=== PATIENT | female | born 1945 | race Caucasian/White ===

== ENCOUNTER → 2017-12-21 | Outpatient (CLI) | payer MEDICARE, BC ==
--- NOTE | 2017-12-27 09:08 | MM ---
Reason for exam: screening (asymptomatic). Last mammogram was performed 1 year and 8 months ago. History: Patient is postmenopausal. Physical Findings: A clinical breast exam by your physician is recommended on an annual basis and results should be correlated with mammographic findings. MG 3D Screening Mammo W/Cad Bilateral CC and MLO view(s) were taken. Prior study comparison: April 15, 2016, bilateral MG 3d screening mammo w/cad. April 09, 2015, left breast MG 3d work up w/cad LT. The breast tissue is heterogeneously dense. This may lower the sensitivity of mammography. No suspicious abnormality. No significant changes when compared with prior studies. ASSESSMENT: Negative, BI-RAD 1 RECOMMENDATION: Routine screening mammogram of both breasts in 1 year.
== END | disposition home or self-care (01) ==
LOC: RADMAMWWP 12:03
PROVIDERS: ATTEND Family Medicine
DX: Z12.31 Encounter for screening mammogram for malignant neoplasm of breast (principal)
CPT/HCPCS: 77063; 77067

== ENCOUNTER → 2018-01-27 | Outpatient (CLI) | payer MEDICARE, BC ==
--- NOTE | 2018-01-28 20:53 | MR ---
EXAMINATION TYPE: MR lumbar spine wo con DATE OF EXAM: 01/27/2018 COMPARISON: None HISTORY: 72-year-old female Low back pain TECHNIQUE: Multiplanar, multisequence images of the lumbar spine were acquired. FINDINGS: Vertebral body heights are preserved. However, there are advanced multilevel spondylotic changes. This results in grade 1 anterolisthesis a t T11-T12, T12-L1, and L4-L5. There is grade 1 retrolisthesis at L2-L3, L3-L4, and L5-S1. Sclerotic Modic type III endplate changes towards the left at L4-L5 and mixed Modic type II and type III endplate changes toward the left at L3-L4. The fatty Modic type II endplate change at T12-L1. No suspicious bone marrow replacement. Conus medullaris terminates at the appropriate level. Multilevel ligamentum flavum thickening and hypertrophic facet arthropathy is present. There is a component of mild congenital spinal canal narrowing with AP canal dimension of 1.2 cm. However, superimposed degenerative changes causing multilevel spinal canal stenosis. At T11-T12, grade 1 anterolisthesis with facet arthropathy, ligamentum flavum thickening, and bulging disc contributes to a mild to moderate spinal canal stenosis with abutment and slight flattening of both the dorsal and ventral cord. There is moderate bilateral neuroforaminal stenosis. At T12-L1, facet arthropathy with grade 1 anterolisthesis, ligamentum flavum thickening, and bulging disc contributes to moderate to severe spinal canal stenosis with flattening of the cord, cord volume loss, and increased cord signal at this level. Moderate left and mild to moderate right neuroforamin al stenosis. At L1-L2, ligamentum flavum thickening with hypertrophic facet arthropathy and diffuse bulging disc. This contributes to severe spinal canal stenosis near the level of the conus. No significant neural f oraminal stenosis. At L2-L3, there is facet arthropathy with ligamentum flavum thickening, bulging disc, and grade 1 ret rolisthesis. Changes result in moderate spinal canal stenosis with crowding of the cauda equina nerve roots. There is mild bilateral neural foraminal stenosis. At L3-L4, grade 1 retrolisthesis with hypertrophic facet arthropathy, ligamentum flavum thickening, a nd bulging disc. Changes are causing moderate to severe spinal canal stenosis with moderate left neur oforaminal stenosis. At L4-L5, there is grade 1 anterolisthesis with hypertrophic facet arthropathy, ligamentum flavum thi ckening, and bulging disc. Changes result in severe spinal canal stenosis with moderate left and mild right neural foraminal stenosis. At L5-S1, grade 1 retrolisthesis with facet arthropathy and disc osteophyte complex formation. Tiny p osterior annular fissure. Probable abutment of the traversing right S1 nerve root. No significant spi nal canal stenosis but there is moderate bilateral neural foraminal stenosis. No prevertebral or paravertebral soft tissue abnormality seen. IMPRESSION: 1. Advanced multilevel spondylotic change with grade 1 spondylolistheses from T11 through L1 and then from L2 through S1 levels. 2. Multilevel spinal canal stenoses, moderate to severe at T12-L1 with chronic compressive myelomalac ia of the cord at this level. 3. Severe spinal canal stenosis at L1-L2 near the level of the conus. Additional severe spinal canal stenosis at L4-L5, moderate to severe at L3-L4, and moderate at L2-L3. 4. Variable mild or moderate neuroforaminal stenoses as outlined above.
== END | disposition home or self-care (01) ==
LOC: RADMRIMAIN 11:45
PROVIDERS: ATTEND Family Medicine
DX: M48.061 Spinal stenosis, lumbar region without neurogenic claudication (principal); M48.05 Spinal stenosis, thoracolumbar region; M99.72 Connective tissue and disc stenosis of intervertebral foramina of thoracic region; M99.73 Connective tissue and disc stenosis of intervertebral foramina of lumbar region; M99.74 Connective tissue and disc stenosis of intervertebral foramina of sacral region; M43.15 Spondylolisthesis, thoracolumbar region; M43.17 Spondylolisthesis, lumbosacral region; M47.815 Spondylosis without myelopathy or radiculopathy, thoracolumbar region; M47.817 Spondylosis without myelopathy or radiculopathy, lumbosacral region; G95.89 Other specified diseases of spinal cord
CPT/HCPCS: 72148

== ENCOUNTER → 2018-06-30 | Outpatient (CLI) | payer MEDICARE, BC ==
[2018-06-30 09:22] LABS: Basophils # (A) 0.1 k/uL (0-0.2); Basophils % (A) 1 %; Eosinophils # (A) 0.2 k/uL (0-0.7); Eosinophils % (A) 2 %; HCT 42.3 % (34.0-46.0); HGB 13.2 gm/dL (11.4-16.0); Lymphocytes # (A) 1.6 k/uL (1.0-4.8); Lymphocytes % (A) 20 %; MCH 27.2 pg (25.0-35.0); MCHC 31.2 g/dL (31.0-37.0); Monocytes # (A) 0.4 k/uL (0-1.0); Monocytes % (A) 5 %; Neutrophils # (A) 5.4 k/uL (1.3-7.7); Neutrophils % (A) 68 %; Platelet Count 314 k/uL (150-450); RBC 4.86 m/uL (3.80-5.40); RDW 15.3 % (11.5-15.5); WBC 7.9 k/uL (3.8-10.6)
[2018-06-30 09:34] LABS: Calcium 10.4 mg/dL (8.4-10.2); Potassium 4.3 mmol/L (3.5-5.1)
[2018-06-30 09:35] LABS: INR 0.9 (<1.2); Partial Thromboplastin Time 28.9 sec (22.0-30.0); Prothrombin Time 9.8 sec (9.0-12.0)
--- NOTE | 2018-06-30 09:39 | XR ---
EXAMINATION TYPE: XR chest 2V DATE OF EXAM: 06/30/2018 COMPARISON: Prior chest x-ray for very 13 2013. HISTORY: Presurgical study. TECHNIQUE: Frontal and lateral views of the chest are obtained. FINDINGS: There is chronic parenchymal change without suspicious focal air space opacity, pleural ef fusion, or pneumothorax seen. The cardiac silhouette size is within normal limits. Surgical change c ervical spine is partially imaged. IMPRESSION: Chronic changes without acute pulmonary process. No significant change from prior.
[2018-06-30 10:02] LABS: Appearance,Urine Clear (Clear); Bacteria,Urine Rare /hpf; Bilirubin,Urine Negative (Negative); Blood,Urine Negative (Negative); Color,Urine Light Yellow; Glucose,Urine (UA) Negative (Negative); Ketones,Urine Negative (Negative); Leukocyte Esterase,Urine Moderate (Negative); Nitrite,Urine Negative (Negative); Protein,Urine Negative (Negative); RBC,Urine 1 /hpf (0-5); Specific Gravity,Urine 1.002 (1.001-1.035); Squamous Epithelial Cell,Urine 1 /hpf (0-4); Urobilinogen,Urine <2.0 mg/dL (<2.0); WBC,Urine 11 /hpf (0-5)
== END | disposition home or self-care (01) ==
LOC: LABPAT 08:41
PROVIDERS: ATTEND Orthopaedic Surgery Orthopaedic Surgery of the Spine
DX: Z01.818 Encounter for other preprocedural examination (principal); Z01.812 Encounter for preprocedural laboratory examination; R91.8 Other nonspecific abnormal finding of lung field; M43.16 Spondylolisthesis, lumbar region; Z79.01 Long term (current) use of anticoagulants
CPT/HCPCS: 36415; 71046; 80048; 81001; 85025; 85610; 85730; 93005

== ENCOUNTER → 2018-07-10 | Outpatient (CLI) | payer MEDICARE, BC ==
--- NOTE | 2018-07-10 14:08 | MR ---
EXAMINATION TYPE: MR thoracic spine wo con DATE OF EXAM: 07/10/2018 COMPARISON: MRI lumbar spine January 27, 2018 HISTORY: T12-L1 cord signal change low back pain TECHNIQUE: Multiplanar, multisequence imaging of thoracic spine is performed without contrast FINDINGS: Sagittal T2 counting sequence is suboptimal as does not include entire upper cervical spine . Coronal images show levoconvex scoliotic curvature centered in the upper to midthoracic spine. Aden esponding to prior MRI there is focus of increased T2 hyperintense signal centered near T12-L1 disc s pace with second focus posterior to the superior L1 vertebra. Remainder thoracic spinal cord shows no rmal caliber and signal. Vertebral body heights are fairly well-maintained. There is moderate multile maynor spurring and disc space narrowing. Multilevel posterior disc herniations effacing anterior thecal sac T3-T4 through the T6-T7 levels as well as T8-T9 through the T12-L1 levels. There is overall hete rogeneity of bone marrow signal intensity. There is hemangioma anteriorly at T2 level. There is strai ghtening of spine on sagittal images noted. Review of axial images confirms multilevel posterior disc herniations effacing anterior thecal sac, i n addition there is prominent uncovertebral facet degenerative change and ligamentum flavum hypertrop hy effacing posterior lateral thecal sac at T9-T10, T10-T11, T11-T12 levels bilaterally. No suspiciou s incidental finding in the thorax or upper abdomen is present. IMPRESSION: Focus of abnormal cord signal T12-L1 disc space and second focus superior L1 level redemo nstrated with slight generalized AP diameter narrowing suspicious for focal myelomalacia. No addition al T2 hyperintense focus in the thoracic spinal cord identified. Multilevel moderate to advanced dege nerative changes as detailed above are noted.
== END | disposition home or self-care (01) ==
LOC: RADMRIMAIN 12:47
PROVIDERS: ATTEND Orthopaedic Surgery Orthopaedic Surgery of the Spine
DX: M47.814 Spondylosis without myelopathy or radiculopathy, thoracic region (principal); R93.7 Abnormal findings on diagnostic imaging of other parts of musculoskeletal system; E03.8 Other specified hypothyroidism; I10 Essential (primary) hypertension; Z87.891 Personal history of nicotine dependence
CPT/HCPCS: 72146

== ENCOUNTER → 2018-07-17 | Outpatient (CLI) | payer MEDICARE, BC | END | disposition home or self-care (01) | LOC: LABPAT 14:45 | PROVIDERS: ATTEND Orthopaedic Surgery Orthopaedic Surgery of the Spine | DX: Z01.812 Encounter for preprocedural laboratory examination (principal); M43.16 Spondylolisthesis, lumbar region | CPT/HCPCS: 87070 ==

== ENCOUNTER 2018-07-25 05:57 | Inpatient (IN) | payer MEDICARE, BC ==
[~2018-07-25 05:57] MED LIST: BACITRACIN 50,000 UNIT, POLYMYXIN B 500,000 UNIT in SODIUM CHLORIDE 0.9% IRRIGATIO 1,00... IRRIGATION ONE; ceFAZolin IN SWFI 2 GM/20 ML SYRINGE IVP ONE
[2018-07-25] MEDS ORDERED: DEXAMETHASONE SOD PHOSPHATE 10 MG/ML 1 ML VIAL IV ONE (05:59)
[2018-07-25] MEDS ORDERED: MIDAZOLAM (PF) 2 MG/2 ML VIAL IV PRN (05:59)
[2018-07-25] MEDS ORDERED: LIDOCAINE 1% 20 ML VIAL (10MG/ML) FOR IV START INTRADERMA PRN (05:59)
[2018-07-25] MEDS ORDERED: SCOPOLAMINE 1.5MG/72HR PATCH TRANSDERM ONE (05:59)
[2018-07-25] MEDS ORDERED: ONDANSETRON 4 MG/2 ML VIAL IVP ONE (05:59)
[2018-07-25] MEDS: LACTATED RINGERS 1,000 ML IV SCH (06:39)
[2018-07-25] MEDS ORDERED: ePHEDrine SULFATE/0.9% NACL/PF 50 MG/5 ML SYRINGE IV ONE (07:27)
[2018-07-25] MEDS ORDERED: MIDAZOLAM 2 MG/2 ML VIAL ONE (07:27)
[2018-07-25] MEDS ORDERED: ROCURONIUM BROMIDE 10 MG/ML 10 ML VIAL IV ONE (07:27)
[2018-07-25] MEDS ORDERED: LIDOCAINE 1% INJ 10MG/ML (20 ML MDV) ONE (07:27)
[2018-07-25] MEDS ORDERED: SUCCINYLCHOLINE CHLORIDE 100 MG/5 ML SYR IV ONE (07:27)
[2018-07-25] MEDS ORDERED: GLYCOPYRROLATE 0.2 MG/ML 2 ML VIAL ONE (07:27)
[2018-07-25] MEDS ORDERED: PROPOFOL 10 MG/ML 20 ML VIAL IV ONE (07:27)
[2018-07-25] MEDS ORDERED: NEOSTIGMINE 1 MG/ML 10 ML VIAL ONE (07:27)
[2018-07-25] MEDS ORDERED: PHENYLEPHRINE-0.9% NACL SYG 1 MG/10 ML SYRINGE ONE (07:27)
[2018-07-25] MEDS ORDERED: HEPARIN SODIUM,PORCINE 10,000 UNIT/ML 1 ML VIAL ONE (07:27)
[2018-07-25] MEDS ORDERED: fentaNYL (PF) 50 MCG/ML 2 ML AMP ONE (07:27)
[2018-07-25] MEDS ORDERED: SODIUM CHLORIDE 0.9% IRRIG 1,000 ML BTL IRRIGATION ONE (07:27)
[2018-07-25] MEDS ORDERED: HYDROmorphone (PF) 1 MG/ML ONE (07:27)
[2018-07-25] MEDS ORDERED: LIDOCAINE 0.5%-EPI 1:200,000 50 ML VIAL SQ ONE (08:27)
[2018-07-25] MEDS ORDERED: LACTATED RINGERS 1,000 ML IV ONE ×5 (08:35→14:52)
--- NOTE | 2018-07-25 12:56 | XR ---
EXAM TYPE: LUMBAR SPINE X RAY SERIES COMPARISON: NONE HISTORY: Intraoperative image TECHNIQUE: One view submitted. FINDINGS: Single intraoperative images demonstrates surgical change. IMPRESSION: 1. Intraoperative image
--- NOTE | 2018-07-25 12:59 | FL ---
EXAMINATION TYPE: FL guidance operating room DATE OF EXAM: 07/25/2018 HISTORY: Flouroscopy time 1 minute and 41 seconds of fluoroscopy provided. IMPRESSION: 1. Fluoroscopy time.
[2018-07-25] MEDS ORDERED: BACITRACIN 50,000 UNIT, POLYMYXIN B 500,000 UNIT in SODIUM CHLORIDE 0.9% IRRIGATIO 1,00... IRRIGATION ONE (13:00)
[2018-07-25] MEDS ORDERED: BENZOCAINE/MENTHOL LOZENG 1 EACH LOZENGE MUCOUS MEM PRN (13:14)
[2018-07-25] MEDS ORDERED: HYDROcodone/APAP 5-325MG 1 EACH TAB PO PRN (13:14)
[2018-07-25] MEDS ORDERED: ONDANSETRON 4 MG/2 ML VIAL IVP PRN (13:14)
[2018-07-25] MEDS ORDERED: MAGNESIUM HYDROXIDE 2,400 MG/10 ML CUP PO PRN (13:14)
--- NOTE | 2018-07-25 13:30 | P.OP ---
Date of Procedure: 07/25/18 Preoperative Diagnosis: Severe spinal stenosis L3 4 L4 5 L5-S1, spondylolisthesis L3 4 L4 5 L5-S1, lower extremity weakness, lower extremity radiculopathy, degenerative disc disease, , degenerative scoliosis, facet arthrosis, severe spinal stenosis T12- L1, L2 1 L2, thoracic myelomalacia, thoracic cord myelopathy, Postoperative Diagnosis: Severe spinal stenosis L3 4 L4 5 L5-S1, spondylolisthesis L3 4 L4 5 L5-S1, lower extremity weakness, lower extremity radiculopathy, degenerative disc disease, , degenerative scoliosis, facet arthrosis, severe spinal stenosis T12- L1, L2 1 L2, thoracic myelomalacia, thoracic cord myelopathy, Anesthesia: GETA Pathology: none sent Condition: stable Disposition: PACU Description of Procedure: DESCRIPTION OF PROCEDURE(S): BRIEF OPERATIVE NOTE Preoperative Diagnosis: Severe spinal stenosis L3 4 L4 5 L5-S1, spondylolisthesis L3 4 L4 5 L5-S1, lower extremity weakness, lower extremity radiculopathy, degenerative disc disease, , degenerative scoliosis , facet arthrosis, severe spinal stenosis T12-L1, L1 L2, thoracic myelomalacia, thoracic cord myelopathy, Postoperative Diagnosis:S evere spinal stenosis L3 4 L4 5 L5-S1, spondylolisthesis L3 4 L4 5 L5-S1, lower extremity weakness, lower extremity radiculopathy, degenerative disc disease, , degenerative scoliosis , facet arthrosis, severe spinal stenosis T12-L1, L1 L2, thoracic myelomalacia, thoracic cord myelopathy, Procedure: Laminectomy and decompression L 34, L4 5, L5-S1 Through a separate incision we performed a laminectomy and decompression T12-L1 and L1-L2 Minimally invasive Posterior lateral decompression and facet fusion L3 4 L4 5 L5-S1 Minimally invasive Transforaminal lumbar interbody fusion for a 360 fusion L4 5 Discectomy for decompression L3 4 L4 5 L5-S1 Placement of interbody graft L4 5 Local autogenous bone grafting Harvesting of bone marrow aspirate via the pedicles of L3 Use of Cell Saver Use of bone graft extenders Surgeon: Dr. Gomez Cashier Credit: Nestor STOUT who is present throughout the entire the case persistence during positioning, dissection, exposure, visualization, and all crucial elements of the case as well as closure. Anesthesia: General anesthesia Estimated blood loss: Approximately 400 mL with some given back through Cell Saver Complications: None apparent Components implanted: K2M minimally invasive [place] pedicle screw system with use of 6.5 x 45 mm and 40 mm screws with 2 rods and a Porum interbody cage with 1 Osteo amp sponge and DBX bone fibers to supplement the local autogenous and bone marrow aspirate graft Disposition: To recovery room in good stable condition. OPERATIVE INDICATIONS The patient has had long-standing issues in their lower back and lower extremities. She has been having severe debility and significant pain causing her great trouble trying to ambulate mobilize or perform any activities. She does not have severe spinal stenosis L3 4 L4 5 L5-S1 with degenerative scoliosis and degenerative spondylolisthesis lower extremity radiculopathy and weakness. She was also found have spinal cord changes with myelopathy at T12- L1 and L1-L2 with severe stenosis at T12-L1 and L1-L2. The patient has been through conservative treatment. She is not having any prolonged benefit despite aggressive conservative treatment and prolonged conservative care. We discussed various treatment options including surgery, and the patient wishes to proceed with surgery We discussed the risk, patient's alternatives and benefits of surgery including but not limited to, risk of bleeding risk of infection, risk of need for further surgery, risk of decreased, loss of motion, muscle function, malunion nonunion, hardware failure, nerve damage, paralysis, heart attack, blindness and . OPERATIVE SUMMARY After discussing all the risks, patient alternatives and benefits at length, the patient elected to proceed with surgical intervention, signed informed consent, and presented for their procedure. The patient was seen and examined in the preoperative holding area and the surgical site was marked. The patient was given antibiotics and brought to the operating room. The patient was sedated and intubated by anesthesia in standard fashion. The patient was positioned on to the operating room table in a prone position on the appropriate frame which was well-padded and well molded. We were careful to pad any bony prominences and pressure points. We were careful to maintain the patient's cervical spine and good neutral alignment and position throughout. The patient was prepped and draped in a normal standard fashion. An appropriate timeout and keystone protocol performed. We were able to proceed with the surgery. The local wound area was infiltrated with local anesthetic. I was able utilize C-arm guidance to establish appropriate position over the pedicles bilaterally at the appropriate levels from L3 to S1. With the appropriate levels confirmed was able to make small stab incisions over the appropriate pedicle sites bilaterally. Utilizing C-arm in his house able to establish a Jamshidi needle over the lateral aspect of the pedicle and advanced the trocar into the pedicle being careful not to breech superiorly inferiorly medially or laterally. Position was confirmed regularly with AP and lateral images on C-arm. I was able to establish the trocar into the pedicle appropriately into the posterior aspect of the vertebral body bilaterally at the appropriate levels from L3 to S1. This was done at each of the pedicle positions and each of the vertebrae. I was able place the guidewire into the trocar and into the vertebral body appropriately under C-arm guidance. Dissection was taken down over the wire to the appropriate starting position for the screw placed. The appropriate length screw of 45 mm and 40 mm was chosen, threaded over the guidewire and screwed appropriately into the pedicle and vertebral body under C-arm guidance in excellent alignment and position with good bony purchase. This is done at each of the screw sites at the appropriate levels from L3 to S1 bilaterally. With the screws intact I extended the incision to connect the screw hole sites on the most symptomatic side on the left. I dissected down to establish access over the pars and lamina to the base of the spinous process. I was able to expose the facet joint. The capsule the facet was taken down and showed some facet arthrosis at the joint. I was able to use a combination of curettes and Kerrison rongeurs and a high-speed drill to take down the facet joint and do a facetectomy. Partial laminectomy was also performed. I was able get excellent foraminal decompression and central decompression with undermining across midline to perform a laminectomy centrally and contralaterally. As able get good central decompression. The ligamentum flavum was taken down to further decompress centrally and at bilateral neural foramen. I was able to expose the disc space and visualize the traversing nerve root. Note was made of some disc protrusion at the level causing further compression of the nerve root. I was able to establish a annulotomy at the appropriate level protecting soft tissue and neural structures. Note was made of some disc desiccation at the disc. I performed discectomy and remove any extruded fragments to perform further decompression. There was not significant space at L3 4 or at 51 to establish an interbody device and I chose to forego the interbody device, TLIF at those levels. I did perform a TLIF at L4 5. At L4 5 I performed a complete discectomy with accommodation of curettes and rasps and scrapers. I was able get good endplate preparation at the disc space. I sized for the appropriate size interbody spacer protecting the soft tissue and neural structures. The wound was copiously irrigated and suctioned dry. There is no evidence of any dural tear or leak. I was able to pack the disc space with local autogenous bone graft as well as a small amount of bone graft which was also placed into the interbody cage itself. Protecting the soft tissue structures and neural structures I was able place the interbody cage in good alignment and good position with good fit and fill at the interbody space of L4 5. His issues was confirmed with C-arm guidance. Good hemostasis maintained. There is no evidence of any dural tear or leak. The wound was irrigated and suctioned dry. With the hardware intact, intraoperative C-arm imaging was again taken which showed good alignment and position of the hardware at the appropriate levels from L3 to S1 with the interbody spacer at L4 5. We were then able to measure, contour and place the rods and appropriate hardware bilaterally. I was able to place capcrews, tighten them down, and torque them with the torque screwdriver appropriately. With this intact I was able to place the local autogenous bone graft with additional bone graft enhancer as necessary into the posterior lateral gutters over the decorticated transverse processes. The remainder of the bone graft was placed over the facet joint on the contralateral side after taking down the facet joint capsule. With the bone graft intact, a stable construct, and good decompression at the appropriate levels, we were able to proceed with closure. Good hemostasis was maintained. There is no evidence of dural tear or leak. The fascia was closed for a watertight closure. he subcuticular tissue was closed with absorbable suture. At this point I turned my attention to the decompression at T12-L1 and L1-L2. We confirmed the appropriate level with C-arm guidance at the interspace of T12- L1. I was able to establish a separate incision at the midline from T12 to L2. Dissection was taken down over the midline and over the lamina bilaterally from T12 to L2. I was able to expose the interlaminar spaces and the appropriate levels confirmed with C-arm guidance. I then performed a laminectomy decompression centrally and at the bilateral neural foramen using, patient of curettes and rongeurs Kerrison rongeurs and high-speed bur. There was severe thickening of ligamentum flavum causing severe central and bilateral foraminal stenosis. This was taken down as well during the decompression. This provided excellent central and bilateral foraminal decompression at both T12-L1 and L1-L2. There is no evidence of any dural tear or leak. Good hemostasis was maintained. We close the fascial layer with #1 Vicryl, the subcutaneous tissue 2-0 Vicryl and the subcuticular tissue was 4-0 Vicryl. The wounds were cleaned and dried and dressed with the appropriate dressing. The drapes were broken down. The patient was gently rolled back onto their hospital bed being careful to maintain their cervical spine and good neutral alignment and position. They were woken up by anesthesia, extubated, and brought to the recovery room in good stable condition. The patient will be admitted to the hospital for appropriate postoperative care , medical management and monitoring. We will continue to follow them closely about the postoperative course.
[2018-07-25] MEDS: HYDROmorphone 0.5 MG/0.5 ML SYRINGE IVP PRN ×4 (14:28→20:37)
[2018-07-25 15:58] VITALS: BMI 31.7
[2018-07-25] MEDS: ceFAZolin IN SWFI 2 GM/20 ML SYRINGE IVP SCH (17:09)
[2018-07-26] MEDS: HYDROcodone/APAP 5-325MG 1 EACH TAB PO PRN ×5 (00:36→19:34)
[2018-07-26] MEDS: ceFAZolin IN SWFI 2 GM/20 ML SYRINGE IVP SCH (00:36)
[2018-07-26] MEDS: SODIUM CHLORIDE 0.9% 1,000 ML IV SCH ×4 (03:05→15:27)
[2018-07-26] MEDS: HYDROmorphone 0.5 MG/0.5 ML SYRINGE IVP PRN ×3 (03:06→11:50)
[2018-07-26] MEDS: LEVOTHYROXINE 125 MCG TAB PO SCH (07:24)
[2018-07-26] MEDS: LACTATED RINGERS 1,000 ML IV SCH (08:37)
[2018-07-26] MEDS: BIOTIN 1000 MCG PO SCH (08:38)
[2018-07-26] MEDS: DHA PO SCH (08:38)
[2018-07-26] MEDS: EPA PO SCH (08:38)
[2018-07-26] MEDS: OMEGA PO SCH (08:38)
[2018-07-26] MEDS: FISH OIL PO SCH (08:38)
[2018-07-26] MEDS: SENNOSIDES-DOCUSATE SODIUM 1 EACH TAB PO SCH (08:49)
[2018-07-26] MEDS: CHOLECALCIFEROL 1,000 UNIT TAB PO SCH (08:49)
[2018-07-26] MEDS: CALCIUM CARB-VIT D 500MG-200UN 1 EACH TAB PO SCH (08:49)
[2018-07-26] MEDS: OXYBUTYNIN XL 5 MG TAB.ER.24 PO SCH (08:49)
[2018-07-26 08:51] LABS: Basophils % (A) 0 %; Eosinophils # (A) 0.1 k/uL (0-0.7); Eosinophils % (A) 1 %; HCT 30.7 % (34.0-46.0); Lymphocytes # (A) 0.9 k/uL (1.0-4.8); Lymphocytes % (A) 7 %; MCHC 31.9 g/dL (31.0-37.0); MCV 87.7 fL (80.0-100.0); Mean Platelet Volume 6.6; Monocytes # (A) 0.7 k/uL (0-1.0); Monocytes % (A) 6 %; Neutrophils # (A) 11.3 k/uL (1.3-7.7); Neutrophils % (A) 86 %; Platelet Count 295 k/uL (150-450); RDW 15.4 % (11.5-15.5); WBC 13.1 k/uL (3.8-10.6)
[2018-07-26] MEDS: MULTIVITAMINS, THERA 1 EACH TAB PO SCH (08:51)
[2018-07-26 09:01] LABS: HGB 9.8 gm/dL (11.4-16.0)
[2018-07-26 09:08] LABS: Calcium 8.6 mg/dL (8.4-10.2); Potassium 4.4 mmol/L (3.5-5.1)
--- NOTE | 2018-07-26 11:11 | P.PN ---
Progress Note - Text Progress Note Date: 07/26/18 Postoperative day #1 Patient is seen and examined today at bedside. The patient has some pain around the surgical site as expected. Pain is being controlled with medication. She is not complaining of any headaches. She says her legs are doing well. Physical Exam Afebrile with stable vital signs Abdomen is soft nontender. Chest has good excursion deep and space expiration The incision site is clean dry and intact. No erythema there is no purulence. Extremities have not had neurologic change from prior to surgery. Calves and thighs were soft nontender without evidence of DVT. Assessment/Plan Postoperative day #1 status post minimally invasive decompression and fusion L3 4 L4 5 L5-S1 for her severe spinal stenosis with spondylolisthesis and formal decompression laminectomy T12-L1 and L1-L2 for her severe spinal stenosis with myelomalacia and myelopathy Patient is progressing as expected from the surgery. Her surgery was quite extensive and she will require appropriate time for recovery and mobilization as she continues to heal and recovery. We will continue to increase the patient's mobilization with therapy. We will discontinue Sanchez. We will have case management evaluated her also for discharge planning possibly Monday or Monday. We will continue pain control with oral or IV medications. We'll continue to follow patient closely.
--- NOTE | 2018-07-26 13:39 | P.CONS ---
History of Present Illness - Reason for Consult Consult date: 07/26/18 Medical management - History of Present Illness This is a 73-year-old female patient of Dr. Hima tabor with past medical history of osteoarthritis, thyroid disorder, overactive bladder, chronic hearing loss in the right side. Patient has had chronic back pain with neuropathy has been ongoing for several years. She has undergone steroid injections without improvement in her last one was completed on 06/07/2018. She is now been admitted under the care of Dr. Gomez status post laminectomy and decompression L3 4, L4 5 and L5-S1 secondary to severe spinal stenosis, spondylolisthesis. Patient underwent procedure yesterday. She states she had significant pain through the night but it is somewhat better this morning. She denies any nausea or vomiting. She states she has chronic constipation issues. Blood pressure 109/63, pulse ox 97% on 2 L nasal cannula, afebrile with temperature max 99.2, heart rate running in the 90s. Hemoglobin is 9.8 down from 13.2 preoperatively, electrolytes normal, blood sugar 140. Patient denies history of diabetes. Sanchez catheter remains in place Review of Systems All systems: negative Constitutional: Denies anorexia, Denies chills, Denies fever, Denies lethargy, Denies poor appetite, Denies weight loss Eyes: denies blurred vision, denies pain Ears, nose, mouth and throat: Denies dysphagia, Denies headache, Denies sore throat, Denies vertigo Cardiovascular: Denies chest pain, Denies dyspnea on exertion, Denies edema, Denies leg edema, Denies lightheadedness, Denies shortness of breath, Denies syncope Respiratory: Denies cough, Denies cough with sputum, Denies dyspnea, Denies excessive sputum, Denies hemoptysis, Denies home oxygen, Denies wheezing Gastrointestinal: Denies abdominal pain, Denies diarrhea, Denies loss of appetite, Denies nausea, Denies vomiting Genitourinary: Denies dysuria, Denies hematuria Musculoskeletal: Reports leg numbness/tingling, Denies frequent falls, Denies muscle weakness, Denies myalgias Integumentary: Reports wounds, Denies pruritus, Denies rash Neurological: Denies aphasia, Denies change in mentation, Denies confusion, Denies gait dysfunction, Denies numbness, Denies seizures, Denies weakness Psychiatric: Denies anxiety, Denies depression Endocrine: Denies fatigue, Denies weight change Past Medical History Past Medical History: Osteoarthritis (OA), Thyroid Disorder Additional Past Medical History / Comment(s): HEARING LOSS RT EAR, MINOR. TINNITUS HWOARD. "WHITE COAT SYNDROME," R/T ELEV BLOOD PRESSURE AT DR APPT OCC. CHRONIC BACK PAIN, NT HOWARD LEGS/FEET; PAIN INJ W/ NO IMPROVEMENT, LAST 06/07/18. HOWARD SHOULDER PAIN W/ LIMITATIONS. OVERACTIVE BLADDER. History of Any Multi-Drug Resistant Organisms: None Reported Past Surgical History: Joint Replacement Additional Past Surgical History / Comment(s): RIGHT KNEE, CERVICAL FUSION, THYROID SURGERY, laminectomy and decompression L3 4, L4 5 and L5-S1 Past Anesthesia/Blood Transfusion Reactions: No Reported Reaction Additional Psychological History / Comment(s): CLAUSTROPHOBIA Smoking Status: Former smoker Past Alcohol Use History: Occasional Additional Past Alcohol Use History / Comment(s): SMOKED AGE 20, 1/2-1 PPD, QUIT 2001. No illicit drug use, no alcohol use. Patient was at home with her . No CPAP, no nebulizer at home. Past Drug Use History: None Reported - Past Family History Sister(s) Family Medical History: Cancer Additional Family Medical History / Comment(s): Patient had 1 sister that from uterine cancer. Father Additional Family Medical History / Comment(s): Father at age 47 from motor vehicle accident. Mother Additional Family Medical History / Comment(s): Mother in her 80s from heart failure and emphysema. Patient does not have any brothers. Patient has one son that had a brain tumor at age 7 but otherwise no major medical problems. Patient is one daughter with no major medical problems. Medications and Allergies Home Medications Medication Instructions Recorded Confirmed Type Biotin 1,000 mcg PO DAILY 07/02/18 07/25/18 History Sunny/D3/Mag11/Zinc/Scissors Grinder/Gil/Bor 2 each PO DAILY 07/02/18 07/25/18 History [Caltrate 600+D Plus Tablet] Multivit/Folic Acid/Vit K1 1 each PO DAILY 07/02/18 07/25/18 History [One-A-Day Women's 50 Plus Tab] Naproxen [Naprosyn] 250 mg PO BID PRN 07/02/18 07/25/18 History [place]-3/Dha/Epa/Fish Oil [Fish Oil 600 mg PO DAILY 07/02/18 07/25/18 History 500 mg Softgel] Vitamin D3 25 Mcg 25 mcg PO DAILY 07/02/18 07/25/18 History Levothyroxine Sodium [Synthroid] 125 mcg PO DAILY 07/25/18 07/25/18 History Tolterodine Tartrate [Detrol LA] 4 mg PO DAILY 07/25/18 07/25/18 History Allergies Allergy/AdvReac Type Severity Reaction Status Date / Time terbinafine HCl Allergy Mild Rash/Hives Verified 07/25/18 15:59 [From Lamisil] Physical Exam Vitals: Vital Signs Temp Pulse Pulse Resp BP Pulse Ox 07/26/18 07:00 99.2 F 106 H 16 109/63 97 07/25/18 23:25 98.9 F 98 17 115/69 99 07/25/18 19:25 98.1 F 94 18 127/71 97 07/25/18 17:45 98 120/68 97 07/25/18 17:28 95 107/65 96 07/25/18 17:13 99 126/70 94 L 07/25/18 16:58 98 117/73 94 L 07/25/18 16:43 93 104/67 94 L 07/25/18 16:29 92 131/62 94 L 07/25/18 16:13 96 117/68 97 07/25/18 15:58 91 131/72 93 L 07/25/18 15:43 98.2 F 91 130/63 92 L 07/25/18 15:23 91 16 130/61 97 07/25/18 15:08 92 18 132/63 98 07/25/18 14:53 91 18 134/56 97 07/25/18 14:38 84 18 138/61 95 07/25/18 14:32 98.2 F 94 17 130/63 93 L 07/25/18 14:23 81 18 136/64 95 07/25/18 14:09 87 18 138/66 96 07/25/18 13:54 80 18 142/62 97 07/25/18 13:39 97.6 F 82 22 147/80 98 Intake and Output 07/25/18 07/26/18 07/26/18 22:59 06:59 14:59 Intake Total 250 1500 720 Output Total 880 375 Balance -630 1500 345 Intake: IV 100 Intake, IV Titration 150 1500 Amount Sodium Chloride 0.9% 1, 150 1500 000 ml @ 75 mls/hr IV . [id number] [facility] Rx#:[id number] Oral 720 Output: Urine 880 375 Other: Voiding Method Indwelling Catheter Indwelling Catheter Gen: This is a 73-year-old female. She is sitting up in a recliner and appears to be comfortable. No acute distress is noted. HEENT: Head is atraumatic, normocephalic. Pupils equal, round. Sclerae is anicteric. NECK: Supple. No JVD. No lymphadenopathy. No thyromegaly. LUNGS: Clear to auscultation. No wheezes or rhonchi. No intercostal retractions. HEART: Regular rate and rhythm. No murmur. ABDOMEN: Soft. Bowel sounds are present. No masses. No tenderness. EXTREMITIES: No pedal edema. No calf tenderness. Back brace in place. NEUROLOGICAL: Patient is awake, alert and oriented x3. Cranial nerves 2 through 12 are grossly intact. Results CBC & Chem 7: 07/26/18 08:02 07/26/18 08:02 Labs: Abnormal Lab Results - Last 24 Hours (Table) 07/26/18 07/26/18 Range/Units 08:02 08:02 WBC 13.1 H (3.8-10.6) k/uL RBC 3.50 L (3.80-5.40) m/uL Hgb 9.8 L D (11.4-16.0) gm/dL Hct 30.7 L (34.0-46.0) % Neutrophils # 11.3 H (1.3-7.7) k/uL Lymphocytes # 0.9 L (1.0-4.8) k/uL Sodium 136 L (137-145) mmol/L Glucose 140 H (74-99) mg/dL Assessment and Plan Plan: 1. Spinal stenosis status post laminectomy and decompression L3 4, L4 5 and L5- S1 . Continue current management per orthopedic spine. PT and OT to start. Sanchez catheter to be removed. Continue current pain management. Incentive spirometry to reduce incidence of atelectasis and hospital-acquired pneumonia. 2. Hypothyroidism. Continue levothyroxine 125 g daily. 3. Overactive bladder. Continue oxybutynin daily. 4. DVT prophylaxis, SCDs and NADINE hose. 5. GI prophylaxis. Pepcid. Discharge plan: Home most likely with home care on Monday Impression and plan of care have been directed as dictated by the signing physician. Laura Jiménez nurse practitioner acting as scribe for signing physician.
[2018-07-27] MEDS: HYDROcodone/APAP 5-325MG 1 EACH TAB PO PRN ×4 (03:56→17:33)
[2018-07-27] MEDS: LACTATED RINGERS 1,000 ML IV SCH (04:59)
[2018-07-27] MEDS: LEVOTHYROXINE 125 MCG TAB PO SCH (06:06)
[2018-07-27] MEDS: BIOTIN 1000 MCG PO SCH (08:09)
[2018-07-27] MEDS: SODIUM CHLORIDE 0.9% 1,000 ML IV SCH (08:10)
[2018-07-27] MEDS: OMEGA PO SCH (08:10)
[2018-07-27] MEDS: EPA PO SCH (08:10)
[2018-07-27] MEDS: DHA PO SCH (08:10)
[2018-07-27] MEDS: FISH OIL PO SCH (08:10)
[2018-07-27] MEDS: CALCIUM CARB-VIT D 500MG-200UN 1 EACH TAB PO SCH (08:14)
[2018-07-27] MEDS: SENNOSIDES-DOCUSATE SODIUM 1 EACH TAB PO SCH (08:17)
[2018-07-27] MEDS: FAMOTIDINE 20 MG TAB PO SCH (08:17)
[2018-07-27] MEDS: OXYBUTYNIN XL 5 MG TAB.ER.24 PO SCH (08:17)
[2018-07-27] MEDS: MULTIVITAMINS, THERA 1 EACH TAB PO SCH (08:17)
[2018-07-27] MEDS: CHOLECALCIFEROL 1,000 UNIT TAB PO SCH (08:17)
--- NOTE | 2018-07-27 08:49 | P.PN ---
Progress Note - Text Progress Note Date: 07/27/18 Orthopedic Spine Patient is a pleasant 73-year-old female who is seen and examined at the bedside following minimally invasive L3-4, L4-5, and L5-S1 posterior lateral decompression and fusion and T12-L1 and L1-2 laminectomy and decompression performed Monday. She is currently sitting in a bedside chair with her LSO brace intact. She states her pain is been adequately controlled at rest. She does have some pain over the right anterior lateral thigh. She has had some difficulty with mobility but has been able to use a walker to ambulate to the restroom. She is eating and voiding without difficulty. She is planning to work with physical therapy today to increase her mobility and ambulation further. She does continue to have some back pain at the surgical sites, which is expected. She has no complaints of the bedside. Physical Exam Lumbar Fusion: Status post surgical day number 2 Patient is awake, alert, and oriented 3 Vital signs stable; patient is sitting comfortably in a bedside chair Good chest excursion with deep inspiration and expiration Abdomen soft nontender Dorsiflexion, plantarflexion, and extensor hallucis longus positive sustained bilaterally No signs or symptoms of DVT; no calf pain; pneumatic cuffs not currently intact bilateral lower extremities Dressing is dry and intact; no erythema, purulence, or signs of infection Telfa appears symmetrical with blood under the Tegaderm dressing without active drainage outside the dressing LSO brace intact Neurovascularly intact bilaterally lower extremities Assessment: Minimally Invasive L3-4, L4-5, and L5-S1 posterior lateral decompression and fusion L4-5 transforaminal lumbar interbody fusion T12-L1 and L1-2 laminectomy and decompression Low back pain Right lower extremity radiculopathy History of hypothyroidism, hypertension, and unsteady gait Plan: 1. Ambulate as tolerated; work with Physical Therapy to increase mobilization; encouraged to use a walker to aid in ambulation as needed 2. Continue pain control with IV and oral medications 3. Dressing to remain intact with Telfa and Tegaderm; dressing may be removed and changed to nonstick Telfa and Tegaderm after working with physical therapy this morning 4. Patient may continue to wear LSO brace for comfort and support of her spine as needed 5. Medical management can continue to manage patient for patient's other medical issues 6. We will continue to follow the patient closely; if she is able to have improvement over the weekend in terms of her pain control and mobility, with a plan for discharge home over the weekend most likely 07/29/2018 7. Patient can follow-up with Nestor Orta PA-C or Dr. Raffi Gomez at [facility] in 2-3 weeks following discharge
--- NOTE | 2018-07-27 14:17 | P.PN ---
Subjective Progress Note Date: 07/27/18 This is a 73-year-old female patient of Dr. Hima tabor with past medical history of osteoarthritis, thyroid disorder, overactive bladder, chronic hearing loss in the right side. Patient has had chronic back pain with neuropathy has been ongoing for several years. She has undergone steroid injections without improvement in her last one was completed on 06/07/2018. She is now been admitted under the care of Dr. Gomez status post laminectomy and decompression L3 4, L4 5 and L5-S1 secondary to severe spinal stenosis, spondylolisthesis. Patient underwent procedure yesterday. She states she had significant pain through the night but it is somewhat better this morning. She denies any nausea or vomiting. She states she has chronic constipation issues. Blood pressure 109/63, pulse ox 97% on 2 L nasal cannula, afebrile with temperature max 99.2, heart rate running in the 90s. Hemoglobin is 9.8 down from 13.2 preoperatively, electrolytes normal, blood sugar 140. Patient denies history of diabetes. Sanchez catheter remains in place 07/27: The patient has always to her back area. She is feeling a little bit better from yesterday. Pain is mostly controlled. She is wearing her LSO brace. She is having pain on the right thigh. She is tolerating diet without nausea or vomiting. No diarrhea. No chest pain. She has been afebrile, pulse 92, pulse ox 96% on 2 L, blood pressure 119/71. Patient is anticipating discharge on the weekend. Review of Systems Constitutional: Denies anorexia, Denies chills, Denies fever, Denies lethargy, Denies poor appetite, Denies weight loss Eyes: denies blurred vision, denies pain Ears, nose, mouth and throat: Denies dysphagia, Denies headache, Denies sore throat, Denies vertigo Cardiovascular: Denies chest pain, Denies dyspnea on exertion, Denies edema, Denies leg edema, Denies lightheadedness, Denies shortness of breath, Denies syncope Respiratory: Denies cough, Denies cough with sputum, Denies dyspnea, Denies excessive sputum, Denies hemoptysis, Denies home oxygen, Denies wheezing Gastrointestinal: Denies abdominal pain, Denies diarrhea, Denies loss of appetite, Denies nausea, Denies vomiting Genitourinary: Denies dysuria, Denies hematuria Musculoskeletal: Reports leg numbness/tingling, Denies frequent falls, Denies muscle weakness, reports thigh pain, back pain Integumentary: Reports wounds, Denies pruritus, Denies rash Neurological: Denies aphasia, Denies change in mentation, Denies confusion, Denies gait dysfunction, Denies numbness, Denies seizures, Denies weakness Psychiatric: Denies anxiety, Denies depression Endocrine: Denies fatigue, Denies weight change Objective - Vital Signs Vital signs: Vital Signs Temp 98.8 F 07/27/18 07:00 Pulse 92 07/27/18 07:00 Resp 16 07/27/18 07:00 BP 119/71 07/27/18 07:00 Pulse Ox 96 07/27/18 07:00 Intake & Output 07/26/18 07/27/18 07/27/18 18:59 06:59 18:59 Intake Total 1312 200 Output Total 1600 700 Balance -288 -700 200 Intake: Oral 1312 200 Output: Urine 1600 700 Uretheral (Sanchez) 1225 Other: Voiding Method Indwelling Catheter Bedside Commode # Voids 1 1 - Exam Gen: This is a 73-year-old female. She is sitting up in a recliner and appears to be comfortable. HEENT: Head is atraumatic, normocephalic. Pupils equal, round. Sclerae is anicteric. NECK: Supple. No JVD. No lymphadenopathy. No thyromegaly. LUNGS: Clear to auscultation. No wheezes or rhonchi. No intercostal retractions. HEART: Regular rate and rhythm. No murmur. ABDOMEN: Soft. Bowel sounds are present. No masses. No tenderness. EXTREMITIES: No pedal edema. No calf tenderness. Back brace in place. NEUROLOGICAL: Patient is awake, alert and oriented x3. Cranial nerves 2 through 12 are grossly intact. - Labs CBC & Chem 7: 07/26/18 08:02 07/26/18 08:02 Assessment and Plan Plan: 1. Spinal stenosis status post laminectomy and decompression L3 4, L4 5 and L5- S1 . Continue current management per orthopedic spine. PT and OT. Continue current pain management. Incentive spirometry to reduce incidence of atelectasis and hospital-acquired pneumonia. 2. Hypothyroidism. Continue levothyroxine 125 g daily. 3. Overactive bladder. Continue oxybutynin daily. 4. DVT prophylaxis, SCDs and NADINE hose. 5. GI prophylaxis. Pepcid. Discharge plan: Home most likely with home care on Monday Impression and plan of care have been directed as dictated by the signing physician. Laura Jiménez nurse practitioner acting as scribe for signing physician.
[2018-07-27] MEDS: HYDROmorphone 0.5 MG/0.5 ML SYRINGE IVP PRN (19:49)
[2018-07-28 01:00] VITALS: PULSE 89
[2018-07-28] MEDS: HYDROcodone/APAP 5-325MG 1 EACH TAB PO PRN ×3 (03:40→14:14)
[2018-07-28] MEDS: LEVOTHYROXINE 125 MCG TAB PO SCH (05:17)
[2018-07-28] MEDS: LACTATED RINGERS 1,000 ML IV SCH (08:13)
[2018-07-28] MEDS: SODIUM CHLORIDE 0.9% 1,000 ML IV SCH (08:14)
[2018-07-28] MEDS: OXYBUTYNIN XL 5 MG TAB.ER.24 PO SCH (08:19)
[2018-07-28] MEDS: CHOLECALCIFEROL 1,000 UNIT TAB PO SCH (08:19)
[2018-07-28] MEDS: SENNOSIDES-DOCUSATE SODIUM 1 EACH TAB PO SCH (08:19)
[2018-07-28] MEDS: FAMOTIDINE 20 MG TAB PO SCH (08:19)
[2018-07-28] MEDS: CALCIUM CARB-VIT D 500MG-200UN 1 EACH TAB PO SCH (08:20)
[2018-07-28] MEDS: MULTIVITAMINS, THERA 1 EACH TAB PO SCH (08:20)
[2018-07-28] MEDS: DHA PO SCH (08:27)
[2018-07-28] MEDS: FISH OIL PO SCH (08:27)
[2018-07-28] MEDS: OMEGA PO SCH (08:27)
[2018-07-28] MEDS: EPA PO SCH (08:27)
[2018-07-28] MEDS: BIOTIN 1000 MCG PO SCH (08:27)
[2018-07-28 09:01] VITALS: BP 143/77; RESP 18; TEMP 98.2
--- NOTE | 2018-07-28 10:08 | P.PN ---
Subjective Progress Note Date: 07/28/18 This is a 73-year-old female patient of Dr. Hima tabor with past medical history of osteoarthritis, thyroid disorder, overactive bladder, chronic hearing loss in the right side. Patient has had chronic back pain with neuropathy has been ongoing for several years. She has undergone steroid injections without improvement in her last one was completed on 06/07/2018. She is now been admitted under the care of Dr. Gomez status post laminectomy and decompression L3 4, L4 5 and L5-S1 secondary to severe spinal stenosis, spondylolisthesis. Patient underwent procedure yesterday. She states she had significant pain through the night but it is somewhat better this morning. She denies any nausea or vomiting. She states she has chronic constipation issues. Blood pressure 109/63, pulse ox 97% on 2 L nasal cannula, afebrile with temperature max 99.2, heart rate running in the 90s. Hemoglobin is 9.8 down from 13.2 preoperatively, electrolytes normal, blood sugar 140. Patient denies history of diabetes. Sanchez catheter remains in place 07/27: The patient has ice to her back area. She is feeling a little bit better from yesterday. Pain is mostly controlled. She is wearing her LSO brace. She is having pain on the right thigh. She is tolerating diet without nausea or vomiting. No diarrhea. No chest pain. She has been afebrile, pulse 92, pulse ox 96% on 2 L, blood pressure 119/71. Patient is anticipating discharge on the weekend. 07/28:patient has been afebrile, blood pressure 133/75, pulse 80s and 90s, pulse ox 97% on 2 L.patient continues to have acute pain to the surgical site area.he is currently on 2 [place] 5 every 4 hours. She has not received Dilaudid since last evening. She has been working with physical therapy and using a rolling walker. Patient states that today she was able to stand on her own which is the first time. She has been sleeping in the recliner because of bed is uncomfortable. She is having some numbness in her feet. Pain in her thigh has resolved. She is using her incentive spirometry. She states she has had decreased appetite and not eating very much. She has not had a bowel movement since admission but is on Senokot-S which will be increased to twice daily scheduled. In general she is feeling much better. Anticipate probable discharge Monday. Review of Systems Constitutional: Reports anorexia, Denies chills, Denies fever, Denies lethargy, Denies poor appetite, Denies weight loss Eyes: denies blurred vision, denies pain Ears, nose, mouth and throat: Denies dysphagia, Denies headache, Denies sore throat, Denies vertigo Cardiovascular: Denies chest pain, Denies dyspnea on exertion, Denies edema, Denies leg edema, Denies lightheadedness, Denies shortness of breath, Denies syncope Respiratory: Denies cough, Denies cough with sputum, Denies dyspnea, Denies excessive sputum, Denies hemoptysis, Denies home oxygen, Denies wheezing Gastrointestinal: Denies abdominal pain, Denies diarrhea, Denies loss of appetite, Denies nausea, Denies vomiting Genitourinary: Denies dysuria, Denies hematuria Musculoskeletal: Reports feet numbness/tingling, Denies frequent falls, Denies muscle weakness, denies thigh pain, reports back pain Integumentary: Reports wounds, Denies pruritus, Denies rash Neurological: Denies aphasia, Denies change in mentation, Denies confusion, Denies gait dysfunction, Denies numbness, Denies seizures, Denies weakness Psychiatric: Denies anxiety, Denies depression Endocrine: Denies fatigue, Denies weight change Objective - Vital Signs Vital signs: Vital Signs Temp 98.1 F 07/28/18 00:04 Pulse 89 07/28/18 00:04 Resp 16 07/28/18 00:04 BP 133/75 07/28/18 00:04 Pulse Ox 97 07/28/18 00:04 Intake & Output 07/27/18 07/28/18 07/28/18 18:59 06:59 18:59 Intake Total 440 788 Balance 440 788 Intake: Intake, IV Titration 788 Amount Sodium Chloride 0.9% 1, 788 000 ml @ 75 mls/hr IV . [id number] [id number] Rx#:[id number] Oral 440 Other: # Voids 1 - Exam Gen: This is a 73-year-old female. She is sitting up in a recliner and appears to be comfortable at rest. HEENT: Head is atraumatic, normocephalic. Pupils equal, round. Sclerae is anicteric. NECK: Supple. No JVD. No lymphadenopathy. No thyromegaly. LUNGS: Clear to auscultation. No wheezes or rhonchi. No intercostal retractions. HEART: Regular rate and rhythm. No murmur. ABDOMEN: Soft. Bowel sounds are present. No masses. No tenderness. EXTREMITIES: No pedal edema. No calf tenderness. Back brace in place. NEUROLOGICAL: Patient is awake, alert and oriented x3. Cranial nerves 2 through 12 are grossly intact. - Labs CBC & Chem 7: 07/26/18 08:02 07/26/18 08:02 Assessment and Plan Plan: 1. Spinal stenosis status post laminectomy and decompression L3 4, L4 5 and L5- S1 . Continue current management per orthopedic spine. PT and OT. Continue current pain management. Incentive spirometry to reduce incidence of atelectasis and hospital-acquired pneumonia. Increase activity. Senokot dosing increased. 2. Hypothyroidism. Continue levothyroxine 125 g daily. 3. Overactive bladder. Continue oxybutynin daily. 4. DVT prophylaxis, SCDs and NADINE hose. 5. GI prophylaxis. Pepcid. Discharge plan: Home most likely with home care on Monday Impression and plan of care have been directed as dictated by the signing physician. Laura Jiménez nurse practitioner acting as scribe for signing physician.
--- NOTE | 2018-07-28 11:15 | P.DS ---
Providers Date of admission: 07/25/18 05:57 Expected date of discharge: 07/28/18 Attending physician: El Gomez Consults: 07/25/18 13:19 Consult Physician Routine Consulting Provider: Devon Yañez Consult Reason/Comments: Medical management Do you want consulting provider notified?: Yes Primary care physician: Kellee Mclaughlin - Discharge Diagnosis(es) (1) Status post lumbar spinal fusion Current Visit: Yes Status: Acute (2) Spondylolisthesis, lumbar region Current Visit: Yes Status: Acute (3) Lower extremity weakness Current Visit: Yes Status: Acute (4) Lumbar back pain with radiculopathy affecting lower extremity Current Visit: Yes Status: Acute (5) Lumbar degenerative disc disease Current Visit: Yes Status: Acute (6) Degenerative scoliosis Current Visit: Yes Status: Acute (7) Thoracic stenosis Current Visit: Yes Status: Acute (8) Myelomalacia Current Visit: Yes Status: Acute (9) Myelopathy Current Visit: Yes Status: Acute (10) Lumbar spondylosis Current Visit: Yes Status: Acute (11) Lumbar stenosis Current Visit: Yes Status: Acute (12) S/P laminectomy Current Visit: Yes Status: Acute (13) History of hypertension Current Visit: Yes Status: Acute (14) History of hyperthyroidism Current Visit: Yes Status: Acute Hospital Course: This is a pleasant 73-year-old female who presented with L3-4, L4-5, and L5-S1 severe spinal canal stenosis and spondylolisthesis, lower extremity weakness, lower extremity radiculopathy, lumbar degenerative disc disease, degenerative scoliosis, lumbar facet arthrosis, T12-L1 and L1-2 severe spinal canal stenosis , thoracic myelomalacia, and thoracic cord myelopathy who failed outpatient conservative therapy. She was admitted for a minimally Invasive L3-4, L4-5, and L5-S1 posterior lateral decompression and fusion with L4-5 transforaminal lumbar interbody fusion and T12-L1 and L1-2 laminectomy and decompression. The patient tolerated the procedure well and did well postoperatively. She has been wearing LSO brace for comfort and support. She has been able to angle in the hallways. She feels she would increase her mobility further if she was discharged home. She feels stable enough for discharge home. Her back pain has been adequately controlled oral medications. She is not currently experiencing any significant lower extremity radiculopathy. She has had some constipation since her admittance. Her abdomen is soft is making gurgling sounds but she has not been able to have a bowel movement yet. She is currently receiving Senokot and milk of magnesia. We discussed she will be cleared for discharge today if she is able to have a bowel movement and if she is cleared by medicine. We discussed the patient is unable to have a bowel movement by 3:00 PM we will plan for a Dulcolax suppository. Condition on day of discharge stable. Patient will be discharged home. Patient was cleared preoperatively for surgery by Dr. Mclaughlin. Patient currently denies any nausea , vomiting, fever, or chills. Patient is eating and urinating freely without difficulty. We will plan to change her dressing prior to discharge home. Patient may shower Tegaderm dressing intact. Patient may remove Tegaderm dressing in 3 days and shower without a dressing at that time. Patient should keep Steri-Strips intact and allow them to fall off naturally. Patient should refrain from driving until at least after their first follow-up appointment in the office. Patient should avoid excessive bending, lifting, and twisting; no lifting greater than 10 pounds. Patient may continue wearing her LSO brace for comfort support during increase activities and ambulation. A prescription has been written for a 2 wheeled walker and provided to case management. Patient may uses 2-year-old walker to aid in ambulation as needed. Patient may resume previous he prescribed home medications while avoiding anti- inflammatories over the next 6 weeks postoperatively. MAPS has been reviewed today, 07/29/2007, with an Overall Overdose Risk Score of 0 as patient is in this is some but no prescriptions are found. An "Opiod Start Talking" Forn has been signed by the patient and myself in place in the patient's chart. A prescription has been written for Berclair 5 mg/325 mg 1-2 tabs every 4 hours as needed for pain, dispensed #84. Physical Exam on day of discharge: Patient is awake, alert, and oriented 3 Vital signs stable Good chest excursion with deep inspiration and expiration Abdomen soft nontender No signs or symptoms of DVT; no calf pain Extensor hallucis longus, plantarflexion, and dorsiflexion positive sustained bilateral lower extremities Patient is able to perform hip flexion and knee extension without difficulty bilaterally Incision is dry and intact with 2 small areas of light dried blood; no erythema , purulence, or signs of infection No significant pain on palpation of the surgical sites Tegaderm dressing and non-stick Telfa intact Procedures: Minimally Invasive L3-4, L4-5, and L5-S1 posterior lateral decompression and fusion with L4-5 transforaminal lumbar interbody fusion and T12-L1 and L1-2 laminectomy and decompression Patient Condition at Discharge: Stable Plan - Discharge Summary Discharge Rx Participant: Yes New Discharge Prescriptions: New Hydrocodone/Acetaminophen [Berclair 5-325] 1 - 2 each PO Q4HR PRN #84 tab PRN Reason: Pain No Action [place]-3/Dha/Epa/Fish Oil [Fish Oil 500 mg Softgel] 600 mg PO DAILY Multivit/Folic Acid/Vit K1 [One-A-Day Women's 50 Plus Tab] 1 each PO DAILY Sunny/D3/Mag11/Zinc/Retail Cashier Associate/Gil/Bor [Caltrate 600+D Plus Tablet] 2 each PO DAILY Naproxen [Naprosyn] 250 mg PO BID PRN PRN Reason: Pain Vitamin D3 25 Mcg 25 mcg PO DAILY Biotin 1,000 mcg PO DAILY Levothyroxine Sodium [Synthroid] 125 mcg PO DAILY Tolterodine Tartrate [Detrol LA] 4 mg PO DAILY Discharge Medication List Biotin 1,000 mcg PO DAILY 07/02/18 [History] Sunny/D3/Mag11/Zinc/Retail Cashier Associate/Gil/Bor [Caltrate 600+D Plus Tablet] 2 each PO DAILY 09/14 [History] Multivit/Folic Acid/Vit K1 [One-A-Day Women's 50 Plus Tab] 1 each PO DAILY 07/02 [History] Naproxen [Naprosyn] 250 mg PO BID PRN 07/02/18 [History] [place]-3/Dha/Epa/Fish Oil [Fish Oil 500 mg Softgel] 600 mg PO DAILY 07/02/18 [ History] Vitamin D3 25 Mcg 25 mcg PO DAILY 07/02/18 [History] Levothyroxine Sodium [Synthroid] 125 mcg PO DAILY 07/25/18 [History] Tolterodine Tartrate [Detrol LA] 4 mg PO DAILY 07/25/18 [History] Hydrocodone/Acetaminophen [Berclair 5-325] 1 - 2 each PO Q4HR PRN #84 tab 07/28/18 [Rx] Follow up Appointment(s)/Referral(s): Nestor Orta, LINNEA [PHYSICIAN TOUR NARRATOR] - 2 Weeks (Patient may follow-up with Nestor Orta PA-C or Dr. Raffi Gomez at [facility] in 2-3 weeks following discharge. ) Activity/Diet/Wound Care/Special Instructions: 1. Patient may shower with Tegaderm dressing intact. 2. Patient may remove Tegaderm dressing in 3 days and shower without a dressing at that time. 3. Patient should keep Steri-Strips intact and allow them to fall off naturally. 4. Patient should refrain from driving until at least after their first follow- up appointment in the office. 5. Patient should avoid excessive bending, twisting, and lifting; no lifting greater than 10 pounds 6. Wear LSO brace for comfort support during increased activities and ambulation as needed 7. Use field walker to aid in ambulation as needed 8. Take medications as prescribed 9. Do not soak in tub Discharge Disposition: HOME SELF-CARE
[2018-07-28] MEDS ORDERED: BISACODYL 10 MG SUPP RECTAL STA (14:05)
[2018-07-28] MEDS ORDERED: SENNOSIDES-DOCUSATE SODIUM 1 EACH TAB PO SCH (21:00)
== END 2018-07-28 16:34 | disposition home or self-care (01) | DRG 454 ==
LOC: 2ORMAIN 05:57 → 4SSUR 14:14
PROVIDERS: ADMIT Orthopaedic Surgery Orthopaedic Surgery of the Spine; ATTEND Orthopaedic Surgery Orthopaedic Surgery of the Spine
PROC: 0SG3071 Fusion of Lumbosacral Joint with Autologous Tissue Substitute, Posterior Approach, Posterior Column, Open Approach (ICD-10-PCS; 2018-07-25)
PROC: 0SG1071 Fusion of 2 or more Lumbar Vertebral Joints with Autologous Tissue Substitute, Posterior Approach, Posterior Column, Open Approach (ICD-10-PCS; 2018-07-25)
PROC: 01N80ZZ Release Thoracic Nerve, Open Approach (ICD-10-PCS; 2018-07-25)
PROC: 30233N0 Transfusion of Autologous Red Blood Cells into Peripheral Vein, Percutaneous Approach (ICD-10-PCS; 2018-07-25)
PROC: 0ST20ZZ Resection of Lumbar Vertebral Disc, Open Approach (ICD-10-PCS; 2018-07-25)
PROC: 0SG00AJ Fusion of Lumbar Vertebral Joint with Interbody Fusion Device, Posterior Approach, Anterior Column, Open Approach (ICD-10-PCS; principal; 2018-07-25 07:30)
DX: M51.16 Intervertebral disc disorders with radiculopathy, lumbar region (principal); M51.04 Intervertebral disc disorders with myelopathy, thoracic region; G95.89 Other specified diseases of spinal cord; G62.9 Polyneuropathy, unspecified; M48.05 Spinal stenosis, thoracolumbar region; M48.04 Spinal stenosis, thoracic region; M41.86 Other forms of scoliosis, lumbar region; N32.81 Overactive bladder; H91.91 Unspecified hearing loss, right ear; M19.90 Unspecified osteoarthritis, unspecified site; G89.29 Other chronic pain; K59.09 Other constipation; M43.16 Spondylolisthesis, lumbar region; H93.13 Tinnitus, bilateral; M51.17 Intervertebral disc disorders with radiculopathy, lumbosacral region; M47.26 Other spondylosis with radiculopathy, lumbar region; M48.07 Spinal stenosis, lumbosacral region; F40.240 Claustrophobia; E78.5 Hyperlipidemia, unspecified; I10 Essential (primary) hypertension; E89.0 Postprocedural hypothyroidism; Z79.890 Hormone replacement therapy; Z79.899 Other long term (current) drug therapy; Z87.891 Personal history of nicotine dependence; Z96.651 Presence of right artificial knee joint; Z98.1 Arthrodesis status; Z88.8 Allergy status to other drugs, medicaments and biological substances; Z80.49 Family history of malignant neoplasm of other genital organs; Z82.5 Family history of asthma and other chronic lower respiratory diseases; Z82.49 Family history of ischemic heart disease and other diseases of the circulatory system; Z83.3 Family history of diabetes mellitus
CPT/HCPCS: 72100; 80048; 85025; 86850; 86891; 86900; 86901

== ENCOUNTER → 2019-06-13 | Outpatient (CLI) | payer MEDICARE, BC ==
--- NOTE | 2019-06-17 09:03 | MM ---
Reason for exam: screening (asymptomatic). Last mammogram was performed 1 year and 6 months ago. History: Patient is postmenopausal. Physical Findings: A clinical breast exam by your physician is recommended on an annual basis and results should be correlated with mammographic findings. MG 3D Screening Mammo W/Cad Bilateral CC and MLO view(s) were taken. Prior study comparison: December 21, 2017, bilateral MG 3d screening mammo w/cad. April 15, 2016, bilateral MG 3d screening mammo w/cad. The breast tissue is extremely dense which could obscure a lesion on mammography. No significant changes when compared with prior studies. ASSESSMENT: Negative, BI-RAD 1 RECOMMENDATION: Routine screening mammogram of both breasts in 1 year.
== END | disposition home or self-care (01) ==
LOC: RADMAMWWP 12:18
PROVIDERS: ATTEND Family Medicine
DX: Z12.31 Encounter for screening mammogram for malignant neoplasm of breast (principal)
CPT/HCPCS: 77063; 77067

== ENCOUNTER 2020-03-12 09:03 | Day surgery (SDC) | payer MEDICARE, BC ==
[2020-03-09 15:45] VITALS: BMI 29.2
[~2020-03-12 09:03] MED LIST changes: -BACITRACIN 50,000 UNIT, POLYMYXIN B 500,000 UNIT in SODIUM CHLORIDE 0.9% IRRIGATIO 1,00... IRRIGATION ONE; +LACTATED RINGERS 1,000 ML IV SCH; -ceFAZolin IN SWFI 2 GM/20 ML SYRINGE IVP ONE
[2020-03-12 09:28] VITALS: RESP 16; TEMP 98.4
[2020-03-12 09:43] LABS: Glucose,Whole Blood 133 mg/dL (75-99)
[2020-03-12] MEDS ORDERED: PROPOFOL 10 MG/ML 20 ML VIAL IV ONE ×2 (10:24)
--- NOTE | 2020-03-12 10:45 | P.PCN ---
Date of Procedure: 03/12/20 Procedure(s) Performed: BRIEF HISTORY: Patient is a 74-year-old pleasant female scheduled for an elective colonoscopy as a part of evaluation of prior history of colon polyps. Last coloscopy was 5 years ago. PROCEDURE PERFORMED: Colonoscopy with snare polypectomy. PREOPERATIVE DIAGNOSIS: History of colon polyps. IV sedation per Anesthesia. PROCEDURE: After informed consent was obtained, the patient, was brought into the endoscopy unit. IV sedation was administered by Anesthesia under continuous monitoring. Digital rectal examination was normal. Initially the Olympus CF-160 flexible video colonoscope was then inserted in the rectum, gradually advanced into the cecum without any difficulty. Careful examination was performed as the scope was gradually being withdrawn. Ileocecal valve and the appendiceal orifice were visualized and appeared normal. Prep was excellent. Mucosa of the cecum, ascending colon, transverse colon, descending colon, sigmoid colon, and rectum appeared normal. There was a 5 mm polyp noted in the sigmoid colon that was removed by snare polypectomy. Retroflexion was performed in the rectum and no lesions were seen. The patient tolerated the procedure well. IMPRESSION: 5 mm sigmoidc colon; polyp status post snare polypectomy Rest of the colon appeared normal RECOMMENDATIONS: Findings of this examination were discussed with the patient as well as her family. She was advised to follow with the biopsy result. If the biopsy shows an adenoma she can have a repeat colonoscopy in 5 years.
[2020-03-12 11:14] VITALS: BP 123/56; PULSE 84
== END 2020-03-12 11:40 | disposition home or self-care (01) ==
LOC: ORWHC2ENDO 09:03
PROVIDERS: ATTEND Internal Medicine Gastroenterology
DX: Z12.11 Encounter for screening for malignant neoplasm of colon (principal); K63.5 Polyp of colon; E11.9 Type 2 diabetes mellitus without complications; I10 Essential (primary) hypertension; Z97.2 Presence of dental prosthetic device (complete) (partial); Z86.010 Personal history of colon polyps; Z79.84 Long term (current) use of oral hypoglycemic drugs; Z79.890 Hormone replacement therapy; Z79.899 Other long term (current) drug therapy; Z88.8 Allergy status to other drugs, medicaments and biological substances
CPT/HCPCS: 88305; 45385; J2704

== ENCOUNTER → 2020-11-10 | Outpatient (CLI) | payer MEDICARE, BC ==
--- NOTE | 2020-11-11 09:50 | BD ---
EXAMINATION TYPE: Axial Bone Density DATE OF EXAM: 11/10/2020 COMPARISON: 04.28.2016 CLINICAL HISTORY: 75 YR OLD FEMALE .....ICD-10 CODE: Z78.0 MENOPAUSAL STATE Height: 61.9 Weight: 177 FRAX RISK QUESTIONS: Secondary Osteoporosis: YES 3. Menopause before 45: YES RISK FACTORS HISTORY OF: Surgery to Spine LOWER BACK AND NECK FUSIONS Postmenopausal woman: YES, AT AGE 44 YRS OLD, NATURAL Lost more than 2 inches in height since high school: YES Hyperparathyroidism: NO Adrenal Insufficiency: NO MEDICATIONS: Thyroid Medications: YES SYNTHROID FOR ABOUT 50+ YRS Osteoporosis Medications: IN THE PAST ONLY Additional Medications: BP MEDS, METFORMIN, REFLUX, VIT D AND CALCIUM Additional History: HYPERTENSION, DIABETES, REFLUX, EXAM MEASUREMENTS: Bone mineral densitometry was performed using the [employer] System. SPINAL FUSIONS....SPINE NOT SCANNED Bone mineral density about the R hip (g/cm2): 0.784 Bone mineral density about the L hip (g/cm2): 0.761 T Score values are as follows: -----R Neck: -2.1 -----L Neck: -2.6 -----R Total: -1.8 -----L Total: -2.0 Bone mineral density has: Increased 3.2% since study of: 04.28.2016 FRAX%s: THERE IS A 15.9% CHANCE FOR A MAJOR OSTEOPOROTIC FX AND A 4.7% FOR HIP......PROBABILITY FOR FX IN 10 YRS TIME Bone mineral density about the L Wrist (g/cm2): 0.466 T Score values are as follows: -----Dist. R+U: -3.2 -----Prox. R+U: -2.0 -----Radius total: -3.3 Bone mineral density FIRST SCAN OF FOREARM....UNABLE TO USE SPINE IMPRESSION: Osteoporosis (T Score less than -2.5) at the femoral neck level in the right hip. There is increased fracture risk and therapy is usually indicated based on age. Re-Screen 1-2 years. NOTE: T-SCORE=SD OF THE YOUNG ADULT MEAN.
--- NOTE | 2020-11-12 08:36 | MM ---
Reason for exam: screening (asymptomatic). Last mammogram was performed 1 year and 5 months ago. History: Patient is postmenopausal. Physical Findings: A clinical breast exam by your physician is recommended on an annual basis and results should be correlated with mammographic findings. MG 3D Screening Mammo W/Cad Bilateral CC and MLO view(s) were taken. XCCL view(s) were taken of the right breast. Prior study comparison: June 13, 2019, bilateral MG 3d screening mammo w/cad. December 21, 2017, bilateral MG 3d screening mammo w/cad. The breast tissue is heterogeneously dense. This may lower the sensitivity of mammography. There are benign appearing round, linear calcifications bilaterally. There is no discrete abnormality. ASSESSMENT: Benign, BI-RAD 2 RECOMMENDATION: Routine screening mammogram of both breasts in 1 year.
== END | disposition home or self-care (01) ==
LOC: RADMAMWWP 13:16
PROVIDERS: ATTEND Family Medicine
DX: Z12.31 Encounter for screening mammogram for malignant neoplasm of breast (principal); Z13.820 Encounter for screening for osteoporosis; M81.0 Age-related osteoporosis without current pathological fracture; Z78.0 Asymptomatic menopausal state
CPT/HCPCS: 77063; 77067; 77080

== ENCOUNTER 2021-09-28 14:05 | Inpatient (IN) | payer MEDICARE, BC ==
[2021-09-28] MEDS ORDERED: Acetaminophen-Codeine 300-30mg TAB PO STA (15:21)
--- NOTE | 2021-09-28 15:51 | ED ---
Back Pain HPI <Gurdeep Guerra J - Last Filed: 09/28/21 23:14> - General Source: patient, family, RN notes reviewed Limitations: no limitations - History of Present Illness MD Complaint: back pain Onset/Timin -: week(s) Similar Symptoms Previously: Yes <Magnolia Kelly - Last Filed: 09/29/21 00:18> - General Chief Complaint: Back Pain/Injury Stated Complaint: Knee and Back Pain Time Seen by Provider: 09/28/21 15:15 - History of Present Illness Initial Comments: This is a 76-year-old female who presents to the emergency department for lower back pain and weakness. States that over the last week, she has had progressive pain and numbness in her lower back radiating to the bilateral legs. This has caused her to have weakness, and today her legs gave out on her when trying to stand up. When she fell, she landed on both knees. States that the right knee is significantly more painful, and she is worried that she might have caused a problem with her artificial knee. She does report saddle anesthesia. States that she has urinary incontinence on a regular basis, and is unsure if this has worsened. Denies any loss of bowel control. She had a lumbar fusion with Dr. Gomez due to severe spinal canal stenosis in 2019. States that her symptoms feel similar to how they were prior to surgery. She had a right knee arthroplasty approximately 6 years ago with a provider in Dr. Gomez's group, who she states is now retired and she cannot recall his name. (Magnolia Kelly) - Related Data Home Medications Medication Instructions Recorded Confirmed metFORMIN HCL [Glucophage] 1,000 mg PO BID 03/09/20 09/28/21 Biotin 1,000 Mcg 1,000 mcg PO DAILY 09/28/21 09/28/21 Calcium Carbonate/Vitamin D3 1 cap PO BID 09/28/21 09/28/21 [Calcium 600 mg-D3 10 Mcg (400 Iu)] Cyanocobalamin (Vitamin B-12) 1,000 mcg PO BID 09/28/21 09/28/21 [Vitamin B-12] Glucosamine Sulfate 2,000 mg PO DAILY 09/28/21 09/28/21 Levothyroxine Sodium 137 mcg PO DAILY 09/28/21 09/28/21 Mirabegron [Myrbetriq] 25 mg PO DAILY PRN 09/28/21 09/28/21 Multivitamin with Iron 1 tab PO DAILY 09/28/21 09/28/21 [Multivitamins with Iron] Ubidecarenone [Co Q-10] 100 mg PO DAILY 09/28/21 09/28/21 Valsartan/Hydrochlorothiazide 1 tab PO DAILY 09/28/21 09/28/21 [Valsartan-Hctz 160-25 mg Tab] Allergies Allergy/AdvReac Type Severity Reaction Status Date / Time terbinafine HCl Allergy Rash/Hives Verified 09/28/21 16:23 [From Lamisil] atorvastatin AdvReac Severe Weakness, Verified 09/28/21 16:23 nausea, vomiting pravastatin AdvReac Severe Weakness, Verified 09/28/21 16:23 nausea, vomiting lisinopril AdvReac Cough Verified 09/28/21 16:23 Review of Systems ROS Other: All systems not noted in ROS Statement are negative. <Gurdeep Guerra - Last Filed: 09/28/21 23:14> ROS Other: All systems not noted in ROS Statement are negative. Constitutional: Denies: fever, chills ENT: Denies: ear pain, throat pain Respiratory: Denies: cough, dyspnea Cardiovascular: Denies: chest pain, palpitations Endocrine: Denies: fatigue Gastrointestinal: Denies: abdominal pain, nausea, vomiting, diarrhea Genitourinary: Denies: urgency, dysuria Musculoskeletal: Reports: back pain, other (right knee pain) Skin: Denies: rash Neurological: Denies: headache <Magnolia Kelly - Last Filed: 09/29/21 00:18> ROS Statement: Those systems with pertinent positive or pertinent negative responses have been documented in the HPI. Past Medical History Past Medical History: Diabetes Mellitus, Hypertension, Osteoarthritis (OA), Thyroid Disorder Additional Past Medical History / Comment(s): HEARING LOSS RT EAR, MINOR. TINNITUS CHRONIC BACK PAIN, HOWARD SHOULDER PAIN W/ LIMITATIONS. OVERACTIVE BLADDER. History of Any Multi-Drug Resistant Organisms: None Reported Past Surgical History: Joint Replacement Additional Past Surgical History / Comment(s): TOTAL KNEE RIGHT KNEE, CERVICAL FUSION, THYROID SURGERY, laminectomy and decompression L3 4, L4 5 and L5-S1 Past Anesthesia/Blood Transfusion Reactions: No Reported Reaction Past Psychological History: No Psychological Hx Reported Smoking Status: Former smoker Past Alcohol Use History: None Reported Past Drug Use History: None Reported - Past Family History Sister(s) Family Medical History: Cancer Additional Family Medical History / Comment(s): Patient had 1 sister that from uterine cancer. Father Additional Family Medical History / Comment(s): Father at age 47 from motor vehicle accident. Mother Additional Family Medical History / Comment(s): Mother in her 80s from heart failure and emphysema. Patient does not have any brothers. Patient has one son that had a brain tumor at age 7 but otherwise no major medical problems. Patient is one daughter with no major medical problems. <Magnolia Kelly - Last Filed: 09/29/21 00:18> General Exam Limitations: no limitations General appearance: alert, in no apparent distress Head exam: Present: atraumatic, normocephalic, normal inspection Respiratory exam: Present: normal lung sounds bilaterally. Absent: respiratory distress, wheezes, rales, rhonchi, stridor Cardiovascular Exam: Present: regular rate, normal rhythm, normal heart sounds. Absent: systolic murmur, diastolic murmur, rubs, gallop, clicks Extremities exam: Present: other (Ecchymosis and swelling of the right knee. There is mild tenderness. Patient has very limited active range of motion secondary to pain and weakness.) Back exam: Present: normal inspection, tenderness (Across the lumbar spine bilaterally and centrally.) Neurological exam: Present: alert, oriented X3, CN II-XII intact Psychiatric exam: Present: normal affect, normal mood Skin exam: Present: abrasion (Center of the right patella, no active bleeding.) <Magnolia Kelly - Last Filed: 09/29/21 00:18> Course Vital Signs 09/28/21 09/28/21 09/28/21 14:49 18:45 19:12 Temperature 99.0 F Pulse Rate 110 H 94 75 Respiratory 20 20 Rate Blood Pressure 162/97 76/45 111/48 O2 Sat by Pulse 95 90 L 95 Oximetry 09/28/21 21:45 Temperature Pulse Rate 87 Respiratory 18 Rate Blood Pressure 132/86 O2 Sat by Pulse 98 Oximetry Medical Decision Making - Lab Data Result diagrams: 09/28/21 15:52 09/28/21 15:52 <Gurdeep Guerra - Last Filed: 09/28/21 23:14> - Lab Data Result diagrams: 09/28/21 15:52 09/28/21 15:52 - Radiology Data Radiology results: report reviewed, image reviewed <Magnolia Kelly - Last Filed: 09/29/21 00:18> - Medical Decision Making Patient was seen and examined. While being evaluated for her knee injury, she d eveloped an episode where she apparently felt short of breath and developed some nausea and diaphoresis. She had an EKG done which shows a normal sinus rhythm. There is no acute ST-T wave changes identified. There is no ST elevation. The AR intervals 149, QRS duration is 84, and the QTC intervals 416. She was hydrated and received medications and is feeling improved on recheck. Exact cause of this incident is not definitively determined but she is feeling much improved. She will be admitted for her extremity trauma and further monitoring. Case is discussed with the PA and I agree with findings as documented. (Gurdeep Guerra) This is a 76-year-old female who presents to the emergency department for lower back pain and bilateral lower extremity weakness. Computed tomography scan of the lumbar spine and sacrum consistent with severe degenerative changes. X-ray of the right knee was suspicious for a right femur fracture. Computed tomography scan of the right knee obtained, this revealed acute periprosthetic fracture of the right distal medial femoral condyle with 2 mm displacement. In the process of her workup, she developed shortness of breath, nausea, chest pain, and diaphoresis. She had an EKG done revealing normal sinus rhythm and no STT waves. 1 L fluid bolus administered. Patient's symptoms improved substantially upon reevaluation. This may have been a vagal response to pain. I spoke with Dr. Talley regarding the femur fracture, he advised she be placed in a knee immobilizer and he will evaluate her in the hospital tomorrow. (Magnolia Kelly) - Lab Data Lab Results 09/28/21 09/28/21 09/28/21 Range/Units 15:52 15:52 19:11 WBC 10.8 H (3.8-10.6) k/uL RBC 3.94 (3.80-5.40) m/uL Hgb 11.4 (11.4-16.0) gm/dL Hct 35.4 (34.0-46.0) % MCV 89.9 (80.0-100.0) fL MCH 29.0 (25.0-35.0) pg MCHC 32.2 (31.0-37.0) g/dL RDW 15.2 (11.5-15.5) % Plt Count 385 (150-450) k/uL MPV 7.1 Neutrophils % 80 % Lymphocytes % 10 % Monocytes % 5 % Eosinophils % 2 % Basophils % 1 % Neutrophils # 8.6 H (1.3-7.7) k/uL Lymphocytes # 1.0 (1.0-4.8) k/uL Monocytes # 0.5 (0-1.0) k/uL Eosinophils # 0.2 (0-0.7) k/uL Basophils # 0.1 (0-0.2) k/uL PT (9.0-12.0) sec INR (<1.2) APTT (22.0-30.0) sec D-Dimer (<0.60) mg/L FEU Sodium 136 L (137-145) mmol/L Potassium 4.1 (3.5-5.1) mmol/L Chloride 101 (98-107) mmol/L Carbon Dioxide 26 (22-30) mmol/L Anion Gap 9 mmol/L BUN 16 (7-17) mg/dL Creatinine 1.10 H (0.52-1.04) mg/dL Est GFR (CKD-EPI)AfAm 57 (>60 ml/min/1.73 sqM) Est GFR (CKD-EPI)NonAf 50 (>60 ml/min/1.73 sqM) Glucose 139 H (74-99) mg/dL Calcium 9.4 (8.4-10.2) mg/dL Total Bilirubin 0.3 (0.2-1.3) mg/dL AST 28 (14-36) U/L ALT 21 (4-34) U/L Alkaline Phosphatase 109 (38-126) U/L Troponin I <0.012 (0.000-0.034) ng/mL NT-Pro-B Natriuret Pep pg/mL Total Protein 8.4 H (6.3-8.2) g/dL Albumin 4.2 (3.5-5.0) g/dL 05/03/22 05/03/22 Range/Units 19:11 19:11 WBC (3.8-10.6) k/uL RBC (3.80-5.40) m/uL Hgb (11.4-16.0) gm/dL Hct (34.0-46.0) % MCV (80.0-100.0) fL MCH (25.0-35.0) pg MCHC (31.0-37.0) g/dL RDW (11.5-15.5) % Plt Count (150-450) k/uL MPV Neutrophils % % Lymphocytes % % Monocytes % % Eosinophils % % Basophils % % Neutrophils # (1.3-7.7) k/uL Lymphocytes # (1.0-4.8) k/uL Monocytes # (0-1.0) k/uL Eosinophils # (0-0.7) k/uL Basophils # (0-0.2) k/uL PT 10.3 (9.0-12.0) sec INR 0.9 (<1.2) APTT 23.8 (22.0-30.0) sec D-Dimer 3.54 H (<0.60) mg/L FEU Sodium (137-145) mmol/L Potassium (3.5-5.1) mmol/L Chloride (98-107) mmol/L Carbon Dioxide (22-30) mmol/L Anion Gap mmol/L BUN (7-17) mg/dL Creatinine (0.52-1.04) mg/dL Est GFR (CKD-EPI)AfAm (>60 ml/min/1.73 sqM) Est GFR (CKD-EPI)NonAf (>60 ml/min/1.73 sqM) Glucose (74-99) mg/dL Calcium (8.4-10.2) mg/dL Total Bilirubin (0.2-1.3) mg/dL AST (14-36) U/L ALT (4-34) U/L Alkaline Phosphatase (38-126) U/L Troponin I (0.000-0.034) ng/mL NT-Pro-B Natriuret Pep 53 pg/mL Total Protein (6.3-8.2) g/dL Albumin (3.5-5.0) g/dL Disposition <Gurdeep Guerra - Last Filed: 09/28/21 23:14> <Magnolia Kelly - Last Filed: 09/29/21 00:18> Clinical Impression: Fracture of condyle of right femur Disposition: ADMITTED IP TO THIS HOSP
[2021-09-28 15:56] LABS: Basophils # (A) 0.1 k/uL (0-0.2); Basophils % (A) 1 %; Eosinophils # (A) 0.2 k/uL (0-0.7); Eosinophils % (A) 2 %; HCT 35.4 % (34.0-46.0); HGB 11.4 gm/dL (11.4-16.0); Lymphocytes % (A) 10 %; MCHC 32.2 g/dL (31.0-37.0); MCV 89.9 fL (80.0-100.0); Mean Platelet Volume 7.1; Monocytes # (A) 0.5 k/uL (0-1.0); Monocytes % (A) 5 %; Neutrophils # (A) 8.6 k/uL (1.3-7.7); Neutrophils % (A) 80 %; Platelet Count 385 k/uL (150-450); RBC 3.94 m/uL (3.80-5.40); RDW 15.2 % (11.5-15.5); WBC 10.8 k/uL (3.8-10.6)
[2021-09-28 16:09] LABS: Albumin 4.2 g/dL (3.5-5.0); Calcium 9.4 mg/dL (8.4-10.2); Potassium 4.1 mmol/L (3.5-5.1); Total Bilirubin 0.3 mg/dL (0.2-1.3); Total Protein 8.4 g/dL (6.3-8.2)
--- NOTE | 2021-09-28 16:22 | CT ---
EXAMINATION TYPE: CT sacrum wo con DATE OF EXAM: 09/28/2021 COMPARISON: None HISTORY: Bilateral leg weakness and low back pain. CT DLP: 1776.8 mGycm Automated exposure control for dose reduction was used. FINDINGS: Postsurgical changes involving the lower lumbar spine result in severe artifact. This obscures the sendy ny detail spinal canal. There appears to be a posterior spondylosis at L5-S1 with probable canal sten osis however artifact and resolution results in nondiagnostic exam. Recommend MRI as clinically warra nted. The visualized sacrum is intact. Arthropathy of the SI joints noted. Mild prominence of the left ovar y and uterus correlate clinically. Vascular calcifications noted. No pathologic adenopathy visualized . Multiple small shotty lymph nodes are seen. IMPRESSION: 1. Limited exam due to postsurgical changes involving the lower lumbar spine. There is a. Bilateral S I joint arthropathy with no acute fracture. Suspicion for canal stenosis at L5-S1 but artifact result s in a markedly limited exam. Correlate with MRI as clinically warranted given the limitation of this exam. 2. Prominent uterus and left ovary for patient's demographic correlate with pelvic ultrasound.
--- NOTE | 2021-09-28 16:28 | XR ---
EXAMINATION TYPE: XR knee complete RT DATE OF EXAM: 09/28/2021 COMPARISON: To 1114 HISTORY: Pain TECHNIQUE: Three views are submitted. FINDINGS: Postsurgical changes. Diffuse osteopenia. Soft tissue ossification anterior to the joint space. On the AP view there is a slight cortical step off of the medial distal femur. IMPRESSION: 1. Recommend CT scan right knee to assess possible fracture along the distal diaphysis of the medial femur..
--- NOTE | 2021-09-28 16:59 | CT ---
EXAMINATION TYPE: CT lumbar spine wo con CT DLP: 1776.8 mGycm, Automated exposure control for dose reduction was used. DATE OF EXAM: 09/28/2021 4:12 PM COMPARISON: None. CLINICAL INDICATION:Female, 76 years old with history of lower back pain and lower extremity weakness . TECHNIQUE: Multiple axial images were obtained from the midportion of T11 through the sacroiliac heena nts. Soft tissue and bone windows in coronal and sagittal planes were obtained and reviewed. FINDINGS: Alignment: There are 5 lumbar type vertebral bodies. Grade 1 anterolisthesis of L4 and L5 without par s interarticularis defects. There is straightening of the the visualized spine. Bone: No evidence of fracture is identified. Fixation hardware at L3, L4, L5 and S1 with bilateral p edicle screws. Hardware appears intact. Discectomy changes at L4-L5. Slight Discs: T10-T11: Degeneration changes with osteophyte formation and facet joint arthropathy result in mild to moderate spinal canal stenosis and severe bilateral neural foraminal stenosis. T11-T12: Degeneration changes with osteophyte formation and facet joint arthropathy result in at leas t moderate spinal canal stenosis and moderate to severe bilateral neural foraminal stenosis. T12-L1: Degeneration changes with osteophyte formation and facet joint arthropathy result in at least moderate spinal canal stenosis and moderate right and severe left neural foraminal stenosis. L1-L2: Degeneration changes with osteophyte formation and facet joint arthropathy result in severe sp inal canal stenosis and severe left and moderate right neural foraminal stenosis. L2-L3: Degeneration changes with osteophyte formation and facet joint arthropathy result in severe sp inal canal stenosis and moderate to severe bilateral neural foraminal stenosis. L3-L4: Degeneration changes with osteophyte formation and facet joint arthropathy result in mild spin al canal stenosis and moderate right and mild left neural foraminal stenosis. L4-L5: Suboptimally visualized secondary to streak artifact. No gross spinal canal stenosis. Facet j oint arthropathy result in mild to moderate bilateral neural foraminal stenosis. L5-S1: No significant spinal canal. Facet joint arthropathy result in moderate bilateral neural kristi inal stenosis. Other: Atherosclerosis of the arterial vasculature. IMPRESSION: 1. Multilevel disc degeneration changes throughout the spine with multilevel spinal canal stenosis. Spinal canal stenosis worse at T11-T12, L1-L2 and L2-L3 with at least severe spinal canal stenosis. 2. Neural foraminal stenosis worse extending along the visualized lower thoracic spine from T10-11, T11-T12 and T12-L1 but also involving left L2-L3 bilaterally with at least moderate to severe stenosi s. 3. Postsurgical changes with hardware intact. No evidence of fracture.
--- NOTE | 2021-09-28 18:50 | CT ---
EXAMINATION TYPE: CT knee RT wo con CT DLP: 438.9 mGycm, Automated exposure control for dose reduction was used. DATE OF EXAM: 09/28/2021 5:48 PM COMPARISON: Extremity radiograph same day. CLINICAL INDICATION:Female, 76 years old with history of Knee pain, limited ambulation, abnormal XR; , R Knee pain, limited ambulation, abnormal XR TECHNIQUE: Axial images were obtained of the right knee without the use of IV contrast. Additional c oronal and sagittal reformatted images and soft tissue and bone window were obtained for review. 3-D reconstruction was created on a separate workstation. FINDINGS: Total knee arthroplasty changes are present. There is an acute fracture through the right d istal medial femoral condyle 2 mm displacement. No additional fractures are identified. Evaluation is slightly limited given streak artifact from the hardware. Tibia is intact. Fibula is intact. IMPRESSION: Acute periprosthetic fracture of the right distal medial femoral condyle with 2 mm displacement.
[2021-09-28] MEDS ORDERED: SODIUM CHLORIDE 0.9% 1,000 ML IV STA (18:57)
[2021-09-28 20:00] LABS: INR 0.9 (<1.2); Partial Thromboplastin Time 23.8 sec (22.0-30.0); Prothrombin Time 10.3 sec (9.0-12.0)
--- NOTE | 2021-09-28 20:20 | CT ---
EXAMINATION TYPE: CT chest angio for PE CT DLP: 531 mGycm, Automated exposure control for dose reduction was used. DATE OF EXAM: 09/28/2021 7:32 PM COMPARISON: None CLINICAL INDICATION:Female, 76 years old with history of chest pain, SOB; TECHNIQUE/CONTRAST: CTA scan of the thorax is performed with IV Contrast, patient injected with 71cc mL of Isovue 370, pu lmonary embolism protocol. MIP images are created and reviewed. FINDINGS: Pulmonary Artery: There is no evidence for a filling defect within the pulmonary vasculature to sugge st acute pulmonary embolism. The pulmonary artery is of normal size. Lungs/Pleura: No evidence of focal consolidation, pleural effusion or pneumothorax. Scattered streaky atelectasis seen within the lung bases and along the spine. Airway: Large airways are patent. Heart: Within normal limits for size.. Vasculature: No evidence of aortic aneurysm. Mediastinum: No gross evidence of adenopathy. Musculoskeletal: No acute osseous abnormalities. Severe degenerative changes of the glenohumeral join ts right greater than left. Partially visualized fixation hardware in the lower cervical spine. Sever e degeneration changes with straightening of the visualized spine. Soft Tissues: Unremarkable. Lower neck: No significant findings. Upper Abdomen: Diffuse low attenuation liver parenchyma. IMPRESSION: 1. No evidence of pulmonary embolism. 2. Hepatic steatosis. 3. Moderate to severe degenerative disc disease changes of the spine with multilevel spinal canal nichole nosis. 4. Severe endstage bilateral glenohumeral osteoarthrosis changes.
[2021-09-28] MEDS ORDERED: NALOXONE 0.4 MG/ML 1 ML VIAL IV PRN (21:23)
[2021-09-28] MEDS ORDERED: oxyCODONE-APAP 5-325MG 1 EACH TAB PO PRN (21:23)
[2021-09-28] MEDS ORDERED: ACETAMINOPHEN TAB 325 MG TAB PO PRN (21:23)
[2021-09-28] MEDS ORDERED: ONDANSETRON 4 MG/2 ML VIAL IVP PRN (21:23)
[2021-09-29] MEDS: HYDROcodone/APAP 5-325MG 1 EACH TAB PO PRN ×4 (00:20→19:41)
[2021-09-29] MEDS ORDERED: NON FORMULARY DRUG (Mirabegron [Myrbetriq] 25 MG Tab.Er.24h) PO PRN (05:57)
[2021-09-29 07:30] LABS: Glucose,Whole Blood 143 mg/dL (75-99)
[2021-09-29] MEDS: LEVOTHYROXINE 137 MCG TAB PO SCH (07:31)
[2021-09-29] MEDS: CALCIUM CARB-VIT D 500 MG-5 MCG TAB PO SCH ×2 (08:29→21:02)
[2021-09-29] MEDS: MULTIVITAMINS, THERA 1 EACH TAB PO SCH (08:30)
[2021-09-29] MEDS: VALSARTAN 160 MG TAB PO SCH (08:30)
[2021-09-29] MEDS: CYANOCOBALAMIN 500 MCG TAB PO SCH ×2 (08:30→21:02)
[2021-09-29] MEDS: hydroCHLOROthiazide 25 MG TAB PO SCH (08:30)
[2021-09-29] MEDS: metFORMIN 500 MG TAB PO SCH ×2 (08:32→21:02)
[2021-09-29] MEDS ORDERED: NON FORMULARY DRUG (Ubidecarenone [Co Q-10] 100 MG Capsule) PO SCH (09:00)
[2021-09-29] MEDS ORDERED: BIOTIN 1000 MCG PO SCH (09:00)
--- NOTE | 2021-09-29 10:33 | P.HPIM ---
History of Present Illness H&P Date: 09/29/21 HISTORY OF PRESENT ILLNESS This is a 76-year-old female patient of Dr. Mclaughlin with past medical history of osteoarthritis, thyroid disorder, diabetes mellitus type 2, hypertension, overactive bladder, chronic hearing loss in the right side. Patient has had chronic back pain with neuropathy has been ongoing for many years. She is status post steroid injections and laminectomy and decompression L3 4, L4 5 and L5-S1 secondary to severe spinal stenosis, spondylolisthesis in 2019. Other surgical history includes cervical spine surgery by Dr. Maciel and right total knee arthroplasty in [address] Howell. Patient complains of electric shock sensation in the lower back area as well as weakness and numbness in her legs. She bent over to roller picker her cane and her legs gave out and she fell onto her knees. Patient came into [facility] emergency center for evaluation. She was afebrile, HR 110, BP 162/97, PO 95%. EKG sinus rhythm with no acute ST changes. T-wave inversion in aVR and V1. WBC 10.8, hemoglobin 11.4, platelet count 385. Sodium 136, potassium 4.1, chloride 101, CO2 26, BUN 16 creatinine 1.1, blood sugar 139. Troponin negative on one drop. CTA chest was negative for PE. Hepatic steatosis. Moderate to severe DDD changes of the spine with multilevel spinal canal stenosis. Severe endstage bilat glenohumeral OA changes. CT sacrum revealed limited exam due to postsurgical changes in the lumbar spine. Bilateral SI joint arthropathy with no acute fracture. Suspicion for spinal canal stenosis L5-S1. Prominent uterus and left ovary, correlate with pelvic ultrasound. CT of the lumbar spine revealed multilevel disc degenerative changes throughout the spine with multilevel spinal canal stenosis. Spinal canal stenosis worse at T11-T12, L1-L2, L2-L3 with at least severe spinal canal stenosis. Neural foraminal stenosis worse at 2 1011, T11-12, T12-L1 also involving L2-L3 bilaterally with at least moderate to severe stenosis. Right knee x-ray revealed possible fracture along the distal diaphysis of the medial femur. CAT scan of the right knee revealed acute periprosthetic fracture of the right distal medial femoral condyle with 2 mm displacement. Patient's been admitted to the [facility], consult with orthopedics for both the right femoral condyle fracture and also to Dr. Gomez for spinal stenosis. REVIEW OF SYSTEMS Constitutional: No fever, no chills, no night sweats. No weight change. No weakness, fatigue or lethargy. No daytime sleepiness. EENT: No headache. No blurred vision or double vision, no loss of vision. No loss of Hearing, no ringing in the ears, no dizziness. No nasal drainage or congestion. No epistaxis. No sore throat. Lungs: No shortness of breath, cough, no sputum production. No wheezing. Cardiovascular: No chest pain, no lower extremity edema. No palpitations. No paroxysmal nocturnal dyspnea. No orthopnea. No lightheadedness or dizziness. No syncopal episodes. Abdominal: No abdominal pain. No nausea, vomiting. No diarrhea. No constipation. No bloody or tarry stools. No loss of appetite. Genitourinary: No dysuria, increased frequency, urgency. No urinary retention. Musculoskeletal: No myalgias. No muscle weakness, no gait dysfunction, no frequent falls. Reports back pain and numbness tingling in bilateral legs. No neck pain. Complains of right leg pain Integumentary: No wounds, no lesions. No rash or pruritus. No unusual bru ising. No change in hair or nails. Neurologic: No aphasia. No facial droop. No change in mentation. No head injury. No headache. No paralysis. No paresthesia. Psychiatric: No depression. No anxiety. No mood swings. Endocrine: No abnormal blood sugars. No weight change. No excessive sweating or thirst. No cold intolerance. SOCIAL HISTORY SMOKED AGE 20, 1/2-1 PPD, QUIT 2001. No illicit drug use, no alcohol use. Patient was at home with her . No CPAP, no nebulizer at home. 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 FAMILY HISTORY Father at age 47 from motor vehicle accident. Mother in her 80s from heart failure and emphysema. Patient does not have any brothers. Patient had 1 sister that from uterine cancer. Patient has one son that had a brain tumor at age 7 but otherwise no major medical problems. Patient is one daughter with no major medical problems. PHYSICAL EXAMINATION Gen: This is a 76-year-old female. Patient is resting in bed and appears to be comfortable at rest. HEENT: Head is atraumatic, normocephalic. Pupils equal, round. Sclerae is anicteric. NECK: Supple. No JVD. No lymphadenopathy. No thyromegaly. LUNGS: Clear to auscultation. No wheezes or rhonchi. No intercostal retractions. HEART: Regular rate and rhythm. No murmur. ABDOMEN: Soft. Bowel sounds are present. No masses. No tenderness. EXTREMITIES: No pedal edema. No calf tenderness. NEUROLOGICAL: Patient is awake, alert and oriented x3. Cranial nerves 2 through 12 are grossly intact. ASSESSMENT AND PLAN 1. Right femoral condyle fracture. Consult with orthopedics. Continue current pain management 2. Severe spinal stenosis with previous laminectomy and decompression. Consult with Dr. Gomez. 3. Hypothyroidism. Continue levothyroxine 137 g daily, hydrochlorothiazide 25 mg daily. 4. Hypertension. Continue valsartan 160 mg daily. 5. Diabetes mellitus type 2. Continue patient on metformin 1000 mg twice daily and add NovoLog scale before meals and at bedtime. 6. Overactive bladder. Continue mirabegron daily. 7. DVT prophylaxis, SCDs and NADINE hose. 8. GI prophylaxis. Pepcid. CODE STATUS: FULL CODE Patient will be admitted to the hospital for a minimum of 2 night stay. DISCHARGE PLAN TBD, Impression and plan of care have been directed as dictated by the signing physician. Laura Jiménez nurse practitioner acting as scribe for signing physician. Past Medical History Past Medical History: Diabetes Mellitus, Hypertension, Osteoarthritis (OA), Thyroid Disorder Additional Past Medical History / Comment(s): HEARING LOSS RT EAR, MINOR. TINNITUS CHRONIC BACK PAIN, HOWARD SHOULDER PAIN W/ LIMITATIONS. OVERACTIVE BLADDER. History of Any Multi-Drug Resistant Organisms: None Reported Past Surgical History: Joint Replacement Additional Past Surgical History / Comment(s): TOTAL KNEE RIGHT KNEE, CERVICAL FUSION, THYROID SURGERY, laminectomy and decompression L3 4, L4 5 and L5-S1 Past Anesthesia/Blood Transfusion Reactions: No Reported Reaction Past Psychological History: No Psychological Hx Reported Smoking Status: Former smoker Past Alcohol Use History: None Reported Past Drug Use History: None Reported - Past Family History Sister(s) Family Medical History: Cancer Additional Family Medical History / Comment(s): Patient had 1 sister that from uterine cancer. Father Additional Family Medical History / Comment(s): Father at age 47 from motor vehicle accident. Mother Additional Family Medical History / Comment(s): Mother in her 80s from heart failure and emphysema. Patient does not have any brothers. Patient has one son that had a brain tumor at age 7 but otherwise no major medical problems. Patient is one daughter with no major medical problems. Medications and Allergies Home Medications Medication Instructions Recorded Confirmed Type metFORMIN HCL [Glucophage] 1,000 mg PO BID 03/09/20 09/28/21 History Biotin 1,000 Mcg 1,000 mcg PO DAILY 09/28/21 09/28/21 History Calcium Carbonate/Vitamin D3 1 cap PO BID 09/28/21 09/28/21 History [Calcium 600 mg-D3 10 Mcg (400 Iu)] Cyanocobalamin (Vitamin B-12) 1,000 mcg PO BID 09/28/21 09/28/21 History [Vitamin B-12] Glucosamine Sulfate 2,000 mg PO DAILY 09/28/21 09/28/21 History Levothyroxine Sodium 137 mcg PO DAILY 09/28/21 09/28/21 History Mirabegron [Myrbetriq] 25 mg PO DAILY PRN 09/28/21 09/28/21 History Multivitamin with Iron 1 tab PO DAILY 09/28/21 09/28/21 History [Multivitamins with Iron] Ubidecarenone [Co Q-10] 100 mg PO DAILY 09/28/21 09/28/21 History Valsartan/Hydrochlorothiazide 1 tab PO DAILY 09/28/21 09/28/21 History [Valsartan-Hctz 160-25 mg Tab] Allergies Allergy/AdvReac Type Severity Reaction Status Date / Time terbinafine HCl Allergy Rash/Hives Verified 09/28/21 16:23 [From Lamisil] atorvastatin AdvReac Severe Weakness, Verified 09/28/21 16:23 nausea, vomiting pravastatin AdvReac Severe Weakness, Verified 09/28/21 16:23 nausea, vomiting lisinopril AdvReac Cough Verified 09/28/21 16:23 Physical Exam Vitals: Vital Signs Temp Pulse Pulse Resp BP BP Pulse Ox 09/29/21 04:18 98.3 F 93 16 108/67 94 L 09/28/21 23:56 98.1 F 83 16 148/67 94 L 09/28/21 21:45 87 18 132/86 98 09/28/21 19:12 75 20 111/48 95 09/28/21 18:45 94 76/45 90 L 09/28/21 14:49 99.0 F 110 H 20 162/97 95 Intake and Output 09/28/21 09/29/21 09/29/21 22:59 06:59 14:59 Intake Total 1014 Output Total 350 Balance 664 Intake: Oral 1014 Output: Urine 350 Other: Weight 74.843 kg Results CBC & Chem 7: 09/28/21 15:52 09/28/21 15:52 Labs: Abnormal Lab Results - Last 24 Hours (Table) 09/28/21 09/28/21 09/28/21 Range/Units 15:52 15:52 19:11 WBC 10.8 H (3.8-10.6) k/uL Neutrophils # 8.6 H (1.3-7.7) k/uL D-Dimer 3.54 H (<0.60) mg/L FEU Sodium 136 L (137-145) mmol/L Creatinine 1.10 H (0.52-1.04) mg/dL Glucose 139 H (74-99) mg/dL POC Glucose (mg/dL) (75-99) mg/dL Total Protein 8.4 H (6.3-8.2) g/dL 09/29/21 Range/Units 07:29 WBC (3.8-10.6) k/uL Neutrophils # (1.3-7.7) k/uL D-Dimer (<0.60) mg/L FEU Sodium (137-145) mmol/L Creatinine (0.52-1.04) mg/dL Glucose (74-99) mg/dL POC Glucose (mg/dL) 143 H (75-99) mg/dL Total Protein (6.3-8.2) g/dL Thrombosis Risk Factor Assmnt - Choose All That Apply Any of the Below Risk Factors Present?: Yes Each Factor Represents 1 point: Obesity (BMI >25) Other Risk Factors: Yes Each Risk Factor Represents 2 Points: Age 61-74 years Other congenital or acquired thrombophilia - If yes, enter type in comment: Yes Each Risk Factor Represents 5 Points: Hip, pelvis, or leg fracture (< 1 month) Thrombosis Risk Factor Assessment Total Risk Factor Score: 8 Thrombosis Risk Factor Assessment Level: High Risk
[2021-09-29 11:10] LABS: Glucose,Whole Blood 165 mg/dL (75-99)
[2021-09-29] MEDS: INSULIN ASPART (NovoLOG) 100 UNIT/ML VIAL SQ SCH ×3 (12:53→21:02)
--- NOTE | 2021-09-29 14:27 | P.CNOR ---
History of Present Illness - [facility] Consult date: 09/29/21 Requesting physician: Magnolia Kelly (Consultation has also been placed by Laura Jiménez NP) Consult reason: low back pain (Thoracic and Lumbar spinal stenosis), other (Right knee periprosthetic fracture) History of present illness: Patient is a very pleasant 76-year-old female who is well known to our practice who is seen and examined at the bedside for further evaluation of the right lower extremity and lumbar spine. Patient states over the past 2 weeks she's been experiencing increased low back pain with a shocking sensation with her symptoms being exacerbated with flexing for the lumbar spine. She has numbness and tingling that radiates down bilateral lower extremities. She does experience some generalized weakness of the bilateral lower extremities. She states she has fallen twice over the past 2 weeks. She states yesterday her legs gave out on her and she fell onto her knees. She states she felt some increased pain in her right knee at that time. She does have a history of previous right total knee PERFORMED at [facility] years ago. She has a history of minimally invasive L3-4, L4-5, and L5-S1 posterior lateral decompression and fusion with L4-5 transforaminal lumbar interbody fusion and T12-L1 and L1-2 laminectomy and decompression performed on 07/25/2018. She does have some chronic low back pain prior to the exacerbation of her symptoms. Prior to her fall she was not having difficulty with her right knee. Prior to my examination at the bedside she's been placed in a knee immobilizer for her right lower extremity. Following multiple imaging modalities she was found to have an acute periprosthetic fracture of the right distal medial femoral condyle minimal displacement and multilevel lumbar stenosis. She continues to be seen again by medicine for her other medical diagnoses including hypothyroidism, type 2 diabetes, overactive bladder and hypertension. Past Medical History Past Medical History: Diabetes Mellitus, Hypertension, Osteoarthritis (OA), Thyroid Disorder Additional Past Medical History / Comment(s): HEARING LOSS RT EAR, MINOR. TINNITUS CHRONIC BACK PAIN, HOWARD SHOULDER PAIN W/ LIMITATIONS. OVERACTIVE BLADDER. History of Any Multi-Drug Resistant Organisms: None Reported Past Surgical History: Joint Replacement Additional Past Surgical History / Comment(s): TOTAL KNEE RIGHT KNEE, CERVICAL FUSION, THYROID SURGERY, laminectomy and decompression L3 4, L4 5 and L5-S1 Past Anesthesia/Blood Transfusion Reactions: No Reported Reaction Past Psychological History: No Psychological Hx Reported Smoking Status: Former smoker Past Alcohol Use History: None Reported Past Drug Use History: None Reported - Past Family History Sister(s) Family Medical History: Cancer Additional Family Medical History / Comment(s): Patient had 1 sister that from uterine cancer. Father Additional Family Medical History / Comment(s): Father at age 47 from motor vehicle accident. Mother Additional Family Medical History / Comment(s): Mother in her 80s from heart failure and emphysema. Patient does not have any brothers. Patient has one son that had a brain tumor at age 7 but otherwise no major medical problems. Patient is one daughter with no major medical problems. Medications and Allergies Home Medications Medication Instructions Recorded Confirmed Type metFORMIN HCL [Glucophage] 1,000 mg PO BID 03/09/20 09/28/21 History Biotin 1,000 Mcg 1,000 mcg PO DAILY 09/28/21 09/28/21 History Calcium Carbonate/Vitamin D3 1 cap PO BID 09/28/21 09/28/21 History [Calcium 600 mg-D3 10 Mcg (400 Iu)] Cyanocobalamin (Vitamin B-12) 1,000 mcg PO BID 09/28/21 09/28/21 History [Vitamin B-12] Glucosamine Sulfate 2,000 mg PO DAILY 09/28/21 09/28/21 History Levothyroxine Sodium 137 mcg PO DAILY 09/28/21 09/28/21 History Mirabegron [Myrbetriq] 25 mg PO DAILY PRN 09/28/21 09/28/21 History Multivitamin with Iron 1 tab PO DAILY 09/28/21 09/28/21 History [Multivitamins with Iron] Ubidecarenone [Co Q-10] 100 mg PO DAILY 09/28/21 09/28/21 History Valsartan/Hydrochlorothiazide 1 tab PO DAILY 09/28/21 09/28/21 History [Valsartan-Hctz 160-25 mg Tab] Allergies Allergy/AdvReac Type Severity Reaction Status Date / Time terbinafine HCl Allergy Rash/Hives Verified 09/28/21 16:23 [From Lamisil] atorvastatin AdvReac Severe Weakness, Verified 09/28/21 16:23 nausea, vomiting pravastatin AdvReac Severe Weakness, Verified 09/28/21 16:23 nausea, vomiting lisinopril AdvReac Cough Verified 09/28/21 16:23 Physical Examination Physical exam: Patient is awake, alert, and oriented 3 Vital signs stable Good chest excursion with deep inspiration and expiration Examination of thoracic and lumbar spine reveals skin is intact with no abrasions, lacerations, or bruises; no erythema, purulence or signs of infection Evidence of a well-healed incision along the midline of the lower thoracic spine Evidence of 2 well-healed incisions over the paraspinal muscles of the mid to lower lumbar spine Dorsiflexion, plantarflexion, and extensor hallucis longus positive sustained bilaterally Immobilizer intact with a right lower extremity which is removed and reapplied during physical examination No significant swelling, bruising, or obvious sign of infection at the right knee Some pain with palpation over the distal medial femoral condyle of the right knee Evidence of a well-healed incision over the anterior knee Patient is able to perform hip flexion bilaterally thousand difficulty difficult y Full active range of motion of left lower extremity without difficulty No lower extremity hyperreflexia bilaterally Bilateral lower extremity strength 5/5 including dorsiflexion and plantar flexion No signs or symptoms of DVT; no calf pain No pain with internal and external rotation of the hips bilaterally Neurovascularly intact Results Pertinent studies: CT of the lumbar spine taken on 09/28/2021: T10-11 degenerative disc disease and osteophytic formation and facet joint arthropathy resulting in mild to moderate central canal stenosis and severe bilateral neural foraminal stenosis; T11-12 degenerative disc disease with osteophytic formation and facet joint arthropathy resulting in at least moderate central canal stenosis and moderate to severe bilateral neural foraminal stenosis; T12-L1 degenerative disc disease with osteophytic formation and facet joint arthropathy resulting in at least moderate central canal stenosis and moderate right and severe left neural foraminal stenosis; L1-2 degenerative disc disease osteophytic formation and facet joint that resulted in severe spinal stenosis and severe left and moderate right neural foraminal stenosis; L2-3 degenerative disc disease osteophytic formation and facet joint on the padded resulting in severe spinal stenosis and moderate to severe bilateral neural foraminal stenosis; evidence of retained fusion hardware at L3-4, L4-5, and L5-S1 with evidence of interbody spacer at L4-5 CT of the right knee taken on 09/28/2021: Acute periprosthetic fracture of the right distal medial femoral condyle with 2 mm displacement X-ray of the right knee taken on 09/28/2021: Recommend computed tomography scan of the right knee to assess possible fracture along the distal diaphysis of the medial femur CT of the sacrum taken on 09/28/2021: Limited exam due to postsurgical changes involving the lower lumbar spine; bilateral sacroiliac joint arthropathy without fracture; prominent uterus and left ovary - Labs Labs: Abnormal Lab Results - Last 24 Hours (Table) 09/28/21 09/28/21 09/28/21 Range/Units 15:52 15:52 19:11 WBC 10.8 H (3.8-10.6) k/uL Neutrophils # 8.6 H (1.3-7.7) k/uL D-Dimer 3.54 H (<0.60) mg/L FEU Sodium 136 L (137-145) mmol/L Creatinine 1.10 H (0.52-1.04) mg/dL Glucose 139 H (74-99) mg/dL POC Glucose (mg/dL) (75-99) mg/dL Total Protein 8.4 H (6.3-8.2) g/dL 09/29/21 09/29/21 Range/Units 07:29 11:09 WBC (3.8-10.6) k/uL Neutrophils # (1.3-7.7) k/uL D-Dimer (<0.60) mg/L FEU Sodium (137-145) mmol/L Creatinine (0.52-1.04) mg/dL Glucose (74-99) mg/dL POC Glucose (mg/dL) 143 H 165 H (75-99) mg/dL Total Protein (6.3-8.2) g/dL H & H 09/28/21 Range/Units 15:52 Hgb 11.4 (11.4-16.0) gm/dL Hct 35.4 (34.0-46.0) % Coagulation 09/28/21 Range/Units 19:11 INR 0.9 (<1.2) Result Diagrams: 09/28/21 15:52 09/28/21 15:52 Assessment and Plan Assessment: Assessment: Worsening chronic low back pain Numbness tingling bilateral lower extremities Generalized lower extremity weakness History of minimally invasive L3-4, L4-5, and L5-S1 posterior lateral decompression and fusion with L4-5 transforaminal lumbar interbody fusion and T12-L1 and L1-2 laminectomy and decompression performed on 07/25/2018 T10-T11, T11-T12, T12-L1, L1-2, and L2-3 central canal stenosis and bilateral neural foraminal stenosis Lower thoracic and lumbar degenerative disc disease Lower thoracic and lumbar facet arthropathy History right total knee arthroplasty Status post fall yesterday, 09/28/2021 History of 3 falls over the past 2 weeks Acute periprosthetic fracture of the right distal medial femoral condyle with minimal displacement Hypothyroidism Hypertension Type 2 diabetes Overactive bladder (1) Status post fall Current Visit: Yes Status: Acute Code(s): Z91.81 - HISTORY OF FALLING SNOMED Code(s): 478111353 (2) Right knee pain Current Visit: Yes Status: Acute Code(s): M25.561 - PAIN IN RIGHT KNEE SNOMED Code(s): 4962958211 (3) History of total right knee replacement Current Visit: Yes Status: Acute Code(s): Z96.651 - PRESENCE OF RIGHT ARTIFICIAL KNEE JOINT SNOMED Code(s): 9883206398181 (4) Numbness and tingling of lower extremity Current Visit: Yes Status: Acute Code(s): R20.0 - ANESTHESIA OF SKIN; R20.2 - PARESTHESIA OF SKIN SNOMED Code(s): 705952928 (5) Generalized weakness Current Visit: Yes Status: Acute Code(s): R53.1 - WEAKNESS SNOMED Code(s): 28994212 (6) History of lumbar spinal fusion Current Visit: Yes Status: Acute Code(s): Z98.1 - ARTHRODESIS STATUS SNOMED Code(s): 76810525472177 (7) History of laminectomy Current Visit: Yes Status: Acute Code(s): Z98.890 - OTHER SPECIFIED POSTPROCEDURAL STATES SNOMED Code(s): 792364644 (8) Periprosthetic fracture of knee Current Visit: Yes Status: Acute Code(s): M97.9XXA - PERIPROSTH FRACTURE AROUND UNSP INTERNAL PROSTH JOINT, INIT SNOMED Code(s): 011736619 (9) Type 2 diabetes mellitus Current Visit: Yes Status: Acute Code(s): E11.9 - TYPE 2 DIABETES MELLITUS WITHOUT COMPLICATIONS SNOMED Code(s): 18970971 (10) Fracture of condyle of right femur Current Visit: Yes Status: Acute Code(s): S72.411A - DISPLACED UNSP CONDYLE FX LOWER END OF RIGHT FEMUR, INIT SNOMED Code(s): 700059567 (11) History of hypertension Current Visit: No Status: Acute Code(s): Z86.79 - PERSONAL HISTORY OF OTHER DISEASES OF THE CIRCULATORY SYSTEM SNOMED Code(s): 571014476 (12) History of hyperthyroidism Current Visit: No Status: Acute Code(s): Z86.39 - PERSONAL HISTORY OF ENDO, NUTRITIONAL AND METABOLIC DISEASE SNOMED Code(s): 775324016 (13) Lumbar degenerative disc disease Current Visit: No Status: Acute Code(s): M51.36 - OTHER INTERVERTEBRAL DISC DEGENERATION, LUMBAR REGION SNOMED Code(s): 16764091 (14) Lumbar spondylosis Current Visit: No Status: Acute Code(s): M47.816 - SPONDYLOSIS W/O MYELOPATHY OR RADICULOPATHY, LUMBAR REGION SNOMED Code(s): 663444255 (15) Lumbar stenosis Current Visit: No Status: Acute Code(s): M48.061 - SPINAL STENOSIS, LUMBAR REGION WITHOUT NEUROGENIC JIM SNOMED Code(s): 90867037 (16) Thoracic stenosis Current Visit: No Status: Acute Code(s): M48.04 - SPINAL STENOSIS, THORACIC REGION SNOMED Code(s): 16933181 Plan: Plan: 1. Patient has been experiencing increased low back pain with bilateral lower extremity numbness and tingling with generalized weakness in her lower extremities. She has fallen twice over the past 3 weeks. She fell yesterday when her legs gave out on her landing on her knees. She gets she is known to have previously undergone a right total knee arthroplasty. She did sustain an acute periprosthetic fracture of the right distal medial femoral condyle with minimal displacement. She has been fitted with a knee immobilizer on the right lower extremity. We did discuss she'll be strict nonweightbearing on the right lower extremity. She keep her knee immobilizer except while bathing. She may utilize a walker or other walking ambulation as needed. We will plan for follow-up in approximately [address] Heath Talley at [facility] for further treatment and evaluation regards to her right lower extremity. We did discuss her significant degenerative changes at her lower thoracic and lumbar spine. She does have a history of minimally invasive L3-4, L4-5, and L5- S1 posterior lateral decompression and fusion with L4-5 transforaminal lumbar interbody fusion and T12-L1 and L1-2 laminectomy and decompression performed on 07/25/2018. Imaging of her thoracic and lumbar spines taken during her admission to the hospital does show evidence of T10-T11, T11-T12, T12-L1, L1-2, and L2-3 central canal stenosis and bilateral neural foraminal stenosis with degenerative disc disease and facet arthropathy. We discussed given her acute fracture to her right lower extremity we'll plan to continue with conservative treatment regards to her thoracic and lumbar spines. Following recovery regards her right lower extremity knee plan for further treatment evaluation in regards to her thoracic and lumbar spines. Patient feels this is a good plan of care. 2. Patient does not feel she can currently mobilize herself at home without significant difficulty. She would be willing to be discharged to a rehabilitation facility. She has already been seen by case management this morning was working on placement at the time of discharge. Time with Patient: Greater than 30 (Including obtaining history, physical examination, reviewing of imaging, and dictation.)
[2021-09-29 17:07] LABS: Glucose,Whole Blood 131 mg/dL (75-99)
[2021-09-29 20:39] LABS: Glucose,Whole Blood 169 mg/dL (75-99)
[2021-09-29 21:01] VITALS: RESP 16
[2021-09-30] MEDS: HYDROcodone/APAP 5-325MG 1 EACH TAB PO PRN ×2 (00:13→11:19)
[2021-09-30 05:30] VITALS: BP 131/73; PULSE 80; TEMP 98.1
[2021-09-30] MEDS: LEVOTHYROXINE 137 MCG TAB PO SCH (06:20)
[2021-09-30 07:09] LABS: Glucose,Whole Blood 154 mg/dL (75-99)
[2021-09-30] MEDS: hydroCHLOROthiazide 25 MG TAB PO SCH (08:16)
[2021-09-30] MEDS: MULTIVITAMINS, THERA 1 EACH TAB PO SCH (08:16)
[2021-09-30] MEDS: CYANOCOBALAMIN 500 MCG TAB PO SCH (08:16)
[2021-09-30] MEDS: CALCIUM CARB-VIT D 500 MG-5 MCG TAB PO SCH (08:16)
[2021-09-30] MEDS: INSULIN ASPART (NovoLOG) 100 UNIT/ML VIAL SQ SCH (08:16)
[2021-09-30] MEDS: metFORMIN 500 MG TAB PO SCH (08:16)
[2021-09-30] MEDS: VALSARTAN 160 MG TAB PO SCH (08:17)
--- NOTE | 2021-09-30 08:17 | P.DS ---
Providers Date of admission: 09/28/21 21:57 Expected date of discharge: 09/30/21 Attending physician: Devon Yañez Consults: 09/28/21 21:24 Consult Physician Urgent Consulting Provider: Heath Talley Consult Reason/Comments: right femoral condyle fracture Do you want consulting provider notified?: Yes 09/29/21 08:59 Consult Physician Routine Consulting Provider: El Gomez Consult Reason/Comments: severe spinal stenosis Do you want consulting provider notified?: Yes Primary care physician: Kellee Mclaughlin [facility] Course: HISTORY OF PRESENT ILLNESS This is a 76-year-old female patient of Dr. Mclaughlin with past medical history of osteoarthritis, thyroid disorder, diabetes mellitus type 2, hypertension, overactive bladder, chronic hearing loss in the right side. Patient has had chronic back pain with neuropathy has been ongoing for many years. She is status post steroid injections and laminectomy and decompression L3 4, L4 5 and L5-S1 secondary to severe spinal stenosis, spondylolisthesis in 2019. Other surgical history includes cervical spine surgery by Dr. Maciel and right total knee arthroplasty in [address] Howell. Patient complains of electric shock sensation in the lower back area as well as weakness and numbness in her legs. She bent over to picker tender helper her cane and her legs gave out and she fell onto her knees. Patient came into [facility] emergency center for evaluation. She was afebrile, HR 110, BP 162/97, PO 95%. EKG sinus rhythm with no acute ST changes. T-wave inversion in aVR and V1. WBC 10.8, hemoglobin 11.4, platelet count 385. Sodium 136, potassium 4.1, chloride 101, CO2 26, BUN 16 creatinine 1.1, blood sugar 139. Troponin negative on one drop. CTA chest was negative for PE. Hepatic steatosis. Moderate to severe DDD changes of the spine with multilevel spinal canal stenosis. Severe endstage bilat glenohumeral OA changes. CT sacrum revealed limited exam due to postsurgical changes in the lumbar spine. Bilateral SI joint arthropathy with no acute fracture. Suspicion for spinal canal stenosis L5-S1. Prominent uterus and left ovary, correlate with pelvic ultrasound. CT of the lumbar spine revealed multilevel disc degenerative changes throughout the spine with multilevel spinal canal stenosis. Spinal canal stenosis worse at T11-T12, L1-L2, L2-L3 with at least severe spinal canal stenosis. Neural foraminal stenosis worse at 2 1011, T11-12, T12-L1 also involving L2-L3 bilaterally with at least moderate to severe stenosis. Right knee x-ray revealed possible fracture along the distal diaphysis of the medial femur. CAT scan of the right knee revealed acute periprosthetic fracture of the right distal medial femoral condyle with 2 mm displacement. Patient's been admitted to the [facility] floor, consult with orthopedics for both the right femoral condyle fracture and also to Dr. Gomez for spinal stenosis. 09/30: Patient has been seen by orthopedics, knee immobilizer ordered and patient to be strict nonweightbearing on the right lower extremity. Patient came to keep knee immobilizer in place except when bathing implant for follow-up in [address] Talley. Regarding her lumbar spine and thoracic spine, plan is for further evaluation for surgical intervention after healing of the fracture of the right femoral condyle. The patient has been cleared for discharge by orthopedics. Patient has been afebrile, heart rate 80, blood pressure 131/73 and pulse ox 92% on room air. Capillary blood glucose running between 130 169. Discharge plan is for subacute rehab at [facility]. Patient will be discharged today once arrangements are completed. ASSESSMENT AND PLAN 1. Right femoral condyle fracture. 2. Severe spinal stenosis with previous laminectomy and decompression. 3. Hypothyroidism. 4. Hypertension. 5. Diabetes mellitus type 2. 6. Overactive bladder. DISCHARGE PLAN Subacute Rehab at [facility] Greater than 35 minutes was utilized and coordinating patient's discharge. Impression and plan of care have been directed as dictated by the signing physician. Laura Jiménez nurse practitioner acting as scribe for signing physician. Patient Condition at Discharge: Stable Plan - Discharge Summary Discharge Rx Participant: No New Discharge Prescriptions: New HYDROcodone/APAP 5-325MG [[place] 5-325] 1 each PO Q4HR PRN #18 tab PRN Reason: Moderate Pain Acetaminophen Tab [Tylenol] 650 mg PO Q6HR PRN tab PRN Reason: Mild Pain Or Fever > 100.5 Continue metFORMIN HCL [Glucophage] 1,000 mg PO BID Glucosamine Sulfate 2,000 mg PO DAILY Multivitamin with Iron [Multivitamins with Iron] 1 tab PO DAILY Calcium Carbonate/Vitamin D3 [Calcium 600 mg-D3 10 Mcg (400 Iu)] 1 cap PO BID Valsartan/Hydrochlorothiazide [Valsartan-Hctz 160-25 mg Tab] 1 tab PO DAILY Mirabegron [Myrbetriq] 25 mg PO DAILY PRN PRN Reason: overactive bladder Levothyroxine Sodium 137 mcg PO DAILY Ubidecarenone [Co Q-10] 100 mg PO DAILY Cyanocobalamin (Vitamin B-12) [Vitamin B-12] 1,000 mcg PO BID Biotin 1,000 Mcg 1,000 mcg PO DAILY Discharge Medication List metFORMIN HCL [Glucophage] 1,000 mg PO BID 03/09/20 [History] Biotin 1,000 Mcg 1,000 mcg PO DAILY 09/28/21 [History] Calcium Carbonate/Vitamin D3 [Calcium 600 mg-D3 10 Mcg (400 Iu)] 1 cap PO BID 09/28/21 [History] Cyanocobalamin (Vitamin B-12) [Vitamin B-12] 1,000 mcg PO BID 09/28/21 [History] Glucosamine Sulfate 2,000 mg PO DAILY 09/28/21 [History] Levothyroxine Sodium 137 mcg PO DAILY 09/28/21 [History] Mirabegron [Myrbetriq] 25 mg PO DAILY PRN 09/28/21 [History] Multivitamin with Iron [Multivitamins with Iron] 1 tab PO DAILY 09/28/21 [History] Ubidecarenone [Co Q-10] 100 mg PO DAILY 09/28/21 [History] Valsartan/Hydrochlorothiazide [Valsartan-Hctz 160-25 mg Tab] 1 tab PO DAILY 09/28/21 [History] Acetaminophen Tab [Tylenol] 650 mg PO Q6HR PRN tab 09/30/21 [Rx] HYDROcodone/APAP 5-325MG [[place] 5-325] 1 each PO Q4HR PRN #18 tab 09/30/21 [Rx] Follow up Appointment(s)/Referral(s): Kellee Mclaughlin DO [Primary Care Provider] - 1-2 days Heath Talley DO [Doctor of Osteopathic Medicine] - 1 Week (Patient may follow-up with Dr. Heath Talley at [facility] in 2 weeks following discharge. ) Activity/Diet/Wound Care/Special Instructions: 1. Strict nonweightbearing on the right lower extremity 2. Keep knee immobilizer intact at all times except while bathing 3. Patient may utilize walker or other walking aid to aid in ambulation as needed 4. Take medications as prescribed 5. If any questions or concerns she may contact [facility] at [phone] Discharge Disposition: TRANSFER TO SNF/ECF
[2021-09-30] MEDS ORDERED: FAMOTIDINE 20 MG TAB PO SCH (09:00)
--- NOTE | 2021-09-30 09:48 | P.PN ---
Subjective Progress Note Date: 09/30/21 This is a 76 year-old female who is being followed for a periprosthetic fracture of the right distal femur with minimal displacement. Patient is seen and evaluated at bedside today. Patient states that her pain is well-controlled and she is tolerating the knee immobilizer. Patient denies any new complaints today. Objective - Vital Signs Vital signs: Vital Signs Temp 98.1 F 09/30/21 05:00 Pulse 80 09/30/21 05:00 Resp 16 09/30/21 08:00 BP 131/73 09/30/21 05:00 Pulse Ox 92 L 09/30/21 05:00 Intake & Output 09/29/21 09/30/21 09/30/21 18:59 06:59 18:59 Intake Total 1080 Output Total 800 850 Balance -800 230 Intake: Oral 1080 Output: Urine 800 850 - Exam On exam patient resting comfortably in bed in no acute distress. Patient is alert and oriented x3. Knee immobilizer is intact. Patient has full range of motion of the right foot and ankle. Sensation intact. Neurovascular status and circulatory status are intact. - Labs CBC & Chem 7: 09/28/21 15:52 09/28/21 15:52 Labs: Abnormal Lab Results - Last 24 Hours (Table) 09/29/21 09/29/21 09/29/21 Range/Units 11:09 17:05 20:38 POC Glucose (mg/dL) 165 H 131 H 169 H (75-99) mg/dL 09/30/21 Range/Units 07:07 POC Glucose (mg/dL) 154 H (75-99) mg/dL Assessment and Plan Assessment: Periprosthetic fracture of the right distal femur with minimal displacement. Plan: 1. Strictly non-weightbearing to the right lower extremity. Maintain knee immoiblizer. 2. Rest and elevate for swelling. 3. Please follow up with [facility] in one week.
== END 2021-09-30 11:20 | DRG 534 ==
LOC: EC 14:05 → 5NMEDONC 21:57
PROVIDERS: ADMIT Internal Medicine Geriatric Medicine; ATTEND Internal Medicine Geriatric Medicine
DX: S72.411A Displaced unspecified condyle fracture of lower end of right femur, initial encounter for closed fracture (principal); M51.06 Intervertebral disc disorders with myelopathy, lumbar region; M47.16 Other spondylosis with myelopathy, lumbar region; W18.30XA Fall on same level, unspecified, initial encounter; E03.9 Hypothyroidism, unspecified; E11.9 Type 2 diabetes mellitus without complications; G89.29 Other chronic pain; I10 Essential (primary) hypertension; H91.91 Unspecified hearing loss, right ear; M54.9 Dorsalgia, unspecified; M19.012 Primary osteoarthritis, left shoulder; M19.011 Primary osteoarthritis, right shoulder; M48.04 Spinal stenosis, thoracic region; M48.07 Spinal stenosis, lumbosacral region; Z96.651 Presence of right artificial knee joint; N32.81 Overactive bladder; M48.061 Spinal stenosis, lumbar region without neurogenic claudication; M51.16 Intervertebral disc disorders with radiculopathy, lumbar region; M47.26 Other spondylosis with radiculopathy, lumbar region; R32 Unspecified urinary incontinence; R29.6 Repeated falls; Z98.890 Other specified postprocedural states; Z82.49 Family history of ischemic heart disease and other diseases of the circulatory system; Z79.84 Long term (current) use of oral hypoglycemic drugs; Z79.890 Hormone replacement therapy; Z79.899 Other long term (current) drug therapy; Z87.891 Personal history of nicotine dependence; Z91.81 History of falling; Z98.1 Arthrodesis status; Z82.5 Family history of asthma and other chronic lower respiratory diseases; Z80.49 Family history of malignant neoplasm of other genital organs
CPT/HCPCS: 36415; 71275; 72131; 72192; 80053; 83880; 84484; 85025; 85379; 85610; 85730; 93005; 96360; 96361; 99285

== ENCOUNTER → 2021-11-24 | Outpatient (CLI) | payer MEDICARE, BC ==
--- NOTE | 2021-11-24 20:07 | US ---
EXAMINATION TYPE: US pelvis complete transvag DATE OF EXAM: 11/24/2021 COMPARISON: NONE CLINICAL HISTORY: [id number] ABN IMAGING OF OTHER SPECIFIED BODY STRUCTURES. abn CT TECHNIQUE: Transvaginal (TV) and Transabdominal (TA) . Transabdominal sonographic images of the pel vis were acquired. Transvaginal sonographic images were medically necessary to better assess the fol lowing anatomy: endometrium Date of LMP: post menopausal EXAM MEASUREMENTS: Uterus: 8.3 x 3.3 x 4.1 cm Endometrial Stripe: 1.4 cm Right Ovary: not visualized Left Ovary: 2.0 x 1.5 x 2.0 cm 1. Uterus: Retroverted wnl 2. Endometrium: grossly thickened 3. Right Ovary: not visualized 4. Left Ovary: 1.2 x 1.0 x 1.3 cm cystis area 5. Bilateral Adnexa: wnl 6. Posterior cul-de-sac: wnl IMPRESSION: 1. Nonspecific thickening of the endometrium. 2. Dominant follicle left ovary.
== END | disposition home or self-care (01) ==
LOC: RADUSWWP 16:18
PROVIDERS: ATTEND Family Medicine
DX: R93.89 Abnormal findings on diagnostic imaging of other specified body structures (principal)
CPT/HCPCS: 76830; 76856

== ENCOUNTER → 2021-11-24 | Outpatient (CLI) | payer MEDICARE, BC ==
--- NOTE | 2021-11-24 18:04 | MR ---
EXAMINATION TYPE: MR rachele/paula otrres con DATE OF EXAM: 11/24/2021 COMPARISON: None HISTORY: 76-year-old female Mid and lower back pain, BLE radiculopathy, history of lumbar surgery. TECHNIQUE: Multiplanar, multisequence imaging of the thoracic followed by the lumbar spine is perform ed without IV contrast. FINDINGS: THORACIC SPINE: On the counting sequence, we see most surgical changes C3-C7 ACDF. Multilevel hypertrophic facet arthropathy throughout the thoracic spine. Degenerative grade 1 anterolisthesis C7-T1, T1-T2, T2-T3. Also at T11-T12 and T12-L1. Degenerative partial interbody ankylosis and T10-T11. Moderate degenerative disc disease throughout with desiccated, narrowed common bulging disks at multi ple levels. Multilevel ligamentum flavum thickening and facet arthropathy is present. Changes result in mild narrowing of the spinal canal at T6-T7, T8-T9, T9-T10. More focal moderate to severe spinal canal stenosis at T11-T12 with flattening of both the dorsal and ventral cord and bilateral snake eyes increased signal within the cord in corresponding cord volume loss. Additional moderate focal spinal canal stenosis T12-L1 also with cord volume loss and increased cord signal at this level. At L1-L2, there is focal moderate to severe spinal canal stenosis at the level of the conus medullari s. Likely some impingement onto the conus medullaris. On the right, changes result in multilevel moderate neural foraminal stenoses, more severe at T11-T12 . On the left, moderate multilevel neural foraminal narrowing, more severe at T11-T12. Moderate to severe on both sides at T12-L1. Mild thickening of the left adrenal gland incidentally noted. Vertebral body heights are preserved. No suspicious bone marrow replacement. LUMBAR SPINE: Post surgical change of L3-S1 posterior lumbar fusion. Moderate multilevel degenerative disc disease with desiccated, narrowed, and bulging discs are present. Hyperostotic changes of the facet joints throughout. See above for findings down through the L2 level. Degenerative grade 1 retrolisthesis at L2-L3 above the fusion. Fixed grade 1 spondylolisthesis L3-L4 and L4-L5. Interval mild narrowing of the spinal canal throughout from L2 through S1 levels. No high-grade canal compromise. On the right, changes result in moderate neuroforaminal stenosis at L5-S1 and mild at additional leve ls. On the left, changes result in more moderate or severe neural foraminal narrowing from L3 through S1 levels. IMPRESSION: THORACIC SPINE: 1. Moderate multilevel degenerative disc disease. Multilevel ligamentum flavum thickening as well as facet arthropathy. 2. Degenerative grade 1 anterolisthesis C7-T1, T1-T2, T2-T3, T11-T12, and T12-L1. Degenerative partia l interbody ankylosis at T10-T11. 3. Focal MODERATE TO SEVERE spinal canal stenosis at T11-T12 with chronic cord compression and chroni c compressive myelomalacia at this level. 4. Focal MODERATE TO SEVERE spinal canal stenosis at L1-L2 at the level of the conus medullaris. Unab le to exclude some IMPINGEMENT onto the conus medullaris at this level. Clinically correlate. 5. Moderate focal spinal canal stenosis at T12-L1. Given the chronic compressive myelomalacia at this level, there is likely some long-standing dynamic cord compression that occurs at this level. 6. Variable moderate neural foraminal stenoses throughout, severe on both sides at T11-T12. Moderate to severe on both sides at T12-L1. LUMBAR SPINE: 7. See above for findings down through the L2 level. 8. Post surgical change of L3-S1 posterior lumbar fusion. Degenerative grade 1 retrolisthesis above t he fusion at L2-L3. Fixed grade 1 spondylolistheses at L3-L4 and L4-L5 due to the fusion. 9. Moderate multilevel degenerative disc disease. Chronic hyperostotic changes of the facet joints, i ncluding the fused levels. Changes result in mild spinal canal narrowing throughout the entirety of t he remaining lumbar spine. 10. Left greater than right neuroforaminal stenoses from L3 through S1 level. Narrowing appears moder ate to severe on the left as outlined above.
== END | disposition home or self-care (01) ==
LOC: RADMRIMAIN 14:02
PROVIDERS: ATTEND Orthopaedic Surgery Orthopaedic Surgery of the Spine
DX: M43.16 Spondylolisthesis, lumbar region (principal); M51.36 Other intervertebral disc degeneration, lumbar region; M51.26 Other intervertebral disc displacement, lumbar region; M47.816 Spondylosis without myelopathy or radiculopathy, lumbar region
CPT/HCPCS: 72146; 72148

== ENCOUNTER → 2021-12-14 | Outpatient (CLI) | payer MEDICARE, BC ==
--- NOTE | 2021-12-14 14:54 | XR ---
EXAMINATION TYPE: XR chest 2V DATE OF EXAM: 12/14/2021 COMPARISON: NONE TECHNIQUE: PA and lateral views submitted. HISTORY: pre surgical testing FINDINGS: The lungs are clear and there is no pneumothorax, pleural effusion, or focal pneumonia. Postsurgica l change overlying the cervical spine. Arthropathy of the shoulders. Heart size normal. No overt fail ure. Degenerative change of the spine. IMPRESSION: 1. No acute process.
[2021-12-14 14:58] LABS: INR 0.9 (<1.2); Partial Thromboplastin Time 24.3 sec (22.0-30.0); Prothrombin Time 10.1 sec (9.0-12.0)
[2021-12-14 17:51] LABS: Basophils # (A) 0.12 X 10*3/uL (0.00-0.10); Basophils % (A) 0.9 %; Eosinophils # (A) 0.12 X 10*3/uL (0.04-0.35); Eosinophils % (A) 0.9 %; HGB 10.3 g/dL (12.0-15.0); Immature Grans, Automated 0.5 %; Lymphocytes % (A) 16.9 %; MCH 26.3 pg (27.0-32.0); MCHC 30.3 g/dL (32.0-37.0); MCV 86.7 fL (80.0-97.0); Mean Platelet Volume 10.3 fL (9.5-12.2); Monocytes # (A) 0.92 X 10*3/uL (0.20-1.00); Monocytes % (A) 6.8 %; NRBC Per 100 WBC 0 /100 WBCS (0.0-0.0); Neutrophils # (A) 10.07 X 10*3/uL (1.80-7.70); Platelet Count 444 X 10*3/uL (140-440); RBC 3.92 X 10*6/uL (4.10-5.20); RDW 15.8 % (11.5-14.5)
[2021-12-14 18:01] LABS: ALT 16 U/L (8-44); AST 20 U/L (13-35); African American GFR (CKD) 42.8 (60.0-200.0); Albumin 4.4 g/dL (3.8-4.9); Alkaline Phosphatase 101 U/L (41-126); Blood Urea Nitrogen 22.4 mg/dL (9.0-27.0); Calcium 9.8 mg/dL (8.7-10.3); Carbon Dioxide 23.2 mmol/L (20.0-27.5); Chloride 98 mmol/L (96-109); Glucose 193 mg/dL (70-110); Non-African American GFR(CKD) 36.9 (60.0-200.0); Potassium 3.9 mmol/L (3.5-5.5); Sodium 137 mmol/L (135-145); Total Bilirubin <0.15 mg/dL (0.30-1.20); Total Protein 8.4 g/dL (6.2-8.2)
[2021-12-14 19:56] LABS: Appearance,Urine Clear (Clear); Bilirubin,Urine Negative (Negative); Blood,Urine Negative (Negative); Color,Urine Yellow (Yellow); Ketones,Urine Trace mg/dL (Negative); Nitrite,Urine Negative (Negative); PH, Urine 5.5 (5.0-8.0); Specific Gravity,Urine 1.017 (1.001-1.030); Urobilinogen,Urine 0.2 (0.2,1.0)
[2021-12-14 20:46] LABS: Bacteria,Urine 3+ /HPF (None Seen)
== END | disposition home or self-care (01) ==
LOC: LABPAT 13:34
PROVIDERS: ATTEND Orthopaedic Surgery Orthopaedic Surgery of the Spine
DX: Z01.812 Encounter for preprocedural laboratory examination (principal)
CPT/HCPCS: 71046; 80053; 81001; 85025; 85610; 85730; 87070; 93005

== ENCOUNTER 2021-12-21 11:44 | Emergency (ER) | payer MEDICARE, BC ==
[2021-12-21 12:01] VITALS: BP 124/72; PULSE 92; RESP 18; TEMP 98.3
[2021-12-21] MEDS ORDERED: Acetaminophen-Codeine 300-30mg TAB PO STA (13:10)
--- NOTE | 2021-12-21 13:22 | ED ---
Fall HPI - General Chief Complaint: Fall Stated Complaint: Fall/shoulder injury Time Seen by Provider: 12/21/21 12:43 Source: patient, family, RN notes reviewed Mode of arrival: wheelchair - History of Present Illness Initial Comments: This is a 76-year-old female who presents to the emergency department for a fall. This morning, she was getting up from the bathroom when she lost her balance and fell. She has numbness from the waist down and is currently awaiting thoracic spine surgery with Dr. Gomez. She was supposed to have the surgery tomorrow, however this had to be rescheduled to January 26. 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 Currently complaining of pain to the right side of the lower back and the bilateral shoulders, neck, and upper back. Denies hitting her head or any loss of consciousness. She has had very frequent falls due to the degenerative changes in her back. She is often evaluated in the emergency department to ensure she has no acute injury on top of the chronic changes. Denies any fevers, chills, sore throat, cough, dyspnea, chest pain, palpitations, abdominal pain, nausea, vomiting, diarrhea, or headaches. MD Complaint: fall Place Fall Occurred: home Loss of Consciousness: none Prolonged Down Time?: no Symptoms Prior to Fall: none Location: back Location - Extremities: Left: Shoulder, Right: Shoulder Context: tripped/slipped, history of frequent falls - Related Data Home Medications Medication Instructions Recorded Confirmed metFORMIN HCL [Glucophage] 1,000 mg PO BID 03/09/20 09/28/21 Biotin 1,000 Mcg 1,000 mcg PO DAILY 09/28/21 09/28/21 Calcium Carbonate/Vitamin D3 1 cap PO BID 09/28/21 09/28/21 [Calcium 600 mg-D3 10 Mcg (400 Iu)] Cyanocobalamin (Vitamin B-12) 1,000 mcg PO BID 09/28/21 09/28/21 [Vitamin B-12] Glucosamine Sulfate 2,000 mg PO DAILY 09/28/21 09/28/21 Levothyroxine Sodium 137 mcg PO DAILY 09/28/21 09/28/21 Mirabegron [Myrbetriq] 25 mg PO DAILY PRN 09/28/21 09/28/21 Multivitamin with Iron 1 tab PO DAILY 09/28/21 09/28/21 [Multivitamins with Iron] Ubidecarenone [Co Q-10] 100 mg PO DAILY 09/28/21 09/28/21 Valsartan/Hydrochlorothiazide 1 tab PO DAILY 09/28/21 09/28/21 [Valsartan-Hctz 160-25 mg Tab] Previous Rx's Medication Instructions Recorded Acetaminophen Tab [Tylenol] 650 mg PO Q6HR PRN tab 09/30/21 HYDROcodone/APAP 5-325MG [[place] 1 each PO Q4HR PRN #18 tab 09/30/21 5-325] Allergies Allergy/AdvReac Type Severity Reaction Status Date / Time terbinafine HCl Allergy Rash/Hives Verified 12/21/21 12:01 [From Lamisil] atorvastatin AdvReac Severe Weakness, Verified 12/21/21 12:01 nausea, vomiting pravastatin AdvReac Severe Weakness, Verified 12/21/21 12:01 nausea, vomiting lisinopril AdvReac Cough Verified 12/21/21 12:01 Review of Systems ROS Statement: Those systems with pertinent positive or pertinent negative responses have been documented in the HPI. ROS Other: All systems not noted in ROS Statement are negative. Past Medical History Past Medical History: Diabetes Mellitus, Hypertension, Osteoarthritis (OA), Thyroid Disorder Additional Past Medical History / Comment(s): HEARING LOSS RT EAR, MINOR. TINNITUS CHRONIC BACK PAIN, HOWARD SHOULDER PAIN W/ LIMITATIONS. OVERACTIVE BLADDER. History of Any Multi-Drug Resistant Organisms: None Reported Past Surgical History: Joint Replacement Additional Past Surgical History / Comment(s): TOTAL KNEE RIGHT KNEE, CERVICAL FUSION, THYROID SURGERY, laminectomy and decompression L3 4, L4 5 and L5-S1 Past Anesthesia/Blood Transfusion Reactions: No Reported Reaction Past Psychological History: No Psychological Hx Reported Smoking Status: Former smoker Past Alcohol Use History: None Reported Past Drug Use History: None Reported - Past Family History Sister(s) Family Medical History: Cancer Additional Family Medical History / Comment(s): Patient had 1 sister that from uterine cancer. Father Additional Family Medical History / Comment(s): Father at age 47 from motor vehicle accident. Mother Additional Family Medical History / Comment(s): Mother in her 80s from heart failure and emphysema. Patient does not have any brothers. Patient has one son that had a brain tumor at age 7 but otherwise no major medical problems. Patient is one daughter with no major medical problems. General Exam Limitations: no limitations General appearance: alert, in no apparent distress Head exam: Present: atraumatic, normocephalic, normal inspection Respiratory exam: Present: normal lung sounds bilaterally. Absent: respiratory distress, wheezes, rales, rhonchi, stridor Cardiovascular Exam: Present: regular rate, normal rhythm, normal heart sounds. Absent: systolic murmur, diastolic murmur, rubs, gallop, clicks Extremities exam: Present: other (Tightness and tenderness over the top of the thoracic spine. Limited range of motion of the arms secondary to pain in the shoulders. 2+ radial pulses bilaterally. Capillary refill less than 1 second bilaterally.) Back exam: Present: tenderness (right lower back) Neurological exam: Present: alert, oriented X3, CN II-XII intact Psychiatric exam: Present: normal mood, flat affect Skin exam: Present: warm, dry, intact, normal color. Absent: rash Course Vital Signs 12/21/21 11:54 Temperature 98.3 F Pulse Rate 92 Respiratory 18 Rate Blood Pressure 124/72 O2 Sat by Pulse 99 Oximetry Medical Decision Making - Medical Decision Making This is a 76-year-old female who presents to the emergency department for pain in the shoulders, back, and neck after a fall. X-rays of her areas of pain were obtained, revealing no acute abnormalities. She was given Tylenol #3, which she states was not very effective. States that she is fine going home and taking Tylenol for her pain. She will contact Dr. Gomez's office as well to discuss her recent emergency room visit and see if he recommends she start any other medications. She does have severe degenerative changes in her spine, and her best chance symptomatic relief will be with surgical intervention. Return precautions reviewed in depth, the patient is instructed to return to the emergency department with any new, worsening, or concerning symptoms. Patient verbalized understanding. This case was discussed in detail with the attending ED physician. Presentation, findings, and treatment plan discussed in detail as well. - Radiology Data Radiology results: report reviewed, image reviewed Disposition Clinical Impression: Shoulder pain, bilateral, Fall Disposition: HOME SELF-CARE Instructions (If sedation given, give patient instructions): Fall Prevention for Older Adults (ED) Additional Instructions: Return to the emergency department with any new, worsening, or concerning symptoms. Take Tylenol as needed for the pain. Follow-up with Dr. Gomez. Is patient prescribed a controlled substance at d/c from ED?: No Referrals: Kellee Mclaughlin DO [Primary Care Provider] - 1-2 days
--- NOTE | 2021-12-21 14:26 | XR ---
EXAMINATION TYPE: XR shoulder complete BILAT DATE OF EXAM: 12/21/2021 COMPARISON: NONE HISTORY: Pain TECHNIQUE: Three views are submitted. FINDINGS: Postsurgical change overlying the cervical spine. There is arthropathy of the AC joints bilaterally s evere bilateral shoulder arthropathy and complete loss of glenohumeral joint space bilaterally. There is remodeling of the glenoid and humeral head bilaterally with spurring. No acute fracture or disloc ation. IMPRESSION: 1. No definite acute fracture. 2. Severe bilateral shoulder arthropathy
--- NOTE | 2021-12-21 14:30 | XR ---
EXAM TYPE: LUMBAR SPINE X RAY SERIES COMPARISON: NONE HISTORY: Pain TECHNIQUE: 5 views are submitted. FINDINGS: Alignment is anatomic. The pedicles are intact. The transverse processes are intact. There is a po stsurgical change at levels L3-S1. Severe degenerative disc disease with vacuum disc at all remaining levels. Vascular calcifications noted. SI joints symmetric. IMPRESSION: 1. Severe multilevel degenerative disc disease with postsurgical changes
--- NOTE | 2021-12-21 14:30 | XR ---
EXAMINATION TYPE: XR thoracic spine complete DATE OF EXAM: 12/21/2021 COMPARISON: NONE HISTORY: Pain TECHNIQUE: 3 views submitted FINDINGS: Alignment is anatomic. There is no compression deformities. Postsurgical change overlying the cervic al spine. Severe multilevel degenerative disc disease at all levels with hypertrophic spurring. IMPRESSION: 1. Severe hypertrophic and degenerative disc disease at all levels.
--- NOTE | 2021-12-21 14:34 | XR ---
Cervical spine HISTORY: Pain, trauma 6 views of the cervical spine, no comparisons Patient shows anterior cervical fusion and discectomy changes at C3-C7 with intervertebral spacing bl ocks present. Bone mineralization is reduced. Suspect multilevel foraminal encroachment although imag es is somewhat limited for evaluation. Patient is edentulous. There is multilevel facet arthropathy s uspected. Arthropathy change at the atlantoaxial joint. IMPRESSION: Postop changes. No acute fracture or subluxation.
== END 2021-12-21 15:22 | disposition home or self-care (01) ==
LOC: EC 11:44
DX: M25.511 Pain in right shoulder (principal); M25.512 Pain in left shoulder; E11.9 Type 2 diabetes mellitus without complications; I10 Essential (primary) hypertension; M19.90 Unspecified osteoarthritis, unspecified site; Z87.891 Personal history of nicotine dependence; Z79.84 Long term (current) use of oral hypoglycemic drugs; Z79.899 Other long term (current) drug therapy; Z88.8 Allergy status to other drugs, medicaments and biological substances; Z88.1 Allergy status to other antibiotic agents; W18.30XA Fall on same level, unspecified, initial encounter; Y92.002 Bathroom of unspecified non-institutional (private) residence as the place of occurrence of the external cause
CPT/HCPCS: 72050; 72072; 72100; 99283

== ENCOUNTER 2021-12-22 07:30 | Inpatient (IN) | payer MEDICARE, BC ==
[2022-02-02] MEDS ORDERED: ceFAZolin 1,000 MG in SODIUM CHLORIDE 0.9% IRRIGATIO 1,000 ML IRRIGATION PRN (05:00)
[2022-02-02] MEDS ORDERED: VANCOMYCIN 1,250 MG in SODIUM CHLORIDE 0.9% 250 ML IVPB PRN (05:00)
[2022-02-02] MEDS ORDERED: ONDANSETRON 4 MG/2 ML VIAL IVP ONE (06:15)
[2022-02-02] MEDS ORDERED: DEXAMETHASONE SOD PHOSPHATE 4 MG/ML 1 ML VIAL IV ONE (06:15)
[2022-02-02] MEDS: LACTATED RINGERS 1,000 ML IV SCH (06:33)
[2022-02-02] MEDS ORDERED: HYDROmorphone 0.5 MG/0.5 ML SYRINGE IVP PRN (07:00)
[2022-02-02 07:04] LABS: Glucose,Whole Blood 101 mg/dL (70-110)
[2022-02-02 07:47] LABS: Basophils # (A) 0.1 k/uL (0-0.2); Basophils % (A) 0 %; Eosinophils % (A) 0 %; HCT 36.2 % (34.0-46.0); HGB 11.3 gm/dL (11.4-16.0); Lymphocytes # (A) 1.8 k/uL (1.0-4.8); Lymphocytes % (A) 15 %; MCH 26.7 pg (25.0-35.0); MCHC 31.3 g/dL (31.0-37.0); MCV 85.4 fL (80.0-100.0); Mean Platelet Volume 7.3; Monocytes % (A) 8 %; Neutrophils # (A) 9.1 k/uL (1.3-7.7); Neutrophils % (A) 75 %; Platelet Count 464 k/uL (150-450); RBC 4.24 m/uL (3.80-5.40); RDW 15.4 % (11.5-15.5); WBC 12.1 k/uL (3.8-10.6)
[2022-02-02] MEDS ORDERED: NEOSTIGMINE 1 MG/ML 10 ML VIAL ONE (08:03)
[2022-02-02] MEDS ORDERED: GLYCOPYRROLATE 0.2 MG/ML 2 ML VIAL ONE (08:03)
[2022-02-02] MEDS ORDERED: PHENYLEPHRINE-0.9% NACL SYG 1,000 MCG/10 ML SYRINGE ONE (08:03)
[2022-02-02] MEDS ORDERED: LIDOCAINE 2% INJ 20 MG/ML (2 ML VIAL) ONE (08:03)
[2022-02-02] MEDS ORDERED: fentaNYL (PF) 50 MCG/ML 2 ML AMP ONE (08:03)
[2022-02-02] MEDS ORDERED: PROPOFOL 10 MG/ML 20 ML VIAL IV ONE (08:03)
[2022-02-02] MEDS ORDERED: ALBUMIN HUMAN 5% (25gm) 500 ML VIAL IVPB ONE (08:03)
[2022-02-02] MEDS ORDERED: DEXAMETHASONE SOD PHOSPHATE 10 MG/ML 1 ML VIAL ONE (08:03)
[2022-02-02] MEDS ORDERED: KETAMINE 10 MG/ML 20 ML VIAL ONE (08:03)
[2022-02-02] MEDS ORDERED: HYDROmorphone (PF) 1 MG/ML ONE (08:03)
[2022-02-02] MEDS ORDERED: ePHEDrine 50 MG/ML 1 ML VIAL ONE (08:03)
[2022-02-02] MEDS ORDERED: SUCCINYLCHOLINE CHLORIDE 200 MG/10 ML VIAL IV ONE (08:03)
[2022-02-02] MEDS ORDERED: FUROSEMIDE 10 MG/ML 2 ML VIAL ONE (08:03)
[2022-02-02] MEDS ORDERED: ROCURONIUM 10 MG/ML (5 ML VIAL) IV ONE (08:03)
[2022-02-02] MEDS ORDERED: THROMBIN (BOVINE) 5,000 UNIT VIAL TOPICAL ONE (08:15)
[2022-02-02] MEDS ORDERED: GELATIN SPONGE,ABSORB (LARGE) 1 EACH SPONGE TOPICAL ONE (08:15)
[2022-02-02] MEDS ORDERED: LIDOCAINE 0.5%-EPI 1:200,000 50 ML VIAL SQ ONE (08:15)
[2022-02-02] MEDS ORDERED: LACTATED RINGERS 1,000 ML IV ONE (11:20)
[2022-02-02] MEDS ORDERED: ceFAZolin 1,000 MG in SODIUM CHLORIDE 0.9% 1,000 ML IRRIGATION ONE (12:01)
[2022-02-02] MEDS ORDERED: BENZOCAINE/MENTHOL LOZENG 1 EACH LOZENGE MUCOUS MEM PRN (14:51)
[2022-02-02] MEDS ORDERED: ONDANSETRON 4 MG/2 ML VIAL IVP PRN (14:52)
[2022-02-02 15:09] LABS: Glucose,Whole Blood 184 mg/dL (70-110)
--- NOTE | 2022-02-02 15:26 | P.OP ---
Date of Procedure: 02/02/22 Preoperative Diagnosis: Severe Thoracic myelopathy, severe thoracic spinal stenosis T9 10 and T10 11, T11 12, L2-3, with recurrent stenosis T12-L1 and L1-L2, Bilateral lower extremity weakness, inability to ambulate, history of prior spinal fusion L3 to S1 with retained hardware, history of prior laminectomy decompression T12-L1 and L1-L2 Lower extremity radiculopathy, back pain Postoperative Diagnosis: Same with findings of a loose cap Screw at L3 on the right Anesthesia: GETA Pathology: none sent Condition: stable Disposition: PACU Description of Procedure: DESCRIPTION OF PROCEDURE(S): BRIEF OPERATIVE NOTE Preoperative Diagnosis: Severe Thoracic myelopathy, severe thoracic spinal stenosis T9 10 and T10 11, T11 12, L2-3, with recurrent stenosis T12-L1 and L1- L2, Bilateral lower extremity weakness, inability to ambulate, history of prior spinal fusion L3 to S1 with retained hardware, history of prior laminectomy decompression T12-L1 and L1-L2 Lower extremity radiculopathy, back pain Postoperative Diagnosis: Same, with findings of a loose locking cap Screw on the right at L3 Procedure: Revision Laminectomy and decompression T12-L1 and L1-L2 Computer CT navigation aided Posterior lateral decompression and fusion T9 10, T10 11, T11 12, T12-L1, L1-L2, and L2 3, with connection to the prior fusion from L3 to S1 and revision fusion L3 4 Revision fusion at L3 4 Removal of locking screw at L3 on the right in replacement Use of computer navigation for fusion Local autogenous bone grafting Use of bone graft extenders Surgeon: Dr. Gomez Bus Boy: Nestor STOUT who is present throughout the entire the case persistence during positioning, dissection, exposure, visualization, and all crucial elements of the case as well as closure. Anesthesia: General anesthesia per Dr. Castro Estimated blood loss: Approximately 500 mL, with 150 given back through Cell Saver Complications: None apparent Components implanted: K2M minimally invasive [place] pedicle screw system withscrews measuring 5.5 mm in diameter to bilateral and asked rods 200 mm in length with DBX bone graft to supplemental local autogenous bone graft Disposition: To recovery room in good stable condition. OPERATIVE INDICATIONS The patient has had severe issues at their lower extremity in her lower back over the past several years. Several years ago she was found have severe stenosis with listhesis at her lumbar spine and was having significant radiculopathy. She also was found have significant stenosis at T12-L2. She underwent surgical intervention at that point for her lumbar spine and from T12 L2. She had decompression with fusion at L3 to S1 with laminectomy decompression T12-L1 and L1-L2 in early 2019. She initially was having improvement with her back and her lower extremities. However she has been having worsening in her back with significant worsening over the past several months at her bilateral lower extremities. Over the past few months the patient had pain at their back and their lower extremities. The patient is having severe radicular symptoms at their lower extremity with weakness. She is having worsening of her strength in her lower extremities and his essentially unable to ambulate. She is not having any benefit despite conservative management. Mid seen her she was found have evidence of severe stenosis at her lower thoracic spine with myelomalacia at her thoracic spine which correlated well with her back and lower extremity symptoms. Her fusion site from L3 to S1 appear to be stable but she had recurrent stenosis at T12-L1 and L1-L2. The patient has been through conservative treatment. We discussed various treatment options including surgery, and the patient wishes to proceed with surgery. We had initially planned for the surgery several weeks ago however the patient has a number of medical issues and renal issues which prohibited her from pursuing surgery at that point. She had to be rescheduled and this was the earliest we are able to bring her to surgery upon medical clearance and ankle stabilization with optimization. The patient and her family understood that she was increased risk because of her medical status and the significant massive surgery that we were planning. We discussed the risk, patient's alternatives and benefits of surgery including but not limited to, risk of bleeding risk of infection, risk of need for further surgery, risk of decreased, loss of motion, muscle function, malunion nonunion, hardware failure, nerve damage, paralysis, heart attack, blindness and . They understood issues with the current pandemic and the possibility of exposure. OPERATIVE SUMMARY After discussing all the risks, patient alternatives and benefits at length, the patient elected to proceed with surgical intervention, signed informed consent, and presented for their procedure. The patient was seen and examined in the preoperative holding area and the surgical site was marked. The patient was given antibiotics and brought to the operating room. The patient was sedated and intubated by anesthesia in standard fashion. The patient was positioned on to the operating room table in a prone position on the appropriate frame which was well-padded and well molded. We were careful to pad any bony prominences and pressure points. We were careful to maintain the patient's cervical spine and good neutral alignment and position throughout. The patient was prepped and draped in a normal standard fashion. An appropriate timeout and keystone protocol performed. We were able to proceed with the surgery. The local wound area was infiltrated with local anesthetic. I utilized the prior midline incision at T12 L2 and the excision was extended along the midline from T9 all way down to L4. We did wide dissection splitting the fascia the midline over the spinous processes and extending the dissection over the lamina, over the facet joints down to the transverse processes and lumbar spine and over the transverse processes at the thoracic spine. I was able to expose the screws and rods at L3 and 4. At L3 and 4 on the left rods were rock solid. There is no evidence of any loosening or motion. On the right side however the locking screw was found to be loose. The leg screw at L4 was tight and stable without any evidence of motion. Tested area and seemed to be a small amount of motion in the facet joint on the right however there was no motion at all on the left. I completed the exposure from T9 to L4. These Cell Saver suction to save any significant bone loss. With the exposure completed I was able to then prepare for placement of screws bilaterally from T9 to L2. I was able to affix a bony clamp with the Ziem guidance attachment to these past process at L3. It was checked and found to be stable. With this we were then able to do a spin with the CT-guided navigated Ziem system. I was able to visualize from L3 to T11 appropriately. We knew that we would have to do 2 separate spins in order to visualize the entire area for surgical intervention. With the appropriate levels up to T11 visualize with CT guidance, I was able to use the guidance tractor and the Jamshidi needle to establish appropriate starting points at T11 T12 L1 and L2 bilaterally. All of them had good position and good tracking with excellent position. I was able to establish wires into the areas for placeholders for the pedicle screw sites. With this accomplished we used C-arm to double check the position which showed excellent alignment and position from T11 to L2 bilaterally. We were then able place a 4.5 mm screws over the guidewires into the pedicles and into the vertebral bodies at T 11 T12- L1 and L2 bilaterally. Screws had excellent position and bony purchase. The wires were removed and we will check the screws all of them had good status with no response up to 30 mA. With this accomplished we were then able to change positions of the Ziem guidance attachment to the spinous process of T12. It was affixed appropriately and had good position and stability. We were then able to drape appropriately and do another spin to show T9 and T10 appropriately. In similar fashion I was able to use the Jamshidi guidance with the CT navigation to establish screws bilaterally at T9 and T10 pedicles. The wires were placed, the position was checked with C-arm guidance, and we placed screws 2 at T9 and T10 in good alignment good position with excellent bony purchase bilaterally. The wires removed. Final images of the screws showed excellent alignment and position at the T9 through L2 new screws as well as stable position of the screws at all 345 and S1. The wounds were copiously irrigated and suctioned dry as had been done periodically throughout the case. With the screws intact I was unable to turn my attention to decompression. Under loupe magnification has a able to perform decompression centrally and at the neural foramina at L2-3,with revision laminectomy L1-2 and T12-L1 with new laminectomies at T11 12, T10 11, and T9 10. No was made of evidence of severe stenosis particularly at L23 L1 to T11 12 and to the left at T9 10. As able get excellent central compression at each of these levels with a combination of curettes Kerrison rongeurs and a high-speed bur. There is some adherence of the ligamentum flavum and scar tissue at T11 12 T12-L1 and L1-L2. Great care was taken to do appropriate decompression without damaging the dura or the cord. There is no evidence of any dural tear or leak. I was able get excellent central decompression at each level. All of the bone that was removed was saved for local autogenous bone grafting and stripped and morcellized by hand. Good hemostasis maintained. There is no evidence of any dural tear or leak. The wound was irrigated and suctioned dry. I placed a new locking screw at the cap of the L3 screw on the right. This had excellent stability. An tear to shore up the space. I felt that we could reinforce and revise the fusion by reaming out the facet joint on the right at L3 4 and decorticating further at the transverse processes of L3 4 to extend the fusion down to L4 level. I prepared to measure and contour and place the rods bilaterally. I chose use in [place] pepe system, which would allow connection to the establish pepe from L3 to S1 and extend up to the level of T9. The appropriate pepe was chosen and contoured and placed in good alignment and good position bilaterally. I was able to lock the [place] pepe to the established pepe appropriately with the locking Screw, and then fit the pepe into the establish screws and secured with cap screws from T9 to L2 bilaterally. I was unable to torque the screws appropriately and get excellent stability. I felt that we would add to the construct with cross-links. I was able to establish a cross-li nk at the rods between L3 4 as well as at the thoracolumbar junction and at the lower thoracic space. The torque screws were torqued appropriately. With cross-links intact construct had excellent stability. With the hardware intact, intraoperative C-arm imaging was again taken which showed good alignment and position of the hardware at the appropriate levels From T9 to S1. With this intact I was able to place the local autogenous bone graft with additional bone graft enhancer as necessary into the posterior lateral gutters over the decorticated transverse processes and facet joints bilaterally after decorticating the facet joints and transverse processes and lateral aspects of the facet joints bilaterally. The remainder of the bone graft was placed over the facet joints and transverse processes. With the bone graft intact, a stable construct, and good decompression at the appropriate levels, we were able to proceed with closure. Good hemostasis was maintained. There is no evidence of dural tear or leak. The fascia was closed for a watertight closure. a subcu his drain was placed. The subcuticular tissue was closed with absorbable suture. The wound was cleaned and dried and dressed with the appropriate dressing. The drapes were broken down. The patient was gently rolled back onto their hospital bed being careful to maintain their cervical spine and good neutral alignment and position. They were woken up by anesthesia, extubated, and brought to the recovery room in good stable condition. The patient will be admitted to the hospital for appropriate postoperative care, medical management and monitoring. We will continue to follow them closely about the postoperative course.
[2022-02-02] MEDS: SODIUM CHLORIDE 0.9% 1,000 ML IV SCH (17:06)
[2022-02-02 17:09] LABS: Glucose,Whole Blood 214 mg/dL (70-110)
[2022-02-02] MEDS ORDERED: DEXTROSE 50% SYRINGE 50 ML IVP PRN ×2 (18:45)
[2022-02-02] MEDS: HYDROmorphone 1 MG/ML 1 ML SYRINGE IVP PRN (20:26)
[2022-02-02] MEDS: metFORMIN 500 MG TAB PO SCH (20:27)
[2022-02-02 20:44] LABS: Glucose,Whole Blood 194 mg/dL (70-110)
[2022-02-02] MEDS: INSULIN ASPART (NovoLOG) 100 UNIT/ML VIAL SQ SCH (21:02)
[2022-02-02] MEDS: HYDROcodone/APAP 5-325MG 1 EACH TAB PO PRN (23:31)
[2022-02-03] MEDS: HYDROmorphone 1 MG/ML 1 ML SYRINGE IVP PRN ×3 (00:27→10:37)
[2022-02-03] MEDS: HYDROcodone/APAP 5-325MG 1 EACH TAB PO PRN ×4 (03:56→21:18)
[2022-02-03] MEDS: SODIUM CHLORIDE 0.9% 1,000 ML IV SCH ×2 (04:47→15:37)
[2022-02-03] MEDS: LACTATED RINGERS 1,000 ML IV SCH (06:23)
[2022-02-03] MEDS: LEVOTHYROXINE 137 MCG TAB PO SCH (06:25)
[2022-02-03 07:11] LABS: Glucose,Whole Blood 102 mg/dL (70-110)
[2022-02-03] MEDS: INSULIN ASPART (NovoLOG) 100 UNIT/ML VIAL SQ SCH ×4 (07:14→20:50)
[2022-02-03] MEDS: Mirabegron [Myrbetriq] PO SCH (07:39)
[2022-02-03] MEDS: CYANOCOBALAMIN 500 MCG TAB PO SCH (08:09)
[2022-02-03] MEDS: metFORMIN 500 MG TAB PO SCH ×2 (08:09→20:25)
[2022-02-03] MEDS: VALSARTAN 80 MG TAB PO SCH (08:09)
[2022-02-03] MEDS: MULTIVITAMINS, THERA 1 EACH TAB PO SCH (08:09)
[2022-02-03] MEDS: SENNOSIDES-DOCUSATE SODIUM 1 EACH TAB PO SCH (08:09)
[2022-02-03] MEDS: CALCIUM CARBONATE 500 MG CHEWABLE PO SCH (08:09)
[2022-02-03] MEDS: VANCOMYCIN 1,250 MG in SODIUM CHLORIDE 0.9% 250 ML IVPB SCH (08:09)
[2022-02-03] MEDS ORDERED: hydroCHLOROthiazide 12.5 MG CAP PO SCH (09:00)
[2022-02-03] MEDS ORDERED: NON FORMULARY DRUG (Ubidecarenone [Co Q-10] 100 MG Capsule) PO SCH (09:00)
[2022-02-03] MEDS ORDERED: NON FORMULARY DRUG (Glucosamine Sulfate [Glucosamine Sulfate] 1,000 MG Tablet) PO SCH (09:00)
[2022-02-03] MEDS ORDERED: NON FORMULARY DRUG (Biotin [Biotin Disolve] 5,000 MCG Tablet) PO SCH (09:00)
--- NOTE | 2022-02-03 10:10 | P.PN ---
Progress Note - Text Progress Note Date: 02/03/22 Postoperative day #1 Patient is seen and examined today at bedside. The patient has some pain around the surgical site as expected. Pain is being controlled with medication. She was able to get up to a chair with assistance. Her Sanchez catheter is intact. She tolerated some of her breakfast this morning without any nausea or vomiting. Her pain is adequately controlled with oral and IV medications. Physical Exam Afebrile with stable vital signs Abdomen is soft nontender. Chest has good excursion deep and space expiration The incision site is clean dry and intact. No erythema there is no purulence. The drain is intact with some small amount of bloody drainage Extremities have not had neurologic change from prior to surgery. She has sustained dorsal flexion plantarflexion but has global weakness in her bilateral lower extremities unchanged from prior to surgery Calves and thighs were soft nontender without evidence of DVT. Assessment/Plan Postoperative day #1 status post posterior lateral decompression and fusion T9 to L4 with extension of fusion from prior L3 to S1 Thoracic myelopathy, severe bilateral lower extremity weakness with inability to ambulate Patient is progressing as expected from the surgery. We will be difficult to predict how her lower extremity function well improve but we should start to try to mobilize her and encouraged continued use of her lower extremities to regain some strength and function. We will continue to increase the patient's mobilization with therapy. She may weight-bear as tolerated We will order a TLSO brace to give her some support when she tries to mobilize She has significant difficulty with any mobilization and I think we need to continue the Sanchez at least all tomorrow. We'll continue prophylactic antibiotics. 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 Discharge planning for possible placement posthospitalization She has a drain in place that can be discontinued tomorrow We will continue pain control with oral or IV medications. We'll continue to follow patient closely.
[2022-02-03 11:01] LABS: African American GFR (CKD) 54 (>60 ml/min/1.73 sqM); Anion Gap 11 mmol/L; Blood Urea Nitrogen 22 mg/dL (7-17); Calcium 8.9 mg/dL (8.4-10.2); Carbon Dioxide 25 mmol/L (22-30); Chloride 97 mmol/L (98-107); Glucose 130 mg/dL (74-99); Non-African American GFR(CKD) 47 (>60 ml/min/1.73 sqM); Potassium 4.7 mmol/L (3.5-5.1); Sodium 133 mmol/L (137-145)
[2022-02-03 11:46] LABS: Glucose,Whole Blood 135 mg/dL (70-110)
[2022-02-03 12:12] LABS: Basophils % (A) 0 %; Eosinophils % (A) 0 %; HCT 27.8 % (34.0-46.0); Hypochromasia Slight; Lymphocytes # (A) 1.3 k/uL (1.0-4.8); Lymphocytes % (A) 8 %; MCV 87.7 fL (80.0-100.0); Mean Platelet Volume 8.2; Monocytes # (A) 1.2 k/uL (0-1.0); Monocytes % (A) 7 %; Neutrophils # (A) 14.4 k/uL (1.3-7.7); Neutrophils % (A) 85 %; Platelet Count 381 k/uL (150-450); RBC 3.17 m/uL (3.80-5.40); RDW 15.7 % (11.5-15.5)
[2022-02-03 12:13] LABS: HGB 8.9 gm/dL (11.4-16.0)
[2022-02-03] MEDS ORDERED: HYDROcodone/APAP 5-325MG 1 EACH TAB ONE (12:19)
--- NOTE | 2022-02-03 15:47 | FL ---
Fluoroscopy HISTORY: Thoracic myelopathy 40 seconds fluoroscopy time supplied to the referring clinician. 10 intraoperative C-arm images docu ment the procedure. See dictated report from orthopedic surgery.
[2022-02-03 16:22] LABS: Glucose,Whole Blood 118 mg/dL (70-110)
[2022-02-03] MEDS: CYCLOBENZAPRINE 5 MG TAB PO PRN ×2 (17:01→23:24)
[2022-02-03] MEDS: MAGNESIUM HYDROXIDE 2,400 MG/10 ML CUP PO PRN (20:25)
[2022-02-03 21:00] LABS: Glucose,Whole Blood 160 mg/dL (70-110)
--- NOTE | 2022-02-03 23:48 | P.CONS ---
History of Present Illness - History of Present Illness This is a pleasant 76 years old female with past medical history of diabetes mellitus, hypertension, chronic kidney disease, hypothyroidism and back pain. She was admitted due to her leg weakness and thoracic myelopathy and back pain. She underwent decompression and fusion surgery to thoracic and lumbar spine T9 to L4 area at ID extension L3-S1. Postoperatively she was sitting in bed does not look in distress. She denies any chest pain or dyspnea. No abdominal pain or diarrhea. No vomiting. No fever or dizziness. She has Sanchez catheter in place with clear urine. Labs reviewed showing WBC 17,000, hemoglobin 8.9, sodium 133, creatinine at baseline of 1.1. Glucose controlled Heart rate is 116, fever 99.9, blood pressure 99/56. Review of Systems Review of systems CONSTITUTIONAL: No fever, no malaise, no fatigue. HEENT: No recent visual problems or hearing problems. Denied any sore throat. CARDIOVASCULAR: No orthopnea, PND, no palpitations, no syncope. PULMONARY: No shortness of breath, no cough, no hemoptysis. GASTROINTESTINAL: No diarrhea, no nausea, no vomiting, no abdominal pain. Normoactive bowel sounds. NEUROLOGICAL: No headaches, no weakness, no numbness. HEMATOLOGICAL: Denies any bleeding or petechiae. GENITOURINARY: Denies any burning micturition, frequency, or urgency. MUSCULOSKELETAL/RHEUMATOLOGICAL: Denies any joint pain, swelling, or any muscle pain. ENDOCRINE: Denies any polyuria or polydipsia. Past Medical History Past Medical History: Blood Disorder, Diabetes Mellitus, Hypertension, Osteoarthritis (OA), Thyroid Disorder Additional Past Medical History / Comment(s): HEARING LOSS RT EAR, MINOR. TINNITUS CHRONIC BACK PAIN, HOWARD SHOULDER PAIN W/ LIMITATIONS. OVERACTIVE BLADDER. LOW IRON. History of Any Multi-Drug Resistant Organisms: None Reported Past Surgical History: Joint Replacement Additional Past Surgical History / Comment(s): TOTAL KNEE RIGHT KNEE, CERVICAL FUSION, THYROID SURGERY, laminectomy and decompression L3 4, L4 5 and L5-S1 Past Anesthesia/Blood Transfusion Reactions: No Reported Reaction Past Psychological History: No Psychological Hx Reported Additional Psychological History / Comment(s): CLAUSTROPHOBIA Smoking Status: Former smoker Past Alcohol Use History: None Reported Additional Past Alcohol Use History / Comment(s): STARTED AGE 20, QUIT 22 02.SMOKED 1/2PPD Past Drug Use History: None Reported - Past Family History Sister(s) Family Medical History: Cancer Additional Family Medical History / Comment(s): Patient had 1 sister that from uterine cancer. Father Additional Family Medical History / Comment(s): Father at age 47 from motor vehicle accident. Mother Additional Family Medical History / Comment(s): Mother in her 80s from heart failure and emphysema. Patient does not have any brothers. Patient has one son that had a brain tumor at age 7 but otherwise no major medical problems. Patient is one daughter with no major medical problems. Medications and Allergies Home Medications Medication Instructions Recorded Confirmed Type metFORMIN HCL [Glucophage] 1,000 mg PO QAM 03/09/20 02/02/22 History Cyanocobalamin (Vitamin B-12) 2,000 mcg PO DAILY 09/28/21 02/02/22 History [Vitamin B-12] Glucosamine Sulfate 2,000 mg PO DAILY 09/28/21 02/02/22 History Levothyroxine Sodium 137 mcg PO QAM 09/28/21 02/02/22 History Mirabegron [Myrbetriq] 25 mg PO DAILY 09/28/21 02/02/22 History Ubidecarenone [Co Q-10] 100 mg PO DAILY 09/28/21 02/02/22 History Valsartan/Hydrochlorothiazide 0.5 tab PO QAM 09/28/21 02/02/22 History [Valsartan-Hctz 160-25 mg Tab] Baclofen 10 mg PO TID 01/27/22 02/02/22 History Biotin [Biotin Disolve] 1,000 mcg PO DAILY 01/27/22 02/02/22 History Calcium Carbonate [Calcium] 600 mg PO DAILY 01/27/22 02/02/22 History metFORMIN HCL 500 mg PO HS 01/27/22 02/02/22 History Multivitamin [Multivitamins Adult 1 tab PO DAILY 02/01/22 02/02/22 History Gummies] Allergies Allergy/AdvReac Type Severity Reaction Status Date / Time terbinafine HCl Allergy Rash/Hives Verified 02/02/22 06:27 [From Lamisil] atorvastatin AdvReac Severe Weakness, Verified 02/02/22 06:27 nausea, vomiting pravastatin AdvReac Severe Weakness, Verified 02/02/22 06:27 nausea, vomiting lisinopril AdvReac Cough Verified 02/02/22 06:27 Physical Exam Vitals: Vital Signs Temp Pulse Pulse Resp BP Pulse Ox 02/03/22 08:00 98.2 F 94 18 116/66 99 02/03/22 02:00 97.8 F 90 18 105/66 98 02/02/22 19:51 97.8 F 81 16 138/75 99 02/02/22 18:25 55 L 112/63 96 02/02/22 18:10 70 128/74 96 02/02/22 17:55 75 131/73 96 02/02/22 17:40 54 L 112/67 96 02/02/22 17:25 52 L 103/63 97 02/02/22 17:10 83 145/72 89 L 02/02/22 16:55 67 118/69 87 L 02/02/22 16:48 71 02/02/22 16:40 55 L 101/61 89 L 02/02/22 16:25 97.5 F L 95 14 147/67 95 02/02/22 15:58 71 16 157/67 94 L 02/02/22 15:43 68 16 130/58 96 02/02/22 15:28 90 16 135/63 94 L 02/02/22 15:13 78 17 130/59 94 L 02/02/22 14:58 76 16 112/56 95 02/02/22 14:43 84 16 134/69 95 Intake and Output 02/02/22 02/03/22 02/03/22 22:59 06:59 14:59 Output Total 715 Balance -715 Output: Drainage 15 Back 15 Urine 700 Other: Voiding Method Indwelling Catheter GENERAL: The patient is alert and oriented x3, not in any acute distress. Well developed, well nourished. HEENT: Pupils are round and equally reacting to light. EOMI. No scleral icterus. No conjunctival pallor. Normocephalic, atraumatic. No pharyngeal erythema. No thyromegaly. CARDIOVASCULAR: S1 and S2 present. No murmurs, rubs, or gallops. PULMONARY: Chest is clear to auscultation, no wheezing or crackles. ABDOMEN: Soft, nontender, nondistended, normoactive bowel sounds. No palpable organomegaly. -MUSCULOSKELETAL: No joint swelling or deformity. Surgical once the middle and lower back with dressing in place. Rest of exam is deferred to surgery team EXTREMITIES: No cyanosis, clubbing, or pedal edema. -NEUROLOGICAL: Gross neurological examination did not reveal any focal deficits. Bilateral leg weakness, mild. Sensation is intact. Cranial nerves are grossly intact. SKIN: No rashes. no petechiae. Results CBC & Chem 7: 02/03/22 10:19 02/03/22 10:19 Labs: Abnormal Lab Results - Last 24 Hours (Table) 02/02/22 02/02/22 02/02/22 Range/Units 15:07 17:08 19:05 WBC (3.8-10.6) k/uL RBC (3.80-5.40) m/uL Hgb (11.4-16.0) gm/dL Hct (34.0-46.0) % RDW (11.5-15.5) % Neutrophils # (1.3-7.7) k/uL Monocytes # (0-1.0) k/uL Sodium (137-145) mmol/L Chloride (98-107) mmol/L BUN (7-17) mg/dL Creatinine (0.52-1.04) mg/dL Glucose (74-99) mg/dL POC Glucose (mg/dL) 184 H 214 H (70-110) mg/dL Hemoglobin A1c 6.7 H (0.0-6.0) % 02/02/22 02/03/22 02/03/22 Range/Units 20:34 10:19 10:19 WBC 17.0 H (3.8-10.6) k/uL RBC 3.17 L (3.80-5.40) m/uL Hgb 8.9 L D (11.4-16.0) gm/dL Hct 27.8 L (34.0-46.0) % RDW 15.7 H (11.5-15.5) % Neutrophils # 14.4 H (1.3-7.7) k/uL Monocytes # 1.2 H (0-1.0) k/uL Sodium 133 L (137-145) mmol/L Chloride 97 L (98-107) mmol/L BUN 22 H (7-17) mg/dL Creatinine 1.16 H (0.52-1.04) mg/dL Glucose 130 H (74-99) mg/dL POC Glucose (mg/dL) 194 H (70-110) mg/dL Hemoglobin A1c (0.0-6.0) % 02/03/22 Range/Units 11:45 WBC (3.8-10.6) k/uL RBC (3.80-5.40) m/uL Hgb (11.4-16.0) gm/dL Hct (34.0-46.0) % RDW (11.5-15.5) % Neutrophils # (1.3-7.7) k/uL Monocytes # (0-1.0) k/uL Sodium (137-145) mmol/L Chloride (98-107) mmol/L BUN (7-17) mg/dL Creatinine (0.52-1.04) mg/dL Glucose (74-99) mg/dL POC Glucose (mg/dL) 135 H (70-110) mg/dL Hemoglobin A1c (0.0-6.0) % Assessment and Plan Assessment: Severe Thoracic myelopathy, severe thoracic spinal stenosis T9-10 and T10-11, T11-12, L2-3,s/p lateral decompression and fusion T9 to L4 with extension of fusion from prior L3 to S1 (On 02/02) Bilateral lower extremity weakness, inability to ambulate, secondary to above Lower extremity radiculopathy, back pain , secondary to above, improving postop fever, mild. Patient status post IV vancomycin 1 Diabetes mellitus type 2 Chronic kidney disease stage III Postoperative hypotension, mild and asymptomatic Plan: This is a pleasant 76 years old disease presents with degenerative spine disease with myelopathy and enable us to wake status post decompression and fusion surgery of the thoracic and lumbar spine. Continue with gentle hydration and monitor blood pressure Monitored fever for now. It's low-grade, no obvious signs of infection. We will keep monitoring. Patient already received IV vancomycin 1 per primary team Labs and medication were reviewed.. Continue same treatment. Continue with symptomatic treatment. Resume home medication. Monitor lytes and vitals. DVT and GI prophylaxis. Further recommendations as per clinical course of the patient DVT prophylaxis: Deferred to surgery team GI Prophylaxis: Junior Thank you for consulting us and we will follow up with
[2022-02-04] MEDS: HYDROmorphone 0.5 MG/0.5 ML SYRINGE IVP PRN (03:47)
[2022-02-04] MEDS: LEVOTHYROXINE 137 MCG TAB PO SCH (06:43)
[2022-02-04] MEDS: HYDROcodone/APAP 5-325MG 1 EACH TAB PO PRN (06:45)
[2022-02-04 07:19] LABS: Glucose,Whole Blood 134 mg/dL (70-110)
[2022-02-04] MEDS: INSULIN ASPART (NovoLOG) 100 UNIT/ML VIAL SQ SCH ×4 (07:22→21:10)
[2022-02-04] MEDS: HYDROmorphone 1 MG/ML 1 ML SYRINGE IVP PRN (07:24)
[2022-02-04] MEDS: CYCLOBENZAPRINE 5 MG TAB PO PRN ×2 (07:24→15:53)
[2022-02-04] MEDS: VANCOMYCIN 1,250 MG in SODIUM CHLORIDE 0.9% 250 ML IVPB SCH (07:26)
[2022-02-04] MEDS: SODIUM CHLORIDE 0.9% 1,000 ML IV SCH ×2 (07:26→13:57)
--- NOTE | 2022-02-04 08:45 | P.PN ---
Progress Note - Text Progress Note Date: 02/04/22 Orthopedic Spine History of present illness: Patient is a pleasant 76-year-old female who is seen and examined at the bedside following posterior lateral decompression and fusion performed Monday. Patient states they are doing okay post operatively. She has continued with some difficulty control. She rates her pain is currently 10/10. She has difficulty with mobilization independently. She is known to have severe thoracic myelopathy and severe bilateral lower extremity weakness with inability to ambulate independently prior to surgical intervention. She will be planning for discharge to [facility] in [place] at the time of discharge. She continues to require IV and oral medications for pain control. She is 2 person assist. Her Sanchez catheter has remained intact. We are planning to discontinue this today but would plan for external catheter placement. Patient states she does continue to have numbness in her bilateral lower extremities which is unchanged postoperatively. Postoperative drain remains intact of the surgical site. 40 mL of blood was removed from the drain this morning. There continues to be some drainage into the bulb. We will keep the drain intact. Currently does not complain of nausea, vomiting, fever, or chills. Patient is being seen and examined by medicine. Patient states since last evening she has had some change in her vision. She does have a history of blurred vision. She feels like she has a window shade around her eyes with her vision somewhat triangulated. She states she has had this in the past but subsided spontaneously. She has not had it last this long the past before. She did not require treatment for this in the past. This was discussed with nursing who will discuss this with medicine. She denies any other changes or new symptoms. Physical Exam Lumbar Fusion: Status post surgical day number 2 Patient is awake, alert, and oriented 3 Vital signs stable Adequate chest excursion with deep inspiration and expiration Significant weakness with active range of motion of bilateral lower extremities Patient is able to perform active dorsiflexion and plantar flexion bilaterally Patient consents sensation with palpation over the bilateral lower extremities but reports sensations are numb No signs or symptoms of DVT; no calf pain; pneumatic cuffs intact bilateral lower extremities Optifoam dressings are clean, dry, and intact over the lumbar spine and right iliac crest; no erythema, purulence, or signs of infection Postoperative drain remains intact Sanchez catheter currently intact Assessment: Status post T9-L4 open posterior lateral decompression and fusion with extension to retained hardware at L3-S1 Low back pain Severe thoracic myelopathy Inability to ambulate prior to surgical intervention Severe bilateral lower extremity weakness History of previous fusion L3-S1 with retained hardware Hypothyroidism Blurred vision Hyperlipidemia Type 2 diabetes Plan: 1. Ambulate as tolerated; work with Physical Therapy to increase mobilization 2. Continue pain control with IV and oral medications; she is having difficulty with pain control. We will plan to increase oral Fyffe to 7.5 mg/325 mg 1-2 ta bs every 4 hours as needed for pain. We'll continue with cyclobenzaprine 5 mg 1 tab 3 times a day as needed for muscle spasm. 3. Dressings to remain intact with Optifoam; patient may shower with dressings intact; postoperative drain remains intact. The drain was emptied this morning with 40 mL of blood and there is currently more blood in the drain bulb. We will plan to keep this postoperative drain intact until tomorrow. 4. TLSO brace has been ordered for the patient. Once this brace is delivered and fitted properly patient may wear this brace for comfort support as needed during increased mobility and ambulation. 5. Medical management can continue to manage patient for patient's other medical diagnoses including changes in vision with a history of blurred vision, hypothyroidism, hyperlipidemia, and type 2 diabetes. 6. We will continue to follow the patient closely; patient continues to have difficulty with mobilization and ambulation postoperatively. She is known to have severe thoracic myelopathy. She was unable to ambulate prior to surgical intervention. She continues to require 2 person assist. She has been working with physical therapy and is progressing slowly. She has undergone a significantly surgical intervention at her thoracic and lumbar spines. She has had difficulty with pain control. She continues to require IV and oral medications for pain control. I do not feel the patient is ready for discharge home and would not be safe for discharge home. Patient will continue to remain in the hospital until her symptoms improve and her pain is better controlled. Given her significant difficulty with mobilization and bilateral lower extremity weakness, we would then plan for transfer to [facility] rehabilitation facility [place], [place], at the time of discharge. We will plan to have the patient be admitted to in patient status during her admission. Patient will most likely continue to be admitted to the hospital until at least this coming 02/07/2022. 7. Patient can follow-up with Nestor Orta PA-C or Dr. Raffi Gomez at [facility] in 2-3 weeks following discharge
[2022-02-04] MEDS ORDERED: FAMOTIDINE 20 MG/2 ML VIAL IV SCH (09:00)
[2022-02-04] MEDS: VALSARTAN 80 MG TAB PO SCH (09:46)
[2022-02-04] MEDS: MULTIVITAMINS, THERA 1 EACH TAB PO SCH (09:47)
[2022-02-04] MEDS: CALCIUM CARBONATE 500 MG CHEWABLE PO SCH (09:48)
[2022-02-04] MEDS: SENNOSIDES-DOCUSATE SODIUM 1 EACH TAB PO SCH (09:49)
[2022-02-04] MEDS: metFORMIN 500 MG TAB PO SCH ×2 (09:49→21:49)
[2022-02-04] MEDS: CYANOCOBALAMIN 500 MCG TAB PO SCH (09:51)
[2022-02-04] MEDS: Mirabegron [Myrbetriq] PO SCH (10:04)
[2022-02-04 10:43] LABS: Basophils # (A) 0.1 k/uL (0-0.2); Basophils % (A) 0 %; Eosinophils % (A) 0 %; HCT 25.7 % (34.0-46.0); HGB 7.9 gm/dL (11.4-16.0); Hypochromasia Slight; Lymphocytes # (A) 1.3 k/uL (1.0-4.8); Lymphocytes % (A) 8 %; MCH 27.1 pg (25.0-35.0); MCHC 30.9 g/dL (31.0-37.0); MCV 87.8 fL (80.0-100.0); Mean Platelet Volume 7.4; Monocytes # (A) 0.9 k/uL (0-1.0); Monocytes % (A) 5 %; Neutrophils # (A) 14.5 k/uL (1.3-7.7); Neutrophils % (A) 86 %; Platelet Count 312 k/uL (150-450); RBC 2.93 m/uL (3.80-5.40); RDW 15.7 % (11.5-15.5); WBC 16.9 k/uL (3.8-10.6)
[2022-02-04 11:41] LABS: Glucose,Whole Blood 122 mg/dL (70-110)
[2022-02-04] MEDS ORDERED: ACETAMINOPHEN TAB 325 MG TAB PO PRN (13:08)
[2022-02-04] MEDS: HYDROcodone/APAP 7.5-325MG 1 EACH TAB PO PRN ×2 (13:55→19:29)
--- NOTE | 2022-02-04 14:01 | XR ---
EXAMINATION TYPE: XR chest 1V DATE OF EXAM: 02/04/2022 HISTORY: Shortness of breath. COMPARISON: 12/14/2021 TECHNIQUE: Single view of the chest is submitted. FINDINGS: Demonstrated are scattered senescent parenchymal change. There is no evidence for focal infiltrate. The heart is stable. Hilar and mediastinal structures are within normal limits. Degenerative changes are seen of the dorsal spine. IMPRESSION: 1. Chronic changes without evidence for acute pulmonary disease.
[2022-02-04 14:06] VITALS: BMI 28.5
[2022-02-04] MEDS: CEFEPIME 2 GM in SODIUM CHLORIDE 0.9% 100 ML IVPB SCH (15:42)
[2022-02-04 16:25] LABS: Amorphous Sediment,Urine Rare /hpf; Appearance,Urine Cloudy (Clear); Bacteria,Urine Occasional /hpf; Bilirubin,Urine Negative (Negative); Blood,Urine Moderate (Negative); Color,Urine Light Yellow; Glucose,Urine (UA) Negative (Negative); Ketones,Urine Negative (Negative); Leukocyte Esterase,Urine Trace (Negative); Mucus,Urine Rare /hpf; Nitrite,Urine Negative (Negative); PH, Urine 5.5 (5.0-8.0); Protein,Urine 1+ (Negative); RBC,Urine 1 /hpf (0-5); Specific Gravity,Urine 1.009 (1.001-1.035); Squamous Epithelial Cell,Urine 1 /hpf (0-4); Urobilinogen,Urine <2.0 mg/dL (<2.0); WBC,Urine 8 /hpf (0-5)
[2022-02-04 16:48] LABS: Glucose,Whole Blood 129 mg/dL (70-110)
[2022-02-04] MEDS ORDERED: VANCOMYCIN IV PER PHARMACY 1 EACH MISC MISCELLANE PRN (16:51)
--- NOTE | 2022-02-04 18:39 | P.PN ---
Subjective This is a pleasant 76 years old female with past medical history of diabetes mellitus, hypertension, chronic kidney disease, hypothyroidism and back pain. She was admitted due to her leg weakness and thoracic myelopathy and back pain. She underwent decompression and fusion surgery to thoracic and lumbar spine T9 to L4 area at ID extension L3-S1. Postoperatively she was sitting in bed does not look in distress. She denies any chest pain or dyspnea. No abdominal pain or diarrhea. No vomiting. No fever or dizziness. She has Sanchez catheter in place with clear urine. Labs reviewed showing WBC 17,000, hemoglobin 8.9, sodium 133, creatinine at baseline of 1.1. Glucose controlled Heart rate is 116, fever 99.9, blood pressure 99/56. 02/05/2022 patient feels tired and in pain at the surgery site and the spine to hold back and she states has significant pain. Patient is stain intubate currently. Blood pressure is borderline however it's is stable. Patient developed high- grade fever at 103 today. Chest x-ray and urinalysis are not very impressive for infection, urine analysis slightly abnormal and urine culture is requested. Patient also suspected to have infection at the surgical site. She had low-grade fever yesterday and today has more fever. Also the drain is filled retirement with bloody discharge when I saw her. Patient denies vomiting, no chest pain, no abdominal pain. Patient feels numb from waist down for the last 4 months (she feels the pain if it is there in the lower extremities, but currently no pain) Patient denies difficulty breathing but have often. No diarrhea, no rash. Her hemoglobin A1c is 6.7. She has the WBC of 16.9 and hemoglobin 7.9. We will increase her fluids to 125 mg of normal saline. Patient was started on cefepime, infectious disease consult and started on IV vancomycin with close mo nitoring of her labs and kidney function and other parameters. Objective - Vital Signs Vital signs: Vital Signs Temp 98.3 F 02/04/22 07:47 Pulse 130 H 02/04/22 07:50 Resp 16 02/04/22 07:50 BP 104/64 02/04/22 07:47 Pulse Ox 96 02/04/22 07:47 FiO2 Intake & Output 02/03/22 02/04/22 02/04/22 18:59 06:59 18:59 Intake Total 850 850 Output Total 30 600 290 Balance 820 -600 560 Intake: Intake, IV Titration 850 850 Amount Sodium Chloride 0.9% 1, 600 600 000 ml @ 75 mls/hr IV . [id number] GAIL Rx#:[id number] Vancomycin 1,250 mg In 250 250 Sodium Chloride 0.9% 250 ml @ 125 mls/hr IVPB Q24H GAIL Rx#:[id number] Output: Drainage 30 40 Back 30 40 Urine 600 250 Uretheral (Sanchez) 250 Other: Voiding Method Indwelling Catheter Indwelling Catheter External Catheter - Exam GENERAL: The patient is alert and oriented x3, not in any acute distress. Well developed, well nourished. HEENT: Pupils are round and equally reacting to light. EOMI. No scleral icterus. No conjunctival pallor. Normocephalic, atraumatic. No pharyngeal erythema. No thyromegaly. CARDIOVASCULAR: S1 and S2 present. No murmurs, rubs, or gallops. PULMONARY: Chest is clear to auscultation, no wheezing or crackles. ABDOMEN: Soft, nontender, nondistended, normoactive bowel sounds. No palpable organomegaly. -MUSCULOSKELETAL: No joint swelling or deformity. Surgical once the middle and lower back with dressing in place. Rest of exam is deferred to surgery team EXTREMITIES: No cyanosis, clubbing, or pedal edema. -NEUROLOGICAL: Gross neurological examination did not reveal any focal deficits. Bilateral leg weakness, mild. Sensation is intact. Cranial nerves are grossly intact. SKIN: No rashes. no petechiae. - Labs CBC & Chem 7: 02/04/22 10:11 02/03/22 10:19 Labs: Abnormal Lab Results - Last 24 Hours (Table) 02/03/22 02/03/22 02/03/22 Range/Units 10:19 16:21 20:58 WBC 17.0 H (3.8-10.6) k/uL RBC 3.17 L (3.80-5.40) m/uL Hgb 8.9 L D (11.4-16.0) gm/dL Hct 27.8 L (34.0-46.0) % MCHC (31.0-37.0) g/dL RDW 15.7 H (11.5-15.5) % Neutrophils # 14.4 H (1.3-7.7) k/uL Monocytes # 1.2 H (0-1.0) k/uL POC Glucose (mg/dL) 118 H 160 H (70-110) mg/dL 02/04/22 02/04/22 02/04/22 Range/Units 07:17 10:11 11:38 WBC 16.9 H (3.8-10.6) k/uL RBC 2.93 L (3.80-5.40) m/uL Hgb 7.9 L (11.4-16.0) gm/dL Hct 25.7 L (34.0-46.0) % MCHC 30.9 L (31.0-37.0) g/dL RDW 15.7 H (11.5-15.5) % Neutrophils # 14.5 H (1.3-7.7) k/uL Monocytes # (0-1.0) k/uL POC Glucose (mg/dL) 134 H 122 H (70-110) mg/dL Assessment and Plan Assessment: High-grade fever with leukocytosis. sepsis is suspected. Unknown source most likely surgical site infection is suspected, less likely UTI versus others. Severe Thoracic myelopathy, severe thoracic spinal stenosis T9-10 and T10-11, T11-12, L2-3,s/p lateral decompression and fusion T9 to L4 with extension of fusion from prior L3 to S1 (On 02/02) Bilateral lower extremity weakness, inability to ambulate, secondary to above Lower extremity radiculopathy, back pain , secondary to above, improving postop fever, mild. Patient status post IV vancomycin 1 Diabetes mellitus type 2 Chronic kidney disease stage III Postoperative hypotension, mild and asymptomatic Plan: This is a pleasant 76 years old disease presents with degenerative spine disease with myelopathy and enable us to wake status post decompression and fusion surgery of the thoracic and lumbar spine. Continue with normal saline IV hydration and monitor blood pressure Continue with cefepime and IV vancomycin with close monitoring of kidney function. ID team recommendation Continue with primary team surgical care on postop care Labs and medication were reviewed.. Continue same treatment. Continue with symptomatic treatment. Resume home medication. Monitor lytes and vitals. DVT and GI prophylaxis. Further recommendations as per clinical course of the patient DVT prophylaxis: Deferred to surgery team GI Prophylaxis: Junior Thank you for consulting us and we will follow up with
[2022-02-04 20:41] LABS: Glucose,Whole Blood 138 mg/dL (70-110)
[2022-02-04] MEDS: ACETAMINOPHEN TAB 325 MG TAB PO PRN (21:55)
[2022-02-05] MEDS: CEFEPIME 2 GM in SODIUM CHLORIDE 0.9% 100 ML IVPB SCH ×4 (00:03→23:23)
--- NOTE | 2022-02-05 00:08 | P.CONS ---
History of Present Illness - Reason for Consult Consult date: 02/04/22 Postop Fever Requesting physician: Julian E Sheet - Chief Complaint Fever 1 day - History of Present Illness Patient is a 76-year-old female who has been electively admitted to the hospital for posterior lateral decompression and fusion T9-L4 with extension of the fusion from prior L3-S1 in this patient presenting with the severe thoracic myelopathy bilateral lower extremity weakness and ability to ambulate the patient surgery was completed on 02/02/2022 and the patient subsequently has been admitted to hospital for postop care patient denies having any fever or any chills before presentation to the hospital/before surgery, and the patient was afebrile however the patient did have a low-grade fever of 99.9 yesterday and there was postop day 1 and the patient did spike another fever of 103 F this afternoon that has prompted this infectious disease consultation patient currently denies having any headache or URI symptoms no chest pain or shortness of breath occasional cough but denies having nausea no vomiting no abdominal pain no diarrhea and no worsening pain to the lumbosacral incision area Review of Systems Positive point has been mentioned in the HPI rest of the systems are negative Past Medical History Past Medical History: Blood Disorder, Diabetes Mellitus, Hypertension, Osteoarthritis (OA), Thyroid Disorder Additional Past Medical History / Comment(s): HEARING LOSS RT EAR, MINOR. TINNITUS CHRONIC BACK PAIN, HOWARD SHOULDER PAIN W/ LIMITATIONS. OVERACTIVE BLADDER. LOW IRON. History of Any Multi-Drug Resistant Organisms: None Reported Past Surgical History: Joint Replacement Additional Past Surgical History / Comment(s): TOTAL KNEE RIGHT KNEE, CERVICAL FUSION, THYROID SURGERY, laminectomy and decompression L3 4, L4 5 and L5-S1 Past Anesthesia/Blood Transfusion Reactions: No Reported Reaction Past Psychological History: No Psychological Hx Reported Additional Psychological History / Comment(s): CLAUSTROPHOBIA Smoking Status: Former smoker Past Alcohol Use History: None Reported Additional Past Alcohol Use History / Comment(s): STARTED AGE 20, QUIT 2001.SMOKED 1/2PPD Past Drug Use History: None Reported - Past Family History Sister(s) Family Medical History: Cancer Additional Family Medical History / Comment(s): Patient had 1 sister that from uterine cancer. Father Additional Family Medical History / Comment(s): Father at age 47 from motor vehicle accident. Mother Additional Family Medical History / Comment(s): Mother in her 80s from heart failure and emphysema. Patient does not have any brothers. Patient has one son that had a brain tumor at age 7 but otherwise no major medical problems. Patient is one daughter with no major medical problems. Medications and Allergies Home Medications Medication Instructions Recorded Confirmed Type metFORMIN HCL [Glucophage] 1,000 mg PO QAM 03/09/20 02/02/22 History Cyanocobalamin (Vitamin B-12) 2,000 mcg PO DAILY 09/28/21 02/02/22 History [Vitamin B-12] Glucosamine Sulfate 2,000 mg PO DAILY 09/28/21 02/02/22 History Levothyroxine Sodium 137 mcg PO QAM 09/28/21 02/02/22 History Mirabegron [Myrbetriq] 25 mg PO DAILY 09/28/21 02/02/22 History Ubidecarenone [Co Q-10] 100 mg PO DAILY 09/28/21 02/02/22 History Valsartan/Hydrochlorothiazide 0.5 tab PO QAM 09/28/21 02/02/22 History [Valsartan-Hctz 160-25 mg Tab] Baclofen 10 mg PO TID 01/27/22 02/02/22 History Biotin [Biotin Disolve] 1,000 mcg PO DAILY 01/27/22 02/02/22 History Calcium Carbonate [Calcium] 600 mg PO DAILY 01/27/22 02/02/22 History metFORMIN HCL 500 mg PO HS 01/27/22 02/02/22 History Multivitamin [Multivitamins Adult 1 tab PO DAILY 02/01/22 02/02/22 History Gummies] Aspirin 325 mg PO DAILY tab 02/10/22 Rx Cyclobenzaprine [Flexeril] 10 mg PO TID PRN #30 tab 02/10/22 Rx HYDROcodone/APAP 7.5-325MG [Tibbie 1 - 2 tab PO Q4-6H PRN #32 tab 02/10/22 Rx 7.5-325] cefUROXime axetiL [Ceftin] 500 mg PO BID 10 Days #5 tab 02/10/22 Rx predniSONE 50 mg PO DAILY #30 tab 02/10/22 Rx Allergies Allergy/AdvReac Type Severity Reaction Status Date / Time terbinafine HCl Allergy Rash/Hives Verified 02/08/22 10:15 [From Lamisil] atorvastatin AdvReac Severe Weakness, Verified 02/08/22 10:15 nausea, vomiting pravastatin AdvReac Severe Weakness, Verified 02/08/22 10:15 nausea, vomiting lisinopril AdvReac Cough Verified 02/08/22 10:15 Physical Exam Vitals: Vital Signs Temp Pulse Resp BP BP Pulse Ox 02/04/22 13:21 129 H 02/04/22 13:10 103.0 F H 129 H 16 101/58 100 02/04/22 07:50 130 H 16 02/04/22 07:47 98.3 F 130 H 16 104/64 96 02/04/22 02:00 99.8 F H 116 H 18 96/60 96 02/03/22 23:33 99.7 F H 117 H 18 96/50 97 02/03/22 20:00 117 H 02/03/22 19:07 116 H 02/03/22 19:01 99.5 F 116 H 16 99/56 96 Intake and Output 02/03/22 02/04/22 02/04/22 22:59 06:59 14:59 Intake Total 850 Output Total 30 600 290 Balance -30 -600 560 Intake: Intake, IV Titration 850 Amount Sodium Chloride 0.9% 1, 600 000 ml @ 75 mls/hr IV . [id number] GAIL Rx#:[id number] Vancomycin 1,250 mg In 250 Sodium Chloride 0.9% 250 ml @ 125 mls/hr IVPB Q24H GAIL Rx#:[id number] Output: Drainage 30 40 Back 30 40 Urine 600 250 Uretheral (Sanchez) 250 Other: Voiding Method Indwelling Catheter External Catheter Weight 75.3 kg GENERAL DESCRIPTION: An elderly female lying in bed, no distress. No tachypnea or accessory muscle of respiration use. HEENT: Shows Pallor , no scleral icterus. Oral mucous membrane is dry. No pharyngeal erythema or thrush NECK: Trachea central, no thyromegaly. LUNGS: Unlabored breathing. Decreased breath sounds at the base No wheeze or crackle. HEART: S1, S2, regular rate and rhythm. No loud murmur ABDOMEN: Soft, no tenderness , guarding or rigidity, no organomegaly EXTREMITIES: No edema of feet. SKIN: No rash, no masses palpable. NEUROLOGICAL: The patient is awake, alert, oriented x3, mood and affect normal. Results CBC & Chem 7: 02/09/22 05:35 02/09/22 05:35 Labs: Abnormal Lab Results - Last 24 Hours (Table) 02/03/22 02/03/22 02/04/22 Range/Units 16:21 20:58 07:17 WBC (3.8-10.6) k/uL RBC (3.80-5.40) m/uL Hgb (11.4-16.0) gm/dL Hct (34.0-46.0) % MCHC (31.0-37.0) g/dL RDW (11.5-15.5) % Neutrophils # (1.3-7.7) k/uL POC Glucose (mg/dL) 118 H 160 H 134 H (70-110) mg/dL 02/04/22 02/04/22 Range/Units 10:11 11:38 WBC 16.9 H (3.8-10.6) k/uL RBC 2.93 L (3.80-5.40) m/uL Hgb 7.9 L (11.4-16.0) gm/dL Hct 25.7 L (34.0-46.0) % MCHC 30.9 L (31.0-37.0) g/dL RDW 15.7 H (11.5-15.5) % Neutrophils # 14.5 H (1.3-7.7) k/uL POC Glucose (mg/dL) 122 H (70-110) mg/dL Assessment and Plan (1) Fever Status: Acute Code(s): R50.9 - FEVER, UNSPECIFIED SNOMED Code(s): 770118086 Plan: 1patient with a postop fever and this patient likely will hospital for posterior leg central decompression and fusion T9-L4 with extension of the fusion from prior L3-S1 in this patient denies any worsening lower back pain and do not have any obvious focus of infection 2-blood cultures have been obtained and waiting for the COVID and influenza swab 3-we will check a chest x-ray UA and a culture 4-continue with antibiotics cefepime and vancomycin while waiting for the culture to finalize 5-instructed on incentive spirometry We will follow on clinical condition and cultures to further adjust medication if needed Thank you for this consultation will follow this patient along with you Time with Patient: Greater than 30
[2022-02-05] MEDS: CYCLOBENZAPRINE 5 MG TAB PO PRN ×2 (02:16→15:18)
[2022-02-05] MEDS: HYDROcodone/APAP 7.5-325MG 1 EACH TAB PO PRN ×5 (03:43→20:34)
[2022-02-05] MEDS: SODIUM CHLORIDE 0.9% 1,000 ML IV SCH ×4 (04:49→23:24)
[2022-02-05] MEDS: HYDROmorphone 0.5 MG/0.5 ML SYRINGE IVP PRN (06:25)
[2022-02-05 06:58] LABS: Glucose,Whole Blood 86 mg/dL (70-110)
[2022-02-05] MEDS ORDERED: VANCOMYCIN TROUGH DUE 1 EACH MISC MISCELLANE ONE (07:00)
[2022-02-05 07:25] LABS: ALT 28 U/L (4-34); AST 57 U/L (14-36); African American GFR (CKD) 57 (>60 ml/min/1.73 sqM); Albumin 2.7 g/dL (3.5-5.0); Alkaline Phosphatase 81 U/L (38-126); Anion Gap 9 mmol/L; Bilirubin,Unconjugated 0.1 mg/dL (0.0-1.1); Blood Urea Nitrogen 17 mg/dL (7-17); Calcium 8.3 mg/dL (8.4-10.2); Carbon Dioxide 21 mmol/L (22-30); Chloride 107 mmol/L (98-107); Globulin 2.7 g/dL; Glucose 97 mg/dL (74-99); Magnesium 1.6 mg/dL (1.6-2.3); Non-African American GFR(CKD) 49 (>60 ml/min/1.73 sqM); Potassium 4.1 mmol/L (3.5-5.1); Sodium 137 mmol/L (137-145); Total Bilirubin 0.3 mg/dL (0.2-1.3); Total Protein 5.4 g/dL (6.3-8.2)
[2022-02-05] MEDS: INSULIN ASPART (NovoLOG) 100 UNIT/ML VIAL SQ SCH ×4 (07:30→20:30)
[2022-02-05] MEDS ORDERED: VANCOMYCIN 1,250 MG in SODIUM CHLORIDE 0.9% 250 ML IVPB SCH (08:00)
[2022-02-05] MEDS: Mirabegron [Myrbetriq] PO SCH (08:12)
[2022-02-05] MEDS: FAMOTIDINE 20 MG/2 ML VIAL IV SCH (08:22)
[2022-02-05] MEDS: MAGNESIUM HYDROXIDE 2,400 MG/10 ML CUP PO PRN (08:22)
[2022-02-05] MEDS: VALSARTAN 80 MG TAB PO SCH (08:23)
[2022-02-05] MEDS: LEVOTHYROXINE 137 MCG TAB PO SCH (08:23)
[2022-02-05] MEDS: metFORMIN 500 MG TAB PO SCH ×2 (08:24→20:34)
[2022-02-05] MEDS: SENNOSIDES-DOCUSATE SODIUM 1 EACH TAB PO SCH (08:24)
[2022-02-05] MEDS: CYANOCOBALAMIN 500 MCG TAB PO SCH (08:24)
[2022-02-05] MEDS: CALCIUM CARBONATE 500 MG CHEWABLE PO SCH (08:25)
[2022-02-05] MEDS: MULTIVITAMINS, THERA 1 EACH TAB PO SCH (08:25)
[2022-02-05 08:54] LABS: Basophils % (A) 0.7 %; Eosinophils # (A) 0.15 X 10*3/uL (0.04-0.35); HCT 24.8 % (37.2-46.3); HGB 7.4 g/dL (12.0-15.0); Immature Grans, Automated 0.7 %; Lymphocytes % (A) 7.4 %; MCH 27.1 pg (27.0-32.0); MCHC 29.8 g/dL (32.0-37.0); MCV 90.8 fL (80.0-97.0); Mean Platelet Volume 10.6 fL (9.5-12.2); Monocytes # (A) 0.91 X 10*3/uL (0.20-1.00); Monocytes % (A) 6.1 %; NRBC Per 100 WBC 0.1 /100 WBCS (0.0-0.0); Neutrophils # (A) 12.55 X 10*3/uL (1.80-7.70); Neutrophils % (A) 84.1 %; Platelet Count 225 X 10*3/uL (140-440); RBC 2.73 X 10*6/uL (4.10-5.20); WBC 14.91 X 10*3/uL (4.50-10.00)
[2022-02-05] MEDS ORDERED: Magnesium Replacement Protocol 1 EACH MISC MISCELLANE PRN (09:28)
--- NOTE | 2022-02-05 10:32 | P.PN ---
Progress Note - Text Progress Note Date: 02/05/22 Orthopedic Spine History of present illness: Patient is a pleasant 76-year-old female who is seen and examined at the bedside following posterior lateral decompression and fusion performed Monday. Patient states they are doing okay post operatively. He has not had much change as compared to yesterday. She has continued with some difficulty control. We did increase her oral hydrocodone yesterday. She has difficulty with mobilization independently. She is known to have severe thoracic myelopathy and severe bilateral lower extremity weakness with inability to ambulate independently prior to surgical intervention. She will be planning for discharge to [facility] in [place] at the time of discharge. She continues to require IV and oral medications for pain control. She is 2 person assist. She was able to transfer to a bedside chair with assistance yesterday. Sanchez catheter has been discontinued. External catheter is intact. Patient states she does continue to have numbness in her bilateral lower extremities which is unchanged postoperatively. Postoperative drain remains intact of the surgical site. Currently does not complain of nausea, vomiting, fever, or chills. Patient is being seen and examined by medicine. Patient continues to have some change in her vision. She does have a history of blurred vision. She feels like she has a window shade around her eyes with her vision somewhat triangulated. She states she has had this in the past but subsided spontaneously. This has not change as compared to yesterday. She has not had it last this long the past before. She did not require treatment for this in the past. She feels this may be due to the IV pain medication. We will plan to try to wean her off of the IV Dilaudid. This was discussed with nursing who will discuss this with medicine. She denies any other changes or new symptoms. Patient does admit to having some constipation. She has received Senokot and milk of magnesia this morning. Her medications are also on board to help facilitate a bowel movement. Patient was able to pass a small amount of gas. Physical Exam Lumbar Fusion: Status post surgical day number 3 Patient is awake, alert, and oriented 3 Vital signs stable Adequate chest excursion with deep inspiration and expiration Abdomen is firm with some distention Significant weakness with active range of motion of bilateral lower extremities Patient is able to perform active dorsiflexion and plantar flexion bilaterally Patient consents sensation with palpation over the bilateral lower extremities but reports sensations are numb No signs or symptoms of DVT; no calf pain; pneumatic cuffs intact bilateral lower extremities Optifoam dressings are clean, dry, and intact over the lumbar spine and right iliac crest; no erythema, purulence, or signs of infection Postoperative drain remains intact and is removed during physical examination Dressing is reapplied over the surgical site of the drain placement External catheter currently intact Assessment: Status post T9-L4 open posterior lateral decompression and fusion with extension to retained hardware at L3-S1 Low back pain Severe thoracic myelopathy Inability to ambulate prior to surgical intervention Severe bilateral lower extremity weakness History of previous fusion L3-S1 with retained hardware Hypothyroidism History of Blurred vision Reported vision change Hyperlipidemia Type 2 diabetes Plan: 1. Ambulate as tolerated; work with Physical Therapy to increase mobilization 2. Continue pain control with IV and oral medications; she is having difficulty with pain control. We will continue with oral [place] to 7.5 mg/325 mg 1-2 tabs every 4 hours as needed for pain. We'll continue with cyclobenzaprine 5 mg 1 tab 3 times a day as needed for muscle spasm. We will try to wean off of IV Dilaudid. Patient may continue to receive this medication if needed for pain control. 3. Dressings to remain intact with Optifoam; patient may shower with dressings intact; postoperative drain remains intact. Drain was discontinued the bedside today. There is some serosanguineous drainage from the drain incision site. It was discussed with the patient and nursing that the patient may continue with dressing changes as needed with nonstick Telfa and Tegaderm. 4. TLSO brace has been ordered for the patient. Once this brace is delivered and fitted properly patient may wear this brace for comfort support as needed during increased mobility and ambulation. 5. Medical management can continue to manage patient for patient's other medical diagnoses including changes in vision with a history of blurred vision, hypothyroidism, hyperlipidemia, and type 2 diabetes. 6. We will continue with medications and help facilitate a bowel movement including Senokot, milk of magnesia, and enema if needed. 7. We will continue to follow the patient closely; patient continues to have difficulty with mobilization and ambulation postoperatively. She is known to have severe thoracic myelopathy. She was unable to ambulate prior to surgical intervention. She continues to require 2 person assist. She has been working with physical therapy and is progressing slowly. She has undergone a significantly surgical intervention at her thoracic and lumbar spines. She has had difficulty with pain control. She continues to require IV and oral medica tions for pain control. I do not feel the patient is ready for discharge home and would not be safe for discharge home. Patient will continue to remain in the hospital until her symptoms improve and her pain is better controlled. Given her significant difficulty with mobilization and bilateral lower extremity weakness, we would then plan for transfer to [facility] rehabilitation [place], [place], at the time of discharge. We will plan to have the patient be admitted to in patient status during her admission. Patient will most likely continue to be admitted to the hospital until at least this coming 02/07/2022. 8. Patient can follow-up with Nestor Orta PA-C or Dr. Raffi Gomez at [facility] in 2-3 weeks following discharge
[2022-02-05 11:21] LABS: Glucose,Whole Blood 110 mg/dL (70-110)
--- NOTE | 2022-02-05 12:11 | P.PN ---
Subjective This is a pleasant 76 years old female with past medical history of diabetes mellitus, hypertension, chronic kidney disease, hypothyroidism and back pain. She was admitted due to her leg weakness and thoracic myelopathy and back pain. She underwent decompression and fusion surgery to thoracic and lumbar spine T9 to L4 area at ID extension L3-S1. Postoperatively she was sitting in bed does not look in distress. She denies any chest pain or dyspnea. No abdominal pain or diarrhea. No vomiting. No fever or dizziness. She has Sanchez catheter in place with clear urine. Labs reviewed showing WBC 17,000, hemoglobin 8.9, sodium 133, creatinine at baseline of 1.1. Glucose controlled Heart rate is 116, fever 99.9, blood pressure 99/56. 02/04/2022 patient feels tired and in pain at the surgery site and the spine to hold back and she states has significant pain. Patient is stain intubate currently. Blood pressure is borderline however it's is stable. Patient developed high- grade fever at 103 today. Chest x-ray and urinalysis are not very impressive for infection, urine analysis slightly abnormal and urine culture is requested. Patient also suspected to have infection at the surgical site. She had low-grade fever yesterday and t dinora has more fever. Also the drain is filled long-term with bloody discharge when I saw her. Patient denies vomiting, no chest pain, no abdominal pain. Patient feels numb from waist down for the last 4 months (she feels the pain if it is there in the lower extremities, but currently no pain) Patient denies difficulty breathing but have often. No diarrhea, no rash. Her hemoglobin A1c is 6.7. She has the WBC of 16.9 and hemoglobin 7.9. We will increase her fluids to 125 mg of normal saline. Patient was started on cefepime, infectious disease consult and started on IV vancomycin with close mon itoring of her labs and kidney function and other parameters. 02/05/2022 Clinically does not look much different than yesterday, she still complaining of from generalized weakness, she still complaining of from pain at the surgical site with orthopedic team keep following her and managing her post op care , her pain is separate into both legs, more on the left side. But she feels better with pain pills. She is eating better today. Her drain is more than yesterday. Sanchez catheter was discontinued and external catheter placed. Bladder scan was checked and patient has no evidence of retention when they are was checked. She still is slightly tachycardic, no more fever. Blood pressure start improving today 123/67. No significant dyspnea WBC is improving 14.9, hemoglobin dropped to 7.4, we'll keep monitoring her hemoglobin closely. Patient currently is not on blood thinner. Sodium is 137, creatinine stable at 1.1. Glucose controlled. Hemoglobin A1c is 6.7%. pro Calcitonin is elevated at 1.1. Patient is currently on cefepime and IV vancomycin and normal saline 1 25 mL/h. note; after round i was contacted by the bed side RN pt is complaining to primary surgical team about her blurred vission x 4 day, pt did not mention that to me, i informed the RN they need to call ophthalmology service to evaluate her blurred vission , it is on both eyes , pt wears reading glasses at home. Objective - Vital Signs Vital signs: Vital Signs Temp 98.2 F 02/05/22 07:17 Pulse 111 H 02/05/22 07:17 Resp 17 02/05/22 07:17 BP 123/67 02/05/22 07:17 Pulse Ox 100 02/05/22 07:17 FiO2 Intake & Output 02/04/22 02/05/22 02/05/22 18:59 06:59 18:59 Intake Total 850 Output Total 370 500 Balance 480 -500 Weight 75.3 kg Intake: Intake, IV Titration 850 Amount Sodium Chloride 0.9% 1, 600 000 ml @ 125 mls/hr IV . Q8H GAIL Rx#:[id number] Vancomycin 1,250 mg In 250 Sodium Chloride 0.9% 250 ml @ 125 mls/hr IVPB Q24H GAIL Rx#:[id number] Output: Drainage 120 Back 120 Urine 250 500 Uretheral (Sanchez) 250 Other: Voiding Method External Catheter External Catheter # Voids 1 - Exam GENERAL: The patient is alert and oriented x3, not in any acute distress. Well developed, well nourished. HEENT: Pupils are round and equally reacting to light. EOMI. No scleral icterus. No conjunctival pallor. Normocephalic, atraumatic. No pharyngeal erythema. No thyromegaly. CARDIOVASCULAR: S1 and S2 present. No murmurs, rubs, or gallops. PULMONARY: Chest is clear to auscultation, no wheezing or crackles. ABDOMEN: Soft, nontender, nondistended, normoactive bowel sounds. No palpable organomegaly. -MUSCULOSKELETAL: No joint swelling or deformity. Surgical once the middle and lower back with dressing in place. Rest of exam is deferred to surgery team EXTREMITIES: No cyanosis, clubbing, or pedal edema. -NEUROLOGICAL: Gross neurological examination did not reveal any focal deficits. Bilateral leg weakness, mild. Sensation is intact. Cranial nerves are grossly intact. SKIN: No rashes. no petechiae. - Labs CBC & Chem 7: 02/05/22 06:35 02/05/22 06:35 Labs: Abnormal Lab Results - Last 24 Hours (Table) 02/04/22 02/04/22 02/04/22 Range/Units 10:11 11:38 16:00 WBC 16.9 H (3.8-10.6) k/uL RBC 2.93 L (3.80-5.40) m/uL Hgb 7.9 L (11.4-16.0) gm/dL Hct 25.7 L (34.0-46.0) % MCHC 30.9 L (31.0-37.0) g/dL RDW 15.7 H (11.5-15.5) % Absolute Nucleated RBC (0.00-0.00) X 10*3/uL Immature Gran # (0.00-0.04) X 10*3/uL Neutrophils # 14.5 H (1.3-7.7) k/uL NRBC/100 WBC Diff (0.0-0.0) /100 WBCS Carbon Dioxide (22-30) mmol/L Creatinine (0.52-1.04) mg/dL POC Glucose (mg/dL) 122 H (70-110) mg/dL Calcium (8.4-10.2) mg/dL AST (14-36) U/L Total Protein (6.3-8.2) g/dL Albumin (3.5-5.0) g/dL Urine Appearance Cloudy H (Clear) Urine Protein 1+ H (Negative) Urine Blood Moderate H (Negative) Ur Leukocyte Esterase Trace H (Negative) Urine WBC 8 H (0-5) /hpf Amorphous Sediment Rare H (None) /hpf Urine Bacteria Occasional H (None) /hpf Urine Mucus Rare H (None) /hpf 02/04/22 02/04/22 02/05/22 Range/Units 16:45 20:32 06:35 WBC (3.8-10.6) k/uL RBC (3.80-5.40) m/uL Hgb (11.4-16.0) gm/dL Hct (34.0-46.0) % MCHC (31.0-37.0) g/dL RDW (11.5-15.5) % Absolute Nucleated RBC (0.00-0.00) X 10*3/uL Immature Gran # (0.00-0.04) X 10*3/uL Neutrophils # (1.3-7.7) k/uL NRBC/100 WBC Diff (0.0-0.0) /100 WBCS Carbon Dioxide 21 L (22-30) mmol/L Creatinine 1.11 H (0.52-1.04) mg/dL POC Glucose (mg/dL) 129 H 138 H (70-110) mg/dL Calcium 8.3 L (8.4-10.2) mg/dL AST 57 H (14-36) U/L Total Protein 5.4 L (6.3-8.2) g/dL Albumin 2.7 L (3.5-5.0) g/dL Urine Appearance (Clear) Urine Protein (Negative) Urine Blood (Negative) Ur Leukocyte Esterase (Negative) Urine WBC (0-5) /hpf Amorphous Sediment (None) /hpf Urine Bacteria (None) /hpf Urine Mucus (None) /hpf 02/05/22 Range/Units 06:35 WBC 14.91 H (3.8-10.6) k/uL RBC 2.73 L (3.80-5.40) m/uL Hgb 7.4 L (11.4-16.0) gm/dL Hct 24.8 L (34.0-46.0) % MCHC 29.8 L (31.0-37.0) g/dL RDW 17.0 H (11.5-15.5) % Absolute Nucleated RBC 0.02 H (0.00-0.00) X 10*3/uL Immature Gran # 0.10 H (0.00-0.04) X 10*3/uL Neutrophils # 12.55 H (1.3-7.7) k/uL NRBC/100 WBC Diff 0.1 H (0.0-0.0) /100 WBCS Carbon Dioxide (22-30) mmol/L Creatinine (0.52-1.04) mg/dL POC Glucose (mg/dL) (70-110) mg/dL Calcium (8.4-10.2) mg/dL AST (14-36) U/L Total Protein (6.3-8.2) g/dL Albumin (3.5-5.0) g/dL Urine Appearance (Clear) Urine Protein (Negative) Urine Blood (Negative) Ur Leukocyte Esterase (Negative) Urine WBC (0-5) /hpf Amorphous Sediment (None) /hpf Urine Bacteria (None) /hpf Urine Mucus (None) /hpf Microbiology - Last 24 Hours (Table) 02/04/22 16:00 Urine Culture - Preliminary Urine,Voided Assessment and Plan Assessment: High-grade fever with leukocytosis. sepsis is suspected. Unknown source most likely surgical site infection is suspected, less likely UTI versus others. Severe Thoracic myelopathy, severe thoracic spinal stenosis T9-10 and T10-11, T11-12, L2-3,s/p lateral decompression and fusion T9 to L4 with extension of fusion from prior L3 to S1 (On 02/02) Bilateral lower extremity weakness, inability to ambulate, secondary to above Lower extremity radiculopathy, back pain , secondary to above, improving postop fever, mild. Patient status post IV vancomycin 1 Diabetes mellitus type 2 Chronic kidney disease stage III Postoperative hypotension, mild and asymptomatic Plan: This is a pleasant 76 years old disease presents with degenerative spine disease with myelopathy and enable us to wake status post decompression and fusion surgery of the thoracic and lumbar spine. Continue with normal saline IV hydration and monitor blood pressure Continue with cefepime and IV vancomycin with close monitoring of kidney fu nction. ID team recommendation Continue with primary team surgical care on postop care unit monitoring hemoglobin Labs and medication were reviewed.. Continue same treatment. Continue with symptomatic treatment. Resume home medication. Monitor lytes and vitals. DVT and GI prophylaxis. Further recommendations as per clinical course of the patient DVT prophylaxis: Deferred to surgery team GI Prophylaxis: Junior Thank you for consulting us and we will follow up with
[2022-02-05] MEDS: bisacodyL 10 MG SUPP RECTAL PRN (13:53)
[2022-02-05] MEDS: MAGNESIUM SULFATE-D5W PMX 1 GM in DEXTROSE/WATER 1 100ML.BAG IVPB SCH ×2 (14:12→15:28)
[2022-02-05] MEDS: SENNOSIDES-DOCUSATE SODIUM 1 EACH TAB PO PRN (15:18)
[2022-02-05 16:16] LABS: Glucose,Whole Blood 188 mg/dL (70-110)
[2022-02-05 20:49] LABS: Glucose,Whole Blood 127 mg/dL (70-110)
[2022-02-06] MEDS: HYDROcodone/APAP 7.5-325MG 1 EACH TAB PO PRN ×5 (01:55→23:05)
[2022-02-06] MEDS: LEVOTHYROXINE 137 MCG TAB PO SCH (05:57)
[2022-02-06] MEDS: VANCOMYCIN 1,500 MG in SODIUM CHLORIDE 0.9% 250 ML IVPB SCH (05:58)
[2022-02-06 07:00] LABS: Glucose,Whole Blood 111 mg/dL (70-110)
[2022-02-06] MEDS: INSULIN ASPART (NovoLOG) 100 UNIT/ML VIAL SQ SCH ×4 (08:35→20:23)
[2022-02-06] MEDS: SENNOSIDES-DOCUSATE SODIUM 1 EACH TAB PO SCH (08:45)
[2022-02-06] MEDS: metFORMIN 500 MG TAB PO SCH ×2 (08:45→20:12)
[2022-02-06] MEDS: VALSARTAN 80 MG TAB PO SCH (08:45)
[2022-02-06] MEDS: MULTIVITAMINS, THERA 1 EACH TAB PO SCH (08:45)
[2022-02-06] MEDS: CYANOCOBALAMIN 500 MCG TAB PO SCH (08:45)
[2022-02-06] MEDS: LACTULOSE 20 GM/30 ML CUP PO PRN ×2 (08:45→20:12)
[2022-02-06] MEDS: CALCIUM CARBONATE 500 MG CHEWABLE PO SCH (08:45)
[2022-02-06] MEDS: FAMOTIDINE 20 MG/2 ML VIAL IV SCH (08:45)
[2022-02-06] MEDS: CEFEPIME 2 GM in SODIUM CHLORIDE 0.9% 100 ML IVPB SCH ×2 (08:46→15:19)
[2022-02-06] MEDS: CYCLOBENZAPRINE 5 MG TAB PO PRN ×2 (08:52→23:06)
--- NOTE | 2022-02-06 09:39 | CT ---
EXAMINATION TYPE: CT brain wo con DATE OF EXAM: 02/06/2022 HISTORY: BLURRED VISION CT DLP: 1158.4 mGycm. Automated Exposure Control for Dose Reduction was Utilized. TECHNIQUE: CT scan of the head is performed without contrast. COMPARISON: None. FINDINGS: There is no acute intracranial hemorrhage or midline shift identified. There is mild diff use ventricular and sulcal prominence consistent with diffuse age-related cerebral atrophy. There is mild low-attenuation in the periventricular white matter consistent with chronic small vessel ische bisi change. Mild to moderate vascular calcification of the distal internal carotid arteries. Scleral consultation bilateral globes are seen. Visualized paranasal sinuses are clear. Suprasellar cister n is maintained. IMPRESSION: No acute intracranial hemorrhage or midline shift. There is mild diffuse age-related ce rebral atrophy and chronic small vessel ischemic change noted.
[2022-02-06 09:48] LABS: ALT 26 U/L (4-34); AST 40 U/L (14-36); African American GFR (CKD) 56 (>60 ml/min/1.73 sqM); Albumin 2.8 g/dL (3.5-5.0); Alkaline Phosphatase 107 U/L (38-126); Anion Gap 10 mmol/L; Bilirubin,Unconjugated 0.1 mg/dL (0.0-1.1); Blood Urea Nitrogen 15 mg/dL (7-17); Calcium 8.5 mg/dL (8.4-10.2); Carbon Dioxide 24 mmol/L (22-30); Chloride 103 mmol/L (98-107); Globulin 2.8 g/dL; Glucose 95 mg/dL (74-99); Non-African American GFR(CKD) 48 (>60 ml/min/1.73 sqM); Potassium 4.1 mmol/L (3.5-5.1); Sodium 137 mmol/L (137-145); Total Bilirubin 0.3 mg/dL (0.2-1.3); Total Protein 5.6 g/dL (6.3-8.2)
--- NOTE | 2022-02-06 10:32 | P.PN ---
Progress Note - Text Progress Note Date: 02/06/22 Progress notePostoperative day #4 Patient is seen and examined today at bedside. The patient has some pain around the surgical site as expected. Her back Pain is being controlled with medication. She still requiring complete assistance for transfers. This was the case for her preoperatively as well. She feels like her legs have some better motion than they did preoperatively. She says that she can bend her knees to some degree which she was not able to be operatively. She says that her blurriness at her eyes feels like it's worsening compared to yesterday. She feels like there is a curtain coming in from the side affecting her vision and she can see shapes but cannot see details. She had a computed tomography scan of her brain this morning this does not show any obvious shift or acute change. Neurology and ophthalmology are on consult. Physical Exam Afebrile with stable vital signs Abdomen is soft nontender. Chest has good excursion deep and space expiration The incision site is clean dry and intact. No erythema there is no purulence.There is no active drainage from this site itself Extremities have some mild increase in strength and knee flexion to about 2+ to 3 out of 5 hip flexion and knee extension with some improvement of dorsiflexion plantarflexion from prior to surgery. Calves and thighs were soft nontender without evidence of DVT. At her eyes she is able to track motion but she feels that it is blurry. Her pupils remained responsive. Assessment/Plan Postoperative day #4 status post open posterior spinal decompression and instrumented fusion from T9 to L4 with extension of her fusion from L3 to S1. Bilateral lower extremity weakness and inability to ambulate due to thoracic myelomalacia and myelopathy due to severe severe stenosis Altered vision postoperatively after her spine surgery We will continue to increase the patient's mobilization with therapy. We will continue pain control with oral or IV medications. In terms of her back she seems to be making some very gradual improvement in her lower extremity function and she should continue to try to increase her mobilization. The patient has a new issue in terms of her vision. Certainly have to be acutely concerned for ischemic optic neuritis postoperatively from her spine surgery. The patient states that her vision was fine for the first 2 days after her surgery but then started to have some issues yesterday. When she woke up from her spine surgery she says she did not have any changes in her vision. These findings may lead toward the possibility of anterior ischemic optic neuritis. She is having evaluation with neurology and underwent a computed tomography scan of her brain to see if there is another issue. The brain CT does not appear to show any acute change. Medicine was able to contact ophthalmology who is scheduled to present today to evaluate the patient further. During the surgical procedure the patient was placed in a prone position with her head and face in a spine view repairer cylinder heads which was well-padded and positioned around her eyes appropriately without any undue pressure. The surgery lasted over 6 hours. She was in a neutral prone position and I was not aware of any specific pressure issues during the case. We should able to get further information with the ophthalmology consultation and evaluation. I discussed these issues with the patient and discussed the potential recurrence of vision loss following spine surgeries and she appears to understand. We will continue follow this closely.
[2022-02-06] MEDS: Mirabegron [Myrbetriq] PO SCH (11:27)
[2022-02-06] MEDS: SODIUM CHLORIDE 0.9% 1,000 ML IV SCH (11:31)
[2022-02-06 11:32] LABS: Glucose,Whole Blood 120 mg/dL (70-110)
[2022-02-06 11:38] LABS: Basophils # (A) 0.07 X 10*3/uL (0.00-0.10); Basophils % (A) 0.6 %; Eosinophils # (A) 0.52 X 10*3/uL (0.04-0.35); Eosinophils % (A) 4.6 %; HCT 24.5 % (37.2-46.3); HGB 7.4 g/dL (12.0-15.0); Immature Grans, Automated 0.8 %; Lymphocytes # (A) 0.97 X 10*3/uL (0.90-5.00); Lymphocytes % (A) 8.6 %; MCHC 30.2 g/dL (32.0-37.0); MCV 89.4 fL (80.0-97.0); Mean Platelet Volume 10.2 fL (9.5-12.2); Monocytes # (A) 0.98 X 10*3/uL (0.20-1.00); Monocytes % (A) 8.7 %; NRBC Per 100 WBC 0 /100 WBCS (0.0-0.0); Neutrophils # (A) 8.67 X 10*3/uL (1.80-7.70); Neutrophils % (A) 76.7 %; Platelet Count 291 X 10*3/uL (140-440); RBC 2.74 X 10*6/uL (4.10-5.20); RDW 17.2 % (11.5-14.5); Reticulocyte % 3.33 % (0.10-1.80)
[2022-02-06] MEDS ORDERED: TROPICAMIDE 1% OPHTH DROPS 2 ML BTL BOTH EYES SCH (11:45)
--- NOTE | 2022-02-06 11:56 | P.PN ---
Subjective This is a pleasant 76 years old female with past medical history of diabetes mellitus, hypertension, chronic kidney disease, hypothyroidism and back pain. She was admitted due to her leg weakness and thoracic myelopathy and back pain. She underwent decompression and fusion surgery to thoracic and lumbar spine T9 to L4 area at ID extension L3-S1. Postoperatively she was sitting in bed does not look in distress. She denies any chest pain or dyspnea. No abdominal pain or diarrhea. No vomiting. No fever or dizziness. She has Sanchez catheter in place with clear urine. Labs reviewed showing WBC 17,000, hemoglobin 8.9, sodium 133, creatinine at baseline of 1.1. Glucose controlled Heart rate is 116, fever 99.9, blood pressure 99/56. 02/04/2022 patient feels tired and in pain at the surgery site and the spine to hold back and she states has significant pain. Patient is stain intubate currently. Blood pressure is borderline however it's is stable. Patient developed high- grade fever at 103 today. Chest x-ray and urinalysis are not very impressive for infection, urine analysis slightly abnormal and urine culture is requested. Patient also suspected to have infection at the surgical site. She had low-grade fever yesterday and t dinora has more fever. Also the drain is filled nursing home with bloody discharge when I saw her. Patient denies vomiting, no chest pain, no abdominal pain. Patient feels numb from waist down for the last 4 months (she feels the pain if it is there in the lower extremities, but currently no pain) Patient denies difficulty breathing but have often. No diarrhea, no rash. Her hemoglobin A1c is 6.7. She has the WBC of 16.9 and hemoglobin 7.9. We will increase her fluids to 125 mg of normal saline. Patient was started on cefepime, infectious disease consult and started on IV vancomycin with close mon itoring of her labs and kidney function and other parameters. 02/05/2022 Clinically does not look much different than yesterday, she still complaining of from generalized weakness, she still complaining of from pain at the surgical site with orthopedic team keep following her and managing her post op care , her pain is separate into both legs, more on the left side. But she feels better with pain pills. She is eating better today. Her drain is more than yesterday. Sanchez catheter was discontinued and external catheter placed. Bladder scan was checked and patient has no evidence of retention when they are was checked. She still is slightly tachycardic, no more fever. Blood pressure start improving today 123/67. No significant dyspnea WBC is improving 14.9, hemoglobin dropped to 7.4, we'll keep monitoring her hemoglobin closely. Patient currently is not on blood thinner. Sodium is 137, creatinine stable at 1.1. Glucose controlled. Hemoglobin A1c is 6.7%. pro Calcitonin is elevated at 1.1. Patient is currently on cefepime and IV vancomycin and normal saline 1 25 mL/h. note; after round i was contacted by the bed side RN pt is complaining to primary surgical team about her blurred vission x 4 day, pt did not mention that to me, i informed the RN they need to call ophthalmology service to evaluate her blurred vission , it is on both eyes , pt wears reading glasses at home. 02/05/2022 Today patient is still lying in bed, she feels more comfortable with no back pain at rest but only when she moves which is bothering her. But patient is calm. Not in distress. Patient today states that her blurred vision is worse than yesterday. She is telling me it started 2 days ago. And first it is other right side of the right eye and the lower side of the left thigh and at the same time it is more blurry today, she denies any eye pain, no headache, no new weakness or numbness other than her chronic neurological deficits related to her spine disease. No neck pain or stiffness is noted also as well. She moves her eyes symmetrically in both directions. Ophthalmology team already has been consulted and I called Dr. Perez this morning and discussed the case with him and he kindly he will come and evaluate the patient Also we ordered CT SCAN of the brain to rule out ischemia vs other intracranial lesion , it shows no acute intracranial hemorrhage or midline shift. there is mild diffuse age related cerebral atrophy and chronic small vessel inschemic changes noted. Neurology service was consulted. The blood pressure is stable. Her tachycardia is improving and currently 98. She has low rate temperature today 100.7 which is improving. WBC improvement down to 11.3. Hemoglobin stable at 7.4. Sodium is 137. Creatinine 1.1. Glucose controlled. Chest currently on normal saline and lower rate to 75 mL/h with improvement of her blood pressure Patient is on cefepime and IV vancomycin Active Medications Generic Name Dose Route Start Last Admin Trade Name Terenceq PRN Reason Stop Dose Admin Acetaminophen 325 mg 02/04/22 18:32 02/04/22 21:55 Acetaminophen Tab 325 Mg Tab PO 325 mg Q4HR PRN Administration Fever and/ or Pain Hydrocodone Bitart/Acetaminophen 1 - 2 each 02/04/22 08:42 02/06/22 05:56 Hydrocodone/Apap 7.5-325mg 1 Each Tab PO 2 each Q4H PRN Administration Pain Benzocaine/Menthol 1 each 02/02/22 14:51 Benzocaine/Menthol Lozeng 1 Each Lozenge MUCOUS MEM Q4HR PRN Sore Throat Bisacodyl 10 mg 02/02/22 14:52 02/05/22 13:53 Bisacodyl 10 Mg Supp RECTAL 10 mg DAILY PRN Administration Constipation Calcium Carbonate/Glycine 500 mg 02/03/22 09:00 02/06/22 08:45 Calcium Carbonate 500 Mg Chewable PO 500 mg DAILY GAIL Administration Cyanocobalamin 2,000 mcg 02/03/22 09:00 02/06/22 08:45 Cyanocobalamin 500 Mcg Tab PO 2,000 mcg DAILY GAIL Administration Cyclobenzaprine HCl 5 mg 02/02/22 14:52 02/06/22 08:52 Cyclobenzaprine 5 Mg Tab PO 5 mg TID PRN Administration Muscle Spasm Dextrose/Water 25 ml 02/02/22 18:45 Dextrose 50% Syringe 50 Ml IVP PER PROTOCOL PRN Hypoglycemia Protocol Dextrose/Water 50 ml 02/02/22 18:45 Dextrose 50% Syringe 50 Ml IVP PER PROTOCOL PRN Hypoglycemia Protocol Famotidine 20 mg 02/07/22 09:00 Famotidine 20 Mg Tab PO Q24HR GAIL Hydromorphone HCl 0.5 mg 02/02/22 14:51 02/05/22 06:25 Hydromorphone 0.5 Mg/0.5 Ml Syringe IVP 0.5 mg Q4HR PRN Administration Pain Hydromorphone HCl 1 mg 02/02/22 14:51 02/04/22 07:24 Hydromorphone 1 Mg/Ml 1 Ml Syringe IVP 1 mg Q4HR PRN Administration Pain Sodium Chloride 1,000 mls @ 75 mls/hr 02/02/22 15:00 02/06/22 11:31 Saline 0.9% IV Not Given .[id number] GAIL Cefepime HCl 2 gm/ Sodium 100 mls @ 25 mls/hr 02/04/22 16:00 02/06/22 08:46 Chloride IVPB 25 mls/hr Q8HR GAIL Administration Protocol Vancomycin HCl 1,500 mg/ 250 mls @ 125 mls/hr 02/06/22 06:00 02/06/22 05:58 Sodium Chloride IVPB 125 mls/hr Q24H GAIL Administration Insulin Aspart 0 unit 02/02/22 21:00 02/06/22 08:35 Insulin Aspart (Novolog) 100 Unit/Ml Vial SQ Not Given ACHS GAIL Protocol Lactulose 30 gm 02/06/22 08:11 02/06/22 08:45 Lactulose 20 Gm/30 Ml Cup PO 30 gm BID PRN Administration Constipation Levothyroxine Sodium 137 mcg 02/03/22 06:30 02/06/22 05:57 Levothyroxine 137 Mcg Tab PO 137 mcg QAM@0630 GAIL Administration Magnesium Hydroxide 2,400 mg 02/02/22 14:52 02/05/22 08:22 Magnesium Hydroxide 2,400 Mg/10 Ml Cup PO 2,400 mg DAILY PRN Administration Constipation Metformin HCl 500 mg 02/02/22 21:00 02/05/22 20:34 Metformin 500 Mg Tab PO 500 mg HS GAIL Administration Metformin HCl 1,000 mg 02/03/22 09:00 02/06/22 08:45 Metformin 500 Mg Tab PO 1,000 mg QAM GAIL Administration Miscellaneous Information 1 each 02/05/22 09:28 Magnesium Replacement Protocol 1 Each Misc MISCELLANE DAILY PRN Per Protocol Protocol Multivitamins 1 each 02/03/22 09:00 02/06/22 08:45 Multivitamins, Thera 1 Each Tab PO 1 each DAILY GAIL Administration Mirabegron [ 25 mg 02/03/22 09:00 02/06/22 11:27 Myrbetriq] PO Not Given DAILY GAIL Ondansetron HCl 4 mg 02/02/22 14:52 02/02/22 23:32 Ondansetron 4 Mg/2 Ml Vial IVP 4 mg Q8HR PRN Administration Nausea And Vomiting Phenylephrine HCl 1 drops 02/06/22 12:00 Phenylephrine 2.5% Ophth Drp 2ml BOTH EYES 02/06/22 12:06 Q5M GAIL Senna/Docusate Sodium 1 each 02/03/22 09:00 02/06/22 08:45 Sennosides-Docusate Sodium 1 Each Tab PO 1 each DAILY GAIL Administration Senna/Docusate Sodium 2 each 02/02/22 14:52 02/05/22 15:18 Sennosides-Docusate Sodium 1 Each Tab PO 2 each DAILY PRN Administration Constipation Tropicamide 1 drops 02/06/22 12:00 Tropicamide 1% Ophth Drops 2 Ml Btl BOTH EYES 02/06/22 12:06 Q5M GAIL Valsartan 80 mg 02/03/22 09:00 02/06/22 08:45 Valsartan 80 Mg Tab PO 80 mg QAM GAIL Administration Objective - Vital Signs Vital signs: Vital Signs Temp 98.3 F 02/06/22 07:40 Pulse 98 02/06/22 07:40 Resp 17 02/06/22 07:40 BP 104/67 02/06/22 07:40 Pulse Ox 98 02/06/22 07:40 FiO2 Intake & Output 02/05/22 02/06/22 02/06/22 18:59 06:59 18:59 Output Total 1202 202 Balance -1202 -202 Output: Urine 1200 200 Stool 2 2 Other: Voiding Method External Catheter External Catheter Incontinent - Exam GENERAL: The patient is alert and oriented x3, not in any acute distress. Well developed, well nourished. HEENT: Pupils are round and equally reacting to light. EOMI. No scleral icterus. No conjunctival pallor. Normocephalic, atraumatic. No pharyngeal erythema. No thyromegaly. CARDIOVASCULAR: S1 and S2 present. No murmurs, rubs, or gallops. PULMONARY: Chest is clear to auscultation, no wheezing or crackles. ABDOMEN: Soft, nontender, nondistended, normoactive bowel sounds. No palpable organomegaly. -MUSCULOSKELETAL: No joint swelling or deformity. Surgical once the middle and lower back with dressing in place. Rest of exam is deferred to surgery team EXTREMITIES: No cyanosis, clubbing, or pedal edema. -NEUROLOGICAL: Gross neurological examination did not reveal any focal deficits. Bilateral leg weakness, mild. Sensation is intact. Cranial nerves are grossly intact. Patient complaining of from blurred vision or both eyes, no strabismus noted SKIN: No rashes. no petechiae. - Labs CBC & Chem 7: 02/06/22 07:38 02/06/22 07:38 Labs: Abnormal Lab Results - Last 24 Hours (Table) 02/05/22 02/05/22 02/05/22 Range/Units 06:35 16:15 20:30 POC Glucose (mg/dL) 188 H 127 H (70-110) mg/dL Procalcitonin 1.10 H (0.02-0.09) ng/mL 02/06/22 Range/Units 06:59 POC Glucose (mg/dL) 111 H (70-110) mg/dL Procalcitonin (0.02-0.09) ng/mL Microbiology - Last 24 Hours (Table) 02/04/22 16:00 Urine Culture - Final Urine,Voided 02/04/22 13:28 Blood Culture - Preliminary Blood No Growth after 24 hours Assessment and Plan Assessment: High-grade fever with leukocytosis. sepsis is suspected. Unknown source most likely surgical site infection is suspected, less likely UTI versus others. Consent blurred vision, rule out ophthalmic versus neurological causes. Also consider surgical sequelae Severe Thoracic myelopathy, severe thoracic spinal stenosis T9-10 and T10-11, T11-12, L2-3,s/p lateral decompression and fusion T9 to L4 with extension of fusion from prior L3 to S1 (On 02/02) Bilateral lower extremity weakness, inability to ambulate, secondary to above Lower extremity radiculopathy, back pain , secondary to above, improving postop fever, mild. Patient status post IV vancomycin 1 Diabetes mellitus type 2 Chronic kidney disease stage III Postoperative hypotension, mild and asymptomatic Plan: This is a pleasant 76 years old disease presents with degenerative spine disease with myelopathy and enable us to wake status post decompression and fusion surgery of the thoracic and lumbar spine. I discussed the case with Dr. Singh who will kindly come and evaluate the patient Neurology consult Continue with gentle hydration Continue with cefepime and IV vancomycin with close monitoring of kidney function. ID team recommendation Continue with primary team surgical care on postop care unit monitoring hemoglobin Labs and medication were reviewed.. Continue same treatment. Continue with symptomatic treatment. Resume home medication. Monitor lytes and vitals. DVT and GI prophylaxis. Further recommendations as per clinical course of the pa tient DVT prophylaxis: Deferred to surgery team. Continue with mechanical GI Prophylaxis: Pepcid Prognosis guarded Thank you for consulting us and we will follow up with
[2022-02-06] MEDS ORDERED: PHENYLEPHRINE 2.5% OPHTH DRP 2ML BOTH EYES SCH (12:00)
[2022-02-06] MEDS: TROPICAMIDE 1% OPHTH DROPS 2 ML BTL BOTH EYES SCH ×2 (12:01→12:11)
[2022-02-06] MEDS: PHENYLEPHRINE 2.5% OPHTH DRP 2ML BOTH EYES SCH ×2 (12:05→12:19)
[2022-02-06] MEDS ORDERED: CLOPIDOGREL 75 MG TAB PO SCH (13:30)
[2022-02-06] MEDS: ASPIRIN 325 MG TAB PO SCH (14:05)
[2022-02-06 14:09] LABS: C Reactive Protein 29.7 mg/dL (<1.0)
--- NOTE | 2022-02-06 15:02 | US ---
EXAMINATION TYPE: US carotid duplex BILAT DATE OF EXAM: 02/06/2022 COMPARISON: NONE CLINICAL HISTORY: Bilateral vision loss. TECHNIQUE: Carotid duplex ultrasound examination. Indirect Doppler criteria was utilized. Exam done portable FINDINGS: EXAM MEASUREMENTS: RIGHT: Peak Systolic Velocity (PSV) cm/sec ----- Right CCA: 105.0 ----- Right ICA: 167.0 ----- Right ECA: 165.0 ICA/CCA ratio: 1.6 RIGHT: End Diastole cm/sec ----- Right CCA: 16.9 ----- Right ICA: 53.6 ----- Right ECA: 0.0 LEFT: Peak Systolic Velocity (PSV) cm/sec ----- Left CCA: 88.7 ----- Left ICA: 238.0 ----- Left ECA: 218.0 ICA/CCA ratio: 2.7 LEFT: End Diastole cm/sec ----- Left CCA: 13.8 ----- Left ICA: 47.2 ----- Left ECA: 0.0 VERTEBRALS (direction of flow): Right Vertebral: Antegrade Left Vertebral: Antegrade Rhythm: Normal Left ICA/CCA ratio 2.7 IMPRESSION: There is antegrade flow in the vertebral arteries. There is elevated velocity in the left internal ca rotid artery suggestive of more than 70% stenosis. Images and measurements suggest less than 50% sten osis in the right internal artery. This is likely close to 50%. Criteria for Assigning % of Stenosis / Diameter reduction (Estimation based on the indirect measurements of the internal carotid artery velocities (ICA PSV). 1. Normal (no stenosis)=ICA PSV < 125 cm/s: ratio < 2.0: ICA EDV<40 cm/s. 2. Less than 50% stenosis=ICA PSV < 125 cm/s: ratio < 2.0: ICA EDV<40 cm/s. 3. 50 to 69% stenosis=ICA PSV of 125 to 230 cm/s: ration 2.0 ? 4.0: ICA EDV 40-100 cm/s. 4. Greater than 70% stenosis to near occlusion= ICA PSV > 230 cm/s: ratio > 4.0: ICA EDV > 100 cm/s. 5. Near occlusion= ICA PSV velocities may be low or undetectable: variable ratio and ICA EDV. 6. Total occlusion=unable to detect flow.
--- NOTE | 2022-02-06 16:18 | P.CNNES ---
History of Present Illness Consult date: 02/06/22 Requesting physician: Julian E Sheet Reason for Consult: blurred vission , rule out heminopia History of Present Illness: Patient is a 76-year-old female with history of diabetes, hypertension, chronic back pain came to the hospital on 02/02/2022 for elective surgery for severe thoracic myelopathy, severe thoracic spinal stenosis at T9 10, T10 11, T11 12, L2-3, with recurrent stenosis T12-L1 and L1-L2. Patient underwent extensive lumbar surgery on 02/02/2022, including revision laminectomy and decompression T12-L1 and L1-L2. Posterior lateral decompression and fusion T9 10, T10 11, T11 12, T12-L1, L1-L2 and L2-L3 with connection to the prior fusion from L3 to S1 and revision fusion L3 4. Patient states that she was doing well after her lumbar surgery on Monday. The next day on night she started noticing blurred vision, that has steadily gotten worse. Patient states that it felt like a shade was coming on the eyes, initially involving the right eye, then the left eye. These curtain was going away with some persistent blurred vision. Patient states that last night the curtain came, and has persisted. Today she could not see anything on the table. It is a "one big blur". Patient during the examination, and noticed that the top half of the right eye is severely affected and the lower half of the vision in the left eye is affected. She believes the left eye is worse than right. Blood test shows normal CBC, BUN is 15 and creatinine 1.13. AST is 40, normal ALT. CBC with WBC 14.9, hemoglobin 7.4, platelets 225. UA shows trace leukocyte esterase. Jackman virus PCR negative. Influenza screen negative. Hemoglobin A1c 6.7. B12 468. Methylmalonic acid 0.20. CT head showed no acute process. There is mild diffuse age-related cerebral atrophy and chronic small vessel ischemic change. Patient states that she was scheduled for back surgery 5 weeks ago, but it was put off for 5 weeks for one reason or another. Patient has history of type 2 diabetes diagnosed in 2008, which she claims is controlled. She has hypertension, does not know about her lipids. Patient states that she cannot take statins because she feels "will ". Patient has smoked < half pack per day for 20 years, quit in 2001. Denies any alcohol use. Patient says that she started taking aspirin 81 mg twice a day on 09/28/2021 after she suffered from right below knee fracture.. However when she was scheduled for back surgery, she stopped taking it about 5 weeks ago. Patient has history of thyroid surgery and neck fusion from C4 to C8 in the past. Review of Systems Constitutional: Denies chills, Denies fever Eyes: bilateral blurred vision, bilateral loss of vision, denies diplopia, denies pain, denies loss of peripheral vision Ears: deny: decreased hearing Ears, nose, mouth and throat: Denies headache, Denies sore throat Cardiovascular: Denies lightheadedness Respiratory: Denies cough Gastrointestinal: Reports constipation, Denies hematemesis Musculoskeletal: Reports leg numbness/tingling, Reports low back pain, Reports myalgias Integumentary: Denies pruritus, Denies rash Neurological: Reports as per HPI Psychiatric: Denies anxiety, Denies depression Endocrine: Reports fatigue Hematologic/Lymphatic: Denies lymphadenopathy Allergic/Immunologic: Denies persistent infections Past Medical History Past Medical History: Blood Disorder, Diabetes Mellitus, Hypertension, Osteoa rthritis (OA), Thyroid Disorder Additional Past Medical History / Comment(s): HEARING LOSS RT EAR, MINOR. TINNITUS CHRONIC BACK PAIN, HOWARD SHOULDER PAIN W/ LIMITATIONS. OVERACTIVE BLADDER. LOW IRON. History of Any Multi-Drug Resistant Organisms: None Reported Past Surgical History: Joint Replacement Additional Past Surgical History / Comment(s): TOTAL KNEE RIGHT KNEE, CERVICAL FUSION, THYROID SURGERY, laminectomy and decompression L3 4, L4 5 and L5-S1 Past Anesthesia/Blood Transfusion Reactions: No Reported Reaction Past Psychological History: No Psychological Hx Reported Additional Psychological History / Comment(s): CLAUSTROPHOBIA Smoking Status: Former smoker Past Alcohol Use History: None Reported Additional Past Alcohol Use History / Comment(s): STARTED AGE 20, QUIT 2001.SMOKED 1/2PPD Past Drug Use History: None Reported - Past Family History Sister(s) Family Medical History: Cancer Additional Family Medical History / Comment(s): Patient had 1 sister that from uterine cancer. Father Additional Family Medical History / Comment(s): Father at age 47 from motor vehicle accident. Mother Additional Family Medical History / Comment(s): Mother in her 80s from heart failure and emphysema. Patient does not have any brothers. Patient has one son that had a brain tumor at age 7 but otherwise no major medical problems. Patient is one daughter with no major medical problems. Medications and Allergies Home Medications Medication Instructions Recorded Confirmed Type metFORMIN HCL [Glucophage] 1,000 mg PO QAM 03/09/20 02/02/22 History Cyanocobalamin (Vitamin B-12) 2,000 mcg PO DAILY 09/28/21 02/02/22 History [Vitamin B-12] Glucosamine Sulfate 2,000 mg PO DAILY 09/28/21 02/02/22 History Levothyroxine Sodium 137 mcg PO QAM 09/28/21 02/02/22 History Mirabegron [Myrbetriq] 25 mg PO DAILY 09/28/21 02/02/22 History Ubidecarenone [Co Q-10] 100 mg PO DAILY 09/28/21 02/02/22 History Valsartan/Hydrochlorothiazide 0.5 tab PO QAM 09/28/21 02/02/22 History [Valsartan-Hctz 160-25 mg Tab] Baclofen 10 mg PO TID 01/27/22 02/02/22 History Biotin [Biotin Disolve] 1,000 mcg PO DAILY 01/27/22 02/02/22 History Calcium Carbonate [Calcium] 600 mg PO DAILY 01/27/22 02/02/22 History metFORMIN HCL 500 mg PO HS 01/27/22 02/02/22 History Multivitamin [Multivitamins Adult 1 tab PO DAILY 02/01/22 02/02/22 History Gummies] Allergies Allergy/AdvReac Type Severity Reaction Status Date / Time terbinafine HCl Allergy Rash/Hives Verified 02/02/22 06:27 [From Lamisil] atorvastatin AdvReac Severe Weakness, Verified 02/02/22 06:27 nausea, vomiting pravastatin AdvReac Severe Weakness, Verified 02/02/22 06:27 nausea, vomiting lisinopril AdvReac Cough Verified 02/02/22 06:27 Physical Examination - Vital Signs Vital Signs: Vital Signs Temp Pulse Resp BP Pulse Ox 02/06/22 07:40 98.3 F 98 17 104/67 98 02/06/22 01:56 98.0 F 104 H 20 128/70 97 02/05/22 20:30 18 02/05/22 19:42 100.7 F H 104 H 18 103/58 100 02/05/22 14:00 98.6 F 107 H 17 118/56 95 Intake and Output 02/05/22 02/06/22 02/06/22 22:59 06:59 14:59 Output Total 1204 200 Balance -1204 -200 Output: Urine 1200 200 Stool 4 Other: Voiding Method External Catheter Incontinent Patient is an elderly female, who appears to be in distress because of significant leg pain bilaterally from surgery. Any movement is hurting. Patient is alert awake oriented to time place and person. Speech and language functions are normal. Patient can name and repeat very well. No aphasia or dysarthria. Attention, concentration and fund of knowledge is adequate. On cranial nerve examination, pupils are dilated by eye drops per grounds manager. Both are nonreactive, dilated. Her visual hernández are full on confrontation in all 4 quadrants, with no neglect on double simultaneous stimulation. However patient appears to have significant loss of vision in the upper altitudinal defect in the right eye, and lower and digital defect in the left eye. Extraocular muscles are intact with no nystagmus. Face is symmetric, tongue protrudes to the midline. Palatal elevation and sensation normal, hearing and shoulder shrug normal, facial sensation normal. On muscle strength testing, there is no pronator drift and the strength is normal in arms distally and proximally. Lower extremities were not checked because of significant pain on any movement. Deep tendon reflexes are (right/left) biceps 2/2, brachioradialis 2/2, ankle not checked/2+, plantars are upgoing bilaterally. Sensory to touch is equal with no neglect on double simultaneous stimulation. Cerebellar function showed no ataxia for [id number] testing. No dysdiadochokinesia. Lower extremities could not be checked. Tone and bulk of muscles normal. Gait deferred.. On general examination, there is a left carotid bruit. There is no murmur, S1- S2 audible. Chest is clear on consultation. Abdomen is soft nontender. No organomegaly, bowel sounds present. Peripheral pulses are present. No edema. Results - Laboratory Findings CBC and BMP: 02/06/22 07:38 02/06/22 07:38 Abnormal Lab Findings: Abnormal Labs 02/02/22 02/02/22 02/02/22 07:24 15:07 17:08 WBC 12.1 H RBC Hgb 11.3 L Hct MCHC RDW Plt Count 464 H Absolute Nucleated RBC Immature Gran # Neutrophils # 9.1 H Monocytes # NRBC/100 WBC Diff Sodium Chloride Carbon Dioxide BUN Creatinine Glucose POC Glucose (mg/dL) 184 H 214 H Hemoglobin A1c Calcium AST Total Protein Albumin Procalcitonin Urine Appearance Urine Protein Urine Blood Ur Leukocyte Esterase Urine WBC Amorphous Sediment Urine Bacteria Urine Mucus 02/02/22 02/02/22 02/03/22 19:05 20:34 10:19 WBC 17.0 H RBC 3.17 L Hgb 8.9 L D Hct 27.8 L MCHC RDW 15.7 H Plt Count Absolute Nucleated RBC Immature Gran # Neutrophils # 14.4 H Monocytes # 1.2 H NRBC/100 WBC Diff Sodium Chloride Carbon Dioxide BUN Creatinine Glucose POC Glucose (mg/dL) 194 H Hemoglobin A1c 6.7 H Calcium AST Total Protein Albumin Procalcitonin Urine Appearance Urine Protein Urine Blood Ur Leukocyte Esterase Urine WBC Amorphous Sediment Urine Bacteria Urine Mucus 02/03/22 02/03/22 02/03/22 10:19 11:45 16:21 WBC RBC Hgb Hct MCHC RDW Plt Count Absolute Nucleated RBC Immature Gran # Neutrophils # Monocytes # NRBC/100 WBC Diff Sodium 133 L Chloride 97 L Carbon Dioxide BUN 22 H Creatinine 1.16 H Glucose 130 H POC Glucose (mg/dL) 135 H 118 H Hemoglobin A1c Calcium AST Total Protein Albumin Procalcitonin Urine Appearance Urine Protein Urine Blood Ur Leukocyte Esterase Urine WBC Amorphous Sediment Urine Bacteria Urine Mucus 02/03/22 02/04/22 02/04/22 20:58 07:17 10:11 WBC 16.9 H RBC 2.93 L Hgb 7.9 L Hct 25.7 L MCHC 30.9 L RDW 15.7 H Plt Count Absolute Nucleated RBC Immature Gran # Neutrophils # 14.5 H Monocytes # NRBC/100 WBC Diff Sodium Chloride Carbon Dioxide BUN Creatinine Glucose POC Glucose (mg/dL) 160 H 134 H Hemoglobin A1c Calcium AST Total Protein Albumin Procalcitonin Urine Appearance Urine Protein Urine Blood Ur Leukocyte Esterase Urine WBC Amorphous Sediment Urine Bacteria Urine Mucus 02/04/22 02/04/22 02/04/22 11:38 16:00 16:45 WBC RBC Hgb Hct MCHC RDW Plt Count Absolute Nucleated RBC Immature Gran # Neutrophils # Monocytes # NRBC/100 WBC Diff Sodium Chloride Carbon Dioxide BUN Creatinine Glucose POC Glucose (mg/dL) 122 H 129 H Hemoglobin A1c Calcium AST Total Protein Albumin Procalcitonin Urine Appearance Cloudy H Urine Protein 1+ H Urine Blood Moderate H Ur Leukocyte Esterase Trace H Urine WBC 8 H Amorphous Sediment Rare H Urine Bacteria Occasional H Urine Mucus Rare H 02/04/22 02/05/22 02/05/22 20:32 06:35 06:35 WBC RBC Hgb Hct MCHC RDW Plt Count Absolute Nucleated RBC Immature Gran # Neutrophils # Monocytes # NRBC/100 WBC Diff Sodium Chloride Carbon Dioxide 21 L BUN Creatinine 1.11 H Glucose POC Glucose (mg/dL) 138 H Hemoglobin A1c Calcium 8.3 L AST 57 H Total Protein 5.4 L Albumin 2.7 L Procalcitonin 1.10 H Urine Appearance Urine Protein Urine Blood Ur Leukocyte Esterase Urine WBC Amorphous Sediment Urine Bacteria Urine Mucus 02/05/22 02/05/22 02/05/22 06:35 16:15 20:30 WBC 14.91 H RBC 2.73 L Hgb 7.4 L Hct 24.8 L MCHC 29.8 L RDW 17.0 H Plt Count Absolute Nucleated RBC 0.02 H Immature Gran # 0.10 H Neutrophils # 12.55 H Monocytes # NRBC/100 WBC Diff 0.1 H Sodium Chloride Carbon Dioxide BUN Creatinine Glucose POC Glucose (mg/dL) 188 H 127 H Hemoglobin A1c Calcium AST Total Protein Albumin Procalcitonin Urine Appearance Urine Protein Urine Blood Ur Leukocyte Esterase Urine WBC Amorphous Sediment Urine Bacteria Urine Mucus 02/06/22 02/06/22 06:59 07:38 WBC RBC Hgb Hct MCHC RDW Plt Count Absolute Nucleated RBC Immature Gran # Neutrophils # Monocytes # NRBC/100 WBC Diff Sodium Chloride Carbon Dioxide BUN Creatinine 1.13 H Glucose POC Glucose (mg/dL) 111 H Hemoglobin A1c Calcium AST 40 H Total Protein 5.6 L Albumin 2.8 L Procalcitonin Urine Appearance Urine Protein Urine Blood Ur Leukocyte Esterase Urine WBC Amorphous Sediment Urine Bacteria Urine Mucus Assessment and Plan Assessment: * New onset bilateral partial vision loss, without headache. Ophthalmologic examination revealed bilateral disc edema, left worse than right. Rule out temporal arteritis, optic neuritis, versus ischemic optic neuropathy. * Diabetes * Left carotid bruit * Recent extensive back surgery on 02/02/2022. * Polymyalgia * Hypertension * X tobacco use Plan: * Stat ESR, CRP * Carotid Doppler to rule out stenosis * B12, folate * Start antiplatelet regimen. * Case discussed with the grounds manager in detail. Addendum: Patient's ESR > 140, C-reactive protein also elevated 29.7. B12 1815, folate > 20.0 Carotid Doppler showed antegrade flow in both vertebral arteries. Elevated velocity in the left internal carotid artery suggestive of more than 70% stenosis. Imaging in measurement suggest less than 50% stenosis in the right ICA. We will consult vascular surgery for temporal artery biopsy, rule out giant cell arteritis, and also to assess for severe left ICA stenosis. We will hold Plavix for possible upcoming temporal artery biopsy. Continue aspirin. Discussed with grounds manager and Dr Gomez in detail. It was mutually decided for patient to be started on high-dose steroids for possible temporal arteritis. Patient does not have IV line. Patient received 1 dose of prednisone 60 mg. From tomorrow patient can start receiving Solu-Medrol 250 mg every 6 hours, after she undergoes midline placement. Clothes Ironer also concerned about hypoperfusion during surgery producing bilateral papilledema. Dr. Wilfrido Valenzuela Will resume neurology service in the morning. Time with Patient: Greater than 30 (Spent over 75 minutes including evaluating patient, reviewing records, and coordinating care with the specialist.)
[2022-02-06] MEDS ORDERED: predniSONE 20 MG TAB PO STA (16:19)
[2022-02-06 16:54] LABS: Glucose,Whole Blood 142 mg/dL (70-110)
[2022-02-06] MEDS: methylPREDNISolone SOD SUCCIN 250 MG in SODIUM CHLORIDE 0.9% 100 ML IVPB SCH (17:55)
[2022-02-06 20:03] LABS: Glucose,Whole Blood 133 mg/dL (70-110)
--- NOTE | 2022-02-06 23:15 | CONS ---
CONSULTATION HISTORY: This is a 76-year-old white female with a history of diabetes and hypertension. The patient was admitted initially complaining of back pain and had subsequently undergone decompression with fusion surgery to her spinal column. She is currently resting at bedside and today February 06 is postop day #4 from her surgery. The patient states that she has experienced progressive decrease in her visual acuity over the last couple of days and today it has reached a climax with significant vision loss in both eyes. She states that her left eye seems worse than her right eye. PHYSICAL EXAMINATION: EYES: Visual acuity measured "count fingers at 2 feet" in the right eye and "hand motion" in the left eye. The pupils were sluggish. There was no afferent pupillary defect. Extraocular movements were full in all gaze positions. Examination of the visual hernández by confrontation exhibited severe constriction bilaterally. The left field appeared more constricted than the right however. There was some intact field present in the inferior aspect of the right eye. The left appeared constricted for the full 360 degrees. On penlight exam, the lids were normal. The conjunctiva was quiet. Both corneas were clear. The anterior chambers were well formed. The iris was normal and the lenses exhibited mild nuclear sclerotic cataracts. Dilated fundus exam was performed. The maculae and vessels appeared normal bilaterally. Both optic nerves exhibited bilateral swelling with the left more affected than the right. The right optic nerve was more swollen inferiorly with the superior aspect of the nerve still exhibiting sharp disk margins. The left optic nerve appeared to be completely swollen in its entire 360 degrees with blurred disk marginsand adjacent retinal nerve fiber layer swelling. A CT scan was performed earlier today the results of which were read as negative. IMPRESSIONS: Diagnosis: 1. Bilateral optic nerve swelling. 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 I would recommend checking an ESR, CRP, and platelet count to rule out GCA. I discussed this with Dr. [place] and Dr. Gomez and we agreed that a temporal artery biopsy should be considered if there is lab evidence of GCA. A non- arteritic cause of ischemic optic neuropathy is also very possible due to the patient's recent back surgery. 2. Optic neuritis is a second possibility though unlikely. Vision would be expected to improve usp, more rapidly with the addition of IV steroids. At this point, her visual prognosis is guarded especially if the source is non-arteritic ischemic optic neuropathy, and I will continue to follow her closely. Thank you very much for this consult. ROMEO / HILARIA: [id number] / NOBRERTO
--- NOTE | 2022-02-07 00:01 | P.PN ---
Subjective Progress Note Date: 02/05/22 Principal diagnosis: Postop fever Patient is a 76 year old female electively admitted to the hospital for lateral decompression fusion T9-L4 with extension of the fusion from prior L3 to S1 in this patient did have a postop fever. On today's evaluation that is 02/05/2022 the patient is afebrile this morning patient is feeling slightly better she is breathing comfortably denies any chest pain shortness of breath or cough no abdominal pain or worsening pain to the niko k incision Objective - Vital Signs Vital signs: Vital Signs Temp 98.6 F 02/05/22 14:00 Pulse 107 H 02/05/22 14:00 Resp 17 02/05/22 14:00 BP 118/56 02/05/22 14:00 Pulse Ox 95 02/05/22 14:00 FiO2 Intake & Output 02/04/22 02/05/22 02/05/22 18:59 06:59 18:59 Intake Total 850 Output Total 370 500 Balance 480 -500 Weight 75.3 kg Intake: Intake, IV Titration 850 Amount Sodium Chloride 0.9% 1, 600 000 ml @ 125 mls/hr IV . Q8H [facility] Rx#:[id number] Vancomycin 1,250 mg In 250 Sodium Chloride 0.9% 250 ml @ 125 mls/hr IVPB Q24H [facility] Rx#:[id number] Output: Drainage 120 Back 120 Urine 250 500 Uretheral (Sanchez) 250 Other: Voiding Method External Catheter External Catheter # Voids 1 - Exam GENERAL DESCRIPTION: An elderly female lying in bed in no distress RESPIRATORY SYSTEM: Unlabored breathing , decreased breath sounds at bases HEART: S1 S2 regular rate and rhythm , ABDOMEN: Soft , no tenderness EXTREMITIES: No edema feet - Labs CBC & Chem 7: 02/06/22 07:38 02/06/22 07:38 Labs: Abnormal Lab Results - Last 24 Hours (Table) 02/04/22 02/04/22 02/04/22 Range/Units 16:00 16:45 20:32 WBC (4.50-10.00) X 10*3/uL RBC (4.10-5.20) X 10*6/uL Hgb (12.0-15.0) g/dL Hct (37.2-46.3) % MCHC (32.0-37.0) g/dL RDW (11.5-14.5) % Absolute Nucleated RBC (0.00-0.00) X 10*3/uL Immature Gran # (0.00-0.04) X 10*3/uL Neutrophils # (1.80-7.70) X 10*3/uL NRBC/100 WBC Diff (0.0-0.0) /100 WBCS Carbon Dioxide (22-30) mmol/L Creatinine (0.52-1.04) mg/dL POC Glucose (mg/dL) 129 H 138 H (70-110) mg/dL Calcium (8.4-10.2) mg/dL AST (14-36) U/L Total Protein (6.3-8.2) g/dL Albumin (3.5-5.0) g/dL Procalcitonin (0.02-0.09) ng/mL Urine Appearance Cloudy H (Clear) Urine Protein 1+ H (Negative) Urine Blood Moderate H (Negative) Ur Leukocyte Esterase Trace H (Negative) Urine WBC 8 H (0-5) /hpf Amorphous Sediment Rare H (None) /hpf Urine Bacteria Occasional H (None) /hpf Urine Mucus Rare H (None) /hpf 02/05/22 02/05/22 02/05/22 Range/Units 06:35 06:35 06:35 WBC 14.91 H (4.50-10.00) X 10*3/uL RBC 2.73 L (4.10-5.20) X 10*6/uL Hgb 7.4 L (12.0-15.0) g/dL Hct 24.8 L (37.2-46.3) % MCHC 29.8 L (32.0-37.0) g/dL RDW 17.0 H (11.5-14.5) % Absolute Nucleated RBC 0.02 H (0.00-0.00) X 10*3/uL Immature Gran # 0.10 H (0.00-0.04) X 10*3/uL Neutrophils # 12.55 H (1.80-7.70) X 10*3/uL NRBC/100 WBC Diff 0.1 H (0.0-0.0) /100 WBCS Carbon Dioxide 21 L (22-30) mmol/L Creatinine 1.11 H (0.52-1.04) mg/dL POC Glucose (mg/dL) (70-110) mg/dL Calcium 8.3 L (8.4-10.2) mg/dL AST 57 H (14-36) U/L Total Protein 5.4 L (6.3-8.2) g/dL Albumin 2.7 L (3.5-5.0) g/dL Procalcitonin 1.10 H (0.02-0.09) ng/mL Urine Appearance (Clear) Urine Protein (Negative) Urine Blood (Negative) Ur Leukocyte Esterase (Negative) Urine WBC (0-5) /hpf Amorphous Sediment (None) /hpf Urine Bacteria (None) /hpf Urine Mucus (None) /hpf Microbiology - Last 24 Hours (Table) 02/04/22 16:00 Urine Culture - Preliminary Urine,Voided Assessment and Plan (1) Fever Current Visit: Yes Status: Acute Code(s): R50.9 - FEVER, UNSPECIFIED SNOMED Code(s): 800585672 Plan: 1patient with a postop fever and this patient likely will hospital for posterior leg central decompression and fusion T9-L4 with extension of the fusion from prior L3-S1 in this patient denies any worsening lower back pain and do not have any obvious focus of infection 2-blood cultures have been obtained and the patient did have a negative COVID and influenza PCR 3-patient to with antibiotics cefepime and vancomycin while waiting for the culture to finalize Time with Patient: Less than 30
--- NOTE | 2022-02-07 00:03 | P.PN ---
Subjective Progress Note Date: 02/06/22 Principal diagnosis: Postop fever Patient is a 76 year old female electively admitted to the hospital for lateral decompression fusion T9-L4 with extension of the fusion from prior L3 to S1 in this patient did have a postop fever. On today's evaluation that is 02/06/2022 the patient did have a low-grade fever 100.7 last week however the patient is afebrile this morning patient is feeling slightly better, the patient is breathing comfortably nasal cannula oxygen smiley es any chest pain or shortness of breath or cough no abdominal pain and diarrhea the patient complaining of some vision changes for the patient been evaluated by ophthalmology and neurology Objective - Vital Signs Vital signs: Vital Signs Temp 98.3 F 02/06/22 07:40 Pulse 98 02/06/22 07:40 Resp 17 02/06/22 07:40 BP 104/67 02/06/22 07:40 Pulse Ox 98 02/06/22 07:40 FiO2 Intake & Output 02/05/22 02/06/22 02/06/22 18:59 06:59 18:59 Output Total 1202 202 Balance -1202 -202 Output: Urine 1200 200 Stool 2 2 Other: Voiding Method External Catheter External Catheter Incontinent - Exam GENERAL DESCRIPTION: An elderly female lying in bed in no distress RESPIRATORY SYSTEM: Unlabored breathing , decreased breath sounds at bases HEART: S1 S2 regular rate and rhythm , ABDOMEN: Soft , no tenderness EXTREMITIES: No edema feet - Labs CBC & Chem 7: 02/06/22 07:38 02/06/22 07:38 Labs: Abnormal Lab Results - Last 24 Hours (Table) 02/05/22 02/05/22 02/06/22 Range/Units 16:15 20:30 06:59 WBC (4.50-10.00) X 10*3/uL RBC (4.10-5.20) X 10*6/uL Hgb (12.0-15.0) g/dL Hct (37.2-46.3) % MCHC (32.0-37.0) g/dL RDW (11.5-14.5) % Immature Gran # (0.00-0.04) X 10*3/uL Neutrophils # (1.80-7.70) X 10*3/uL Eosinophils # (0.04-0.35) X 10*3/uL Retic Count (0.10-1.80) % Creatinine (0.52-1.04) mg/dL POC Glucose (mg/dL) 188 H 127 H 111 H (70-110) mg/dL AST (14-36) U/L Total Protein (6.3-8.2) g/dL Albumin (3.5-5.0) g/dL 02/06/22 02/06/22 02/06/22 Range/Units 07:38 07:38 11:31 WBC 11.30 H (4.50-10.00) X 10*3/uL RBC 2.74 L (4.10-5.20) X 10*6/uL Hgb 7.4 L (12.0-15.0) g/dL Hct 24.5 L (37.2-46.3) % MCHC 30.2 L (32.0-37.0) g/dL RDW 17.2 H (11.5-14.5) % Immature Gran # 0.09 H (0.00-0.04) X 10*3/uL Neutrophils # 8.67 H (1.80-7.70) X 10*3/uL Eosinophils # 0.52 H (0.04-0.35) X 10*3/uL Retic Count 3.33 H (0.10-1.80) % Creatinine 1.13 H (0.52-1.04) mg/dL POC Glucose (mg/dL) 120 H (70-110) mg/dL AST 40 H (14-36) U/L Total Protein 5.6 L (6.3-8.2) g/dL Albumin 2.8 L (3.5-5.0) g/dL Microbiology - Last 24 Hours (Table) 02/04/22 16:00 Urine Culture - Final Urine,Voided 02/04/22 13:28 Blood Culture - Preliminary Blood No Growth after 24 hours Assessment and Plan (1) Fever Current Visit: Yes Status: Acute Code(s): R50.9 - FEVER, UNSPECIFIED SNOMED Code(s): 510402045 Plan: 1patient with a postop fever and this patient likely will hospital for posterior leg central decompression and fusion T9-L4 with extension of the fusion from prior L3-S1 in this patient denies any worsening lower back pain and do not have any obvious focus of infection 2-blood cultures have been negative so far, chest x-ray was negative for any acute infiltrate the patient did have a negative COVID and influenza PCR 3-patient fever has resolved and we'll continue with antibiotics cefepime and vancomycin while waiting for the culture to finalize Time with Patient: Less than 30
[2022-02-07] MEDS: bisacodyL 10 MG SUPP RECTAL PRN (05:03)
[2022-02-07] MEDS: HYDROcodone/APAP 7.5-325MG 1 EACH TAB PO PRN ×2 (05:10→21:27)
[2022-02-07] MEDS: CEFEPIME 2 GM in SODIUM CHLORIDE 0.9% 100 ML IVPB SCH ×3 (06:41→21:56)
[2022-02-07] MEDS: methylPREDNISolone SOD SUCCIN 250 MG in SODIUM CHLORIDE 0.9% 100 ML IVPB SCH ×5 (06:41→23:40)
[2022-02-07] MEDS: SODIUM CHLORIDE 0.9% 1,000 ML IV SCH ×2 (06:41→13:41)
[2022-02-07] MEDS: VANCOMYCIN 1,500 MG in SODIUM CHLORIDE 0.9% 250 ML IVPB SCH ×2 (06:42→16:45)
[2022-02-07 07:13] LABS: Glucose,Whole Blood 152 mg/dL (70-110)
--- NOTE | 2022-02-07 08:04 | P.PN ---
Progress Note - Text Progress Note Date: 02/07/22 Postoperative day #5 Patient is seen and examined today at bedside. Her back pain is somewhat better controlled. She is controlling the pain with oral medication as the IV does not have good access. She had a bowel movement earlier this morning. She says her stomach feels better. She is tolerating her regular diet. She feels her legs are improving. She notes that she has better motion bilaterally particularly at the left leg today when she was not able to move preoperatively Her vision has not improved. She has limited field on the right hand. Limited left. She is able to see some shapes but she is not able see details. She is able to feed herself. Physical Exam Afebrile with stable vital signs Abdomen is soft nontender. Chest has good excursion deep and space expiration The incision site is clean dry and intact. No erythema there is no purulence. Her back does not have any significant erythema there is no active drainage Extremities have some improvement motion at her bilateral lower extremities with flexion of her knees feet and ankles. She is still unable to lift her legs up off the bed but is able to bend her knees. Calves and thighs were soft nontender without evidence of DVT. I appreciate ophthalmology's eye exam from yesterday Assessment/Plan Postoperative day #5 status post open decompression and posterior spinal fusion T9 to L4 with extension of fusion from L3 to S1 Bilateral lower extremity weakness with inability to ambulate Thoracic myelopathy with myelomalacia New visual changes with acute optic nerve swelling bilaterally The patient's back incision appears to be stable and she is gradually increasing some movement at her lower extremities which is encouraging in terms of her neurologic function. She she had severe thoracic myelopathy and it is difficult to predict how much function could return in her lower extremities but she should continue to try to mobilize and continue to try to increase her lower extremity function and strength with physical therapy We will continue to increase the patient's mobilization with therapy. We had multiple discussions with neurology as well as with ophthalmology yesterday. Patient has acute swelling at her optic nerves bilaterally. She also has elevated sed rate. She has significant possibility of ischemic optic neuritis postoperatively or the possibility of ischemia from temporal arteritis. She is on significant steroid to try to treat the temporal arteritis to see if he will alleviate some of the symptoms. She is having further workup for a temporal artery biopsy as well. The prognosis for her vision is quite guarded and I explained this to her at length this morning. Her response is incredibly positive and suite. We will continue to try to give her the best chance of making improvement with further medication and management. If the biopsy is negative and she is not making improvement then we can discontinue steroid. Appreciate the input from neurology as well as ophthalmology and medicine as well as infectious disease. She'll continue her medical management for other processes. We will continue pain control with oral or IV medications. We'll continue to follow patient closely.
[2022-02-07] MEDS: Mirabegron [Myrbetriq] PO SCH (08:19)
[2022-02-07] MEDS: VALSARTAN 80 MG TAB PO SCH (08:27)
[2022-02-07] MEDS: metFORMIN 500 MG TAB PO SCH ×2 (08:27→21:56)
[2022-02-07] MEDS: FAMOTIDINE 20 MG TAB PO SCH (08:28)
[2022-02-07] MEDS: ASPIRIN 325 MG TAB PO SCH (08:28)
[2022-02-07] MEDS: CALCIUM CARBONATE 500 MG CHEWABLE PO SCH (08:28)
[2022-02-07] MEDS: LEVOTHYROXINE 137 MCG TAB PO SCH (08:28)
[2022-02-07] MEDS: MULTIVITAMINS, THERA 1 EACH TAB PO SCH (08:28)
[2022-02-07] MEDS: SENNOSIDES-DOCUSATE SODIUM 1 EACH TAB PO SCH (08:28)
[2022-02-07] MEDS: CYANOCOBALAMIN 500 MCG TAB PO SCH (08:28)
[2022-02-07] MEDS: INSULIN ASPART (NovoLOG) 100 UNIT/ML VIAL SQ SCH ×4 (08:35→21:56)
--- NOTE | 2022-02-07 10:35 | P.GSCN ---
History of Present Illness Consult date: 02/07/22 Reason for Consult: Temporal artery biopsy Requesting physician: Feliz Barnard History of present illness: This is a 76-year-old female with history of diabetes, hypertension, chronic back pain who came into the hospital on 02/02/2022 for elective surgery for severe thoracic myelopathy, severe thoracic spinal stenosis at T9 10, T10 11, T11 12, L2-3, with recurrent stenosis T12-L1 and L1-L2. Patient underwent extensive lumbar surgery on 02/02/2022, including revision laminectomy and decompression T12-L1 and L1-L2. Posterior lateral decompression and fusion T9 10, T10 11, T11 12, T12-L1, L1-L2 and L2-L3 with connection to the prior fusion from L3 to S1 and revision fusion L3 4. Patient states that she was doing well after her lumbar surgery on Monday. The next day on night she started noticing blurred vision, that has steadily gotten worse. Patient states that it felt like a shade was coming on the eyes, initially involving the right eye, then the left eye. The patient states continued to get worse, everything is blurry. She states the top half of the right eye is severely affected and the lower half of the vision in the left eye is affected. She believes the left eye is worse than right. Ophthalmology and neurology were consulted. Neurology exam revealed bilateral disc edema left worse than right. Rule out temporal arteritis, optic neuritis, versus ischemic optic neuropathy. 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 Aspirin and Plavix was initiated by neurology, Plavix currently on hold. Both neurology and ophthalmology are recommending temporal artery biopsy, therefore vascular surgery was consulted. Patient was started on high-dose steroids, which currently are not being given due to no IV access. Patient also on IV antibiotics due to leukocytosis and fever status post surgery. At this time patient still has visual change, including loss of vision in bilateral eyes. Complains of blurry vision. Denies any headaches, or other focal deficits. Denies any recent illness, no body aches, chills, fever. Patient did have postsurgical fever with a max temp of 103.0 on 02/04/2022 with the last fever on 02/05/2022 max temp of 100.7. Sed rate greater than 140 of which is to be expected to be elevated due to recent surgery as well. CRP 29.[address] did have a CT of the brain that showed no acute changes. Also underwent carotid duplex reporting greater than 70% stenosis in the left ICA, less than 50% of the right ICA. Review of Systems A 14 point review systems was completed all pertinent positives and negatives as stated in the HPI. Past Medical History Past Medical History: Blood Disorder, Diabetes Mellitus, Hypertension, Osteoarthritis (OA), Thyroid Disorder Additional Past Medical History / Comment(s): HEARING LOSS RT EAR, MINOR. TINNITUS CHRONIC BACK PAIN, HOWARD SHOULDER PAIN W/ LIMITATIONS. OVERACTIVE BLADDER. LOW IRON. History of Any Multi-Drug Resistant Organisms: None Reported Past Surgical History: Joint Replacement Additional Past Surgical History / Comment(s): TOTAL KNEE RIGHT KNEE, CERVICAL FUSION, THYROID SURGERY, laminectomy and decompression L3 4, L4 5 and L5-S1 Past Anesthesia/Blood Transfusion Reactions: No Reported Reaction Past Psychological History: No Psychological Hx Reported Additional Psychological History / Comment(s): CLAUSTROPHOBIA Smoking Status: Former smoker Past Alcohol Use History: None Reported Additional Past Alcohol Use History / Comment(s): STARTED AGE 20, QUIT 2001.SMOKED 1/2PPD Past Drug Use History: None Reported - Past Family History Sister(s) Family Medical History: Cancer Additional Family Medical History / Comment(s): Patient had 1 sister that from uterine cancer. Father Additional Family Medical History / Comment(s): Father at age 47 from motor vehicle accident. Mother Additional Family Medical History / Comment(s): Mother in her 80s from heart failure and emphysema. Patient does not have any brothers. Patient has one son that had a brain tumor at age 7 but otherwise no major medical problems. Patient is one daughter with no major medical problems. Medications and Allergies Home Medications Medication Instructions Recorded Confirmed Type metFORMIN HCL [Glucophage] 1,000 mg PO QAM 03/09/20 02/02/22 History Cyanocobalamin (Vitamin B-12) 2,000 mcg PO DAILY 09/28/21 02/02/22 History [Vitamin B-12] Glucosamine Sulfate 2,000 mg PO DAILY 09/28/21 02/02/22 History Levothyroxine Sodium 137 mcg PO QAM 09/28/21 02/02/22 History Mirabegron [Myrbetriq] 25 mg PO DAILY 09/28/21 02/02/22 History Ubidecarenone [Co Q-10] 100 mg PO DAILY 09/28/21 02/02/22 History Valsartan/Hydrochlorothiazide 0.5 tab PO QAM 09/28/21 02/02/22 History [Valsartan-Hctz 160-25 mg Tab] Baclofen 10 mg PO TID 01/27/22 02/02/22 History Biotin [Biotin Disolve] 1,000 mcg PO DAILY 01/27/22 02/02/22 History Calcium Carbonate [Calcium] 600 mg PO DAILY 01/27/22 02/02/22 History metFORMIN HCL 500 mg PO HS 01/27/22 02/02/22 History Multivitamin [Multivitamins Adult 1 tab PO DAILY 02/01/22 02/02/22 History Gummies] Allergies Allergy/AdvReac Type Severity Reaction Status Date / Time terbinafine HCl Allergy Rash/Hives Verified 02/02/22 06:27 [From Lamisil] atorvastatin AdvReac Severe Weakness, Verified 02/02/22 06:27 nausea, vomiting pravastatin AdvReac Severe Weakness, Verified 02/02/22 06:27 nausea, vomiting lisinopril AdvReac Cough Verified 02/02/22 06:27 Surgical - Exam Vital Signs Temp Pulse Resp BP Pulse Ox 97 F L 84 18 160/72 95 02/02/22 06:42 02/02/22 06:42 02/02/22 06:42 02/02/22 06:42 02/02/22 06:42 General appearance: The patient is alert, oriented, appears in no acute distress. HET: Head is normocephalic and atraumatic. Neck: Supple without lymphadenopathy. Trachea midline. Left carotid bruit noted. Heart: S1 S2. Regular rate and rhythm. Lungs: Clear to auscultation bilaterally. Abdomen: Soft, nontender, nondistended. Extremities: Normal skin color and turgor. Neurological: Patient with vision loss right upper optic field as well as left lower optic field. Patient has facial symmetry, tongue protrudes midline. Strength and sensation are grossly intact. Results - Labs 02/06/22 07:38 02/06/22 07:38 Abnormal Lab Results - Last 24 Hours (Table) 02/06/22 02/06/22 02/06/22 Range/Units 07:38 07:38 07:38 WBC 11.30 H (4.50-10.00) X 10*3/uL RBC 2.74 L (4.10-5.20) X 10*6/uL Hgb 7.4 L (12.0-15.0) g/dL Hct 24.5 L (37.2-46.3) % MCHC 30.2 L (32.0-37.0) g/dL RDW 17.2 H (11.5-14.5) % Immature Gran # 0.09 H (0.00-0.04) X 10*3/uL Neutrophils # 8.67 H (1.80-7.70) X 10*3/uL Eosinophils # 0.52 H (0.04-0.35) X 10*3/uL ESR >140 H (0-20) mm/hr Retic Count 3.33 H (0.10-1.80) % POC Glucose (mg/dL) (70-110) mg/dL C-Reactive Protein 29.7 H (<1.0) mg/dL Vitamin B12 1815.0 H (200.0-944.0) pg/mL 02/06/22 02/06/22 02/06/22 Range/Units 11:31 16:51 20:00 WBC (4.50-10.00) X 10*3/uL RBC (4.10-5.20) X 10*6/uL Hgb (12.0-15.0) g/dL Hct (37.2-46.3) % MCHC (32.0-37.0) g/dL RDW (11.5-14.5) % Immature Gran # (0.00-0.04) X 10*3/uL Neutrophils # (1.80-7.70) X 10*3/uL Eosinophils # (0.04-0.35) X 10*3/uL ESR (0-20) mm/hr Retic Count (0.10-1.80) % POC Glucose (mg/dL) 120 H 142 H 133 H (70-110) mg/dL C-Reactive Protein (<1.0) mg/dL Vitamin B12 (200.0-944.0) pg/mL 02/07/22 Range/Units 07:12 WBC (4.50-10.00) X 10*3/uL RBC (4.10-5.20) X 10*6/uL Hgb (12.0-15.0) g/dL Hct (37.2-46.3) % MCHC (32.0-37.0) g/dL RDW (11.5-14.5) % Immature Gran # (0.00-0.04) X 10*3/uL Neutrophils # (1.80-7.70) X 10*3/uL Eosinophils # (0.04-0.35) X 10*3/uL ESR (0-20) mm/hr Retic Count (0.10-1.80) % POC Glucose (mg/dL) 152 H (70-110) mg/dL C-Reactive Protein (<1.0) mg/dL Vitamin B12 (200.0-944.0) pg/mL Microbiology - Last 24 Hours (Table) 02/04/22 13:28 Blood Culture - Preliminary Blood No Growth after 48 hours - Imaging Comments: Brain CT as well as carotid duplex reviewed, as stated in the HPI. Assessment and Plan Assessment: 1. Bilateral vision loss, bilateral optic nerve swelling per ophthalmology 2. Severe thoracic myelopathy status post revision laminectomy, decompression and fusion on 02/02/2022 3. Left ICA stenosis greater than 70% per carotid duplex 4. History diabetes mellitus 5. History of tobacco use 6. Hypertension Plan: 1. Nothing by mouth after midnight 2. Patient scheduled for left temporal artery biopsy tomorrow, procedure was discussed with patient in which patient is willing to proceed 3. Continue to hold Plavix, may resume after procedure 4. Continue with recommendations from neurology and ophthalmology 5. Continue with recommendations from orthopedic spinal surgeon 6. Continue medical management Thank you for this consultation, we will continue to follow. The impression and plan of care has been dictated as directed. Dr. Greco I performed a history and examination of this patient, discussed the same with the dictator. I agree with the dictator's note ,documented as a scribe. Any additional findings or plans will be noted.
[2022-02-07 10:47] LABS: African American GFR (CKD) 63.5 (60.0-200.0); Chol/HDL Ratio 4.02 Ratio; LDL Cholesterol,Calculated 70.8 mg/dL (0.0-131.0); Non-African American GFR(CKD) 54.8 (60.0-200.0)
[2022-02-07 11:33] LABS: Glucose,Whole Blood 156 mg/dL (70-110)
--- NOTE | 2022-02-07 12:46 | P.PN ---
Subjective Progress Note Date: 02/07/22 I am seeing the patient for the first time during this admission. Please refer to Dr. Barnard's notes for further details. It seems the patient has new onset patient has partial vision loss without headache and ESR and CRP are elevated. There is concern for temporal arteritis. Patient is started on Solu-Medrol, vascular surgery team is consulted for temporal artery biopsy by Dr. Barnard and Ophthalmology team is consulted. It seems the patient had recent extensive back surgery on 02/02/2022 by Orthopedic team. Patient is Status post T9-L4 open posterior lateral decompression and fusion with extension to retained hardware at L3-S1. The next day after surgery she noticed bilateral blurry vision of both eyes but has black spot over the right upper eye field while black spot over the left lower field. She denies of headache, difficulty chewing or jaw claudication. Denies any diplopia. Denies any new focal weakness or numbness. She has history of severe lower extremity weakness and was using a wheel chair and numbness from waist down prior to her recent thoracic surgery on 02/02/2022. Has history of Low back pain with history of severe thoracic myelopathy. Patient has history of diabetes type 2 and hypothyroidism. Patient has been having postop fevers and I.D. team in on board and feels due to post-op and does not have any focus for the infection. Objective - Vital Signs Vital signs: Vital Signs Temp 98.4 F 02/07/22 08:00 Pulse 85 02/07/22 08:00 Resp 16 02/07/22 08:00 BP 123/71 02/07/22 08:00 Pulse Ox 98 02/07/22 08:00 FiO2 Intake & Output 02/06/22 02/07/22 02/07/22 18:59 06:59 18:59 Output Total 1000 1001 Balance -1000 -1001 Output: Urine 1000 1000 Stool 1 Other: Voiding Method Incontinent External Catheter Incontinent - Exam GENERAL: The patient is lying in bed and is in mild acute distress. NEUROLOGICAL: Higher mental function: The patient is awake, alert, oriented to self, place and time. Patient is following commands. No aphasia and no neglect. Cranial nerves: The pupils are round, equal, and right was reactive to light while left was hard to appreciate any light reactivity to sluggishly reactive to light on left. Visual hernández: had intact uppers on the right only. Extraocular movement is intact no nystagmus is noted. Facial sensation is normal to touch throughout. The facial strength is normal throughout. Tongue is midline and moved [id number] without any difficulty. No dysarthria is noted. Shoulder shrug is normal bilaterally. Motor: The strength is bilateral forearm extension is 4+ to 5-, foearm flexion is 5-. Otherwise uppers are 5/5. Right lower is 4- while left hip flexion is 3 while knee extension is 2-3. Bilateral ankles are 4+. Decrease tone over bilateral proximal. Cerebellum: Normal finger to nose bilaterally. Sensation: Sensation is normal to touch throughout. Reflexes: left brachioradialis is 3+, left biceps is 2-3+, otherwise uppers are 2+. Lowers are 1+. Plantars are mute bilaterally. SOME OF THE WORK-UP DURING THIS HOSPITAL VISIT CONSISTED OF: ESR > 140, C-reactive protein also elevated 29.7. B12 1815, folate > 20.0 Carotid Doppler showed antegrade flow in both vertebral arteries. Elevated velocity in the left internal carotid artery suggestive of more than 70% stenosis. Imaging in measurement suggest less than 50% stenosis in the right ICA. CT head showed no acute process. There is mild diffuse age-related cerebral atrophy and chronic small vessel ischemic change. - Labs CBC & Chem 7: 02/06/22 07:38 02/07/22 06:08 Labs: Abnormal Lab Results - Last 24 Hours (Table) 02/06/22 02/06/22 02/06/22 Range/Units 07:38 07:38 07:38 WBC 11.30 H (4.50-10.00) X 10*3/uL RBC 2.74 L (4.10-5.20) X 10*6/uL Hgb 7.4 L (12.0-15.0) g/dL Hct 24.5 L (37.2-46.3) % MCHC 30.2 L (32.0-37.0) g/dL RDW 17.2 H (11.5-14.5) % Immature Gran # 0.09 H (0.00-0.04) X 10*3/uL Neutrophils # 8.67 H (1.80-7.70) X 10*3/uL Eosinophils # 0.52 H (0.04-0.35) X 10*3/uL ESR >140 H (0-20) mm/hr Retic Count 3.33 H (0.10-1.80) % Est GFR (CKD-EPI)NonAf (60.0-200.0) POC Glucose (mg/dL) (70-110) mg/dL C-Reactive Protein 29.7 H (<1.0) mg/dL HDL Cholesterol (40.00-60.00) mg/dL Vitamin B12 1815.0 H (200.0-944.0) pg/mL 02/06/22 02/06/22 02/06/22 Range/Units 11:31 16:51 20:00 WBC (4.50-10.00) X 10*3/uL RBC (4.10-5.20) X 10*6/uL Hgb (12.0-15.0) g/dL Hct (37.2-46.3) % MCHC (32.0-37.0) g/dL RDW (11.5-14.5) % Immature Gran # (0.00-0.04) X 10*3/uL Neutrophils # (1.80-7.70) X 10*3/uL Eosinophils # (0.04-0.35) X 10*3/uL ESR (0-20) mm/hr Retic Count (0.10-1.80) % Est GFR (CKD-EPI)NonAf (60.0-200.0) POC Glucose (mg/dL) 120 H 142 H 133 H (70-110) mg/dL C-Reactive Protein (<1.0) mg/dL HDL Cholesterol (40.00-60.00) mg/dL Vitamin B12 (200.0-944.0) pg/mL 02/07/22 02/07/22 Range/Units 06:08 07:12 WBC (4.50-10.00) X 10*3/uL RBC (4.10-5.20) X 10*6/uL Hgb (12.0-15.0) g/dL Hct (37.2-46.3) % MCHC (32.0-37.0) g/dL RDW (11.5-14.5) % Immature Gran # (0.00-0.04) X 10*3/uL Neutrophils # (1.80-7.70) X 10*3/uL Eosinophils # (0.04-0.35) X 10*3/uL ESR (0-20) mm/hr Retic Count (0.10-1.80) % Est GFR (CKD-EPI)NonAf 54.8 L (60.0-200.0) POC Glucose (mg/dL) 152 H (70-110) mg/dL C-Reactive Protein (<1.0) mg/dL HDL Cholesterol 32.60 L (40.00-60.00) mg/dL Vitamin B12 (200.0-944.0) pg/mL Microbiology - Last 24 Hours (Table) 02/04/22 13:28 Blood Culture - Preliminary Blood No Growth after 48 hours Assessment and Plan Assessment: * New onset bilateral partial vision loss, without headache. Ophthalmologic examination revealed bilateral disc edema, left worse than right. Has elevated ESR >140 and CRP (inflammatory markers are nonspecific and can be elevated due to associated with fever postop). There is concern to rule out temporal arteritis vs optic neuritis, versus ischemic optic neuropathy. * Left ICA stenosis >70% on carotid duplex. * History of back pain and thoracic myleopathy Status post T9-L4 open posterior lateral decompression and fusion with extension to retained hardware at L3-S1 on 02/02/2022 * History of cervical surgery * Inability to walk with significant Bilateral lower extremity hemiparesis with sensory loss (from waist down) prior to surgery on 02/02/2022 * Diabetes type 2 * Hypothyroidism * Polymyalgia * Hypertension * X tobacco use Plan: Per Dr. Barnard on Solu-Medrol 250 mg every 6 hours, after she undergoes midline placement. Circulation Sales Representative also concerned about hypoperfusion during surgery producing bilateral papilledema. Ordered TSH, free T4. I will get repeat ESR, CRP. I ordered MRI Brain and C- spine. Vascular surgery team is consulted for temporal artery biopsy to rule out temporal arteritis and for ICA tenosis per Dr. Barnard. We will hold Plavix for possible upcoming temporal artery biopsy. Continue aspirin. I.D. team is on board. Orthopedic surgery team is on board. Will defer the rest of medical management to the primary team. The plan is discussed with the patient and her nurse. Wilfrido Valenzuela M.D. Neuro-Hospitalist Time with Patient: Less than 30
--- NOTE | 2022-02-07 16:10 | P.PN ---
Subjective Progress Note Date: 02/07/22 This is a pleasant 76 years old female with past medical history of diabetes mellitus, hypertension, chronic kidney disease, hypothyroidism and back pain. She was admitted due to her leg weakness and thoracic myelopathy and back pain. She underwent decompression and fusion surgery to thoracic and lumbar spine T9 to L4 area at ID extension L3-S1. Postoperatively she was sitting in bed does not look in distress. She denies any chest pain or dyspnea. No abdominal pain or diarrhea. No vomiting. No fever or dizziness. She has Sanchez catheter in place with clear urine. Labs reviewed showing WBC 17,000, hemoglobin 8.9, sodium 133, creatinine at baseline of 1.1. Glucose controlled Heart rate is 116, fever 99.9, blood pressure 99/56. 02/04/2022 patient feels tired and in pain at the surgery site and the spine to hold back and she states has significant pain. Patient is stain intubate currently. Blood pressure is borderline however it's is stable. Patient developed high- grade fever at 103 today. Chest x-ray and urinalysis are not very impressive for infection, urine analysis slightly abnormal and urine culture is requested. Patient also suspected to have infection at the surgical site. She had low-grade fever yesterday and today has more fever. Also the drain is filled snf with bloody discharge when I saw her. Patient denies vomiting, no chest pain, no abdominal pain. Patient feels numb from waist down for the last 4 months (she feels the pain if it is there in the lower extremities, but currently no pain) Patient denies difficulty breathing but have often. No diarrhea, no rash. Her hemoglobin A1c is 6.7. She has the WBC of 16.9 and hemoglobin 7.9. We will increase her fluids to 125 mg of normal saline. Patient was started on cefepime, infectious disease consult and started on IV vancomycin with close monitoring of her labs and kidney function and other parameters. 02/05/2022 Clinically does not look much different than yesterday, she still complaining of from generalized weakness, she still complaining of from pain at the surgical site with orthopedic team keep following her and managing her post op care , her pain is separate into both legs, more on the left side. But she feels better with pain pills. She is eating better today. Her drain is more than yesterday. Sanchez catheter was discontinued and external catheter placed. Bladder scan was checked and patient has no evidence of retention when they are was checked. She still is slightly tachycardic, no more fever. Blood pressure start improving today 123/67. No significant dyspnea WBC is improving 14.9, hemoglobin dropped to 7.4, we'll keep monitoring her hemoglobin closely. Patient currently is not on blood thinner. Sodium is 137, creatinine stable at 1.1. Glucose controlled. Hemoglobin A1c is 6.7%. pro Calcitonin is elevated at 1.1. Patient is currently on cefepime and IV vancomycin and normal saline 1 25 mL/h. note; after round i was contacted by the bed side RN pt is complaining to primary surgical team about her blurred vission x 4 day, pt did not mention that to me, i informed the RN they need to call ophthalmology service to evaluate her blurred vission , it is on both eyes , pt wears reading glasses at home. 02/05/2022 Today patient is still lying in bed, she feels more comfortable with no back pain at rest but only when she moves which is bothering her. But patient is calm. Not in distress. Patient today states that her blurred vision is worse than yesterday. She is telling me it started 2 days ago. And first it is other right side of the right eye and the lower side of the left thigh and at the same time it is more blurry today, she denies any eye pain, no headache, no new weakness or numbness other than her chronic neurological deficits related to her spine disease. No neck pain or stiffness is noted also as well. She moves her eyes symmetrically in both directions. Ophthalmology team already has been consulted and I called Dr. Perez this morning and discussed the case with him and he kindly he will come and evaluate the patient Also we ordered CT SCAN of the brain to rule out ischemia vs other intracranial lesion , it shows no acute intracranial hemorrhage or midline shift. there is mild diffuse age related cerebral atrophy and chronic small vessel inschemic changes noted. Neurology service was consulted. The blood pressure is stable. Her tachycardia is improving and currently 98. She has low rate temperature today 100.7 which is improving. WBC improvement down to 11.3. Hemoglobin stable at 7.4. Sodium is 137. Creatinine 1.1. Glucose controlled. Chest currently on normal saline and lower rate to 75 mL/h with improvement of her blood pressure Patient is on cefepime and IV vancomycin 02/07/22 Patient seen and examined. Still has blurred vision. Denies any nausea, vomiting or abdominal pain. Denies any headache. Denied any fever or chills. Denies any chest pain or shortness of breath. Vital signs stable Active Medications Generic Name Dose Route Start Last Admin Trade Name Freq PRN Reason Stop Dose Admin Acetaminophen 325 mg 02/04/22 18:32 02/04/22 21:55 Acetaminophen Tab 325 Mg Tab PO 325 mg Q4HR PRN Administration Fever and/ or Pain Hydrocodone Bitart/Acetaminophen 1 - 2 each 02/04/22 08:42 02/06/22 05:56 Hydrocodone/Apap 7.5-325mg 1 Each Tab PO 2 each Q4H PRN Administration Pain Benzocaine/Menthol 1 each 02/02/22 14:51 Benzocaine/Menthol Lozeng 1 Each Lozenge MUCOUS MEM Q4HR PRN Sore Throat Bisacodyl 10 mg 02/02/22 14:52 02/05/22 13:53 Bisacodyl 10 Mg Supp RECTAL 10 mg DAILY PRN Administration Constipation Calcium Carbonate/Glycine 500 mg 02/03/22 09:00 02/06/22 08:45 Calcium Carbonate 500 Mg Chewable PO 500 mg DAILY GAIL Administration Cyanocobalamin 2,000 mcg 02/03/22 09:00 02/06/22 08:45 Cyanocobalamin 500 Mcg Tab PO 2,000 mcg DAILY GAIL Administration Cyclobenzaprine HCl 5 mg 02/02/22 14:52 02/06/22 08:52 Cyclobenzaprine 5 Mg Tab PO 5 mg TID PRN Administration Muscle Spasm Dextrose/Water 25 ml 02/02/22 18:45 Dextrose 50% Syringe 50 Ml IVP PER PROTOCOL PRN Hypoglycemia Protocol Dextrose/Water 50 ml 02/02/22 18:45 Dextrose 50% Syringe 50 Ml IVP PER PROTOCOL PRN Hypoglycemia Protocol Famotidine 20 mg 02/07/22 09:00 Famotidine 20 Mg Tab PO Q24HR GAIL Hydromorphone HCl 0.5 mg 02/02/22 14:51 02/05/22 06:25 Hydromorphone 0.5 Mg/0.5 Ml Syringe IVP 0.5 mg Q4HR PRN Administration Pain Hydromorphone HCl 1 mg 02/02/22 14:51 02/04/22 07:24 Hydromorphone 1 Mg/Ml 1 Ml Syringe IVP 1 mg Q4HR PRN Administration Pain Sodium Chloride 1,000 mls @ 75 mls/hr 02/02/22 15:00 02/06/22 11:31 Saline 0.9% IV Not Given .[id number] GAIL Cefepime HCl 2 gm/ Sodium 100 mls @ 25 mls/hr 02/04/22 16:00 02/06/22 08:46 Chloride IVPB 25 mls/hr Q8HR GAIL Administration Protocol Vancomycin HCl 1,500 mg/ 250 mls @ 125 mls/hr 02/06/22 06:00 02/06/22 05:58 Sodium Chloride IVPB 125 mls/hr Q24H GAIL Administration Insulin Aspart 0 unit 02/02/22 21:00 02/06/22 08:35 Insulin Aspart (Novolog) 100 Unit/Ml Vial SQ Not Given ACHS GAIL Protocol Lactulose 30 gm 02/06/22 08:11 02/06/22 08:45 Lactulose 20 Gm/30 Ml Cup PO 30 gm BID PRN Administration Constipation Levothyroxine Sodium 137 mcg 02/03/22 06:30 02/06/22 05:57 Levothyroxine 137 Mcg Tab PO 137 mcg QAM@0630 GAIL Administration Magnesium Hydroxide 2,400 mg 02/02/22 14:52 02/05/22 08:22 Magnesium Hydroxide 2,400 Mg/10 Ml Cup PO 2,400 mg DAILY PRN Administration Constipation Metformin HCl 500 mg 02/02/22 21:00 02/05/22 20:34 Metformin 500 Mg Tab PO 500 mg HS GAIL Administration Metformin HCl 1,000 mg 02/03/22 09:00 02/06/22 08:45 Metformin 500 Mg Tab PO 1,000 mg QAM GAIL Administration Miscellaneous Information 1 each 02/05/22 09:28 Magnesium Replacement Protocol 1 Each Misc MISCELLANE DAILY PRN Per Protocol Protocol Multivitamins 1 each 02/03/22 09:00 02/06/22 08:45 Multivitamins, Thera 1 Each Tab PO 1 each DAILY GAIL Administration Mirabegron [ 25 mg 02/03/22 09:00 02/06/22 11:27 Myrbetriq] PO Not Given DAILY GAIL Ondansetron HCl 4 mg 02/02/22 14:52 02/02/22 23:32 Ondansetron 4 Mg/2 Ml Vial IVP 4 mg Q8HR PRN Administration Nausea And Vomiting Phenylephrine HCl 1 drops 02/06/22 12:00 Phenylephrine 2.5% Ophth Drp 2ml BOTH EYES 02/06/22 12:06 Q5M GAIL Senna/Docusate Sodium 1 each 02/03/22 09:00 02/06/22 08:45 Sennosides-Docusate Sodium 1 Each Tab PO 1 each DAILY GAIL Administration Senna/Docusate Sodium 2 each 02/02/22 14:52 02/05/22 15:18 Sennosides-Docusate Sodium 1 Each Tab PO 2 each DAILY PRN Administration Constipation Tropicamide 1 drops 02/06/22 12:00 Tropicamide 1% Ophth Drops 2 Ml Btl BOTH EYES 02/06/22 12:06 Q5M AGIL Valsartan 80 mg 02/03/22 09:00 02/06/22 08:45 Valsartan 80 Mg Tab PO 80 mg QAM GAIL Administration Objective - Vital Signs Vital signs: Vital Signs Temp 98.3 F 02/06/22 07:40 Pulse 98 02/06/22 07:40 Resp 17 02/06/22 07:40 BP 104/67 02/06/22 07:40 Pulse Ox 98 02/06/22 07:40 FiO2 Intake & Output 02/05/22 02/06/22 02/06/22 18:59 06:59 18:59 Output Total 1202 202 Balance -1202 -202 Output: Urine 1200 200 Stool 2 2 Other: Voiding Method External Catheter External Catheter Incontinent - Exam GENERAL: The patient is alert and oriented x3, not in any acute distress. Well developed, well nourished. HEENT: Pupils are round and equally reacting to light. EOMI. No scleral icterus. No conjunctival pallor. Normocephalic, atraumatic. No pharyngeal erythema. No thyromegaly. CARDIOVASCULAR: S1 and S2 present. No murmurs, rubs, or gallops. PULMONARY: Chest is clear to auscultation, no wheezing or crackles. ABDOMEN: Soft, nontender, nondistended, normoactive bowel sounds. No palpable organomegaly. -MUSCULOSKELETAL: No joint swelling or deformity. Surgical once the middle and lower back with dressing in place. Rest of exam is deferred to surgery team EXTREMITIES: No cyanosis, clubbing, or pedal edema. -NEUROLOGICAL: Gross neurological examination did not reveal any focal deficits. Bilateral leg weakness, mild. Sensation is intact. Cranial nerves are grossly intact. Patient complaining of from blurred vision or both eyes, no strabismus noted SKIN: No rashes. no petechiae. - Labs CBC & Chem 7: 02/06/22 07:38 02/06/22 07:38 Labs: Abnormal Lab Results - Last 24 Hours (Table) 02/05/22 02/05/22 02/05/22 Range/Units 06:35 16:15 20:30 POC Glucose (mg/dL) 188 H 127 H (70-110) mg/dL Procalcitonin 1.10 H (0.02-0.09) ng/mL 02/06/22 Range/Units 06:59 POC Glucose (mg/dL) 111 H (70-110) mg/dL Procalcitonin (0.02-0.09) ng/mL Microbiology - Last 24 Hours (Table) 02/04/22 16:00 Urine Culture - Final Urine,Voided 02/04/22 13:28 Blood Culture - Preliminary Blood No Growth after 24 hours Assessment and Plan Assessment: High-grade fever with leukocytosis. sepsis is suspected. Unknown source most likely surgical site infection is suspected, less likely UTI versus others. Consent blurred vision, rule out ophthalmic versus neurological causes. Also consider surgical sequelae Severe Thoracic myelopathy, severe thoracic spinal stenosis T9-10 and T10-11, T11-12, L2-3,s/p lateral decompression and fusion T9 to L4 with extension of fusion from prior L3 to S1 (On 02/02) Bilateral lower extremity weakness, inability to ambulate, secondary to above Lower extremity radiculopathy, back pain , secondary to above, improving postop fever, mild. Patient status post IV vancomycin 1 Diabetes mellitus type 2 Chronic kidney disease stage III Postoperative hypotension, mild and asymptomatic Plan: Patient is scheduled for left temporal artery biopsy tomorrow, nothing by mouth after midnight Continue to hold Plavix Continue IV steroids Follow-up on neurology recommendations Follow up on orthopedic spinal surgery recommendations Continue with gentle hydration Continue with cefepime . ID team recommendation Continue with primary team surgical care on postop care unit monitoring hemoglobin Objective - Vital Signs Vital signs: Vital Signs Temp 98.1 F 02/07/22 14:00 Pulse 95 02/07/22 14:00 Resp 16 02/07/22 14:00 BP 150/69 02/07/22 14:00 Pulse Ox 99 02/07/22 14:00 FiO2 Intake & Output 02/06/22 02/07/22 02/07/22 18:59 06:59 18:59 Output Total 1000 1001 Balance -1000 -1001 Output: Urine 1000 1000 Stool 1 Other: Voiding Method Incontinent External Catheter Incontinent - Labs CBC & Chem 7: 02/06/22 07:38 02/07/22 06:08 Labs: Abnormal Lab Results - Last 24 Hours (Table) 02/06/22 02/06/22 02/06/22 Range/Units 07:38 16:51 20:00 ESR (0-20) mm/hr Est GFR (CKD-EPI)NonAf (60.0-200.0) POC Glucose (mg/dL) 142 H 133 H (70-110) mg/dL HDL Cholesterol (40.00-60.00) mg/dL Vitamin B12 1815.0 H (200.0-944.0) pg/mL 02/07/22 02/07/22 02/07/22 Range/Units 06:08 06:08 07:12 ESR 120 H (0-20) mm/hr Est GFR (CKD-EPI)NonAf 54.8 L (60.0-200.0) POC Glucose (mg/dL) 152 H (70-110) mg/dL HDL Cholesterol 32.60 L (40.00-60.00) mg/dL Vitamin B12 (200.0-944.0) pg/mL 02/07/22 Range/Units 11:32 ESR (0-20) mm/hr Est GFR (CKD-EPI)NonAf (60.0-200.0) POC Glucose (mg/dL) 156 H (70-110) mg/dL HDL Cholesterol (40.00-60.00) mg/dL Vitamin B12 (200.0-944.0) pg/mL Microbiology - Last 24 Hours (Table) 02/04/22 13:28 Blood Culture - Preliminary Blood No Growth after 72 hours
[2022-02-07] MEDS: LACTATED RINGERS 1,000 ML IV SCH (16:39)
[2022-02-07 16:53] LABS: Glucose,Whole Blood 212 mg/dL (70-110)
[2022-02-07 21:18] LABS: Glucose,Whole Blood 196 mg/dL (70-110)
[2022-02-07] MEDS: CYCLOBENZAPRINE 5 MG TAB PO PRN (21:27)
[2022-02-08] MEDS: SODIUM CHLORIDE 0.9% 1,000 ML IV SCH ×2 (02:41→16:34)
[2022-02-08] MEDS: HYDROcodone/APAP 7.5-325MG 1 EACH TAB PO PRN ×2 (03:17→19:41)
[2022-02-08] MEDS: methylPREDNISolone SOD SUCCIN 250 MG in SODIUM CHLORIDE 0.9% 100 ML IVPB SCH ×4 (05:30→22:40)
[2022-02-08] MEDS: LEVOTHYROXINE 137 MCG TAB PO SCH (06:05)
[2022-02-08] MEDS ORDERED: HYDROmorphone 0.5 MG/0.5 ML SYRINGE IVP PRN (07:00)
[2022-02-08 07:07] LABS: Glucose,Whole Blood 170 mg/dL (70-110)
[2022-02-08] MEDS: INSULIN ASPART (NovoLOG) 100 UNIT/ML VIAL SQ SCH ×4 (08:31→22:40)
--- NOTE | 2022-02-08 09:04 | P.PN ---
Progress Note - Text Progress Note Date: 02/08/22 Orthopedic Spine History of present illness: Patient is a pleasant 76-year-old female who is seen and examined at the bedside following posterior lateral decompression and fusion performed last Monday. Patient states they are doing okay post operatively. Her back pain has been improving postoperatively. She has had some improvement of her left lower extremity weakness. She has better range of motion of her left lower extremity. She is able to pull herself up in the bed today so I could examine her thoracolumbar spine. She states she has been able to transfer to a bedside chair with physical therapy. She has continued to have significant difficulty of mobilization. She continues with oral hydrocodone for pain control. She is known to have severe thoracic myelopathy and severe bilateral lower extremity weakness with inability to ambulate independently prior to surgical intervention. She will be planning for discharge to [facility] in [place] at the time of discharge. She is 2 person assist. Sanchez catheter was previously discontinued. External catheter is intact. Patient states she does continue to have numbness in her bilateral lower extremities which is unchanged postoperatively. Dressings remain intact over the surgical site of the thoracolumbar spine without active drainage. Dressings are currently dry. Currently does not complain of nausea, vomiting, fever, or chills. Patient is being seen and examined by medicine. Patient continues to have some change in her vision. She does have a history of blurred vision. She feels like she has a window shade around her eyes with her vision somewhat triangulated. She has gone through extensive evaluation with both neurology and ophthalmology. Currently she is nothing by mouth status in anticipation for temporal artery biopsy today. He is not complaining of any headaches. She is currently being evaluated for temporal arthritis versus ischemic optic neuritis. She states as compared to yesterday her vision is the same except she does have intermittent clarity where she has been able to see numbers on the clock. She states she has also realized since yesterday she has had difficulty with her peripheral vision for extended period of time. She states her daughter has moved back in the house with her and since that time she cannot see her come down the steps or do things in the kitchen while she is sitting at the table. She does admit that these other changes are currently different than her chronic difficulty with peripheral vision. She continues to be seen by neurology who has ordered MRI imaging of her cervical spine and brain. They're hoping this is performed today following her temporal artery biopsy. She continues with IV Solu-Medrol 250 mg every 6 hours as monitored by neurology. She did have elevated ESR and CRP. Neurology has ordered repeat lab testing. Patient was able to have a large bowel movement on Monday. She is not complaining of any abdominal pain or discomfort. Patient states yesterday she was also seeing some [place] characters on the peres above the television which are not present this morning. Physical Exam Lumbar Fusion: Status post surgical day number 6 Patient is awake, alert, and oriented 3 Vital signs stable Adequate chest excursion with deep inspiration and expiration Abdomen is firm with some distention Significant weakness with active range of motion of bilateral lower extremities Patient is able to perform active dorsiflexion and plantar flexion bilaterally Patient consents sensation with palpation over the bilateral lower extremities but reports sensations are numb No signs or symptoms of DVT; no calf pain; pneumatic cuffs intact bilateral lower extremities Optifoam dressings are clean, dry, and intact over the lumbar spine and right iliac crest; no erythema, purulence, or signs of infection Postoperative drain remains intact and is removed during physical examination Dressing is reapplied over the surgical site of the drain placement External catheter currently intact Assessment: Status post T9-L4 open posterior lateral decompression and fusion with extension to retained hardware at L3-S1 Low back pain Severe thoracic myelopathy Inability to ambulate prior to surgical intervention Severe bilateral lower extremity weakness History of previous fusion L3-S1 with retained hardware Hypothyroidism History of Blurred vision Evaluation of temporal arteritis versus ischemic optic neuritis; temporal biopsy scheduled for today Hyperlipidemia Type 2 diabetes Reported hallucinations/visualizations of [place] characters above the TV and on the peres last evening which are not present this morning Plan: 1. Ambulate as tolerated; work with Physical Therapy to increase mobilization 2. Continue pain control with occasions for pain control. We will continue with oral [place] to 7.5 mg/325 mg 1-2 tabs every 4 hours as needed for pain. We'll continue with cyclobenzaprine 5 mg 1 tab 3 times a day as needed for muscle spasm. We will try to wean off of IV Dilaudid. Patient may continue to receive this medication if needed for pain control. 3. Dressings to remain intact with Optifoam; patient may shower with dressings intact; postoperative drain remains intact. 4. TLSO brace has been ordered for the patient and delivered. Patient may wear this brace for comfort support as needed during increased mobility and ambulation. 5. Medical management can continue to manage patient for patient's other medical diagnoses including changes in vision with a history of blurred vision, hypothyroidism, hyperlipidemia, and type 2 diabetes. 6. Patient will continue with evaluation and treatment with neurology and ophthalmology. Further evaluation is ongoing for evaluation of possible temporal arteritis versus ischemic optic neuritis. She is currently scheduled for temporal artery biopsy this morning. Neurology has ordered repeat ESR and CRP lab testing. She is also scheduled for a brain and cervical MRI today. She may continue with Solu-Medrol as prescribed by neurology. 7. We will continue to follow the patient closely; patient continues to have difficulty with mobilization and ambulation postoperatively. She is known to have severe thoracic myelopathy. She was unable to ambulate prior to surgical intervention. She continues to require 2 person assist. She has been working with physical therapy and is progressing slowly. She has undergone a significantly surgical intervention at her thoracic and lumbar spines. She is also undergoing extensive evaluation for her vision changes and is scheduled for temporal artery biopsy today as well as MRI imaging of the brain and cervical spine. I do not feel the patient is ready for discharge home and would not be safe for discharge home and is not ready for discharge to a rehabilitation facility. Patient will continue to remain in the hospital until her symptoms improve and her pain is better controlled. Given her significant difficulty with mobilization and bilateral lower extremity weakness, we would then plan for transfer to [facility] rehabilitation facility [place], [place], at the time of discharge. We will plan to have the patient be admitted to in patient status during her admission. 8. It appears patient may have been seeing some hallucinations/visualizations yesterday with [place] characters which she are not currently present this morning. She states these characters were around the television and on the peres. These hallucinations/visualizations could be due to medications. It is unknown if these hallucinations/visualizations could be from another cause. This will be discussed with nursing and relayed with neurology as well. She is scheduled for further evaluation with MRI imaging of the brain and cervical spine today per neurology for further evaluation. 9. We will continue to follow patient closely. Patient can follow-up with Nestor Orta PA-C or Dr. Raffi Gomez at [facility] in 2-3 weeks following discharge
[2022-02-08] MEDS: CEFEPIME 2 GM in SODIUM CHLORIDE 0.9% 100 ML IVPB SCH ×2 (09:07→21:01)
--- NOTE | 2022-02-08 09:59 | P.PN ---
Subjective Progress Note Date: 02/08/22 The patient is seen at bedside and stated she feels slightly better today compared to yesterday. She feel minimal improvement in her vision. She wanted to clarify that she was having bilateral peripheral vision issues of both eyes for past 6 months but has recently seen black spots and blurry vision a day after thoracic surgery. Last time she has been febrile is on 02/05/2022 of 100.7F Objective - Vital Signs Vital signs: Vital Signs Temp 97.5 F L 02/08/22 07:10 Pulse 98 02/08/22 07:10 Resp 16 02/08/22 07:10 BP 148/74 02/08/22 07:10 Pulse Ox 99 02/08/22 02:00 FiO2 Intake & Output 02/07/22 02/08/22 02/08/22 18:59 06:59 18:59 Intake Total 1080 1280 Output Total 700 1200 Balance 380 80 Intake: Intake, IV Titration 800 Amount Cefepime 2 gm In Sodium 100 Chloride 0.9% 100 ml @ 25 mls/hr IVPB Q12HR GAIL Rx #:[id number] Sodium Chloride 0.9% 1, 600 000 ml @ 75 mls/hr IV . [id number] GAIL Rx#:[id number] methylPREDNISolone SOD 100 SUCCIN 250 mg In Sodium Chloride 0.9% 100 ml @ 100 mls/hr IVPB Q6HR GAIL Rx#:[id number] Oral 1080 480 Output: Urine 700 1200 Other: Voiding Method Incontinent External Catheter # Voids 2 - Exam GENERAL: The patient is lying in bed and is in mild acute distress. NEUROLOGICAL: Higher mental function: The patient is awake, alert, oriented to self, place and time. Patient is following commands. No aphasia and no neglect. Cranial nerves: The pupils are round, equal, and right was reactive to light while left was hard to appreciate any light reactivity to sluggishly reactive to light on left. Visual hernández: had hard time assessing but seems intact lowers on the right only. Extraocular movement is intact no nystagmus is noted. Facial sensation is normal to touch throughout. The facial strength is normal throughout. Tongue is midline and moved [id number] without any difficulty. No dysarthria is noted. Shoulder shrug is normal bilaterally. Motor: The strength is bilateral forearm extension is 4+ to 5-, foearm flexion is 5-. Otherwise uppers are 5/5. Right lower is 4- while left hip flexion is 3 while knee extension is 2-3. Bilateral ankles are 4+. Decrease tone over bilateral proximal. Cerebellum: Normal finger to nose bilaterally. Sensation: Sensation is normal to touch throughout. Reflexes: left brachioradialis is 3+, left biceps is 2-3+, otherwise uppers are 2+. Lowers are 1+. Plantars are mute bilaterally. SOME OF THE WORK-UP DURING THIS HOSPITAL VISIT CONSISTED OF: ESR:140-->120, C-reactive protein also elevated 29.7-->29.4. B12 1815, folate > 20.0 HbA1c: 6.7 TSH: 1.760 Coronavirus PCR: Not detected. Influenza A/B PCR: Not detected. Carotid Doppler showed antegrade flow in both vertebral arteries. Elevated velocity in the left internal carotid artery suggestive of more than 70% stenosis. Imaging in measurement suggest less than 50% stenosis in the right ICA. CT head showed no acute process. There is mild diffuse age-related cerebral atrophy and chronic small vessel ischemic change. - Labs CBC & Chem 7: 02/06/22 07:38 02/07/22 06:08 Labs: Abnormal Lab Results - Last 24 Hours (Table) 02/07/22 02/07/22 02/07/22 Range/Units 06:08 06:08 06:08 ESR 120 H (0-20) mm/hr Est GFR (CKD-EPI)NonAf 54.8 L (60.0-200.0) POC Glucose (mg/dL) (70-110) mg/dL C-Reactive Protein 29.40 H (0.00-0.80) mg/dL HDL Cholesterol 32.60 L (40.00-60.00) mg/dL 02/07/22 02/07/22 02/07/22 Range/Units 11:32 16:52 21:16 ESR (0-20) mm/hr Est GFR (CKD-EPI)NonAf (60.0-200.0) POC Glucose (mg/dL) 156 H 212 H 196 H (70-110) mg/dL C-Reactive Protein (0.00-0.80) mg/dL HDL Cholesterol (40.00-60.00) mg/dL 02/08/22 Range/Units 07:05 ESR (0-20) mm/hr Est GFR (CKD-EPI)NonAf (60.0-200.0) POC Glucose (mg/dL) 170 H (70-110) mg/dL C-Reactive Protein (0.00-0.80) mg/dL HDL Cholesterol (40.00-60.00) mg/dL Microbiology - Last 24 Hours (Table) 02/04/22 13:28 Blood Culture - Preliminary Blood No Growth after 72 hours Assessment and Plan Assessment: * New onset bilateral partial vision loss, without headache. Stated has been having peripheral vision loss for past 6 months but a day after thoracic surgery noticed black spots and blurry vision (suspected started on 02/03). Ophthalmologic examination revealed bilateral disc edema, left worse than right. Has elevated ESR >140 and CRP (inflammatory markers are nonspecific and can be elevated due to associated with fever postop). There is concern to rule out temporal arteritis (feel unlikely) vs optic neuritis, versus ischemic optic neuropathy. * Left ICA stenosis >70% on carotid duplex. * Fever with leukocytosis: unknown source. Suspect surgical site infection. * History of back pain and thoracic myleopathy Status post T9-L4 open posterior lateral decompression and fusion with extension to retained hardware at L3-S1 on 02/02/2022 * History of cervical surgery * Inability to walk with significant Bilateral lower extremity hemiparesis with sensory loss (from waist down) prior to surgery on 02/02/2022 * Diabetes type 2 * Hypothyroidism * Polymyalgia * Hypertension * X tobacco use Plan: Per Dr. Barnard on Solu-Medrol 250 mg every 6 hours, after she undergoes midline placement. Internist also concerned about hypoperfusion during surgery producing bilateral papilledema. Pending MRI Brain and C-spine. Vascular surgery team is consulted for temporal artery biopsy to rule out temporal arteritis and for ICA tenosis per Dr. Barnard. We will hold Plavix for possible upcoming temporal artery biopsy. Continue aspirin. I.D. team is on board. Orthopedic surgery team is on board. Will defer the rest of medical management to the primary team. The plan is discussed with the patient. Wilfrido Valenzuela M.D. Neuro-Hospitalist Time with Patient: Less than 30
[2022-02-08] MEDS ORDERED: LACTATED RINGERS 1,000 ML IV ONE (10:03)
[2022-02-08] MEDS ORDERED: fentaNYL (PF) 50 MCG/ML 2 ML AMP ONE (10:21)
[2022-02-08] MEDS ORDERED: PROPOFOL 10 MG/ML 20 ML VIAL IV ONE (10:21)
[2022-02-08] MEDS ORDERED: PHENYLEPHRINE-0.9% NACL SYG 1,000 MCG/10 ML SYRINGE ONE (10:21)
[2022-02-08 10:24] LABS: Glucose,Whole Blood 152 mg/dL (70-110)
--- NOTE | 2022-02-08 10:40 | CDI ---
Documentation Clarification Form Date: 02/08/2022 08:18:21 AM From: Fawn Lyons RN CCDS Admit Date: 02/02/2022 05:59:00 AM Patient Name: Laura Delatorre Visit Number: [id number] Discharge Date: ATTENTION: The Clinical Documentation Specialists (CDI) and [facility] Coding Staff appreciate your assistance in clarifying documentation. Please respond to the clarification below the line at the bottom and electronically sign. The CDI & [facility] Coding staff will review the response and follow-up if needed. Please note: Queries are made part of the Legal Health Record. If you have any questions, please contact the author of this message via ITS. Dr. Moose Gutierrez Postoperative hypotension is documented 02/03 02/07, Medicine consult and progress notes and patient had revision laminectomy and decompression T12-L1 and L1 L2, 02/02. Additional clarification is requested regarding the relationship, if any, that exists between the diagnosis and the procedure. Patients Admitting Diagnosis: Severe Thoracic myelopathy, severe thoracic spinal stenosis T9 10 and T10 11, T11 12, L2-3, with recurrent stenosis T12-L1 and L1-L2, Bilateral lower extremity weakness, inability to ambulate, history of prior spinal fusion L3 to S1 with retained hardware, history of prior laminectomy decompression T12-L1 and L1-L2 Lower extremity radiculopathy, back pain Post-Operative Diagnosis: Same as above with findings of a loose locking cap screw on the right at L3 Procedure performed: Revision Laminectomy and decompression T12-L1 and L1-L2 Computer CT navigation aided Posterior lateral decompression and fusion T9 10, T10 11, T11 12, T12-L1, L1-L2, and L2 3, with connection to the prior fusion from L3 to S1 and revision fusion L3 4 Revision fusion at L3 4 Removal of locking screw at L3 on the right in replacement Use of computer navigation for fusion Local autogenous bone grafting Use of bone graft extenders History/Risk Factors: 76-year-old female presents to [facility] for an elective spinal procedure. Medical history: DM, HTN and OA. Clinical Indicators: Medicine Consult 02/03 Postoperative hypotension, mild and asymptomatic. Continue with gentle hydration and monitor blood pressure. VSS: 02/03 14:00 B/P 111/65; HR 116; Temp 99.9 Oral F; RR 16 SpO2 94% 2L nasal cannula 02/03 19:01 B/P 99/56; HR 116; Temp 99.5 Oral F; RR 16; SpO2 96% room air 02/03 23:33 B/P 96/50; HR 117; Temp 99.7 Oral F; RR 18; SpO2 97% 2L nasal cannula Treatment: 02/03 Hydrochlorothiazide 12.5mg po am d/cd 02/03; 02/03 Valsartan 80mg PO QAM; 02/02 0.9NS 75cc/hr; Monitor blood pressure. Consults: What relationship, if any, exists between the diagnosis of Post operative hypotension and the procedure: [ ] Post operative hypotension is a complication of surgical procedure [ *] Post operative hypotension is related to patients co-morbid condition(s) of Hypertension with Valsartan/Hydrochlorothiazide; Hydrochlorothiazide & not a complication of the procedure [ ] Other please specify ____ [ ] Unable to determine (Template Last Revised: July 2020) MTDD
[2022-02-08] MEDS ORDERED: LIDOCAINE 1% INJ 10MG/ML (20 ML MDV) SQ ONE (11:07)
[2022-02-08 12:08] LABS: Glucose,Whole Blood 162 mg/dL (70-110)
--- NOTE | 2022-02-08 14:58 | MR ---
EXAMINATION TYPE: MR brain/cspine wo DATE OF EXAM: 02/08/2022 COMPARISON: CT brain from 2 days ago. Cervical spine x-ray December 21, 2021 HISTORY: Bilateral vision loss, stroke, neck pain TECHNIQUE: Multiplanar, multisequence imaging of the brain and brainstem is performed without IV cont rast. FINDINGS: BRAIN: Diffusion weighted images demonstrate no evidence of a recent infarct or other diffusion abnormality. There is mild ventricular and sulcal prominence. Mild T2 hyperintensity in the periventricular white matter. Midline structures demonstrate normal morphology. The craniocervical junction appears within normal limits. Normal vascular flow voids are present. The visualized sinuses are clear and the globes are i ntact. Increased fluid signal bilateral mastoid air cells. IMPRESSION: No MRI evidence for recent infarct. Mild diffuse cerebral atrophy and chronic small vesse l ischemic change redemonstrated. Possible right greater than left bilateral mastoiditis, correlate c linically. C-SPINE: FINDINGS: Sagittal images of the cervical spine show the craniocervical junction to appear within nor mal limits. The cervical and upper thoracic spinal cord is normal in course, caliber, and signal. V ertebral alignment is stable and satisfactory. Artifact from anterior fusion plate and metallic disc material at C3-C7 levels is present. The vertebral Body heights and disc space heights are satisfacto ry above and below surgical levels. Posterior disc herniation effacing the anterior thecal sac at T3- T4 and to lesser degree T4-T5 level on sagittal images. Anterior osseous hemangioma noted at T2 level . Axial images show artifact from multilevel surgical change. Mild bilateral neural foraminal narrowing C5-C6 level with probe present. Moderate neural foraminal narrowing C6-C7 level also noted. IMPRESSION: Postsurgical changes C3-C7 level with stable and satisfactory alignment.
[2022-02-08] MEDS: CYANOCOBALAMIN 500 MCG TAB PO SCH (15:31)
[2022-02-08] MEDS: metFORMIN 500 MG TAB PO SCH ×2 (15:31→21:02)
[2022-02-08] MEDS: ASPIRIN 325 MG TAB PO SCH (15:31)
[2022-02-08] MEDS: CALCIUM CARBONATE 500 MG CHEWABLE PO SCH (15:31)
[2022-02-08] MEDS: FAMOTIDINE 20 MG TAB PO SCH (15:31)
[2022-02-08] MEDS: MULTIVITAMINS, THERA 1 EACH TAB PO SCH (15:32)
[2022-02-08] MEDS: SENNOSIDES-DOCUSATE SODIUM 1 EACH TAB PO SCH (15:32)
[2022-02-08] MEDS: Mirabegron [Myrbetriq] PO SCH (15:32)
[2022-02-08] MEDS: VALSARTAN 80 MG TAB PO SCH (15:32)
[2022-02-08] MEDS: ACETAMINOPHEN TAB 325 MG TAB PO PRN (15:45)
--- NOTE | 2022-02-08 16:08 | P.PN ---
Subjective Progress Note Date: 02/08/22 This is a pleasant 76 years old female with past medical history of diabetes mellitus, hypertension, chronic kidney disease, hypothyroidism and back pain. She was admitted due to her leg weakness and thoracic myelopathy and back pain. She underwent decompression and fusion surgery to thoracic and lumbar spine T9 to L4 area at ID extension L3-S1. Postoperatively she was sitting in bed does not look in distress. She denies any chest pain or dyspnea. No abdominal pain or diarrhea. No vomiting. No fever or dizziness. She has Sanchez catheter in place with clear urine. Labs reviewed showing WBC 17,000, hemoglobin 8.9, sodium 133, creatinine at baseline of 1.1. Glucose controlled Heart rate is 116, fever 99.9, blood pressure 99/56. 02/04/2022 patient feels tired and in pain at the surgery site and the spine to hold back and she states has significant pain. Patient is stain intubate currently. Blood pressure is borderline however it's is stable. Patient developed high- grade fever at 103 today. Chest x-ray and urinalysis are not very impressive for infection, urine analysis slightly abnormal and urine culture is requested. Patient also suspected to have infection at the surgical site. She had low-grade fever yesterday and today has more fever. Also the drain is filled long-term with bloody discharge when I saw her. Patient denies vomiting, no chest pain, no abdominal pain. Patient feels numb from waist down for the last 4 months (she feels the pain if it is there in the lower extremities, but currently no pain) Patient denies difficulty breathing but have often. No diarrhea, no rash. Her hemoglobin A1c is 6.7. She has the WBC of 16.9 and hemoglobin 7.9. We will increase her fluids to 125 mg of normal saline. Patient was started on cefepime, infectious disease consult and started on IV vancomycin with close monitoring of her labs and kidney function and other parameters. 02/05/2022 Clinically does not look much different than yesterday, she still complaining of from generalized weakness, she still complaining of from pain at the surgical site with orthopedic team keep following her and managing her post op care , her pain is separate into both legs, more on the left side. But she feels better with pain pills. She is eating better today. Her drain is more than yesterday. Sanchez catheter was discontinued and external catheter placed. Bladder scan was checked and patient has no evidence of retention when they are was checked. She still is slightly tachycardic, no more fever. Blood pressure start improving today 123/67. No significant dyspnea WBC is improving 14.9, hemoglobin dropped to 7.4, we'll keep monitoring her hemoglobin closely. Patient currently is not on blood thinner. Sodium is 137, creatinine stable at 1.1. Glucose controlled. Hemoglobin A1c is 6.7%. pro Calcitonin is elevated at 1.1. Patient is currently on cefepime and IV vancomycin and normal saline 1 25 mL/h. note; after round i was contacted by the bed side RN pt is complaining to primary surgical team about her blurred vission x 4 day, pt did not mention that to me, i informed the RN they need to call ophthalmology service to evaluate her blurred vission , it is on both eyes , pt wears reading glasses at home. 02/05/2022 Today patient is still lying in bed, she feels more comfortable with no back pain at rest but only when she moves which is bothering her. But patient is calm. Not in distress. Patient today states that her blurred vision is worse than yesterday. She is telling me it started 2 days ago. And first it is other right side of the right eye and the lower side of the left thigh and at the same time it is more blurry today, she denies any eye pain, no headache, no new weakness or numbness other than her chronic neurological deficits related to her spine disease. No neck pain or stiffness is noted also as well. She moves her eyes symmetrically in both directions. Ophthalmology team already has been consulted and I called Dr. Perez this morning and discussed the case with him and he kindly he will come and evaluate the patient Also we ordered CT SCAN of the brain to rule out ischemia vs other intracranial lesion , it shows no acute intracranial hemorrhage or midline shift. there is mild diffuse age related cerebral atrophy and chronic small vessel inschemic changes noted. Neurology service was consulted. The blood pressure is stable. Her tachycardia is improving and currently 98. She has low rate temperature today 100.7 which is improving. WBC improvement down to 11.3. Hemoglobin stable at 7.4. Sodium is 137. Creatinine 1.1. Glucose controlled. Chest currently on normal saline and lower rate to 75 mL/h with improvement of her blood pressure Patient is on cefepime and IV vancomycin 02/07/22 Patient seen and examined. Still has blurred vision. Denies any nausea, vomiting or abdominal pain. Denies any headache. Denied any fever or chills. Denies any chest pain or shortness of breath. Vital signs stable 02/08/22. Patient seen and examined. Patient underwent temporal artery biopsy today. States her vision is slightly improved compared to yesterday, was able to see the picture of her grandson on her phone better compared to before. Denies any headache. Denies any lightheadedness or dizziness. Vital signs stable Active Medications Generic Name Dose Route Start Last Admin Trade Name Freq PRN Reason Stop Dose Admin Acetaminophen 325 mg 02/04/22 18:32 02/04/22 21:55 Acetaminophen Tab 325 Mg Tab PO 325 mg Q4HR PRN Administration Fever and/ or Pain Hydrocodone Bitart/Acetaminophen 1 - 2 each 02/04/22 08:42 02/06/22 05:56 Hydrocodone/Apap 7.5-325mg 1 Each Tab PO 2 each Q4H PRN Administration Pain Benzocaine/Menthol 1 each 02/02/22 14:51 Benzocaine/Menthol Lozeng 1 Each Lozenge MUCOUS MEM Q4HR PRN Sore Throat Bisacodyl 10 mg 02/02/22 14:52 02/05/22 13:53 Bisacodyl 10 Mg Supp RECTAL 10 mg DAILY PRN Administration Constipation Calcium Carbonate/Glycine 500 mg 02/03/22 09:00 02/06/22 08:45 Calcium Carbonate 500 Mg Chewable PO 500 mg DAILY GAIL Administration Cyanocobalamin 2,000 mcg 02/03/22 09:00 02/06/22 08:45 Cyanocobalamin 500 Mcg Tab PO 2,000 mcg DAILY GAIL Administration Cyclobenzaprine HCl 5 mg 02/02/22 14:52 02/06/22 08:52 Cyclobenzaprine 5 Mg Tab PO 5 mg TID PRN Administration Muscle Spasm Dextrose/Water 25 ml 02/02/22 18:45 Dextrose 50% Syringe 50 Ml IVP PER PROTOCOL PRN Hypoglycemia Protocol Dextrose/Water 50 ml 02/02/22 18:45 Dextrose 50% Syringe 50 Ml IVP PER PROTOCOL PRN Hypoglycemia Protocol Famotidine 20 mg 02/07/22 09:00 Famotidine 20 Mg Tab PO Q24HR GAIL Hydromorphone HCl 0.5 mg 02/02/22 14:51 02/05/22 06:25 Hydromorphone 0.5 Mg/0.5 Ml Syringe IVP 0.5 mg Q4HR PRN Administration Pain Hydromorphone HCl 1 mg 02/02/22 14:51 02/04/22 07:24 Hydromorphone 1 Mg/Ml 1 Ml Syringe IVP 1 mg Q4HR PRN Administration Pain Sodium Chloride 1,000 mls @ 75 mls/hr 02/02/22 15:00 02/06/22 11:31 Saline 0.9% IV Not Given .[id number] GAIL Cefepime HCl 2 gm/ Sodium 100 mls @ 25 mls/hr 02/04/22 16:00 02/06/22 08:46 Chloride IVPB 25 mls/hr Q8HR GAIL Administration Protocol Vancomycin HCl 1,500 mg/ 250 mls @ 125 mls/hr 02/06/22 06:00 02/06/22 05:58 Sodium Chloride IVPB 125 mls/hr Q24H GAIL Administration Insulin Aspart 0 unit 02/02/22 21:00 02/06/22 08:35 Insulin Aspart (Novolog) 100 Unit/Ml Vial SQ Not Given ACHS [facility] Protocol Lactulose 30 gm 02/06/22 08:11 02/06/22 08:45 Lactulose 20 Gm/30 Ml Cup PO 30 gm BID PRN Administration Constipation Levothyroxine Sodium 137 mcg 02/03/22 06:30 02/06/22 05:57 Levothyroxine 137 Mcg Tab PO 137 mcg QAM@0630 GAIL Administration Magnesium Hydroxide 2,400 mg 02/02/22 14:52 02/05/22 08:22 Magnesium Hydroxide 2,400 Mg/10 Ml Cup PO 2,400 mg DAILY PRN Administration Constipation Metformin HCl 500 mg 02/02/22 21:00 02/05/22 20:34 Metformin 500 Mg Tab PO 500 mg HS GAIL Administration Metformin HCl 1,000 mg 02/03/22 09:00 02/06/22 08:45 Metformin 500 Mg Tab PO 1,000 mg QAM GAIL Administration Miscellaneous Information 1 each 02/05/22 09:28 Magnesium Replacement Protocol 1 Each Misc MISCELLANE DAILY PRN Per Protocol Protocol Multivitamins 1 each 02/03/22 09:00 02/06/22 08:45 Multivitamins, Thera 1 Each Tab PO 1 each DAILY GAIL Administration Mirabegron [ 25 mg 02/03/22 09:00 02/06/22 11:27 Myrbetriq] PO Not Given DAILY GAIL Ondansetron HCl 4 mg 02/02/22 14:52 02/02/22 23:32 Ondansetron 4 Mg/2 Ml Vial IVP 4 mg Q8HR PRN Administration Nausea And Vomiting Phenylephrine HCl 1 drops 02/06/22 12:00 Phenylephrine 2.5% Ophth Drp 2ml BOTH EYES 02/06/22 12:06 Q5M GAIL Senna/Docusate Sodium 1 each 02/03/22 09:00 02/06/22 08:45 Sennosides-Docusate Sodium 1 Each Tab PO 1 each DAILY GAIL Administration Senna/Docusate Sodium 2 each 02/02/22 14:52 02/05/22 15:18 Sennosides-Docusate Sodium 1 Each Tab PO 2 each DAILY PRN Administration Constipation Tropicamide 1 drops 02/06/22 12:00 Tropicamide 1% Ophth Drops 2 Ml Btl BOTH EYES 02/06/22 12:06 Q5M GAIL Valsartan 80 mg 02/03/22 09:00 02/06/22 08:45 Valsartan 80 Mg Tab PO 80 mg QAM GAIL Administration Objective - Vital Signs Vital signs: Vital Signs Temp 98.3 F 02/06/22 07:40 Pulse 98 02/06/22 07:40 Resp 17 02/06/22 07:40 BP 104/67 02/06/22 07:40 Pulse Ox 98 02/06/22 07:40 FiO2 Intake & Output 02/05/22 02/06/22 02/06/22 18:59 06:59 18:59 Output Total 1202 202 Balance -1202 -202 Output: Urine 1200 200 Stool 2 2 Other: Voiding Method External Catheter External Catheter Incontinent - Exam GENERAL: The patient is alert and oriented x3, not in any acute distress. Well developed, well nourished. HEENT: Pupils are round and equally reacting to light. EOMI. No scleral icterus. No conjunctival pallor. Normocephalic, atraumatic. No pharyngeal erythema. No thyromegaly. CARDIOVASCULAR: S1 and S2 present. No murmurs, rubs, or gallops. PULMONARY: Chest is clear to auscultation, no wheezing or crackles. ABDOMEN: Soft, nontender, nondistended, normoactive bowel sounds. No palpable organomegaly. -MUSCULOSKELETAL: No joint swelling or deformity. Surgical once the middle and lower back with dressing in place. Rest of exam is deferred to surgery team EXTREMITIES: No cyanosis, clubbing, or pedal edema. -NEUROLOGICAL: Gross neurological examination did not reveal any focal deficits. Bilateral leg weakness, mild. Sensation is intact. Cranial nerves are grossly intact. Patient complaining of from blurred vision or both eyes, no strabismus noted SKIN: No rashes. no petechiae. - Labs CBC & Chem 7: 02/06/22 07:38 02/06/22 07:38 Labs: Abnormal Lab Results - Last 24 Hours (Table) 02/05/22 02/05/22 02/05/22 Range/Units 06:35 16:15 20:30 POC Glucose (mg/dL) 188 H 127 H (70-110) mg/dL Procalcitonin 1.10 H (0.02-0.09) ng/mL 02/06/22 Range/Units 06:59 POC Glucose (mg/dL) 111 H (70-110) mg/dL Procalcitonin (0.02-0.09) ng/mL Microbiology - Last 24 Hours (Table) 02/04/22 16:00 Urine Culture - Final Urine,Voided 02/04/22 13:28 Blood Culture - Preliminary Blood No Growth after 24 hours Assessment and Plan Assessment: High-grade fever with leukocytosis. sepsis is suspected. Unknown source most likely surgical site infection is suspected, less likely UTI versus others. Consent blurred vision, rule out ophthalmic versus neurological causes. Also consider surgical sequelae Severe Thoracic myelopathy, severe thoracic spinal stenosis T9-10 and T10-11, T11-12, L2-3,s/p lateral decompression and fusion T9 to L4 with extension of fusion from prior L3 to S1 (On 02/02) Bilateral lower extremity weakness, inability to ambulate, secondary to above Lower extremity radiculopathy, back pain , secondary to above, improving postop fever, mild. Patient status post IV vancomycin 1 Diabetes mellitus type 2 Chronic kidney disease stage III Postoperative hypotension, mild and asymptomatic Plan: Patient underwent temporal artery biopsy today Continue IV steroids MRI brain and MRIs cervical spine ordered Follow-up on neurology recommendations Follow up on orthopedic spinal surgery recommendations Continue with gentle hydration Continue with cefepime . ID team recommendation Continue with primary team surgical care on postop care unit monitoring hemoglo bin Objective - Vital Signs Vital signs: Vital Signs Temp 97.5 F L 02/08/22 13:17 Pulse 65 02/08/22 13:17 Resp 19 02/08/22 13:17 BP 122/66 02/08/22 13:17 Pulse Ox 95 02/08/22 13:17 FiO2 Intake & Output 02/07/22 02/08/22 02/08/22 18:59 06:59 18:59 Intake Total 1080 1280 750 Output Total 700 1200 5 Balance 380 80 745 Weight 75.3 kg Intake: IV 750 Intake, IV Titration 800 Amount Cefepime 2 gm In Sodium 100 Chloride 0.9% 100 ml @ 25 mls/hr IVPB Q12HR GAIL Rx #:[id number] Sodium Chloride 0.9% 1, 600 000 ml @ 75 mls/hr IV . [id number] GAIL Rx#:[id number] methylPREDNISolone SOD 100 SUCCIN 250 mg In Sodium Chloride 0.9% 100 ml @ 100 mls/hr IVPB Q6HR GAIL Rx#:[id number] Oral 1080 480 Output: Urine 700 1200 Estimated Blood Loss 5 Other: Voiding Method Incontinent External Catheter External Catheter # Voids 2 - Labs CBC & Chem 7: 02/06/22 07:38 02/07/22 06:08 Labs: Abnormal Lab Results - Last 24 Hours (Table) 02/07/22 02/07/22 02/07/22 Range/Units 06:08 16:52 21:16 POC Glucose (mg/dL) 212 H 196 H (70-110) mg/dL C-Reactive Protein 29.40 H (0.00-0.80) mg/dL 02/08/22 02/08/22 02/08/22 Range/Units 07:05 10:22 12:06 POC Glucose (mg/dL) 170 H 152 H 162 H (70-110) mg/dL C-Reactive Protein (0.00-0.80) mg/dL Microbiology - Last 24 Hours (Table) 09/09/22 13:28 Blood Culture - Preliminary Blood No Growth after 96 hours
[2022-02-08] MEDS: LACTATED RINGERS 1,000 ML IV SCH (16:33)
[2022-02-08] MEDS: VANCOMYCIN 1,500 MG in SODIUM CHLORIDE 0.9% 250 ML IVPB SCH (17:28)
[2022-02-08] MEDS: HYDROmorphone 1 MG/ML 1 ML SYRINGE IVP PRN (17:28)
[2022-02-08] MEDS: SENNOSIDES-DOCUSATE SODIUM 1 EACH TAB PO PRN (21:04)
[2022-02-08] MEDS: MAGNESIUM HYDROXIDE 2,400 MG/10 ML CUP PO PRN (21:04)
[2022-02-08 22:00] LABS: Glucose,Whole Blood 240 mg/dL (70-110)
--- NOTE | 2022-02-08 22:20 | P.PN ---
Subjective Progress Note Date: 02/07/22 Principal diagnosis: Postop fever Patient is a 76 year old female electively admitted to the hospital for lateral decompression fusion T9-L4 with extension of the fusion from prior L3 to S1 in this patient did have a postop fever. On today's evaluation that is 02/07/2022 the patient has been afebrile for more than 24 hours now, the patient is breathing comfortably nasal cannula oxygen , the patient denies any chest pain or shortness of breath or cough no abdominal p ain and diarrhea the patient continued to be complaining of some vision changes Objective - Vital Signs Vital signs: Vital Signs Temp 98.1 F 02/07/22 14:00 Pulse 95 02/07/22 14:00 Resp 16 02/07/22 14:00 BP 150/69 02/07/22 14:00 Pulse Ox 99 02/07/22 14:00 FiO2 Intake & Output 02/06/22 02/07/22 02/07/22 18:59 06:59 18:59 Output Total 1000 1001 Balance -1000 -1001 Output: Urine 1000 1000 Stool 1 Other: Voiding Method Incontinent External Catheter Incontinent - Exam GENERAL DESCRIPTION: An elderly female lying in bed in no distress RESPIRATORY SYSTEM: Unlabored breathing , decreased breath sounds at bases HEART: S1 S2 regular rate and rhythm , ABDOMEN: Soft , no tenderness EXTREMITIES: No edema feet - Labs CBC & Chem 7: 02/06/22 07:38 02/07/22 06:08 Labs: Abnormal Lab Results - Last 24 Hours (Table) 02/06/22 02/06/22 02/06/22 Range/Units 07:38 16:51 20:00 Est GFR (CKD-EPI)NonAf (60.0-200.0) POC Glucose (mg/dL) 142 H 133 H (70-110) mg/dL HDL Cholesterol (40.00-60.00) mg/dL Vitamin B12 1815.0 H (200.0-944.0) pg/mL 02/07/22 02/07/22 02/07/22 Range/Units 06:08 07:12 11:32 Est GFR (CKD-EPI)NonAf 54.8 L (60.0-200.0) POC Glucose (mg/dL) 152 H 156 H (70-110) mg/dL HDL Cholesterol 32.60 L (40.00-60.00) mg/dL Vitamin B12 (200.0-944.0) pg/mL Microbiology - Last 24 Hours (Table) 02/04/22 13:28 Blood Culture - Preliminary Blood No Growth after 48 hours Assessment and Plan (1) Fever Current Visit: Yes Status: Acute Code(s): R50.9 - FEVER, UNSPECIFIED SNOMED Code(s): 317663128 Plan: 1patient with a postop fever and this patient likely will hospital for posterior leg central decompression and fusion T9-L4 with extension of the fusion from prior L3-S1 in this patient denies any worsening lower back pain and do not have any obvious focus of infection 2-blood cultures have been negative so far, chest x-ray was negative for any acute infiltrate the patient did have a negative COVID and influenza PCR 3-patient fever has resolved and the patient will continue with the current broad-spectrum antibiotics of cefepime and vancomycin while waiting for the culture to finalize Time with Patient: Less than 30
--- NOTE | 2022-02-08 22:22 | P.PN ---
Subjective Progress Note Date: 02/08/22 Principal diagnosis: Postop fever Patient is a 76 year old female electively admitted to the hospital for lateral decompression fusion T9-L4 with extension of the fusion from prior L3 to S1 in this patient did have a postop fever. The patient is status post left temporal artery biopsy completed on 02/08/2022 On today's evaluation that is 02/08/2022 the patient has been afebrile for more than 48 hours, the patient is breathing comfortably nasal cannula oxygen , the patient denies any chest pain or shortness of breath denies significant or sputum production cough no abdominal pain and diarrhea the patient continued to be complaining of some vision changes however no worsening Objective - Vital Signs Vital signs: Vital Signs Temp 97.0 F L 02/08/22 11:50 Pulse 86 02/08/22 12:20 Resp 16 02/08/22 12:20 BP 145/65 02/08/22 12:20 Pulse Ox 96 02/08/22 12:20 FiO2 Intake & Output 02/07/22 02/08/22 02/08/22 18:59 06:59 18:59 Intake Total 1080 1280 600 Output Total 700 1200 5 Balance 380 80 595 Weight 75.3 kg Intake: IV 600 Intake, IV Titration 800 Amount Cefepime 2 gm In Sodium 100 Chloride 0.9% 100 ml @ 25 mls/hr IVPB Q12HR GAIL Rx #:[id number] Sodium Chloride 0.9% 1, 600 000 ml @ 75 mls/hr IV . [id number] GAIL Rx#:[id number] methylPREDNISolone SOD 100 SUCCIN 250 mg In Sodium Chloride 0.9% 100 ml @ 100 mls/hr IVPB Q6HR [facility] Rx#:[id number] Oral 1080 480 Output: Urine 700 1200 Estimated Blood Loss 5 Other: Voiding Method Incontinent External Catheter # Voids 2 - Exam GENERAL DESCRIPTION: An elderly female lying in bed in no distress RESPIRATORY SYSTEM: Unlabored breathing , decreased breath sounds at bases HEART: S1 S2 regular rate and rhythm , ABDOMEN: Soft , no tenderness EXTREMITIES: No edema feet - Labs CBC & Chem 7: 02/06/22 07:38 02/07/22 06:08 Labs: Abnormal Lab Results - Last 24 Hours (Table) 02/07/22 02/07/22 02/07/22 Range/Units 06:08 06:08 16:52 ESR 120 H (0-20) mm/hr POC Glucose (mg/dL) 212 H (70-110) mg/dL C-Reactive Protein 29.40 H (0.00-0.80) mg/dL 02/07/22 02/08/22 02/08/22 Range/Units 21:16 07:05 10:22 ESR (0-20) mm/hr POC Glucose (mg/dL) 196 H 170 H 152 H (70-110) mg/dL C-Reactive Protein (0.00-0.80) mg/dL 02/08/22 Range/Units 12:06 ESR (0-20) mm/hr POC Glucose (mg/dL) 162 H (70-110) mg/dL C-Reactive Protein (0.00-0.80) mg/dL Microbiology - Last 24 Hours (Table) 02/04/22 13:28 Blood Culture - Preliminary Blood No Growth after 72 hours Assessment and Plan (1) Fever Current Visit: Yes Status: Acute Code(s): R50.9 - FEVER, UNSPECIFIED SNOMED Code(s): 645913022 Plan: 1patient with a postop fever and this patient likely will hospital for posterior leg central decompression and fusion T9-L4 with extension of the fusion from prior L3-S1 in this patient denies any worsening lower back pain and do not have any obvious focus of infection 2-blood cultures have been negative so far, chest x-ray was negative for any acute infiltrate the patient did have a negative COVID and influenza PCR 3-patient fever has resolved and the patient cultures has been negative for any resistant pathogen we will discontinue vancomycin to decrease risk of nephrotoxicity continue with the cefepime Time with Patient: Less than 30
[2022-02-09] MEDS: HYDROmorphone 1 MG/ML 1 ML SYRINGE IVP PRN (00:19)
[2022-02-09] MEDS: HYDROcodone/APAP 7.5-325MG 1 EACH TAB PO PRN ×3 (00:19→19:18)
[2022-02-09] MEDS: CYCLOBENZAPRINE 5 MG TAB PO PRN ×3 (00:19→19:18)
[2022-02-09] MEDS: bisacodyL 10 MG SUPP RECTAL PRN (01:36)
[2022-02-09] MEDS: methylPREDNISolone SOD SUCCIN 250 MG in SODIUM CHLORIDE 0.9% 100 ML IVPB SCH ×2 (04:06→10:02)
[2022-02-09] MEDS: SODIUM CHLORIDE 0.9% 1,000 ML IV SCH ×2 (05:15→09:15)
[2022-02-09] MEDS: LEVOTHYROXINE 137 MCG TAB PO SCH (06:06)
[2022-02-09 06:19] LABS: African American GFR (CKD) 56 (>60 ml/min/1.73 sqM); Anion Gap 9 mmol/L; Blood Urea Nitrogen 33 mg/dL (7-17); Carbon Dioxide 25 mmol/L (22-30); Chloride 103 mmol/L (98-107); Glucose 148 mg/dL (74-99); Non-African American GFR(CKD) 49 (>60 ml/min/1.73 sqM); Potassium 4.7 mmol/L (3.5-5.1); Sodium 137 mmol/L (137-145)
[2022-02-09 07:07] LABS: Glucose,Whole Blood 207 mg/dL (70-110)
[2022-02-09] MEDS: ASPIRIN 325 MG TAB PO SCH (09:05)
[2022-02-09] MEDS: CYANOCOBALAMIN 500 MCG TAB PO SCH (09:05)
[2022-02-09] MEDS: FAMOTIDINE 20 MG TAB PO SCH (09:06)
[2022-02-09] MEDS: VALSARTAN 80 MG TAB PO SCH (09:06)
[2022-02-09] MEDS: SENNOSIDES-DOCUSATE SODIUM 1 EACH TAB PO SCH (09:06)
[2022-02-09] MEDS: metFORMIN 500 MG TAB PO SCH ×2 (09:06→19:59)
[2022-02-09] MEDS: MULTIVITAMINS, THERA 1 EACH TAB PO SCH (09:07)
[2022-02-09] MEDS: CALCIUM CARBONATE 500 MG CHEWABLE PO SCH (09:07)
[2022-02-09] MEDS: LACTULOSE 20 GM/30 ML CUP PO PRN (09:08)
[2022-02-09] MEDS: INSULIN ASPART (NovoLOG) 100 UNIT/ML VIAL SQ SCH ×4 (09:13→21:23)
[2022-02-09] MEDS: CEFEPIME 2 GM in SODIUM CHLORIDE 0.9% 100 ML IVPB SCH ×2 (09:14→19:58)
[2022-02-09 09:29] LABS: C Reactive Protein 5.6 mg/dL (<1.0)
[2022-02-09] MEDS: Mirabegron [Myrbetriq] PO SCH (09:36)
[2022-02-09 10:07] LABS: Basophils # (A) 0.02 X 10*3/uL (0.00-0.10); Basophils % (A) 0.1 %; Eosinophils # (A) 0 X 10*3/uL (0.04-0.35); Eosinophils % (A) 0 %; HCT 24.2 % (37.2-46.3); HGB 7.4 g/dL (12.0-15.0); Lymphocytes # (A) 1.05 X 10*3/uL (0.90-5.00); Lymphocytes % (A) 7.4 %; MCH 26.8 pg (27.0-32.0); MCHC 30.6 g/dL (32.0-37.0); MCV 87.7 fL (80.0-97.0); Mean Platelet Volume 10.3 fL (9.5-12.2); Monocytes # (A) 0.69 X 10*3/uL (0.20-1.00); Monocytes % (A) 4.8 %; NRBC Per 100 WBC 0.2 /100 WBCS (0.0-0.0); Neutrophils # (A) 12.18 X 10*3/uL (1.80-7.70); Neutrophils % (A) 85.7 %; Platelet Count 452 X 10*3/uL (140-440); RBC 2.76 X 10*6/uL (4.10-5.20); WBC 14.23 X 10*3/uL (4.50-10.00)
--- NOTE | 2022-02-09 11:23 | P.PN ---
Subjective Progress Note Date: 02/09/22 Principal diagnosis: Vision loss Patient was seen and examined today as a follow-up status post left temporal artery biopsy. Patient states right eye vision somewhat improved still a little dark but not as bad as it had been. Still having significant darkness in the left eye. She denies any headaches, and no other focal deficits. Discussed with patient regarding left ICA stenosis, this will be followed up as an outpatient. Objective - Vital Signs Vital signs: Vital Signs Temp 97.6 F 02/09/22 08:00 Pulse 95 02/09/22 08:00 Resp 16 02/09/22 08:00 BP 119/73 02/09/22 08:00 Pulse Ox 94 L 02/09/22 02:00 FiO2 Intake & Output 02/08/22 02/09/22 02/09/22 18:59 06:59 18:59 Intake Total 990 1205 Output Total 605 700 450 Balance 385 505 -450 Weight 75.3 kg Intake: IV 750 Intake, IV Titration 725 Amount Cefepime 2 gm In Sodium 100 Chloride 0.9% 100 ml @ 25 mls/hr IVPB Q12HR [facility]IL Rx #:[id number] Sodium Chloride 0.9% 1, 525 000 ml @ 75 mls/hr IV . [id number] GAIL Rx#:[id number] methylPREDNISolone SOD 100 SUCCIN 250 mg In Sodium Chloride 0.9% 100 ml @ 100 mls/hr IVPB Q6H [facility] Rx#:[id number] Oral 240 480 Output: Urine 600 700 450 Estimated Blood Loss 5 Other: Voiding Method External Catheter External Catheter # Bowel Movements 1 - Exam General appearance: The patient is alert, oriented, appears in no acute distress. HET: Head is normocephalic and atraumatic. Pupils are equal and reactive. Left temporal artery biopsy site well approximated with glue Neck: Supple. Extremities: Normal skin color and turgor. Neurological: Alert and oriented. - Labs CBC & Chem 7: 02/09/22 05:35 02/09/22 05:35 Labs: Abnormal Lab Results - Last 24 Hours (Table) 02/08/22 02/08/22 02/09/22 Range/Units 12:06 21:58 05:35 WBC (4.50-10.00) X 10*3/uL RBC (4.10-5.20) X 10*6/uL Hgb (12.0-15.0) g/dL Hct (37.2-46.3) % MCH (27.0-32.0) pg MCHC (32.0-37.0) g/dL RDW (11.5-14.5) % Plt Count (140-440) X 10*3/uL Absolute Nucleated RBC (0.00-0.00) X 10*3/uL Immature Gran # (0.00-0.04) X 10*3/uL Neutrophils # (1.80-7.70) X 10*3/uL Eosinophils # (0.04-0.35) X 10*3/uL NRBC/100 WBC Diff (0.0-0.0) /100 WBCS BUN 33 H (7-17) mg/dL Creatinine 1.12 H (0.52-1.04) mg/dL Glucose 148 H (74-99) mg/dL POC Glucose (mg/dL) 162 H 240 H (70-110) mg/dL Calcium 8.0 L (8.4-10.2) mg/dL C-Reactive Protein 5.6 H (<1.0) mg/dL Procalcitonin (0.02-0.09) ng/mL 02/09/22 02/09/22 02/09/22 Range/Units 05:35 05:35 07:06 WBC 14.23 H (4.50-10.00) X 10*3/uL RBC 2.76 L (4.10-5.20) X 10*6/uL Hgb 7.4 L (12.0-15.0) g/dL Hct 24.2 L (37.2-46.3) % MCH 26.8 L (27.0-32.0) pg MCHC 30.6 L (32.0-37.0) g/dL RDW 18.0 H (11.5-14.5) % Plt Count 452 H (140-440) X 10*3/uL Absolute Nucleated RBC 0.03 H (0.00-0.00) X 10*3/uL Immature Gran # 0.29 H (0.00-0.04) X 10*3/uL Neutrophils # 12.18 H (1.80-7.70) X 10*3/uL Eosinophils # 0 L (0.04-0.35) X 10*3/uL NRBC/100 WBC Diff 0.2 H (0.0-0.0) /100 WBCS BUN (7-17) mg/dL Creatinine (0.52-1.04) mg/dL Glucose (74-99) mg/dL POC Glucose (mg/dL) 207 H (70-110) mg/dL Calcium (8.4-10.2) mg/dL C-Reactive Protein (<1.0) mg/dL Procalcitonin 0.31 H (0.02-0.09) ng/mL Microbiology - Last 24 Hours (Table) 02/04/22 13:28 Blood Culture - Preliminary Blood No Growth after 96 hours Assessment and Plan Assessment: 1. Postop day #1 left temporal artery biopsy 2. Bilateral vision loss, bilateral optic nerve swelling per ophthalmology 3. Severe thoracic myelopathy status post revision laminectomy, decompression and fusion on 02/02/2022 4. Left ICA stenosis greater than 70% per carotid duplex 5. History diabetes mellitus 6. History of tobacco use 7. Hypertension Plan: 1. Patient may have Consistent carbohydrate. 2. May resume Plavix 3. Continue with recommendations from neurology and ophthalmology 4. Continue with recommendations from orthopedic spinal surgeon 5. Continue medical management Thank you for this consultation, we will sign off at this time. Patient instructed she will need to follow-up in the outpatient setting in the next 2-3 weeks. The impression and plan of care has been dictated as directed. Dr. Sanchez I performed a history and examination of this patient, discussed the same with the dictator. I agree with the dictator's note ,documented as a scribe. Any additional findings or plans will be noted.
[2022-02-09 11:28] LABS: Glucose,Whole Blood 160 mg/dL (70-110)
--- NOTE | 2022-02-09 12:43 | P.PN ---
Progress Note - Text Progress Note Date: 02/09/22 Orthopedic Spine History of present illness: Patient is a pleasant 76-year-old female who is seen and examined at the bedside following posterior lateral decompression and fusion performed last Monday. Patient states they are doing okay post operatively. Her back pain has been improving postoperatively. She has had some improvement of her left lower extremity weakness. She has better range of motion of her left lower extremity. She is able to pull herself up in the bed today so I could examine her thoracolumbar spine. She states she has been able to transfer to a bedside chair with physical therapy. She has continued to have significant difficulty of mobilization. She continues with oral hydrocodone for pain control. She has been receiving Rosebud approximately every 8 hours. We have discontinued IV Dilaudid. She is known to have severe thoracic myelopathy and severe bilateral lower extremity weakness with inability to ambulate independently prior to surgical intervention. She will be planning for discharge to [facility] in [place] at the time of discharge. She is 2 person assist. Sanchez catheter was previously discontinued. External catheter is intact. Patient states she does continue to have numbness in her bilateral lower extremities which is unchanged postoperatively. Dressings remain intact over the surgical site of the thoracolumbar spine without active drainage. Dressings are currently dry. Currently does not complain of nausea, vomiting, fever, or chills. Patient is being seen and examined by medicine. Patient continues to have some change in her vision. She does have a history of blurred vision. She feels like she has a window shade around her eyes with her vision somewhat triangulated. She has gone through extensive evaluation with both neurology and ophthalmology. Yesterday she underwent temporal artery biopsy today with results pending. She did have a little bit of a headache following the procedure but is not currently not complaining of any headaches. She is currently being evaluated for temporal arthritis versus ischemic optic neuritis. She states as compared to yesterday her vision Has remained fairly unchanged. She states she has also realized since yesterday she has had difficulty with her peripheral vision for extended period of time. She states her daughter has moved back in the house with her and since that time she cannot see her come down the steps or do things in the kitchen while she is sitting at the table. She does admit that these other changes are currently different than her chronic difficulty with peripheral vision. She continues to be seen by neurology who has ordered MRI imaging of her cervical spine and brain. There were no acute findings in regards to her brain and cervical spine. Patient is discussed in detail with neurology today. They are planning for MRI imaging of the eyes bilaterally.Neurology has discuss the patient in detail with ophthalmology as well. They are planning to discontinue IV Solu-Medrol and convert her to oral prednisone 60 mg daily. She does continue to have elevated ESR and CRP. Seen and examined by infectious disease today. He continues with cefepime. Vancomycin was discontinued. Patient has been able to continue having a bowel movements without difficulty. She is not complaining of any abdominal pain or discomfort. Patient states yesterday she was also seeing some Lizeth characters on the peres above the television which are not present this morning. She has continued to have some hallucinations. She states that these hallucinations are present currently while we're with her at bedside. This was discussed with neurology today who is also at the bedside. They feel this may be due to the Solu-Medrol IV. This medication is being discontinued. Patient currently denies fever or chills. Physical Exam Lumbar Fusion: Status post surgical day number 7 Patient is awake, alert, and oriented 3 Vital signs stable Adequate chest excursion with deep inspiration and expiration Significant weakness with active range of motion of bilateral lower extremities Patient is able to perform active dorsiflexion and plantar flexion bilaterally Patient consents sensation with palpation over the bilateral lower extremities but reports sensations are numb No signs or symptoms of DVT; no calf pain; pneumatic cuffs intact bilateral lower extremities Optifoam dressings are clean, dry, and intact over the lumbar spine and right iliac crest; no erythema, purulence, or signs of infection Dressing is removed during physical examination Mild drainage from the superior aspect of the incision site at the thoracic spine Nonstick Telfa and Tegaderm reapplied only over the superior aspect of the incision site at the thoracic spine Postoperative drain remains intact and is removed during physical examination Dressing is reapplied over the surgical site of the drain placement External catheter currently intact Assessment: Status post T9-L4 open posterior lateral decompression and fusion with extension to retained hardware at L3-S1 Low back pain Severe thoracic myelopathy Inability to ambulate prior to surgical intervention Severe bilateral lower extremity weakness History of previous fusion L3-S1 with retained hardware Hypothyroidism History of Blurred vision Evaluation of temporal arteritis versus ischemic optic neuritis; temporal biopsy scheduled pending Hyperlipidemia Type 2 diabetes Hallucinations Elevated CRP Elevated ESR Anemia Plan: 1. Ambulate as tolerated; work with Physical Therapy to increase mobilization 2. Continue pain control with occasions for pain control. We will continue with oral Rosebud to 7.5 mg/325 mg 1-2 tabs every 4 hours as needed for pain. We'll continue with cyclobenzaprine 5 mg 1 tab 3 times a day as needed for muscle spasm. We Have discontinued IV Dilaudid. 3. Dressings to remain intact. Patient may shower with dressings intact; postoperative drain was previously removed; dressing is removed with only a small Tegaderm and nonstick Telfa reapplied over the top part of the incision site 4. TLSO brace has been ordered for the patient and delivered. Patient may wear this brace for comfort support as needed during increased mobility and ambulation. 5. Medical management can continue to manage patient for patient's other medical diagnoses including changes in vision with a history of blurred vision, hypothyroidism, hyperlipidemia, type 2 diabetes, and anemia. 6. Patient will continue with evaluation and treatment with neurology and ophthalmology. Further evaluation is ongoing for evaluation of possible temporal arteritis versus ischemic optic neuritis. Temporal artery biopsy results are pending. Neurology has ordered repeat ESR and CRP lab testing. She previously had brain and cervical MRI imaging without significant findings. Neurology is planning for MRI imaging of the eyes. 7. After further discussion of clean neurology and ophthalmology, Solu-Medrol IV will be discontinued and patient will be converted to prednisone 60 mg daily. Neurology feels her hallucinations could be caused by the Solu-Medrol IV. 8. We will continue to follow the patient closely; patient continues to have difficulty with mobilization and ambulation postoperatively. She is known to have severe thoracic myelopathy. She was unable to ambulate prior to surgical intervention. She continues to require 2 person assist. She has been working with physical therapy and is progressing slowly. She has undergone a significantly surgical intervention at her thoracic and lumbar spines. She is also undergoing extensive evaluation for her vision changes and Temporal artery biopsy is pending. MRI imaging of the eyes is being ordered by neurology and is currently pending. I do not feel the patient is ready for discharge home and would not be safe for discharge home and is not ready for discharge to a rehabilitation facility. Patient will continue to remain in the hospital until her symptoms improve and her pain is better controlled. Given her significant difficulty with mobilization and bilateral lower extremity weakness, we would then plan for transfer to [facility] rehabilitation facility [place], [place], at the time of discharge. We will plan to have the patient be admitted to in patient status during her admission. 9. We will continue to follow patient closely. Patient can follow-up with Nestor Orta PA-C or Dr. Raffi Gomez at [facility] in 2-3 weeks following discharge
--- NOTE | 2022-02-09 12:57 | P.PN ---
Subjective Progress Note Date: 02/09/22 This is a pleasant 76 years old female with past medical history of diabetes mellitus, hypertension, chronic kidney disease, hypothyroidism and back pain. She was admitted due to her leg weakness and thoracic myelopathy and back pain. She underwent decompression and fusion surgery to thoracic and lumbar spine T9 to L4 area at ID extension L3-S1. Postoperatively she was sitting in bed does not look in distress. She denies any chest pain or dyspnea. No abdominal pain or diarrhea. No vomiting. No fever or dizziness. She has Sanchez catheter in place with clear urine. Labs reviewed showing WBC 17,000, hemoglobin 8.9, sodium 133, creatinine at baseline of 1.1. Glucose controlled Heart rate is 116, fever 99.9, blood pressure 99/56. 02/04/2022 patient feels tired and in pain at the surgery site and the spine to hold back and she states has significant pain. Patient is stain intubate currently. Blood pressure is borderline however it's is stable. Patient developed high- grade fever at 103 today. Chest x-ray and urinalysis are not very impressive for infection, urine analysis slightly abnormal and urine culture is requested. Patient also suspected to have infection at the surgical site. She had low-grade fever yesterday and today has more fever. Also the drain is filled fci with bloody discharge when I saw her. Patient denies vomiting, no chest pain, no abdominal pain. Patient feels numb from waist down for the last 4 months (she feels the pain if it is there in the lower extremities, but currently no pain) Patient denies difficulty breathing but have often. No diarrhea, no rash. Her hemoglobin A1c is 6.7. She has the WBC of 16.9 and hemoglobin 7.9. We will increase her fluids to 125 mg of normal saline. Patient was started on cefepime, infectious disease consult and started on IV vancomycin with close monitoring of her labs and kidney function and other parameters. 02/05/2022 Clinically does not look much different than yesterday, she still complaining of from generalized weakness, she still complaining of from pain at the surgical site with orthopedic team keep following her and managing her post op care , her pain is separate into both legs, more on the left side. But she feels better with pain pills. She is eating better today. Her drain is more than yesterday. Sanchez catheter was discontinued and external catheter placed. Bladder scan was checked and patient has no evidence of retention when they are was checked. She still is slightly tachycardic, no more fever. Blood pressure start improving today 123/67. No significant dyspnea WBC is improving 14.9, hemoglobin dropped to 7.4, we'll keep monitoring her hemoglobin closely. Patient currently is not on blood thinner. Sodium is 137, creatinine stable at 1.1. Glucose controlled. Hemoglobin A1c is 6.7%. pro Calcitonin is elevated at 1.1. Patient is currently on cefepime and IV vancomycin and normal saline 1 25 mL/h. note; after round i was contacted by the bed side RN pt is complaining to primary surgical team about her blurred vission x 4 day, pt did not mention that to me, i informed the RN they need to call ophthalmology service to evaluate her blurred vission , it is on both eyes , pt wears reading glasses at home. 02/05/2022 Today patient is still lying in bed, she feels more comfortable with no back pain at rest but only when she moves which is bothering her. But patient is calm. Not in distress. Patient today states that her blurred vision is worse than yesterday. She is telling me it started 2 days ago. And first it is other right side of the right eye and the lower side of the left thigh and at the same time it is more blurry today, she denies any eye pain, no headache, no new weakness or numbness other than her chronic neurological deficits related to her spine disease. No neck pain or stiffness is noted also as well. She moves her eyes symmetrically in both directions. Ophthalmology team already has been consulted and I called Dr. Perez this morning and discussed the case with him and he kindly he will come and evaluate the patient Also we ordered CT SCAN of the brain to rule out ischemia vs other intracranial lesion , it shows no acute intracranial hemorrhage or midline shift. there is mild diffuse age related cerebral atrophy and chronic small vessel inschemic changes noted. Neurology service was consulted. The blood pressure is stable. Her tachycardia is improving and currently 98. She has low rate temperature today 100.7 which is improving. WBC improvement down to 11.3. Hemoglobin stable at 7.4. Sodium is 137. Creatinine 1.1. Glucose controlled. Chest currently on normal saline and lower rate to 75 mL/h with improvement of her blood pressure Patient is on cefepime and IV vancomycin 02/07/22 Patient seen and examined. Still has blurred vision. Denies any nausea, vomiting or abdominal pain. Denies any headache. Denied any fever or chills. Denies any chest pain or shortness of breath. Vital signs stable 02/08/22. Patient seen and examined. Patient underwent temporal artery biopsy today. States her vision is slightly improved compared to yesterday, was able to see the picture of her grandson on her phone better compared to before. Denies any headache. Denies any lightheadedness or dizziness. Vital signs stable 02/09/22. Patient seen and examined. States that she feels better still has blurred vision. Denies any nausea or vomiting. Denies any lightheadedness or dizziness. Denies chest pain or shortness of breath. Vital signs stable Active Medications Generic Name Dose Route Start Last Admin Trade Name Freq PRN Reason Stop Dose Admin Acetaminophen 325 mg 02/04/22 18:32 02/04/22 21:55 Acetaminophen Tab 325 Mg Tab PO 325 mg Q4HR PRN Administration Fever and/ or Pain Hydrocodone Bitart/Acetaminophen 1 - 2 each 02/04/22 08:42 02/06/22 05:56 Hydrocodone/Apap 7.5-325mg 1 Each Tab PO 2 each Q4H PRN Administration Pain Benzocaine/Menthol 1 each 02/02/22 14:51 Benzocaine/Menthol Lozeng 1 Each Lozenge MUCOUS MEM Q4HR PRN Sore Throat Bisacodyl 10 mg 02/02/22 14:52 02/05/22 13:53 Bisacodyl 10 Mg Supp RECTAL 10 mg DAILY PRN Administration Constipation Calcium Carbonate/Glycine 500 mg 02/03/22 09:00 02/06/22 08:45 Calcium Carbonate 500 Mg Chewable PO 500 mg DAILY GAIL Administration Cyanocobalamin 2,000 mcg 02/03/22 09:00 02/06/22 08:45 Cyanocobalamin 500 Mcg Tab PO 2,000 mcg DAILY GAIL Administration Cyclobenzaprine HCl 5 mg 02/02/22 14:52 02/06/22 08:52 Cyclobenzaprine 5 Mg Tab PO 5 mg TID PRN Administration Muscle Spasm Dextrose/Water 25 ml 02/02/22 18:45 Dextrose 50% Syringe 50 Ml IVP PER PROTOCOL PRN Hypoglycemia Protocol Dextrose/Water 50 ml 02/02/22 18:45 Dextrose 50% Syringe 50 Ml IVP PER PROTOCOL PRN Hypoglycemia Protocol Famotidine 20 mg 02/07/22 09:00 Famotidine 20 Mg Tab PO Q24HR GAIL Hydromorphone HCl 0.5 mg 02/02/22 14:51 02/05/22 06:25 Hydromorphone 0.5 Mg/0.5 Ml Syringe IVP 0.5 mg Q4HR PRN Administration Pain Hydromorphone HCl 1 mg 02/02/22 14:51 02/04/22 07:24 Hydromorphone 1 Mg/Ml 1 Ml Syringe IVP 1 mg Q4HR PRN Administration Pain Sodium Chloride 1,000 mls @ 75 mls/hr 02/02/22 15:00 02/06/22 11:31 Saline 0.9% IV Not Given .[id number] GAIL Cefepime HCl 2 gm/ Sodium 100 mls @ 25 mls/hr 02/04/22 16:00 02/06/22 08:46 Chloride IVPB 25 mls/hr Q8HR GAIL Administration Protocol Vancomycin HCl 1,500 mg/ 250 mls @ 125 mls/hr 02/06/22 06:00 02/06/22 05:58 Sodium Chloride IVPB 125 mls/hr Q24H GAIL Administration Insulin Aspart 0 unit 02/02/22 21:00 02/06/22 08:35 Insulin Aspart (Novolog) 100 Unit/Ml Vial SQ Not Given ACHS GAIL Protocol Lactulose 30 gm 02/06/22 08:11 02/06/22 08:45 Lactulose 20 Gm/30 Ml Cup PO 30 gm BID PRN Administration Constipation Levothyroxine Sodium 137 mcg 02/03/22 06:30 02/06/22 05:57 Levothyroxine 137 Mcg Tab PO 137 mcg QAM@0630 GAIL Administration Magnesium Hydroxide 2,400 mg 02/02/22 14:52 02/05/22 08:22 Magnesium Hydroxide 2,400 Mg/10 Ml Cup PO 2,400 mg DAILY PRN Administration Constipation Metformin HCl 500 mg 02/02/22 21:00 02/05/22 20:34 Metformin 500 Mg Tab PO 500 mg HS GAIL Administration Metformin HCl 1,000 mg 02/03/22 09:00 02/06/22 08:45 Metformin 500 Mg Tab PO 1,000 mg QAM GAIL Administration Miscellaneous Information 1 each 02/05/22 09:28 Magnesium Replacement Protocol 1 Each Misc MISCELLANE DAILY PRN Per Protocol Protocol Multivitamins 1 each 02/03/22 09:00 02/06/22 08:45 Multivitamins, Thera 1 Each Tab PO 1 each DAILY GAIL Administration Mirabegron [ 25 mg 02/03/22 09:00 02/06/22 11:27 Myrbetriq] PO Not Given DAILY GAIL Ondansetron HCl 4 mg 02/02/22 14:52 02/02/22 23:32 Ondansetron 4 Mg/2 Ml Vial IVP 4 mg Q8HR PRN Administration Nausea And Vomiting Phenylephrine HCl 1 drops 02/06/22 12:00 Phenylephrine 2.5% Ophth Drp 2ml BOTH EYES 02/06/22 12:06 Q5M GAIL Senna/Docusate Sodium 1 each 02/03/22 09:00 02/06/22 08:45 Sennosides-Docusate Sodium 1 Each Tab PO 1 each DAILY GAIL Administration Senna/Docusate Sodium 2 each 02/02/22 14:52 02/05/22 15:18 Sennosides-Docusate Sodium 1 Each Tab PO 2 each DAILY PRN Administration Constipation Tropicamide 1 drops 02/06/22 12:00 Tropicamide 1% Ophth Drops 2 Ml Btl BOTH EYES 02/06/22 12:06 Q5M GAIL Valsartan 80 mg 02/03/22 09:00 02/06/22 08:45 Valsartan 80 Mg Tab PO 80 mg QAM GAIL Administration Objective - Vital Signs Vital signs: Vital Signs Temp 98.3 F 02/06/22 07:40 Pulse 98 02/06/22 07:40 Resp 17 02/06/22 07:40 BP 104/67 02/06/22 07:40 Pulse Ox 98 02/06/22 07:40 FiO2 Intake & Output 02/05/22 02/06/22 02/06/22 18:59 06:59 18:59 Output Total 1202 202 Balance -1202 -202 Output: Urine 1200 200 Stool 2 2 Other: Voiding Method External Catheter External Catheter Incontinent - Exam GENERAL: The patient is alert and oriented x3, not in any acute distress. Well developed, well nourished. HEENT: Pupils are round and equally reacting to light. EOMI. No scleral icterus. No conjunctival pallor. Normocephalic, atraumatic. No pharyngeal erythema. No thyromegaly. CARDIOVASCULAR: S1 and S2 present. No murmurs, rubs, or gallops. PULMONARY: Chest is clear to auscultation, no wheezing or crackles. ABDOMEN: Soft, nontender, nondistended, normoactive bowel sounds. No palpable organomegaly. -MUSCULOSKELETAL: No joint swelling or deformity. Surgical once the middle and lower back with dressing in place. Rest of exam is deferred to surgery team EXTREMITIES: No cyanosis, clubbing, or pedal edema. -NEUROLOGICAL: Gross neurological examination did not reveal any focal deficits. Bilateral leg weakness, mild. Sensation is intact. Cranial nerves are grossly intact. Patient complaining of from blurred vision or both eyes, no strabismus noted SKIN: No rashes. no petechiae. - Labs CBC & Chem 7: 02/06/22 07:38 02/06/22 07:38 Labs: Abnormal Lab Results - Last 24 Hours (Table) 02/05/22 02/05/22 02/05/22 Range/Units 06:35 16:15 20:30 POC Glucose (mg/dL) 188 H 127 H (70-110) mg/dL Procalcitonin 1.10 H (0.02-0.09) ng/mL 02/06/22 Range/Units 06:59 POC Glucose (mg/dL) 111 H (70-110) mg/dL Procalcitonin (0.02-0.09) ng/mL Microbiology - Last 24 Hours (Table) 02/04/22 16:00 Urine Culture - Final Urine,Voided 02/04/22 13:28 Blood Culture - Preliminary Blood No Growth after 24 hours Assessment and Plan Assessment: High-grade fever with leukocytosis. sepsis is suspected. Unknown source most likely surgical site infection is suspected, less likely UTI versus others. Consent blurred vision, rule out ophthalmic versus neurological causes. Also consider surgical sequelae Severe Thoracic myelopathy, severe thoracic spinal stenosis T9-10 and T10-11, T11-12, L2-3,s/p lateral decompression and fusion T9 to L4 with extension of fusion from prior L3 to S1 (On 02/02) Bilateral lower extremity weakness, inability to ambulate, secondary to above Lower extremity radiculopathy, back pain , secondary to above, improving postop fever, mild. Patient status post IV vancomycin 1 Diabetes mellitus type 2 Chronic kidney disease stage III Postoperative hypotension, mild and asymptomatic Plan: Continue prednisone 60 mg daily Resume Plavix Follow-up on neurology recommendations Follow up on orthopedic spinal surgery recommendations Continue with gentle hydration Continue with cefepime . ID team recommendation Continue with primary team surgical care on postop care unit monitoring hemoglobin Objective - Vital Signs Vital signs: Vital Signs Temp 97.6 F 02/09/22 08:00 Pulse 95 02/09/22 08:00 Resp 16 02/09/22 08:00 BP 119/73 02/09/22 08:00 Pulse Ox 94 L 02/09/22 02:00 FiO2 Intake & Output 02/08/22 02/09/22 02/09/22 18:59 06:59 18:59 Intake Total 990 1205 Output Total 605 700 450 Balance 385 505 -450 Weight 75.3 kg Intake: IV 750 Intake, IV Titration 725 Amount Cefepime 2 gm In Sodium 100 Chloride 0.9% 100 ml @ 25 mls/hr IVPB Q12HR GAIL Rx #:[id number] Sodium Chloride 0.9% 1, 525 000 ml @ 75 mls/hr IV . [id number] Rx#:[id number] methylPREDNISolone SOD 100 SUCCIN 250 mg In Sodium Chloride 0.9% 100 ml @ 100 mls/hr IVPB Q6H GAIL Rx#:[id number] Oral 240 480 Output: Urine 600 700 450 Estimated Blood Loss 5 Other: Voiding Method External Catheter External Catheter # Bowel Movements 1 - Labs CBC & Chem 7: 02/09/22 05:35 02/09/22 05:35 Labs: Abnormal Lab Results - Last 24 Hours (Table) 02/08/22 02/09/22 02/09/22 Range/Units 21:58 05:35 05:35 WBC (4.50-10.00) X 10*3/uL RBC (4.10-5.20) X 10*6/uL Hgb (12.0-15.0) g/dL Hct (37.2-46.3) % MCH (27.0-32.0) pg MCHC (32.0-37.0) g/dL RDW (11.5-14.5) % Plt Count (140-440) X 10*3/uL Absolute Nucleated RBC (0.00-0.00) X 10*3/uL Immature Gran # (0.00-0.04) X 10*3/uL Neutrophils # (1.80-7.70) X 10*3/uL Eosinophils # (0.04-0.35) X 10*3/uL NRBC/100 WBC Diff (0.0-0.0) /100 WBCS BUN 33 H (7-17) mg/dL Creatinine 1.12 H (0.52-1.04) mg/dL Glucose 148 H (74-99) mg/dL POC Glucose (mg/dL) 240 H (70-110) mg/dL Calcium 8.0 L (8.4-10.2) mg/dL C-Reactive Protein 5.6 H (<1.0) mg/dL Procalcitonin 0.31 H (0.02-0.09) ng/mL 02/09/22 02/09/22 02/09/22 Range/Units 05:35 07:06 11:26 WBC 14.23 H (4.50-10.00) X 10*3/uL RBC 2.76 L (4.10-5.20) X 10*6/uL Hgb 7.4 L (12.0-15.0) g/dL Hct 24.2 L (37.2-46.3) % MCH 26.8 L (27.0-32.0) pg MCHC 30.6 L (32.0-37.0) g/dL RDW 18.0 H (11.5-14.5) % Plt Count 452 H (140-440) X 10*3/uL Absolute Nucleated RBC 0.03 H (0.00-0.00) X 10*3/uL Immature Gran # 0.29 H (0.00-0.04) X 10*3/uL Neutrophils # 12.18 H (1.80-7.70) X 10*3/uL Eosinophils # 0 L (0.04-0.35) X 10*3/uL NRBC/100 WBC Diff 0.2 H (0.0-0.0) /100 WBCS BUN (7-17) mg/dL Creatinine (0.52-1.04) mg/dL Glucose (74-99) mg/dL POC Glucose (mg/dL) 207 H 160 H (70-110) mg/dL Calcium (8.4-10.2) mg/dL C-Reactive Protein (<1.0) mg/dL Procalcitonin (0.02-0.09) ng/mL Microbiology - Last 24 Hours (Table) 02/04/22 13:28 Blood Culture - Preliminary Blood No Growth after 96 hours
--- NOTE | 2022-02-09 13:00 | P.PN ---
Subjective Progress Note Date: 02/09/22 The patient is seen at bedside and feels her vision is about the same. She has been on IV Methyprednisolone 250mg every 6 hours. She is having visual hallucination. Denies any new focal weakness. She had left temporal artery biopsy on 02/08/2022. Objective - Vital Signs Vital signs: Vital Signs Temp 97.6 F 02/09/22 08:00 Pulse 95 02/09/22 08:00 Resp 16 02/09/22 08:00 BP 119/73 02/09/22 08:00 Pulse Ox 94 L 02/09/22 02:00 FiO2 Intake & Output 02/08/22 02/09/22 02/09/22 18:59 06:59 18:59 Intake Total 990 1205 Output Total 605 700 450 Balance 385 505 -450 Weight 75.3 kg Intake: IV 750 Intake, IV Titration 725 Amount Cefepime 2 gm In Sodium 100 Chloride 0.9% 100 ml @ 25 mls/hr IVPB Q12HR [facility] Rx #:[id number] Sodium Chloride 0.9% 1, 525 000 ml @ 75 mls/hr IV . [id number] [facility] Rx#:[id number] methylPREDNISolone SOD 100 SUCCIN 250 mg In Sodium Chloride 0.9% 100 ml @ 100 mls/hr IVPB Q6H [facility] Rx#:[id number] Oral 240 480 Output: Urine 600 700 450 Estimated Blood Loss 5 Other: Voiding Method External Catheter External Catheter # Bowel Movements 1 - Exam GENERAL: The patient is lying in bed and not in acute distress. NEUROLOGICAL: Higher mental function: The patient is awake, alert, oriented to self, place and time. Patient is following commands. No aphasia and no neglect. Cranial nerves: The pupils are round, equal, and right was reactive to light while left was hard to appreciate any light reactivity to sluggishly reactive to light on left. Visual hernández: had hard time assessing but seems intact lowers on the right only. Visual acuity is able to see letters on OD but for largest letter on top line of 20/200 stated F rather than E while line after that (20/100) stated L and H rather than L and T. While for OS could not see any letter and felt as if things look dark in appearance. Extraocular movement is intact no nystagmus is noted and intact accomodation. Facial sensation is normal to touch throughout. The facial strength is normal throughout. Tongue is midline and moved [id number] without any difficulty. No dysarthria is noted. Shoulder shrug is normal bilaterally. Motor: The strength is bilateral forearm extension is 4+ to 5-, foearm flexion is 5-. Otherwise uppers are 5/5. Right lower is 4- while left hip flexion is 3 while knee extension is 2-3. Bilateral ankles are 4+. Decrease tone over bilateral proximal. Cerebellum: Normal finger to nose bilaterally. Sensation: Sensation is normal to touch throughout. Reflexes: left brachioradialis is 3+, left biceps is 2-3+, otherwise uppers are 2+. Lowers are 1+. Plantars are mute bilaterally. SOME OF THE WORK-UP DURING THIS HOSPITAL VISIT CONSISTED OF: ESR:140-->120, C-reactive protein also elevated 29.7-->29.4. B12 1815, folate > 20.0 HbA1c: 6.7 TSH: 1.760 Coronavirus PCR: Not detected. Influenza A/B PCR: Not detected. Carotid Doppler showed antegrade flow in both vertebral arteries. Elevated velocity in the left internal carotid artery suggestive of more than 70% stenosis. Imaging in measurement suggest less than 50% stenosis in the right ICA. CT head showed no acute process. There is mild diffuse age-related cerebral atrophy and chronic small vessel ischemic change. MRI the brain is reported as no MRI evidence for recent infarct. Mild diffuse cerebral atrophy and chronic small vessel ischemic changes redemonstrated. Possible right greater than the left bilateral mastoiditis, correlate clinically. I personally reviewed the MRI and I agree there is no stroke that acute or subacute and there is no mass seen. MRI of the cervical spine is reported as postsurgical changes C3 to C7 level was stable and satisfactory alignment. - Labs CBC & Chem 7: 02/09/22 05:35 02/09/22 05:35 Labs: Abnormal Lab Results - Last 24 Hours (Table) 02/08/22 02/09/22 02/09/22 Range/Units 21:58 05:35 05:35 WBC (4.50-10.00) X 10*3/uL RBC (4.10-5.20) X 10*6/uL Hgb (12.0-15.0) g/dL Hct (37.2-46.3) % MCH (27.0-32.0) pg MCHC (32.0-37.0) g/dL RDW (11.5-14.5) % Plt Count (140-440) X 10*3/uL Absolute Nucleated RBC (0.00-0.00) X 10*3/uL Immature Gran # (0.00-0.04) X 10*3/uL Neutrophils # (1.80-7.70) X 10*3/uL Eosinophils # (0.04-0.35) X 10*3/uL NRBC/100 WBC Diff (0.0-0.0) /100 WBCS BUN 33 H (7-17) mg/dL Creatinine 1.12 H (0.52-1.04) mg/dL Glucose 148 H (74-99) mg/dL POC Glucose (mg/dL) 240 H (70-110) mg/dL Calcium 8.0 L (8.4-10.2) mg/dL C-Reactive Protein 5.6 H (<1.0) mg/dL Procalcitonin 0.31 H (0.02-0.09) ng/mL 02/09/22 02/09/22 02/09/22 Range/Units 05:35 07:06 11:26 WBC 14.23 H (4.50-10.00) X 10*3/uL RBC 2.76 L (4.10-5.20) X 10*6/uL Hgb 7.4 L (12.0-15.0) g/dL Hct 24.2 L (37.2-46.3) % MCH 26.8 L (27.0-32.0) pg MCHC 30.6 L (32.0-37.0) g/dL RDW 18.0 H (11.5-14.5) % Plt Count 452 H (140-440) X 10*3/uL Absolute Nucleated RBC 0.03 H (0.00-0.00) X 10*3/uL Immature Gran # 0.29 H (0.00-0.04) X 10*3/uL Neutrophils # 12.18 H (1.80-7.70) X 10*3/uL Eosinophils # 0 L (0.04-0.35) X 10*3/uL NRBC/100 WBC Diff 0.2 H (0.0-0.0) /100 WBCS BUN (7-17) mg/dL Creatinine (0.52-1.04) mg/dL Glucose (74-99) mg/dL POC Glucose (mg/dL) 207 H 160 H (70-110) mg/dL Calcium (8.4-10.2) mg/dL C-Reactive Protein (<1.0) mg/dL Procalcitonin (0.02-0.09) ng/mL Microbiology - Last 24 Hours (Table) 02/04/22 13:28 Blood Culture - Preliminary Blood No Growth after 96 hours Assessment and Plan Assessment: * New onset bilateral vision loss, without headache. Stated has been having peripheral vision loss for past 6 months but a day after thoracic surgery noticed black spots and blurry vision (suspected started on 02/03/2022) and had surgery that lasted about 6 hours. Ophthalmologic examination revealed bilateral disc edema, left worse than right. Has elevated ESR >140 and CRP (inflammatory markers are nonspecific and can be elevated due to associated with fever postop). 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 Rule out temporal arteritis (feel unlikely). * Left ICA stenosis >70% on carotid duplex. * Fever with leukocytosis: unknown source. Suspect surgical site infection. * History of back pain and thoracic myleopathy Status post T9-L4 open posterior lateral decompression and fusion with extension to retained hardware at L3-S1 on 02/02/2022 * History of cervical surgery * Inability to walk with significant Bilateral lower extremity hemiparesis with sensory loss (from waist down) prior to surgery on 02/02/2022 * Diabetes type 2 * Hypothyroidism * Polymyalgia * Hypertension * X tobacco use Plan: Per Dr. Barnard on Methylprednisolone 250 mg every 6 hours. Math Professor also concerned about hypoperfusion during surgery producing bilateral papilledema. I personally spoke with Dr. Perez (Ophthamologist) and he agreed that to stop Methyprednisolone IV and can be switched to Prednisone 60mg daily and if biopsy is negative for arteritis can be place on steroid tapering dose. Also she is having visual hallucination likely due to IV steroids. Ordered MRI Orbit w/ and w/o to assess if any enhancement. Ordered repeat ESR. Last fever (has lower grade) was on 02/05/2022 with leukocy tosis. I.D. is on board and feel reactive post-surgery. Patient is on Cefepime and will defer antibiotic management to I.D. team. For ICA stenosis: Vascular surgery is consulted and will have her follow-up as outpatient. Her ICA stenosis does not seem related to her current visual issues post-surgery. Continue aspirin. Orthopedic surgery team is on board. Will defer the rest of medical management to the primary team. The plan is discussed with the patient, Math Professor, Orthopedic P.A. (Judy calero) and I.D. team. Wilfrido Valenzuela M.D. Neuro-Hospitalist Time with Patient: Less than 30
--- NOTE | 2022-02-09 14:29 | CDI ---
Documentation Clarification Form Date: 02/09/2022 12:21:00 PM From: Fawn Lyons RN CCDS Admit Date: 02/02/2022 05:59:00 AM Patient Name: Laura Delatorre Visit Number: [id number] Discharge Date: ATTENTION: The Clinical Documentation Specialists (CDI) and [facility] Coding Staff appreciate your assistance in clarifying documentation. Please respond to the clarification below the line at the bottom and electronically sign. The CDI & [facility] Coding staff will review the response and follow-up if needed. Please note: Queries are made part of the Legal Health Record. If you have any questions, please contact the author of this message via ITS. Dr. Moose Gutierrez Sepsis is documented 02/05 & 02/08, Medicine progress notes which may lack sufficient clinical evidence/support in the medical record. Additional clarification is requested. History/Risk Factors: 76-year-old female presents to [facility] with leg weakness, thoracic myelopathy and back pain for an elective decompression and fusion. Medical History: DM, HTN, chronic back pain w/ previous laminectomy and decompression. Clinical Indicators: Medicine progress notes 02/05-02/08: High-grade fever with leukocytosis. Sepsis is suspected. Unknown source most likely surgical site infection is suspected, less likely UTI versus others. ID progress note 02/08 : This patient denies any worsening lower back pain and does not have any obvious focus of infection. blood cultures have been negative so far, chest x-ray was negative for any acute infiltrate the patient did have a negative COVID and Influenza PCR. Patient fever has been resolved and the patient cultures have been negative for any resistant pathogen we will discontinue Vancomycin to decrease risk of nephrotoxicity continue with Cefepime. Ortho Spine 02/08: Opti foam dressings are clean, dry, and intact over the lumbar spine and right iliac crest; no erythema, purulence, or signs of infection Postoperative drain remains intact and is removed during physical examination Dressing is reapplied over the surgical site of the drain placement LABS: 02/02 Wbc 12.7 02/04 Wbc 16.9 Blood Cultures: 02/04 No growth after 96 hours. Urine Culture: 02/04 No growth after 96 hours. VSS: 02/02 B/P 160/72; HR 84; Temp 97.F Temporal; RR 18; SpO2 95% RA VSS: 02/04 B/P 101/58; HR 129; Temp 103.0 F Oral; RR 16; SpO2 100% 2L NC Consults 02/06 Neurology and Fine [employer] Operator for blurred vision that is getting worse. 02/07 Vascular surgery for biopsy for temporal arteritis. Treatment: 02/04 Cefepime 2gm IVPB Q8HR changed 02/07 Q12HR; 02/03 - 02/05 Vancomycin 1,250mg IVPB Q24H; 02/06 Vancomycin 1,500mg IVPB Q24HR d/c 02/08. Based on the clinical evidence and your professional judgment, do you feel Sepsis is a valid diagnosis? [ ] Yes, Sepsis is present as evidence by (additional clinical support): - [ ] Yes, Sepsis is present as evidence by surgical site infection (additional clinical support): [ * ] No, Sepsis is ruled out [ ] Other (please specify diagnosis) [ ] Unable to determine (Template Last Revised: July 2020) MTDD
[2022-02-09] MEDS: LACTATED RINGERS 1,000 ML IV SCH (16:36)
--- NOTE | 2022-02-09 17:02 | MR ---
EXAMINATION TYPE: MR orbits wo/w con DATE OF EXAM: 02/09/2022 COMPARISON: MRI brain from [address] brain 3 days earlier. HISTORY: Visual Disturbance/ R/O optic neuritis. TECHNIQUE: Multiplanar, multisequence images of the brain and brainstem is performed without and with IV contras t, utilizing 7.5 mL intravenous Gadavist . Orbital protocol. FINDINGS: Globes are symmetric and within normal limits. Rectus muscles appear symmetric and within n ormal limits. Intraconal fat is preserved bilaterally. No abnormal enhancement of the optic nerves is identified. Suprasellar cistern is maintained. Optic chiasm is not effaced. The pituitary stalk show s normal enhancement in the midline. Midline structures redemonstrate normal morphology. The craniocervical junction remains within jesus l limits. Visualized paranasal sinuses remain clear. Hypoplastic bilateral frontal sinuses are redem onstrated IMPRESSION: No suspicious enhancement of the optic nerve. Unremarkable study.
[2022-02-09 17:43] LABS: Erythrocyte Sedimentation Rate 104 mm/Hr (0-30)
[2022-02-09 21:21] LABS: Glucose,Whole Blood 231 mg/dL (70-110)
[2022-02-10] MEDS: HYDROcodone/APAP 7.5-325MG 1 EACH TAB PO PRN ×4 (00:55→17:30)
[2022-02-10] MEDS: CYCLOBENZAPRINE 5 MG TAB PO PRN (05:22)
[2022-02-10] MEDS: LEVOTHYROXINE 137 MCG TAB PO SCH (05:43)
[2022-02-10 07:03] LABS: Glucose,Whole Blood 91 mg/dL (70-110)
[2022-02-10] MEDS: INSULIN ASPART (NovoLOG) 100 UNIT/ML VIAL SQ SCH ×2 (07:50→13:34)
--- NOTE | 2022-02-10 08:21 | P.PN ---
Progress Note - Text Progress Note Date: 02/10/22 Postoperative day #8 Patient is seen and examined today at bedside. She has been more spasms in her bilateral lower extremities. She feels strength has slightly improved from prior to her surgery but is remaining the same over the past few days. She has been able have bowel movements. She's not nauseous. She does not feel feverish. She does not feel her vision is improving. She was having visual hallucinations but says that she is not having any so far this morning. She feels she has significant spasm in her low back. Physical Exam Afebrile with stable vital signs Abdomen is soft nontender. Chest has good excursion deep and space expiration The incision site is clean dry and intact. No erythema there is no purulence. Extremities have some motion with dorsal flexion plantarflexion knee flexion and she is able to lift her legs gently off the bed for small movement time. Calves and thighs were soft nontender without evidence of DVT. She has had visual field assessment with ophthalmology. 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 She is unable to mobilize on her own and will require placement posthospitalization. She feels she is making some progress with her lower extremity strength but does not have sufficient strength to mobilize her stand up or transfer on her own. She will need full assist and rehab. She is having some spasms in her legs and like to see if we can monitor this with muscle relaxant. She has been having some visual hallucinations which may have been due to her high dose steroid. we're starting to wean the steroid as the biopsy further temporal arteritis does not show any active arteritis. The MRI of her orbits does not show any enhancement at the optic nerves. The funduscopic examination from ophthalmology showed swelling around the optic nerve which correlated with her vision changes and apparent diagnosis of ischemic optic neuritis the prognosis for her visual change is quite guarded. I explained that to her again today. She remains very pleasant and appears to understand the issues regarding her vision. We will try to increase her mobilization as we wean her steroid medication. We'll try to keep her pain under control and may add muscle relaxants. She does not have evidence of any sepsis and she has remained afebrile with a stable surgical site. We will start to try to make progress towards placement. From an orthopedic spine standpoint is okay for her to transfer to senior care or rehab when she is stable from the other medical services.
[2022-02-10] MEDS ORDERED: CYCLOBENZAPRINE 10 MG TAB PO PRN (08:24)
[2022-02-10] MEDS ORDERED: predniSONE 20 MG TAB PO SCH (09:00)
[2022-02-10] MEDS: SODIUM CHLORIDE 0.9% 1,000 ML IV SCH (09:38)
[2022-02-10] MEDS: MULTIVITAMINS, THERA 1 EACH TAB PO SCH (09:43)
[2022-02-10] MEDS: VALSARTAN 80 MG TAB PO SCH (09:43)
[2022-02-10] MEDS: FAMOTIDINE 20 MG TAB PO SCH (09:43)
[2022-02-10] MEDS: ASPIRIN 325 MG TAB PO SCH (09:45)
[2022-02-10] MEDS: SENNOSIDES-DOCUSATE SODIUM 1 EACH TAB PO SCH (09:46)
[2022-02-10] MEDS: CYANOCOBALAMIN 500 MCG TAB PO SCH (09:53)
[2022-02-10] MEDS: metFORMIN 500 MG TAB PO SCH (09:54)
[2022-02-10] MEDS: CALCIUM CARBONATE 500 MG CHEWABLE PO SCH (09:55)
[2022-02-10] MEDS: CEFEPIME 2 GM in SODIUM CHLORIDE 0.9% 100 ML IVPB SCH (10:09)
[2022-02-10 11:30] LABS: Glucose,Whole Blood 107 mg/dL (70-110)
--- NOTE | 2022-02-10 11:39 | P.PN ---
Subjective Progress Note Date: 02/10/22 The patient is seen at bedside and per the patient feels about the same and no change in her vision. She continues to be afebrile. Denies any further visual hallucination since stopping IV Steroids. Objective - Vital Signs Vital signs: Vital Signs Temp 97.8 F 02/10/22 08:00 Pulse 87 02/10/22 08:00 Resp 16 02/10/22 08:00 BP 128/57 02/10/22 08:00 Pulse Ox 96 02/10/22 08:00 FiO2 Intake & Output 02/09/22 02/10/22 02/10/22 18:59 06:59 18:59 Intake Total 1080 Output Total 1600 1125 Balance -1600 -45 Intake: Intake, IV Titration 600 Amount Sodium Chloride 0.9% 1, 600 000 ml @ 75 mls/hr IV . [id number] [facility] Rx#:[id number] Oral 480 Output: Urine 1600 1125 Other: Voiding Method Bedpan External Catheter Incontinent # Bowel Movements 2 - Exam GENERAL: The patient is lying in bed and not in acute distress. NEUROLOGICAL: Higher mental function: The patient is awake, alert, oriented to self, place and time. Patient is following commands. No aphasia and no neglect. Cranial nerves: The pupils are round, equal, and right was reactive to light while left was hard to appreciate any light reactivity to sluggishly reactive to light on left. Visual hernández: had hard time assessing but seems intact lowers on the right only. Visual acuity is able to see letters on OD but for largest letter on top line of 20/200 stated F rather than E while line after that (20/100) stated L and H rather than L and T. While for OS could not see any letter and felt as if things look dark in appearance. Extraocular movement is intact no nystagmus is noted and intact accomodation. Facial sensation is normal to touch throughout. The facial strength is normal throughout. Tongue is midline and moved [id number] without any difficulty. No dysarthria is noted. Shoulder shrug is normal bilaterally. Motor: The strength is bilateral forearm extension is 4+ to 5-, foearm flexion is 5-. Otherwise uppers are 5/5. Right lower is 4- while left hip flexion is 3 while knee extension is 2-3. Bilateral ankles are 4+. Decrease tone over bilateral proximal. Cerebellum: Normal finger to nose bilaterally. Sensation: Sensation is normal to touch throughout. Reflexes: left brachioradialis is 3+, left biceps is 2-3+, otherwise uppers are 2+. Lowers are 1+. Plantars are mute bilaterally. SOME OF THE WORK-UP DURING THIS HOSPITAL VISIT CONSISTED OF: ESR:140-->120-->104, C-reactive protein also elevated 29.7-->29.4-->5.6. B12 1815, folate > 20.0 HbA1c: 6.7 TSH: 1.760 Coronavirus PCR: Not detected. Influenza A/B PCR: Not detected. Carotid Doppler showed antegrade flow in both vertebral arteries. Elevated velocity in the left internal carotid artery suggestive of more than 70% stenosis. Imaging in measurement suggest less than 50% stenosis in the right ICA. CT head showed no acute process. There is mild diffuse age-related cerebral atrophy and chronic small vessel ischemic change. MRI the brain is reported as no MRI evidence for recent infarct. Mild diffuse cerebral atrophy and chronic small vessel ischemic changes redemonstrated. Possible right greater than the left bilateral mastoiditis, correlate clinically. I personally reviewed the MRI and I agree there is no stroke that acute or subacute and there is no mass seen. MRI of the cervical spine is reported as postsurgical changes C3 to C7 level was stable and satisfactory alignment. MRI Orbit w/ and w/o: No suspicious enhancement of the optic nerve. Unremarkable study. - Labs CBC & Chem 7: 02/09/22 05:35 02/09/22 05:35 Labs: Abnormal Lab Results - Last 24 Hours (Table) 02/09/22 02/09/22 Range/Units 05:35 21:19 ESR 104 H (0-30) mm/Hr POC Glucose (mg/dL) 231 H (70-110) mg/dL Microbiology - Last 24 Hours (Table) 02/04/22 13:28 Blood Culture - Preliminary Blood No Growth after 120 hours Assessment and Plan Assessment: * New onset bilateral vision loss, without headache. Stated has been having peripheral vision loss for past 6 months but a day after thoracic surgery noticed black spots and blurry vision (suspected started on 02/03/2022) and had surgery that lasted about 6 hours. Ophthalmologic examination revealed bilateral disc edema, left worse than right. Has elevated ESR >140 and CRP (inflammatory markers can be nonspecific and can be elevated due to associated with fever postop). 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 Negative for temporal arteritis on biopsy. * Left ICA stenosis >70% on carotid duplex. * Fever with leukocytosis: unknown source. Suspect surgical site infection. * History of back pain and thoracic myleopathy Status post T9-L4 open posterior lateral decompression and fusion with extension to retained hardware at L3-S1 on 02/02/2022 * History of cervical surgery * Inability to walk with significant Bilateral lower extremity hemiparesis with sensory loss (from waist down) prior to surgery on 02/02/2022 * Diabetes type 2 * Hypothyroidism * Polymyalgia * Hypertension * X tobacco use Plan: MRI Orbit w/ and w/o is negative for enhancement. MRI Brain and C-spine is negative for stroke. Currently on Prednisone 60mg daily. Left temporal biopsy is negative for active arteritis. I personally spoke with Dr. Perez (Staff Submarine Warfare Officer) via phone on 02/09/2022 and recommend if negative on biopsy for temporal arteritis then can p lace on tapering steroids. Last fever (has lower grade) was on 02/05/2022 with leukocytosis. I.D. is on board and feel reactive post-surgery. Her ESR and CRP are trending down. Patient is on Cefepime and will defer antibiotic management to I.D. team. For ICA stenosis: Vascular surgery is consulted and will have her follow-up as outpatient. Her ICA stenosis does not seem related to her current visual issues post-surgery. I spoke with Orthopedic surgery team, and MRI Thoracic will reveal a lot of artifact and so therefore will not pursue it. Continue aspirin. Orthopedic surgery team is on board. Will defer the rest of medical management to the primary team. The plan is discussed with the patient and primary team. No additional work-up is needed from neurological perspective. Wilfrido Valenzuela M.D. Neuro-Hospitalist Time with Patient: Less than 30
[2022-02-10] MEDS: Mirabegron [Myrbetriq] PO SCH (12:26)
[2022-02-10 13:30] VITALS: PULSE 67; RESP 14; TEMP 97.7
[2022-02-10 13:32] VITALS: BP 125/57
[2022-02-10] MEDS: LACTATED RINGERS 1,000 ML IV SCH (13:34)
--- NOTE | 2022-02-10 13:36 | P.PN ---
Subjective Progress Note Date: 02/10/22 This is a pleasant 76 years old female with past medical history of diabetes mellitus, hypertension, chronic kidney disease, hypothyroidism and back pain. She was admitted due to her leg weakness and thoracic myelopathy and back pain. She underwent decompression and fusion surgery to thoracic and lumbar spine T9 to L4 area at ID extension L3-S1. Postoperatively she was sitting in bed does not look in distress. She denies any chest pain or dyspnea. No abdominal pain or diarrhea. No vomiting. No fever or dizziness. She has Sanchez catheter in place with clear urine. Labs reviewed showing WBC 17,000, hemoglobin 8.9, sodium 133, creatinine at baseline of 1.1. Glucose controlled Heart rate is 116, fever 99.9, blood pressure 99/56. 02/04/2022 patient feels tired and in pain at the surgery site and the spine to hold back and she states has significant pain. Patient is stain intubate currently. Blood pressure is borderline however it's is stable. Patient developed high- grade fever at 103 today. Chest x-ray and urinalysis are not very impressive for infection, urine analysis slightly abnormal and urine culture is requested. Patient also suspected to have infection at the surgical site. She had low-grade fever yesterday and today has more fever. Also the drain is filled detention with bloody discharge when I saw her. Patient denies vomiting, no chest pain, no abdominal pain. Patient feels numb from waist down for the last 4 months (she feels the pain if it is there in the lower extremities, but currently no pain) Patient denies difficulty breathing but have often. No diarrhea, no rash. Her hemoglobin A1c is 6.7. She has the WBC of 16.9 and hemoglobin 7.9. We will increase her fluids to 125 mg of normal saline. Patient was started on cefepime, infectious disease consult and started on IV vancomycin with close monitoring of her labs and kidney function and other parameters. 02/05/2022 Clinically does not look much different than yesterday, she still complaining of from generalized weakness, she still complaining of from pain at the surgical site with orthopedic team keep following her and managing her post op care , her pain is separate into both legs, more on the left side. But she feels better with pain pills. She is eating better today. Her drain is more than yesterday. Sanchez catheter was discontinued and external catheter placed. Bladder scan was checked and patient has no evidence of retention when they are was checked. She still is slightly tachycardic, no more fever. Blood pressure start improving today 123/67. No significant dyspnea WBC is improving 14.9, hemoglobin dropped to 7.4, we'll keep monitoring her hemoglobin closely. Patient currently is not on blood thinner. Sodium is 137, creatinine stable at 1.1. Glucose controlled. Hemoglobin A1c is 6.7%. pro Calcitonin is elevated at 1.1. Patient is currently on cefepime and IV vancomycin and normal saline 1 25 mL/h. note; after round i was contacted by the bed side RN pt is complaining to primary surgical team about her blurred vission x 4 day, pt did not mention that to me, i informed the RN they need to call ophthalmology service to evaluate her blurred vission , it is on both eyes , pt wears reading glasses at home. 02/05/2022 Today patient is still lying in bed, she feels more comfortable with no back pain at rest but only when she moves which is bothering her. But patient is calm. Not in distress. Patient today states that her blurred vision is worse than yesterday. She is telling me it started 2 days ago. And first it is other right side of the right eye and the lower side of the left thigh and at the same time it is more blurry today, she denies any eye pain, no headache, no new weakness or numbness other than her chronic neurological deficits related to her spine disease. No neck pain or stiffness is noted also as well. She moves her eyes symmetrically in both directions. Ophthalmology team already has been consulted and I called Dr. Perez this morning and discussed the case with him and he kindly he will come and evaluate the patient Also we ordered CT SCAN of the brain to rule out ischemia vs other intracranial lesion , it shows no acute intracranial hemorrhage or midline shift. there is mild diffuse age related cerebral atrophy and chronic small vessel inschemic changes noted. Neurology service was consulted. The blood pressure is stable. Her tachycardia is improving and currently 98. She has low rate temperature today 100.7 which is improving. WBC improvement down to 11.3. Hemoglobin stable at 7.4. Sodium is 137. Creatinine 1.1. Glucose controlled. Chest currently on normal saline and lower rate to 75 mL/h with improvement of her blood pressure Patient is on cefepime and IV vancomycin 02/07/22 Patient seen and examined. Still has blurred vision. Denies any nausea, vomiting or abdominal pain. Denies any headache. Denied any fever or chills. Denies any chest pain or shortness of breath. Vital signs stable 02/08/22. Patient seen and examined. Patient underwent temporal artery biopsy today. States her vision is slightly improved compared to yesterday, was able to see the picture of her grandson on her phone better compared to before. Denies any headache. Denies any lightheadedness or dizziness. Vital signs stable 02/09/22. Patient seen and examined. States that she feels better still has blurred vision. Denies any nausea or vomiting. Denies any lightheadedness or dizziness. Denies chest pain or shortness of breath. Vital signs stable 02/10/22 Patient seen and examined. States she feels the same as yesterday. No further episodes of hallucinations. States blurred vision remains the same MRI the brain is reported as no evidence for recent infarct. Mild diffuse cerebral atrophy and chronic small vessel ischemic changes redemonstrated. MRI of the cervical spine is reported as postsurgical changes C3 to C7 level was stable and satisfactory alignment. MRI Orbit w/ and w/o: No suspicious enhancement of the optic nerve. Unremarkable study. Active Medications Generic Name Dose Route Start Last Admin Trade Name Freq PRN Reason Stop Dose Admin Acetaminophen 325 mg 02/04/22 18:32 02/04/22 21:55 Acetaminophen Tab 325 Mg Tab PO 325 mg Q4HR PRN Administration Fever and/ or Pain Hydrocodone Bitart/Acetaminophen 1 - 2 each 02/04/22 08:42 02/06/22 05:56 Hydrocodone/Apap 7.5-325mg 1 Each Tab PO 2 each Q4H PRN Administration Pain Benzocaine/Menthol 1 each 02/02/22 14:51 Benzocaine/Menthol Lozeng 1 Each Lozenge MUCOUS MEM Q4HR PRN Sore Throat Bisacodyl 10 mg 02/02/22 14:52 02/05/22 13:53 Bisacodyl 10 Mg Supp RECTAL 10 mg DAILY PRN Administration Constipation Calcium Carbonate/Glycine 500 mg 02/03/22 09:00 02/06/22 08:45 Calcium Carbonate 500 Mg Chewable PO 500 mg DAILY GAIL Administration Cyanocobalamin 2,000 mcg 02/03/22 09:00 02/06/22 08:45 Cyanocobalamin 500 Mcg Tab PO 2,000 mcg DAILY GAIL Administration Cyclobenzaprine HCl 5 mg 02/02/22 14:52 02/06/22 08:52 Cyclobenzaprine 5 Mg Tab PO 5 mg TID PRN Administration Muscle Spasm Dextrose/Water 25 ml 02/02/22 18:45 Dextrose 50% Syringe 50 Ml IVP PER PROTOCOL PRN Hypoglycemia Protocol Dextrose/Water 50 ml 02/02/22 18:45 Dextrose 50% Syringe 50 Ml IVP PER PROTOCOL PRN Hypoglycemia Protocol Famotidine 20 mg 02/07/22 09:00 Famotidine 20 Mg Tab PO Q24HR GAIL Hydromorphone HCl 0.5 mg 02/02/22 14:51 02/05/22 06:25 Hydromorphone 0.5 Mg/0.5 Ml Syringe IVP 0.5 mg Q4HR PRN Administration Pain Hydromorphone HCl 1 mg 02/02/22 14:51 02/04/22 07:24 Hydromorphone 1 Mg/Ml 1 Ml Syringe IVP 1 mg Q4HR PRN Administration Pain Sodium Chloride 1,000 mls @ 75 mls/hr 02/02/22 15:00 02/06/22 11:31 Saline 0.9% IV Not Given .[id number] GAIL Cefepime HCl 2 gm/ Sodium 100 mls @ 25 mls/hr 02/04/22 16:00 02/06/22 08:46 Chloride IVPB 25 mls/hr Q8HR GAIL Administration Protocol Vancomycin HCl 1,500 mg/ 250 mls @ 125 mls/hr 02/06/22 06:00 02/06/22 05:58 Sodium Chloride IVPB 125 mls/hr Q24H GAIL Administration Insulin Aspart 0 unit 02/02/22 21:00 02/06/22 08:35 Insulin Aspart (Novolog) 100 Unit/Ml Vial SQ Not Given ACHS [facility] Protocol Lactulose 30 gm 02/06/22 08:11 02/06/22 08:45 Lactulose 20 Gm/30 Ml Cup PO 30 gm BID PRN Administration Constipation Levothyroxine Sodium 137 mcg 02/03/22 06:30 02/06/22 05:57 Levothyroxine 137 Mcg Tab PO 137 mcg QAM@0630 GAIL Administration Magnesium Hydroxide 2,400 mg 02/02/22 14:52 02/05/22 08:22 Magnesium Hydroxide 2,400 Mg/10 Ml Cup PO 2,400 mg DAILY PRN Administration Constipation Metformin HCl 500 mg 02/02/22 21:00 02/05/22 20:34 Metformin 500 Mg Tab PO 500 mg HS GAIL Administration Metformin HCl 1,000 mg 02/03/22 09:00 02/06/22 08:45 Metformin 500 Mg Tab PO 1,000 mg QAM GAIL Administration Miscellaneous Information 1 each 02/05/22 09:28 Magnesium Replacement Protocol 1 Each Misc MISCELLANE DAILY PRN Per Protocol Protocol Multivitamins 1 each 02/03/22 09:00 02/06/22 08:45 Multivitamins, Thera 1 Each Tab PO 1 each DAILY GAIL Administration Mirabegron [ 25 mg 02/03/22 09:00 02/06/22 11:27 Myrbetriq] PO Not Given DAILY GAIL Ondansetron HCl 4 mg 02/02/22 14:52 02/02/22 23:32 Ondansetron 4 Mg/2 Ml Vial IVP 4 mg Q8HR PRN Administration Nausea And Vomiting Phenylephrine HCl 1 drops 02/06/22 12:00 Phenylephrine 2.5% Ophth Drp 2ml BOTH EYES 02/06/22 12:06 Q5M GAIL Senna/Docusate Sodium 1 each 02/03/22 09:00 02/06/22 08:45 Sennosides-Docusate Sodium 1 Each Tab PO 1 each DAILY GAIL Administration Senna/Docusate Sodium 2 each 02/02/22 14:52 02/05/22 15:18 Sennosides-Docusate Sodium 1 Each Tab PO 2 each DAILY PRN Administration Constipation Tropicamide 1 drops 02/06/22 12:00 Tropicamide 1% Ophth Drops 2 Ml Btl BOTH EYES 02/06/22 12:06 Q5M GAIL Valsartan 80 mg 02/03/22 09:00 02/06/22 08:45 Valsartan 80 Mg Tab PO 80 mg QAM GAIL Administration Objective - Vital Signs Vital signs: Vital Signs Temp 98.3 F 02/06/22 07:40 Pulse 98 02/06/22 07:40 Resp 17 02/06/22 07:40 BP 104/67 02/06/22 07:40 Pulse Ox 98 02/06/22 07:40 FiO2 Intake & Output 02/05/22 02/06/22 02/06/22 18:59 06:59 18:59 Output Total 1202 202 Balance -1202 -202 Output: Urine 1200 200 Stool 2 2 Other: Voiding Method External Catheter External Catheter Incontinent - Exam GENERAL: The patient is alert and oriented x3, not in any acute distress. Well developed, well nourished. HEENT: Pupils are round and equally reacting to light. EOMI. No scleral icterus. No conjunctival pallor. Normocephalic, atraumatic. No pharyngeal erythema. No thyromegaly. CARDIOVASCULAR: S1 and S2 present. No murmurs, rubs, or gallops. PULMONARY: Chest is clear to auscultation, no wheezing or crackles. ABDOMEN: Soft, nontender, nondistended, normoactive bowel sounds. No palpable organomegaly. -MUSCULOSKELETAL: No joint swelling or deformity. Surgical once the middle and lower back with dressing in place. Rest of exam is deferred to surgery team EXTREMITIES: No cyanosis, clubbing, or pedal edema. -NEUROLOGICAL: Gross neurological examination did not reveal any focal deficits. Bilateral leg weakness, mild. Sensation is intact. Cranial nerves are grossly intact. Patient complaining of from blurred vision or both eyes, no strabismus noted SKIN: No rashes. no petechiae. - Labs CBC & Chem 7: 02/06/22 07:38 02/06/22 07:38 Labs: Abnormal Lab Results - Last 24 Hours (Table) 02/05/22 02/05/22 02/05/22 Range/Units 06:35 16:15 20:30 POC Glucose (mg/dL) 188 H 127 H (70-110) mg/dL Procalcitonin 1.10 H (0.02-0.09) ng/mL 02/06/22 Range/Units 06:59 POC Glucose (mg/dL) 111 H (70-110) mg/dL Procalcitonin (0.02-0.09) ng/mL Microbiology - Last 24 Hours (Table) 02/04/22 16:00 Urine Culture - Final Urine,Voided 02/04/22 13:28 Blood Culture - Preliminary Blood No Growth after 24 hours Assessment and Plan Assessment: High-grade fever with leukocytosis. sepsis is suspected. Unknown source most likely surgical site infection is suspected, less likely UTI versus others. Consent blurred vision, rule out ophthalmic versus neurological causes. Also consider surgical sequelae Severe Thoracic myelopathy, severe thoracic spinal stenosis T9-10 and T10-11, T11-12, L2-3,s/p lateral decompression and fusion T9 to L4 with extension of fusion from prior L3 to S1 (On 02/02) Bilateral lower extremity weakness, inability to ambulate, secondary to above Lower extremity radiculopathy, back pain , secondary to above, improving postop fever, mild. Patient status post IV vancomycin 1 Diabetes mellitus type 2 Chronic kidney disease stage III Postoperative hypotension, mild and asymptomatic Plan: Left temporal artery biopsy is negative for arteritis Continue prednisone 60 mg daily, steroids can be tapered per neurology Continue Plavix Follow-up on neurology recommendations Follow up on orthopedic spinal surgery recommendations Continue with cefepime . ID team recommendation Objective - Vital Signs Vital signs: Vital Signs Temp 97.7 F 02/10/22 13:30 Pulse 67 02/10/22 13:30 Resp 14 02/10/22 13:30 BP 125/57 02/10/22 13:30 Pulse Ox 99 02/10/22 13:30 FiO2 Intake & Output 02/09/22 02/10/22 02/10/22 18:59 06:59 18:59 Intake Total 1080 Output Total 1600 1125 Balance -1600 -45 Intake: Intake, IV Titration 600 Amount Sodium Chloride 0.9% 1, 600 000 ml @ 75 mls/hr IV . [id number] [facility] Rx#:[id number] Oral 480 Output: Urine 1600 1125 Other: Voiding Method Bedpan External Catheter Incontinent # Bowel Movements 2 - Labs CBC & Chem 7: 02/09/22 05:35 02/09/22 05:35 Labs: Abnormal Lab Results - Last 24 Hours (Table) 02/09/22 02/09/22 Range/Units 05:35 21:19 ESR 104 H (0-30) mm/Hr POC Glucose (mg/dL) 231 H (70-110) mg/dL Microbiology - Last 24 Hours (Table) 02/04/22 13:28 Blood Culture - Preliminary Blood No Growth after 120 hours
--- NOTE | 2022-02-10 14:31 | P.DS ---
Providers Date of admission: 02/02/22 05:59 Expected date of discharge: 02/10/22 Attending physician: El Gomez Consults: 02/02/22 14:52 Consult Physician Routine Consulting Provider: Lawanda Caupto Consult Reason/Comments: medical management Do you want consulting provider notified?: Yes 02/04/22 13:33 Consult Physician Urgent Consulting Provider: Tresa Martinez Consult Reason/Comments: post op fever Do you want consulting provider notified?: Yes 02/05/22 11:31 Consult Physician Routine Consulting Provider: [facility] Consult Reason/Comments: blurry vision. Dr. Gurdeep Perez Do you want consulting provider notified?: Yes 02/06/22 08:22 Consult Physician Urgent Consulting Provider: Feliz Barnard Consult Reason/Comments: blurred vission , rule out heminopia Do you want consulting provider notified?: Yes 02/06/22 10:18 Consult Physician Stat Consulting Provider: Tima Perez Consult Reason/Comments: perioperative vision changes after spine surgery Do you want consulting provider notified?: Yes Primary care physician: Kellee Mclaughlin - Discharge Diagnosis(es) (1) History of lumbar spinal fusion The patient had a significant history of thoracic myelopathy and spinal cord damage with lower extremity weakness and was unable to ambulate. She has been through extensive workup and preoperative management over to prepare her for the proposed surgery. We felt that surgical decompression for her severe stenosis at her thoracic and lumbar spine could help with her neurologic function in her pain. The patient was medically optimized and underwent her procedure as per her operative note. Postoperatively the patient initially was making good progress and has continued to make some improvement with her strength at her lower extremities from a spine surgery perspective. However postoperatively she also developed significant visual changes and vision loss. She's had significant workup and treatment and evaluation for this. 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 This is rare but known complication and I discussed this with the patient at length. We had discussed the different risks, occasions alternatives and benefits operatively. We had significant evaluation with neurology as well as ophthalmology throughout the postoperative period to rule out other possibilities. It is likely that her visual changes are permanent but may have some improvement over time. I discussed this with her at length. We will continue to monitor this long-term. The patient did have some small elevated temperatures and abnormal labs however she was not found to have evidence of sepsis. Her fevers has resolved. She will require specific placement posthospitalization for continued rehab as she continues to have significant weakness and inability to ambulate. Require significant care for her mobility and will need further training with her new vision loss. We discussed this with her and I think that she is okay for discharge to residential. Status: Acute (2) Myelopathy Status: Acute (3) S/P laminectomy Status: Acute Hospital Course: The patient is a 76 y/o female who is states post open decompression fusion T8 through L4 with extension of her prior fusion from L3 to S1 on 02/02/2022. The patient has been doing ok after surgery but is moving slow. She requires skilled rehab placement for additional therapy. On the day of discharge, she is afebrile with stable vital signs. Abdomen is soft nontender. Chest has good excursion deep and space expiration. The incision site is clean dry and intact. No erythema there is no purulence. Extr emities have some motion with dorsal flexion plantarflexion knee flexion and she is able to lift her legs gently off the bed for small movement time. Calves and thighs were soft nontender without evidence of DVT. The patient is orthopedically stable for discharge to skilled rehab today. See medication rec for final list of medications. Pertinent Studies: Laboratory Tests 02/09/22 05:35 WBC 14.23 H RBC 2.76 L Hgb 7.4 L Hct 24.2 L Patient Condition at Discharge: Stable Plan - Discharge Summary Discharge Rx Participant: Yes New Discharge Prescriptions: New cefUROXime axetiL [Ceftin] 500 mg PO BID 10 Days #5 tab Aspirin 325 mg PO DAILY tab HYDROcodone/APAP 7.5-325MG [[place] 7.5-325] 1 - 2 tab PO Q4-6H PRN #32 tab PRN Reason: Pain Cyclobenzaprine [Flexeril] 10 mg PO TID PRN #30 tab PRN Reason: Muscle Spasm predniSONE 50 mg PO DAILY #30 tab Continue metFORMIN HCL [Glucophage] 1,000 mg PO QAM Glucosamine Sulfate 2,000 mg PO DAILY Valsartan/Hydrochlorothiazide [Valsartan-Hctz 160-25 mg Tab] 0.5 tab PO QAM metFORMIN HCL 500 mg PO HS Biotin [Biotin Disolve] 1,000 mcg PO DAILY Baclofen 10 mg PO TID Mirabegron [Myrbetriq] 25 mg PO DAILY Levothyroxine Sodium 137 mcg PO QAM Ubidecarenone [Co Q-10] 100 mg PO DAILY Cyanocobalamin (Vitamin B-12) [Vitamin B-12] 2,000 mcg PO DAILY Calcium Carbonate [Calcium] 600 mg PO DAILY Multivitamin [Multivitamins Adult Gummies] 1 tab PO DAILY Discharge Medication List metFORMIN HCL [Glucophage] 1,000 mg PO QAM 03/09/20 [History] Cyanocobalamin (Vitamin B-12) [Vitamin B-12] 2,000 mcg PO DAILY 09/28/21 [History] Glucosamine Sulfate 2,000 mg PO DAILY 09/28/21 [History] Levothyroxine Sodium 137 mcg PO QAM 09/28/21 [History] Mirabegron [Myrbetriq] 25 mg PO DAILY 09/28/21 [History] Ubidecarenone [Co Q-10] 100 mg PO DAILY 09/28/21 [History] Valsartan/Hydrochlorothiazide [Valsartan-Hctz 160-25 mg Tab] 0.5 tab PO QAM 09/28/21 [History] Baclofen 10 mg PO TID 01/27/22 [History] Biotin [Biotin Disolve] 1,000 mcg PO DAILY 01/27/22 [History] Calcium Carbonate [Calcium] 600 mg PO DAILY 01/27/22 [History] metFORMIN HCL 500 mg PO HS 01/27/22 [History] Multivitamin [Multivitamins Adult Gummies] 1 tab PO DAILY 02/01/22 [History] Aspirin 325 mg PO DAILY tab 02/10/22 [Rx] Cyclobenzaprine [Flexeril] 10 mg PO TID PRN #30 tab 02/10/22 [Rx] HYDROcodone/APAP 7.5-325MG [[place] 7.5-325] 1 - 2 tab PO Q4-6H PRN #32 tab 02/10/22 [Rx] cefUROXime axetiL [Ceftin] 500 mg PO BID 10 Days #5 tab 02/10/22 [Rx] predniSONE 50 mg PO DAILY #30 tab 02/10/22 [Rx] Follow up Appointment(s)/Referral(s): Kong Esparza DO [STAFF PHYSICIAN] - 2 Weeks Nestor Orta PAC [PHYSICIAN POST PRODUCTION ASSISTANT] - 2 Weeks (Patient may follow-up with Nestor Orta PA-C or Dr. Raffi Gomez at [facility] in 2-3 weeks following discharge. ) oZe hurst [place], [NON-STAFF] - As Needed Activity/Diet/Wound Care/Special Instructions: 1. Patient may shower with Optifoam dressing intact. 2. Patient may remove Optifoam dressing in 3 days and shower without a dressing at that time. 3. Patient should refrain from driving until at least after their first follow- up appointment in the office. 4. Patient should avoid excessive bending, twisting, lifting; avoid overhead lifting; no lifting greater than 10 pounds 5. She is encouraged to utilize wheelchair, walker, or other walking aid as needed to aid in ambulation 6. Take medications as prescribed 7. Patient should avoid anti-inflammatory medications over the next 6 weeks postoperatively 8. Do not soak in tub Discharge Disposition: TRANSFER TO SNF/ECF
[2022-02-10 16:59] LABS: Glucose,Whole Blood 185 mg/dL (70-110)
--- NOTE | 2022-02-11 12:16 | CDI ---
Documentation Clarification Form Date: 02/11/2022 11:46:06 AM From: Layla Keller Phone: Admit Date: 02/02/2022 05:59:00 AM Patient Name: Laura Delatorre Visit Number: [id number] Discharge Date: 02/10/2022 06:24:00 PM ATTENTION: The Clinical Documentation Specialists (CDI) and [facility] Coding Staff appreciate your assistance in clarifying documentation. Please respond to the clarification below the line at the bottom and electronically sign. The CDI & [facility] Coding staff will review the response and follow-up if needed. Please note: Queries are made part of the Legal Health Record. If you have any questions, please contact the author of this message via ITS. Dr. El Gomez Unspecified anemia is documented per Dr. Aly Gomez Progress Note 02/09. Additional specificity regarding the type of anemia is requested. History/Risk Factors: 76yo F, severe Thoracic myelopathy with stenosis T9-L1, L2-3, with recurrent stenosis L1-L2, Hx spinal fusion L3 to S1 with retained hardware, prior laminectomy decompression T12-L2, BLE radiculopathy, DMII w CKD III, Hx low iron Clinical indicators: sp T9-L4 open posterior lateral decompression and fusion 02/04/22 02/06/22 02/09/22 Hemoglobin: 8.9 7.4 7.4 Hematocrit: 27.8 L 25.7 L 24.2 L Treatment: Approximately 500 mL, with 150 given back through [employer]. Monitor closely Please clarify the type and acuity of anemia: [ x ] Acute blood loss anemia [ ] Iron deficiency anemia [x ] Anemia of chronic kidney disease [ ] Unable to determine [ ] Other, please specify (Template Last Revised: June 2020) The patient has anemia due to chronic disease but also had significant bone loss with 500 mL in surgery which further contributed to anemia for acute blood loss anemia as well. MTDD
--- NOTE | 2022-02-17 21:50 | P.PN ---
Subjective Progress Note Date: 02/09/22 Principal diagnosis: Postop fever Patient is a 76 year old female electively admitted to the hospital for lateral decompression fusion T9-L4 with extension of the fusion from prior L3 to S1 in this patient did have a postop fever. The patient is status post left temporal artery biopsy completed on 02/08/2022 On today's evaluation that is 02/09/2022 the patient remains to be afebrile, the patient is breathing comfortably on nasal cannula oxygen , the patient denies any chest pain or shortness of breath, the patient denies significant or sputum production cough no abdominal pain and diarrhea Objective - Vital Signs Vital signs: Vital Signs Temp 97.6 F 02/09/22 08:00 Pulse 95 02/09/22 08:00 Resp 16 02/09/22 08:00 BP 119/73 02/09/22 08:00 Pulse Ox 94 L 02/09/22 02:00 FiO2 Intake & Output 02/08/22 02/09/22 02/09/22 18:59 06:59 18:59 Intake Total 990 1205 Output Total 605 700 450 Balance 385 505 -450 Weight 75.3 kg Intake: IV 750 Intake, IV Titration 725 Amount Cefepime 2 gm In Sodium 100 Chloride 0.9% 100 ml @ 25 mls/hr IVPB Q12HR GAIL Rx #:[id number] Sodium Chloride 0.9% 1, 525 000 ml @ 75 mls/hr IV . [id number] GAIL Rx#:[id number] methylPREDNISolone SOD 100 SUCCIN 250 mg In Sodium Chloride 0.9% 100 ml @ 100 mls/hr IVPB Q6H GAIL Rx#:[id number] Oral 240 480 Output: Urine 600 700 450 Estimated Blood Loss 5 Other: Voiding Method External Catheter External Catheter # Bowel Movements 1 - Exam GENERAL DESCRIPTION: An elderly female lying in bed in no distress RESPIRATORY SYSTEM: Unlabored breathing , decreased breath sounds at bases HEART: S1 S2 regular rate and rhythm , ABDOMEN: Soft , no tenderness EXTREMITIES: No edema feet - Labs CBC & Chem 7: 02/09/22 05:35 02/09/22 05:35 Labs: Abnormal Lab Results - Last 24 Hours (Table) 02/08/22 02/09/22 02/09/22 Range/Units 21:58 05:35 05:35 WBC (4.50-10.00) X 10*3/uL RBC (4.10-5.20) X 10*6/uL Hgb (12.0-15.0) g/dL Hct (37.2-46.3) % MCH (27.0-32.0) pg MCHC (32.0-37.0) g/dL RDW (11.5-14.5) % Plt Count (140-440) X 10*3/uL Absolute Nucleated RBC (0.00-0.00) X 10*3/uL Immature Gran # (0.00-0.04) X 10*3/uL Neutrophils # (1.80-7.70) X 10*3/uL Eosinophils # (0.04-0.35) X 10*3/uL NRBC/100 WBC Diff (0.0-0.0) /100 WBCS BUN 33 H (7-17) mg/dL Creatinine 1.12 H (0.52-1.04) mg/dL Glucose 148 H (74-99) mg/dL POC Glucose (mg/dL) 240 H (70-110) mg/dL Calcium 8.0 L (8.4-10.2) mg/dL C-Reactive Protein 5.6 H (<1.0) mg/dL Procalcitonin 0.31 H (0.02-0.09) ng/mL 02/09/22 02/09/22 02/09/22 Range/Units 05:35 07:06 11:26 WBC 14.23 H (4.50-10.00) X 10*3/uL RBC 2.76 L (4.10-5.20) X 10*6/uL Hgb 7.4 L (12.0-15.0) g/dL Hct 24.2 L (37.2-46.3) % MCH 26.8 L (27.0-32.0) pg MCHC 30.6 L (32.0-37.0) g/dL RDW 18.0 H (11.5-14.5) % Plt Count 452 H (140-440) X 10*3/uL Absolute Nucleated RBC 0.03 H (0.00-0.00) X 10*3/uL Immature Gran # 0.29 H (0.00-0.04) X 10*3/uL Neutrophils # 12.18 H (1.80-7.70) X 10*3/uL Eosinophils # 0 L (0.04-0.35) X 10*3/uL NRBC/100 WBC Diff 0.2 H (0.0-0.0) /100 WBCS BUN (7-17) mg/dL Creatinine (0.52-1.04) mg/dL Glucose (74-99) mg/dL POC Glucose (mg/dL) 207 H 160 H (70-110) mg/dL Calcium (8.4-10.2) mg/dL C-Reactive Protein (<1.0) mg/dL Procalcitonin (0.02-0.09) ng/mL Microbiology - Last 24 Hours (Table) 02/04/22 13:28 Blood Culture - Preliminary Blood No Growth after 96 hours Assessment and Plan (1) Fever Status: Acute Code(s): R50.9 - FEVER, UNSPECIFIED SNOMED Code(s): 535044705 Plan: 1patient with a postop fever and this patient likely will hospital for posterior leg central decompression and fusion T9-L4 with extension of the fusion from prior L3-S1 in this patient denies any worsening lower back pain and do not have any obvious focus of infection 2-blood cultures have been negative so far, chest x-ray was negative for any acute infiltrate the patient did have a negative COVID and influenza PCR 3-patient fever has resolved and the patient cultures has been negative for any resistant pathogen, patient to continue with the cefepime and monitor clinical course closely Time with Patient: Less than 30
--- NOTE | 2022-02-17 21:52 | P.PN ---
Subjective Progress Note Date: 02/10/22 Principal diagnosis: Postop fever Patient is a 76 year old female electively admitted to the hospital for lateral decompression fusion T9-L4 with extension of the fusion from prior L3 to S1 in this patient did have a postop fever. The patient is status post left temporal artery biopsy completed on 02/08/2022 On today's evaluation that is 02/10/2022 the patient continues to be afebrile, the patient is breathing comfortably on nasal cannula oxygen , the patient denie s any chest pain or shortness of breath, the patient denies significant cough or sputum production, denies abdominal pain and diarrhea Objective - Vital Signs Vital signs: Vital Signs Temp 97.7 F 02/10/22 13:30 Pulse 67 02/10/22 13:30 Resp 14 02/10/22 13:30 BP 125/57 02/10/22 13:30 Pulse Ox 99 02/10/22 13:30 FiO2 Intake & Output 02/09/22 02/10/22 02/10/22 18:59 06:59 18:59 Intake Total 1080 Output Total 1600 1125 Balance -1600 -45 Intake: Intake, IV Titration 600 Amount Sodium Chloride 0.9% 1, 600 000 ml @ 75 mls/hr IV . [id number] GAIL Rx#:[id number] Oral 480 Output: Urine 1600 1125 Other: Voiding Method Bedpan External Catheter Incontinent # Bowel Movements 2 - Exam GENERAL DESCRIPTION: An elderly female lying in bed in no distress RESPIRATORY SYSTEM: Unlabored breathing , decreased breath sounds at bases HEART: S1 S2 regular rate and rhythm , ABDOMEN: Soft , no tenderness EXTREMITIES: No edema feet - Labs CBC & Chem 7: 02/09/22 05:35 02/09/22 05:35 Labs: Abnormal Lab Results - Last 24 Hours (Table) 02/09/22 02/09/22 Range/Units 05:35 21:19 ESR 104 H (0-30) mm/Hr POC Glucose (mg/dL) 231 H (70-110) mg/dL Microbiology - Last 24 Hours (Table) 02/04/22 13:28 Blood Culture - Preliminary Blood No Growth after 120 hours Assessment and Plan (1) Fever Status: Acute Code(s): R50.9 - FEVER, UNSPECIFIED SNOMED Code(s): 225822406 Plan: 1patient with a postop fever and this patient likely will hospital for posterior leg central decompression and fusion T9-L4 with extension of the fusion from prior L3-S1 in this patient denies any worsening lower back pain and do not have any obvious focus of infection 2-blood cultures have been negative so far, chest x-ray was negative for any acute infiltrate the patient did have a negative COVID and influenza PCR 3-patient fever has resolved and the patient cultures has been negative for any resistant pathogen, will consider short course of oral Ceftin on discharge and close outpatient follow-up Time with Patient: Less than 30
--- NOTE | 2022-02-23 06:56 | P.OP ---
Date of Procedure: 02/08/22 Preoperative Diagnosis: bilateral vision loss possible temporal arteritis Postoperative Diagnosis: same Procedure(s) Performed: left temporal artery biopsy Anesthesia: QUENTIN Surgeon: Kong Esparza Estimated Blood Loss (ml): 5 Pathology: other (left temporal artery) Condition: stable Disposition: PACU Indications for Procedure: 76 year old female presented to the hospital with bilateral vision loss with left worst than the right. Patient was evaluated by neurology and had elevated lab work concerning for temporal arteritis and therefore she presents today for left temporal artery biopsy. Description of Procedure: After written and informed consent and all risks, benefits and complications were described the patient was brought to the operative suite and laid in a supine position. The area of the left forehead was prepped and draped in the u sual fashion. Antibiotics were administered prior to incision. A timeout was performed in usual fashion. A small incision at the hairline just above the left ear was created over the pulse of the temporal artery with a 15 blade scalpel and dissection was carried down with electrocautery to the temporal artery. The artery was dissected in a circumferential manner and approximately 2cm was dissected and ligated with 3-0 silk suture. The artery was then sent off for pathology. The area was irrigated, hemostasis was ensured and the incision was closed in a multi-layer fashion. The skin was then cleansed and dressed with glue. The patient tolerated the procedure well and was sent to PACU for recovery.
== END 2022-02-10 18:24 | DRG 457 ==
LOC: 2ORMAIN 02-02 05:59 → 4SSUR 02-02 15:17
PROVIDERS: ADMIT Orthopaedic Surgery Orthopaedic Surgery of the Spine; ATTEND Orthopaedic Surgery Orthopaedic Surgery of the Spine
PROC: 0SG1071 Fusion of 2 or more Lumbar Vertebral Joints with Autologous Tissue Substitute, Posterior Approach, Posterior Column, Open Approach (ICD-10-PCS; 2022-02-02)
PROC: 01N80ZZ Release Thoracic Nerve, Open Approach (ICD-10-PCS; 2022-02-02)
PROC: 01NB0ZZ Release Lumbar Nerve, Open Approach (ICD-10-PCS; 2022-02-02)
PROC: 0RGA071 Fusion of Thoracolumbar Vertebral Joint with Autologous Tissue Substitute, Posterior Approach, Posterior Column, Open Approach (ICD-10-PCS; 2022-02-02)
PROC: 0SG3071 Fusion of Lumbosacral Joint with Autologous Tissue Substitute, Posterior Approach, Posterior Column, Open Approach (ICD-10-PCS; 2022-02-02)
PROC: 0QP004Z Removal of Internal Fixation Device from Lumbar Vertebra, Open Approach (ICD-10-PCS; 2022-02-02)
PROC: 30243N0 Transfusion of Autologous Red Blood Cells into Central Vein, Percutaneous Approach (ICD-10-PCS; 2022-02-02)
PROC: 0RG7071 Fusion of 2 to 7 Thoracic Vertebral Joints with Autologous Tissue Substitute, Posterior Approach, Posterior Column, Open Approach (ICD-10-PCS; principal; 2022-02-02 08:00)
PROC: 03BT0ZX Excision of Left Temporal Artery, Open Approach, Diagnostic (ICD-10-PCS; 2022-02-08)
DX: M48.04 Spinal stenosis, thoracic region (principal); D62 Acute posthemorrhagic anemia; G95.89 Other specified diseases of spinal cord; H47.10 Unspecified papilledema; H46.9 Unspecified optic neuritis; E11.36 Type 2 diabetes mellitus with diabetic cataract; E11.22 Type 2 diabetes mellitus with diabetic chronic kidney disease; N18.30 Chronic kidney disease, stage 3 unspecified; E03.9 Hypothyroidism, unspecified; I12.9 Hypertensive chronic kidney disease with stage 1 through stage 4 chronic kidney disease, or unspecified chronic kidney disease; I65.23 Occlusion and stenosis of bilateral carotid arteries; M35.3 Polymyalgia rheumatica; G31.9 Degenerative disease of nervous system, unspecified; H70.93 Unspecified mastoiditis, bilateral; M54.16 Radiculopathy, lumbar region; T85.898A Other specified complication of other internal prosthetic devices, implants and grafts, initial encounter; Y79.1 Therapeutic (nonsurgical) and rehabilitative orthopedic devices associated with adverse incidents; M48.05 Spinal stenosis, thoracolumbar region; H53.8 Other visual disturbances; D63.1 Anemia in chronic kidney disease; R09.89 Other specified symptoms and signs involving the circulatory and respiratory systems; M19.90 Unspecified osteoarthritis, unspecified site; H91.91 Unspecified hearing loss, right ear; N32.81 Overactive bladder; G89.29 Other chronic pain; M25.512 Pain in left shoulder; M25.511 Pain in right shoulder; H47.013 Ischemic optic neuropathy, bilateral; M48.061 Spinal stenosis, lumbar region without neurogenic claudication; K59.00 Constipation, unspecified; R26.2 Difficulty in walking, not elsewhere classified; R70.0 Elevated erythrocyte sedimentation rate; E78.5 Hyperlipidemia, unspecified; R00.0 Tachycardia, unspecified; R44.1 Visual hallucinations; I95.9 Hypotension, unspecified; R79.82 Elevated C-reactive protein (CRP); R53.1 Weakness; F40.240 Claustrophobia; Z20.822 Contact with and (suspected) exposure to COVID-19; Z96.651 Presence of right artificial knee joint; Z87.891 Personal history of nicotine dependence; Z98.1 Arthrodesis status; Z79.84 Long term (current) use of oral hypoglycemic drugs; Z79.899 Other long term (current) drug therapy; Z79.82 Long term (current) use of aspirin; Z87.81 Personal history of (healed) traumatic fracture; Z80.49 Family history of malignant neoplasm of other genital organs; Z82.5 Family history of asthma and other chronic lower respiratory diseases; Z82.49 Family history of ischemic heart disease and other diseases of the circulatory system; Z82.0 Family history of epilepsy and other diseases of the nervous system
CPT/HCPCS: 36410; 70450; 70543; 70551; 71045; 72080; 72141; 76937; 80048; 80061; 80076; 80202; 81001; 82565; 82607; 82746; 83036; 83735; 84145; 84443; 85025; 85045; 85652; 86140; 86850; 86900; 86901; 87040; 87086; 87502; 87635; 88305; 93880

== ENCOUNTER → 2022-01-24 | Outpatient (CLI) | payer MEDICARE, BC ==
[2022-01-24 18:21] LABS: Basophils # (A) 0.12 X 10*3/uL (0.00-0.10); Eosinophils # (A) 0.09 X 10*3/uL (0.04-0.35); Eosinophils % (A) 0.8 %; HCT 34.8 % (37.2-46.3); HGB 10.8 g/dL (12.0-15.0); Immature Grans, Automated 0.3 %; Lymphocytes % (A) 13.9 %; Mean Platelet Volume 10.5 fL (9.5-12.2); Monocytes # (A) 0.78 X 10*3/uL (0.20-1.00); Monocytes % (A) 6.8 %; NRBC Per 100 WBC 0 /100 WBCS (0.0-0.0); Neutrophils # (A) 8.92 X 10*3/uL (1.80-7.70); Neutrophils % (A) 77.2 %; Platelet Count 400 X 10*3/uL (140-440); RDW 16.1 % (11.5-14.5); WBC 11.55 X 10*3/uL (4.50-10.00)
[2022-01-24 19:16] LABS: Appearance,Urine Cloudy (Clear); Bilirubin,Urine Small (Negative); Blood,Urine Negative (Negative); Color,Urine Dark Yellow (Yellow); Ketones,Urine Trace mg/dL (Negative); Nitrite,Urine Positive (Negative); Specific Gravity,Urine 1.023 (1.001-1.030); Urobilinogen,Urine 0.2 (0.2,1.0)
[2022-01-24 22:18] LABS: Bacteria,Urine 4+ /HPF (None Seen); Calcium Oxalate Crystals,Urine Present /LPF (None Seen)
== END | disposition home or self-care (01) ==
LOC: LABPAT 11:10
PROVIDERS: ATTEND Orthopaedic Surgery Orthopaedic Surgery of the Spine
DX: Z01.812 Encounter for preprocedural laboratory examination (principal); M48.08 Spinal stenosis, sacral and sacrococcygeal region
CPT/HCPCS: 81001; 85025; 85730; 87070

== ENCOUNTER → 2022-01-24 | Outpatient (CLI) | payer MEDICARE, BC ==
[2022-01-24 18:56] LABS: % Iron Saturation 5.88 (12.00-45.00); African American GFR (CKD) 52.6 (60.0-200.0); BUN/Creat Ratio 12.97 Ratio (12.00-20.00); Blood Urea Nitrogen 15.3 mg/dL (9.0-27.0); Carbon Dioxide 22.5 mmol/L (20.0-27.5); Magnesium 2.1 mg/dL (1.5-2.4); Non-African American GFR(CKD) 45.4 (60.0-200.0); Potassium 4.6 mmol/L (3.5-5.5); Uric Acid 7.1 mg/dL (2.9-7.7)
[2022-01-24 19:25] LABS: Albumin 4.2 g/dL (3.8-4.9); Ferritin 20.3 ng/mL (10.0-291.0)
== END | disposition home or self-care (01) ==
LOC: LABWHC1 11:13
PROVIDERS: ATTEND Internal Medicine Nephrology
DX: E55.9 Vitamin D deficiency, unspecified (principal); D64.9 Anemia, unspecified; N25.81 Secondary hyperparathyroidism of renal origin; M10.9 Gout, unspecified; N39.0 Urinary tract infection, site not specified; N18.32 Chronic kidney disease, stage 3b
CPT/HCPCS: 36415; 80048; 82040; 82043; 82306; 82570; 82728; 83540; 83550; 83735; 83970; 84100; 84550

== ENCOUNTER 2022-03-29 10:14 | Emergency (ER) | payer MEDICARE, BC ==
[2022-03-29 10:34] VITALS: PULSE 100
--- NOTE | 2022-03-29 11:43 | XR ---
EXAMINATION TYPE: XR KUB DATE OF EXAM: 03/29/2022 COMPARISON: 04/23/2011 HISTORY: Pain, constipation severe hemorrhoids TECHNIQUE: AP abdomen supine view FINDINGS: Mild fecal debris is in the descending colon. Nonspecific bowel gas is present within the r ight lower quadrant. Colonic bowel gas in small bowel air is present. A fecal boluses at the rectum. There are postsurgical changes with pedicle screws and fixation rods through the thoracolumbar spine to the sacrum. Psoas margins are normal. Again a megaly is not evident. Renal calcifications are not identified. IMPRESSION: 1. Nonspecific abdomen.
--- NOTE | 2022-03-29 13:02 | ED ---
Abdominal Pain HPI - General Chief Complaint: Abdominal Pain Stated Complaint: constipation Time Seen by Provider: 03/29/22 12:05 Source: patient, RN notes reviewed Mode of arrival: ambulatory Limitations: no limitations - History of Present Illness Initial Comments: Patient is a 76 year old female who presents to the ER with a chief complaint of abdominal pain. She reports her last bowel movement was about 4 to 5 days ago. She has been passing liquid stool in very small amounts. She states she is unable to have a bowel movement due to the pain associated with her hemorrhoids. She endorses bright red blood during defecation due to hemorrhoids. Her pain is localized to the right lower abdomen and she describes it as an achy pain with occasional sharp pains. She recently underwent back surgery in early January and is no longer on any form of controlled pain medication. She admits to right oophrectomoy due to ovarian torsion years ago. Denies headache, fevers, nighsweats, chills, melena, or dysuria. - Related Data Home Medications Medication Instructions Recorded Confirmed metFORMIN HCL [Glucophage] 1,000 mg PO QAM 03/09/20 02/02/22 Cyanocobalamin (Vitamin B-12) 2,000 mcg PO DAILY 09/28/21 02/02/22 [Vitamin B-12] Glucosamine Sulfate 2,000 mg PO DAILY 09/28/21 02/02/22 Levothyroxine Sodium 137 mcg PO QAM 09/28/21 02/02/22 Mirabegron [Myrbetriq] 25 mg PO DAILY 09/28/21 02/02/22 Ubidecarenone [Co Q-10] 100 mg PO DAILY 09/28/21 02/02/22 Valsartan/Hydrochlorothiazide 0.5 tab PO QAM 09/28/21 02/02/22 [Valsartan-Hctz 160-25 mg Tab] Baclofen 10 mg PO TID 01/27/22 02/02/22 Biotin [Biotin Disolve] 1,000 mcg PO DAILY 01/27/22 02/02/22 Calcium Carbonate [Calcium] 600 mg PO DAILY 01/27/22 02/02/22 metFORMIN HCL 500 mg PO HS 01/27/22 02/02/22 Multivitamin [Multivitamins Adult 1 tab PO DAILY 02/01/22 02/02/22 Gummies] Previous Rx's Medication Instructions Recorded Aspirin 325 mg PO DAILY tab 02/10/22 Cyclobenzaprine [Flexeril] 10 mg PO TID PRN #30 tab 02/10/22 HYDROcodone/APAP 7.5-325MG [Dryden 1 - 2 tab PO Q4-6H PRN #32 tab 02/10/22 7.5-325] cefUROXime axetiL [Ceftin] 500 mg PO BID 10 Days #5 tab 02/10/22 predniSONE 50 mg PO DAILY #30 tab 02/10/22 bisacodyL [Dulcolax] 5 mg PO DAILY #10 tab 03/29/22 Allergies Allergy/AdvReac Type Severity Reaction Status Date / Time terbinafine HCl Allergy Rash/Hives Verified 03/29/22 10:34 [From Lamisil] atorvastatin AdvReac Severe Weakness, Verified 03/29/22 10:34 nausea, vomiting pravastatin AdvReac Severe Weakness, Verified 03/29/22 10:34 nausea, vomiting lisinopril AdvReac Cough Verified 03/29/22 10:34 Review of Systems ROS Statement: Those systems with pertinent positive or pertinent negative responses have been documented in the HPI. ROS Other: All systems not noted in ROS Statement are negative. Past Medical History Past Medical History: Blood Disorder, Diabetes Mellitus, Hypertension, Osteoarthritis (OA), Thyroid Disorder Additional Past Medical History / Comment(s): HEARING LOSS RT EAR, MINOR. TINNITUS CHRONIC BACK PAIN, HOWARD SHOULDER PAIN W/ LIMITATIONS. OVERACTIVE BLADDER. LOW IRON. History of Any Multi-Drug Resistant Organisms: None Reported Past Surgical History: Joint Replacement Additional Past Surgical History / Comment(s): TOTAL KNEE RIGHT KNEE, CERVICAL FUSION, THYROID SURGERY, laminectomy and decompression L3 4, L4 5 and L5-S1 Past Anesthesia/Blood Transfusion Reactions: No Reported Reaction Past Psychological History: No Psychological Hx Reported Smoking Status: Former smoker Past Alcohol Use History: None Reported Past Drug Use History: None Reported - Past Family History Sister(s) Family Medical History: Cancer Additional Family Medical History / Comment(s): Patient had 1 sister that from uterine cancer. Father Additional Family Medical History / Comment(s): Father at age 47 from motor vehicle accident. Mother Additional Family Medical History / Comment(s): Mother in her 80s from heart failure and emphysema. Patient does not have any brothers. Patient has one son that had a brain tumor at age 7 but otherwise no major medical problems. Patient is one daughter with no major medical problems. General Exam Limitations: no limitations General appearance: alert, in no apparent distress Head exam: Present: atraumatic, normocephalic, normal inspection Eye exam: Present: normal appearance, PERRL, EOMI. Absent: scleral icterus, conjunctival injection, periorbital swelling ENT exam: Present: normal exam, mucous membranes moist Neck exam: Present: normal inspection. Absent: tenderness, meningismus, lymphadenopathy Respiratory exam: Present: normal lung sounds bilaterally. Absent: respiratory distress, wheezes, rales, rhonchi, stridor Cardiovascular Exam: Present: regular rate, normal rhythm, normal heart sounds. Absent: systolic murmur, diastolic murmur, rubs, gallop, clicks GI/Abdominal exam: Present: soft, normal bowel sounds Rectal exam: Present: hemorrhoids Extremities exam: Present: normal inspection, full ROM, normal capillary refill. Absent: tenderness, pedal edema, joint swelling, calf tenderness Back exam: Present: normal inspection Neurological exam: Present: alert, oriented X3, CN II-XII intact Psychiatric exam: Present: normal affect, normal mood Skin exam: Present: warm, dry, normal color. Absent: intact (stage 1 pressure ulcer noted near coccyx ), rash Course Vital Signs 03/29/22 10:31 Temperature 98.6 F Pulse Rate 100 Respiratory 20 Rate Blood Pressure 125/77 O2 Sat by Pulse 96 Oximetry Medical Decision Making - Medical Decision Making 76 to presented for constipation. Patient does have mild constipation x-ray patient did have enema stools soft. She complained of hemorrhoid pain which she's been ongoing she was given lidocaine jelly. Patient will be discharged in stable condition return parameters discussed. Disposition Clinical Impression: Constipation, Hemorrhoids Disposition: HOME SELF-CARE Condition: Stable Instructions (If sedation given, give patient instructions): Constipation (ED) Additional Instructions: Please return to the Emergency Department if symptoms worsen or any other concerns. Prescriptions: bisacodyL [Dulcolax] 5 mg PO DAILY #10 tab Is patient prescribed a controlled substance at d/c from ED?: No Referrals: Nestor Alegre MD [Primary Care Provider] - 1-2 days Time of Disposition: 13:19
[2022-03-29] MEDS ORDERED: LIDOCAINE-PRILOCAINE 2.5-2.5% CREAM 5 GM TUBE TOPICAL STA (13:11)
[2022-03-29 17:45] VITALS: BP 114/63; RESP 18; TEMP 98
== END 2022-03-29 14:30 | disposition home or self-care (01) ==
LOC: EC 10:14
DX: K59.00 Constipation, unspecified (principal); K64.9 Unspecified hemorrhoids; E11.9 Type 2 diabetes mellitus without complications; I10 Essential (primary) hypertension; M19.90 Unspecified osteoarthritis, unspecified site; E07.9 Disorder of thyroid, unspecified; Z87.891 Personal history of nicotine dependence; Z79.84 Long term (current) use of oral hypoglycemic drugs; Z79.810 Long term (current) use of selective estrogen receptor modulators (SERMs); Z79.899 Other long term (current) drug therapy; Z88.5 Allergy status to narcotic agent; Z88.8 Allergy status to other drugs, medicaments and biological substances
CPT/HCPCS: 74018; 99284

== ENCOUNTER → 2022-04-07 | Outpatient (CLI) | payer MEDICARE, BC ==
[2022-04-07 18:24] LABS: Basophils # (A) 0.13 X 10*3/uL (0.00-0.10); Basophils % (A) 1.5 %; Eosinophils # (A) 0.22 X 10*3/uL (0.04-0.35); Eosinophils % (A) 2.5 %; HCT 38.9 % (37.2-46.3); HGB 12.3 g/dL (12.0-15.0); Immature Grans, Automated 0.5 %; Lymphocytes # (A) 1.53 X 10*3/uL (0.90-5.00); Lymphocytes % (A) 17.5 %; MCH 27.5 pg (27.0-32.0); MCHC 31.6 g/dL (32.0-37.0); MCV 86.8 fL (80.0-97.0); Mean Platelet Volume 9.8 fL (9.5-12.2); Monocytes # (A) 0.66 X 10*3/uL (0.20-1.00); Monocytes % (A) 7.6 %; NRBC Per 100 WBC 0 /100 WBCS (0.0-0.0); Neutrophils # (A) 6.14 X 10*3/uL (1.80-7.70); Neutrophils % (A) 70.4 %; Platelet Count 459 X 10*3/uL (140-440); RBC 4.48 X 10*6/uL (4.10-5.20); RDW 17.6 % (11.5-14.5); WBC 8.72 X 10*3/uL (4.50-10.00)
[2022-04-07 19:20] LABS: % Iron Saturation 13.01 (12.00-45.00); African American GFR (CKD) 52.6 (60.0-200.0); Anion Gap 18.5 mmol/L (10.00-18.00); BUN/Creat Ratio 11.95 Ratio (12.00-20.00); Blood Urea Nitrogen 14.1 mg/dL (9.0-27.0); Calcium 10.3 mg/dL (8.7-10.3); Carbon Dioxide 19.8 mmol/L (20.0-27.5); Magnesium 1.6 mg/dL (1.5-2.4); Non-African American GFR(CKD) 45.4 (60.0-200.0); Phosphorus 3.7 mg/dL (2.4-5.1); Potassium 4.1 mmol/L (3.5-5.5)
[2022-04-07 19:30] LABS: Albumin 4.1 g/dL (3.8-4.9)
== END | disposition home or self-care (01) ==
LOC: LABWHC1 10:20
PROVIDERS: ATTEND Internal Medicine Hematology & Oncology
DX: D60.9 Acquired pure red cell aplasia, unspecified (principal); D72.829 Elevated white blood cell count, unspecified; E11.9 Type 2 diabetes mellitus without complications; M12.9 Arthropathy, unspecified; N18.32 Chronic kidney disease, stage 3b; E55.9 Vitamin D deficiency, unspecified; N25.81 Secondary hyperparathyroidism of renal origin; M10.9 Gout, unspecified; N39.0 Urinary tract infection, site not specified; D64.9 Anemia, unspecified; R80.9 Proteinuria, unspecified
CPT/HCPCS: 36415; 80048; 82040; 82306; 82728; 83540; 83550; 83735; 83970; 84100; 84550; 85025

== ENCOUNTER → 2023-04-06 | Outpatient (CLI) | payer MEDICARE, BC ==
--- NOTE | 2023-04-06 14:23 | BD ---
EXAMINATION TYPE: Axial Bone Density DATE OF EXAM: 04/06/2023 CLINICAL HISTORY: 77 years old Female. ICD-10 CODE: Z78.0 post menopausal Height: 61in Weight: 145lb FRAX RISK QUESTIONS: History of Fracture in Adulthood: yes Secondary Osteoporosis: 3. Menopause before 45: yes RISK FACTORS HISTORY OF: Surgery to Spine/Hip(right/left)/Wrist (right/left): cervical and lumbar fusions When: 2007, 2016, 2021 Active: no Postmenopausal woman: yes Lost more than 2 inches in height since high school: yes MEDICATIONS: Thyroid Medications: Which medication: Levothyroxine How Lon+years Additional Medications: bp med, diabetic med, calcium with vitamin d Additional History: tib/fib fx 2021, diabetic EXAM MEASUREMENTS: Bone mineral densitometry was performed using the [facility]. Bone mineral density about the R hip (g/cm2): 0.682 Bone mineral density about the L hip (g/cm2): 0.654 T Score values are as follows: -----R Neck: -2.8 -----L Neck: -2.4 -----R Total: -2.6 -----L Total: -2.8 Z Score values are as follows: -----R Neck: -0.9 -----L Neck: -0.5 -----R Total: -0.8 -----L Total: -1.0 Bone mineral density has: Decreased -13.5% since study of: 11-10-2020 FRAX%s: The graph provided illustrates a 28.9% chance for a major osteoporotic fx and a 10.2% chance for the hips probability for fx in 10 years time. IMPRESSION: Osteoporosis (T Score less than -2.5). There is increased fracture risk and therapy is usually indicated based on age. Re-Screen 1-2 years. NOTE: T-SCORE=SD OF THE YOUNG ADULT MEAN.
--- NOTE | 2023-04-10 06:36 | MM ---
Reason for Exam: Screening (asymptomatic). Last mammogram was performed 2 year(s) and 5 month(s) ago. Patient History: Menarche at age 14. First Full-Term at age 28. Right ovary removed at age 28. Postmenopausal. Risk Values: Margie 5 year model risk: 2.0%. NCI Lifetime model risk: 4.2%. Prior Study Comparison: 12/21/2017 Bilateral Screening Mammogram, [facility]. 06/13/2019 Bilateral Screening Mammogram, [facility]. 11/10/2020 Bilateral Screening Mammogram, [facility]. Tissue Density: The breast tissue is heterogeneously dense. This may lower the sensitivity of mammography. Findings: Analyzed By CAD. A few bilateral benign secretory, vascular, and gliosis calcifications remain unchanged. There is no suspicious group of microcalcifications or new suspicious mass in either breast. Overall Assessment: Benign, BI-RAD 2 Management: Screening Mammogram of both breasts in 1 year. . Patient should continue monthly self-breast exams. A clinical breast exam by your physician is recommended on an annual basis. This exam should not preclude additional follow-up of suspicious palpable abnormalities. Note on Margie scores and lifetime risk: 1. A Margie score greater than 3% is considered moderate risk. If this is the case, consider specialist referral to assess eligibility for a risk reducing agent. 2. If overall lifetime risk for the development of breast cancer is 20% or higher, the patient may qualify for future screening with alternating mammogram and breast MRI. Electronically signed and approved by: Juan De Los Santos M.D. Radiologist
== END | disposition home or self-care (01) ==
LOC: RADMAMWWP 13:23
PROVIDERS: ATTEND Family Medicine
DX: Z12.31 Encounter for screening mammogram for malignant neoplasm of breast (principal); M81.0 Age-related osteoporosis without current pathological fracture; Z78.0 Asymptomatic menopausal state
CPT/HCPCS: 77063; 77067; 77080